=== PATIENT | male | born 1950 | race Caucasian/White ===

== ENCOUNTER 2020-07-27 14:28 | Inpatient (IN) | payer MEDICARE, OTHER ==
[~2020-07-27] VITALS: Ht 165.1 cm; Wt 110.5 kg
[~2020-07-27 14:28] MED LIST: ACETAMINOPHEN 325 MG TABLET PO PRN; ALPRAZolam 0.25 MG (XANAX) TAB PO PRN; AMLO-250 PO; ASPI-1238 PO; ATOR80TA76 PO; BISACODYL 10 MG SUPP (DULCOLAX) PR PRN; CALCIUM CARBONATE 500 MG (TUMS) TAB.CHEW PO PRN; CYCL5TAB PO; DOCU100C37 PO; DOCUSATE SODIUM 100 MG (COLACE) CAP PO PRN; DULA0.75 SQ; FLEET ENEMA ADULT 1 EA BTL PR PRN; GBPN600T PO; HYDR25TA4 PO; LACTULOSE SYRUP 10GM/15ML (ENULOSE) 30ML UDC PO PRN; LOPERAMIDE 2 MG (IMODIUM) TABLET PO PRN; LOSA100T57 PO; MELATONIN 3 MG TABLET PO PRN; METF-399 PO; ONDANSETRON 4 MG (ZOFRAN) ORAL DISSOLVE TAB PO PRN; OXYC1TAB11 PO; diphenhydrAMINE 25 MG TAB (BENADRYL) PO PRN; guaiFENesin/CODEINE (ROBITUSSIN AC) 10ML UDC PO PRN
[2020-07-27 14:30] VITALS: BP 154/73
--- NOTE | 2020-07-27 15:03 | Progress Note ---
BRAEDEN COSTA MED STUDENT 07/27/20 1503: Progress Note Pt is a 70y/o M PMH: Spinal stenosis with neurogenic claudication, T2DM, HTN, HLD, normocytic anemia who presents to [facility] in-pt rehab from [place] s/p decompressive lumbar laminectomy L2-L3 with pedicile screw, deloris fixation, and posterior lateral fusion, and TLIF w/ extension of previous L3-L5 hardware performed by Dr. Cavanaugh. Pts PCP is Dr. Ian Nava. Pts goal of rehab is to get back home with Home Health and get back to mowing, cooking and doing laundry. Apon visit this afternoon, pt fully alert and oriented. Pt states his progress at [place] after the surgery was uneventful. His main concern currently is his LLE weakness and loss of sensation. Pt states he required anesthesia for an MRI 2 weeks ago and the symptoms started after this - this is his main concern because it impeads his progress with phsical therapy. Pt states the sxs have gotten progressively better since two weeks ago. Apon examination today, pt had b/l symmetric L4-S1 dermatome sensation to light touch. Pt states back is sore, but that he tolerates it well with pain medication and it continues to improve. ROS: pt neg for Chest pain, SOB, cough, night sweats, dizziness, N/Ving, abd pain, calf pain. ALLERGIES: PCN SH: neg hx of ETOH, tobacco use, or rec drug use. FH: mother: passed from lung ca (heavy smoker), CVD. Father: CVD disease. PSH: prior cervical and lumbrical spinal surgeries. A&P s/p Lumbar laminectomy L2-L3 and TLIF w/ extension of previous L3-L5 hardware LLE weakness Spondylosis Performed due to Spinal stenosis with neurogenic claudication. Source of pts debidity. PT/OT IS Speech therapy Consult SS. GOAL: Return to baseline function before sx. Discharge home with Home Health. Normocytic anemia Hx of hypokalemia during [place] post-op stay. Per pt: known chronic hx of anemia. 07/26 labs from [place]: H&H is 8.7/.6 Likely multifactorial: to surgical blood loss and anemia of chronic disease. Iron studies ordered during pts post-op [place] stay (results?) CBC and CMP NIDDM HTN HLP Obesity Sleep apnea Neuropathy SSI Home Cpap. Home Meds s/p COVID-19 PNA Hospitalized . Received convalescent plasma and inpt stay for several days. Pt reports no residual sxs. Hx of lumbar radiculopathy Polyp on vocal cord Hx of cervical spine sx DVT prophylaxis SCD and ambulation. JENNIFER RAMOS DO 07/27/202007: Supervisory-Addendum Brief Verification & Attestation Participated in pt care: history, MDM, physical Personally performed: exam, history, MDM, supervision of care Care discussed with: Medical Student Procedures: n/a Results interpretation: Verified all documentation Verification and Attestation of Medical Student E/M Service A medical student performed and documented this service in my presence. I reviewed and verified all information documented by the medical student and made modifications to such information, when appropriate. I personally performed the physical exam and medical decision making. Jennifer Ramos, Jul 27, 2020,20:08 BRAEDEN COSTA MED STUDENT Jul 27, 2020 15:03 JENNIFER RAMOS DO Jul 27, 2020 20:08
--- NOTE | 2020-07-27 15:13 | PM&R Post Admission Assessment ---
PM&R HP Date of Visit: Jul 27, 2020 Time of Visit: 17:00 History of Present Illness CC: Lumbar radiculopathy with severe debility following surgery HPI: This is a 70yoWM clinic patient of Dr Nava who presents following a successful urgent surgery of the lumbar spine due to radiculopathy. Patient had no issues while at [place]. He does use biPAP with 2L/min O2 at night. BM + and urinating well. Patient reports left hip pain and K-pad will be ordered. Home meds were restarted along with pain meds. 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 BRAEDEN COSTA MED STUDENT 07/27/20 1503: H&P: Pt is a 70y/o M PMH: Spinal stenosis with neurogenic claudication, T2DM, HTN, HL D, normocytic anemia who presents to [facility] in-pt rehab from [place] s/p decompressive lumbar laminectomy L2-L3 with pedicile screw, deloris fixation, and posterior lateral fusion, and TLIF w/ extension of previous L3-L5 hardware performed by Dr. Cavanaugh. Pts PCP is Dr. Ian Nava. Pts goal of rehab is to get back home with Home Health and get back to mowing, cooking and doing laundry. Upon visit this afternoon, pt fully alert and oriented. Pt states his progress at [place] after the surgery was uneventful. His main concern currently is his LLE weakness and loss of sensation. Pt states he required anesthesia for an MRI 2 weeks ago and the symptoms started after this - this is his main concern because it impeads his progress with phsical therapy. Pt states the sxs have gotten progressively better since two weeks ago. Upon examination today, pt had b/l symmetric L4-S1 dermatome sensation to light touch. Pt states back is sore, but that he tolerates it well with pain medication and it continues to improve. ROS: pt neg for Chest pain, SOB, cough, night sweats, dizziness, N/Ving, abd pain, calf pain. ALLERGIES: PCN SH: neg hx of ETOH, tobacco use, or rec drug use. FH: mother: passed from lung ca (heavy smoker), CVD. Father: CVD disease. PSH: prior cervical and lumbrical spinal surgeries. A&P s/p Lumbar laminectomy L2-L3 and TLIF w/ extension of previous L3-L5 hardware LLE weakness Spondylosis Performed due to Spinal stenosis with neurogenic claudication. Source of pts debidity. PT/OT IS Speech therapy Consult SS. GOAL: Return to baseline function before sx. Discharge home with Home Health. Normocytic anemia Hx of hypokalemia during [place] post-op stay. Per pt: known chronic hx of anemia. 07/26 labs from [place]: H&H is 8.7/.6 Likely multifactorial: to surgical blood loss and anemia of chronic disease. Iron studies ordered during pts post-op [place] stay (results?) CBC and CMP NIDDM HTN HLP Obesity Sleep apnea Neuropathy SSI Home Cpap. Home Meds s/p COVID-19 PNA Hospitalized . Received convalescent plasma and inpt stay for several days. Pt reports no residual sxs. Hx of lumbar radiculopathy Polyp on vocal cord Hx of cervical spine sx DVT prophylaxis SCD and ambulation. Past Xcpriqe-Tywyte-Rydwiv Hx Past Med/Social Hx: Reviewed Nursing Past Med/Soc Hx, Reviewed and Corrections made Patient Social History Marrital Status: Employed/Student: retired Alcohol Use: Denies Use Smoking Status: Never a Smoker Recent Foreign Travel: No Contact w/other who traveled: No Past Medical History Surgeries: Orthopedic Respiratory: Sleep Apnea Currently Using CPAP: No Currently Using BIPAP: Yes Cardiac: High Cholesterol, Hypertension Neurological: Neuropathy Genitourinary: Benign Prostatic Hyperpl Musculoskeletal: Arthritis, Chronic Back Pain Endocrine: Diabetes, Non-Insulin dep PM&R Allergy/Meds/Data Review Allergies Coded Allergies: Penicillins (Verified Allergy, Unknown, Rash, 07/27/20) Home Medications Scheduled Amlodipine Besylate (Amlodipine Besylate), 5 MG PO DAILY, (Reported) Aspirin (Aspirin EC), 81 MG PO DAILY, (Reported) Atorvastatin Calcium (Atorvastatin Calcium), 80 MG PO HS, (Reported) Docusate Sodium (Docusate Sodium), 100 MG PO BID, (Reported) Dulaglutide (Trulicity), 0.75 MG SQ MON, (Reported) Gabapentin (Gabapentin), 600 MG PO TID, (Reported) Hydrochlorothiazide (Hydrochlorothiazide), 25 MG PO DAILY, (Reported) Losartan Potassium (Losartan Potassium), 100 MG PO DAILY, (Reported) Metformin HCl (Metformin HCl), 1,000 MG PO BID, (Reported) Scheduled PRN Cyclobenzaprine HCl (Cyclobenzaprine HCl), 5-10 MG PO TID PRN for MUSCLE SPASMS, (Reported) Oxycodone HCl/Acetaminophen (Oxycodone-Acetaminophen 5-325), 1-2 EACH PO Q6H PRN for PAIN-SEVERE, (Reported) Current Medications Current Medications Reviewed Review of Systems Constitutional: see HPI, malaise, weakness EENTM: no symptoms reported Respiratory: no symptoms reported Cardiovascular: no symptoms reported Gastrointestinal: no symptoms reported Genitourinary: no symptoms reported Musculoskeletal: back pain, joint pain Skin: no symptoms reported Psychiatric/Neurological: Weakness All Other Systems Reviewed Negative Unless Noted: Yes Physical Exam Physical Exam Vital Signs Capillary Refill : Height, Weight, BMI Height: '" Weight: lbs. oz. kg; 41.85 BMI Method: General Appearance: No Apparent Distress, WD/WN, Chronically ill, Obese Eyes: Bilateral Eye Normal Inspection, Bilateral Eye PERRL HEENT: PERRL/EOMI, Normal ENT Inspection, Pharynx Normal Neck: Full Range of Motion, Normal Inspection, Non Tender, Supple, Carotid Bruit Respiratory: Chest Non Tender, Lungs Clear, Normal Breath Sounds, No Accessory Muscle Use, No Respiratory Distress Cardiovascular: Regular Rate, Rhythm, No Edema, No Gallop, No JVD, No Murmur, Normal Peripheral Pulses Gastrointestinal: Normal Bowel Sounds, No Organomegaly, No Pulsatile Mass, Non Tender, Soft Back: Decreased Range of Motion, Muscle Spasm, Vertebral Tenderness Extremity: Normal Capillary Refill, Normal Inspection, Normal Range of Motion, Non Tender, No Calf Tenderness, No Pedal Edema Neurologic/Psychiatric: Alert, Oriented x3, No Motor/Sensory Deficits, 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 Norm as Tested, Abnormal Gait, Depressed Affect, Motor Weakness (lower extremities) Skin: Normal Color, Warm/Dry Lymphatic: No Adenopathy PM&R Medical Assessment & Plan REHAB/MEDICAL ASSESSMENT AND PLAN: REHAB IMPAIRMENT GROUP: Lumbar radiculopathy ETIOLOGIC DIAGNOSIS: Lumbar radiculopathy The comorbidities that impact the patients function and/or functional outcome by: severe disability from lumbar spine dysfunction, fall risk, increased BMI REHAB PLAN: The patient is being admitted to our comprehensive inpatient rehabilitation facility and can tolerate the intensity of service consisting of at least: 180 minutes of therapy a day, 5 out of 7 days a week Rehab treatment will consist of: PT OT will focus on regaining ambulation and increased independence in ADL's in order to return home The patient/family has a good understanding of our discharge process and will benefit from an interdisciplinary inpatient rehabilitation program. The patient has potential to make improvement and is in need of at least two of the following multidisciplinary therapies including but not limited to physical, occupational, speech, and prosthetics and orthotics. Additionally the patient will need services from respiratory, nutritional services, wound care, psychology, etc. (Customize this to each patient). Given the patients complex condition and risk of further medical complications, rehabilitation services cannot be safely or effectively provided at a lower level of care such as a senior care facility. BARRIERS TO DISCHARGE: Severe lumbar spine disability ESTIMATED LOS: 10 days DISPOSITION: Home RELEVANT CHANGES SINCE PREADMISSION SCREENING: I have compared the patients medical and functional status at the time of the preadmission screening and there are: no changes PROGNOSIS: Good REHABILITATION GOALS: 1. PT OT will focus on regaining ambulation and increased independence in ADL's in order to return home All the above goals were reviewed with the patient and he/she is in agreement. By signing this document, I acknowledge that I have personally performed a full physical examination on this patient within 24 hours of admission to this inpatient rehabilitation facility and have determined the patient to be able to tolerate the above course of treatment at an intensive level for a reasonable period of time. I will be completing a detailed individualized Plan of Care for this patient by day #4 of the patients stay based upon the Preadmission Screen, the Post-Admission Evaluation, and the therapy evaluations. Admission Dx/Comorbidities: (1) Lumbar radiculopathy ICD Codes: M54.16 - Radiculopathy, lumbar region (2) MICHAELA treated with BiPAP ICD Codes: G47.33 - Obstructive sleep apnea (adult) (pediatric) (3) Nocturnal hypoxemia ICD Codes: G47.34 - Idiopathic sleep related nonobstructive alveolar hypoventilation (4) Diabetes ICD Codes: E11.9 - Type 2 diabetes mellitus without complications (5) Hypertension ICD Codes: I10 - Essential (primary) hypertension (6) Hyperlipemia ICD Codes: E78.5 - Hyperlipidemia, unspecified (7) Obesity, morbid, BMI 40.0-49.9 ICD Codes: E66.01 - Morbid (severe) obesity due to excess calories Assessment/Plan Assessment and Plan Assess & Plan/Chief Complaint Assessment: s/p Lumbar laminectomy L2-L3 and TLIF w/ extension of previous L3-L5 hardware LLE weakness Spondylosis Performed due to Spinal stenosis with neurogenic claudication. Source of pts debidity. PT/OT IS Speech therapy Consult SS. GOAL: Return to baseline function before sx. Discharge home with Home Health. Normocytic anemia Hx of hypokalemia during [place] post-op stay. Per pt: known chronic hx of anemia. 07/26 labs from [place]: H&H is 8.7/.6 Likely multifactorial: to surgical blood loss and anemia of chronic disease. Iron studies ordered during pts post-op [place] stay (results?) CBC and CMP NIDDM HTN HLP Obesity Sleep apnea Neuropathy SSI Home Cpap. Home Meds s/p COVID-19 PNA Hospitalized . Received convalescent plasma and inpt stay for several days. Pt reports no residual sxs. Hx of lumbar radiculopathy Polyp on vocal cord Hx of cervical spine sx DVT prophylaxis SCD and ambulation. Plan: IRF protocol Pain control BM regimen PT OT KAMERON RAMOS DO Jul 27, 2020 15:13
[2020-07-27] MEDS ORDERED: NON-FORMULARY MEDICATION 1 EA EA (Dulaglutide (Trulicity) 0.75 MG) SQ SCH (15:15)
--- NOTE | 2020-07-27 15:35 | Occupational Therapy Eval ---
OT Evaluation-General/PLF Medical Diagnosis Admission Date Jul 27, 2020 at 14:28 Medical Diagnosis: Extensive back surgery, see below Onset Date: Jul 21, 2020 Therapy Diagnosis Therapy Diagnosis: Weakness, Decreased ADL skills Precautions Precautions/Isolations: Fall Prevention, Standard Precautions Weight Bear Status Weight Bearing Restriction: Weight Bearing/Tolerated TLSO when up Referral Physician: Dr. Pinedo Referral Reason: Activity Tolerance, Self Care, Evaluation/Treatment, Strengthening/ROM Medical History Pertinent Medical History: DM, HTN Additional Medical History HLD, Multiple back surgeries. Current History Pt. fell in April. Injured back. Pt. states that his surgery was held up because he was hospitalized for COVID after that. He went in for an MRI in May, and states that because of pain, he had to be sedated. When he woke up, he couldn't move his left LE. Pt. underwent surgery 2 days later, (07-21-20.) Reviewed History: Yes Social History Home: Single Level Current Living Status: Spouse ADL-Prior Level of Function SCALE: Activities may be completed with or without assistive devices. 1-Vikcysvzxe-mnmtrub completes the activity by him/herself with no assistance from a helper. 5-Set-up or Clean-up Assistance-helper sets up or cleans up; patient completes activity. [place] assists only prior to or following the activity. 4-Supervision or Touching Assistance-helper provides verbal cues and/or touching/steadying and/or contact guard assistance as patient completes activity. Assistance may be provided throughout the activity or intermittently. 3-Partial/Moderate Assistance-helper does LESS THAN HALF the effort. [place] lifts, holds or supports trunk or limbs, but provides less than half the effort. 2-Substantial/Maximal Assistance-helper does MORE THAN HALF the effort. [place] lifts or holds trunk or limbs and provides more than half the effort. 6-Dgtxszrno-ymeifa does ALL the effort. Patient does none of the effort to complete the activity. Or, the assistance of 2 or more helpers is required for the patient to complete the activity. If activity was not attempted, code reason: 7-Patient Refused. 9-Not Applicable-not attempted and the patient did not perform the activity before the current illness, exacerbation or injury. 10-Not Attempted due to Environmental Limitations-(lack of equipment, weather restraints, etc.). 88-Not Attempted due to Medical Conditions or Safety Concerns. ADL PLOF Comments Pt. was independent with daily tasks prior to falling in April. He used a walker after his back injury in April. Self Care: Independent Functional Cognition: Independent DME/Equipment Comments Pt. has walker and cane. 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 reports 5/10 pain in back. Pt. has had pain medication. Nursing checking for more. Mental Status/Objective Patient Orientation: Person, Place, Time, Situation Pt. very [place] Current Glasses/Contacts: Yes Hand Dominance: Right Upper Extremity ROM WFL ADL-Treatment Eating (QC): 6 (per pt) Oral Hygiene (QC): 5 (per pt) Shower/Bathe Self (QC): 88 Upper Body Dressing (QC): 3 (Per clinical judgement) Lower Body Dressing (QC): 2 (Per clinical judgement) On/Off Footwear (QC): 2 (Per clinical judgement) Toileting Hygiene (QC): 7 Other Treatments Pt. seen with PT for cotreat due to poor mobility, pain, and low endurance. Pt. requires max x 2 for squat pivot to bed. Pt. reports that he has diminished sensation in left LE, and no motor control. Max x 2 for sit-supine, and max as sist for supine-sit. Pt. up with PT at end of evaluation. Education OT Patient Education: Correct positioning, Modified ADL techniques, Progress toward Goal/Update tx plan, Purpose of tx/functional activities, Reviewed pr ecautions, Rehab process, Transfer techniques Teaching Recipient: Patient, Family Teaching Methods: Demonstration, Discussion Response to Teaching: Verbalize Understanding, Return Demonstration OT Short Term Goals Short Term Goals Time Frame: August 10, 2020 Eatin Oral hygiene: 6 Toileting hygiene: 3 Shower/bathe self: 3 Upper body dressin Lower body dressin Putting on/taking off footwear: 3 OT Prison Goals Prison Goals Time Frame: August 24, 2020 Eating (QC): 6 Oral Hygiene (QC): 6 Toileting Hygiene (QC): 6 Shower/Bathe Self (QC): 4 Upper Body Dressing (QC): 6 Lower Body Dressing (QC): 6 On/Off Footwear (QC): 6 Additional Goals: 1-Demonstrate ADL Tasks, 2-Verbalize Understanding, 3- ImproveStrength/Jai 1=Demonstrate adherence to instructed precautions during ADL tasks. 2=Patient will verbalize/demonstrate understanding of assistive devices/modifications for ADL. 3=Patient will improve strength/tolerance for activity to enable patient to perform ADL's. OT Education/Plan Problem List/Assessment Assessment: Decreased Activ Tolerance, Dependent Transfers, Impaired Bed Mobility, Impaired Funct Balance, Impaired I ADL's, Impaired Self-Care Skills Discharge Recommendations Plan/Recommendations: Continue POC Therapy Discharge Recommendati: Post Acute OT Comment To be determined Treatment Plan/Plan of Care Treatment,Training & Education: Yes Patient would benefit from OT for education, treatment and training to promote independence in ADL's, mobility, safety and/or upper extremity function for ADL's. Plan of Care: ADL Retraining, Functional Mobility, Group Exercise/Act as Ind, UE Funct Exercise/Act Treatment Duration: August 24, 2020 Frequency: At least 5 of 7 days/Wk (IRF) Estimated Hrs Per Day: 1.5 hours per day Agreement: Yes Rehab Potential: Good Time/GCodes Start Time: 14:30 Stop Time: 15:10 Total Time Billed (hr/min): 30 Billed Treatment Time 5029-2771 1, EVH x 10minutes [id number] PT eval, no charge [id number] FA x 20minutes- Co treat with PT QUEENIE SALAZAR OT Jul 27, 2020 15:35
--- NOTE | 2020-07-27 16:11 | Physical Therapy Evaluation ---
PT Evaluation-General Medical Diagnosis Admission Date Jul 27, 2020 at 14:28 Medical Diagnosis: Extensive back surgery, see below Onset Date: Jul 21, 2020 Therapy Diagnosis Therapy Diagnosis: debility/weakness Precautions Precautions/Isolations: Fall Prevention, Standard Precautions Referral Physician: Dr. 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 7-Kdvqhivigd-qqnaixr completes the activity by him/herself with no assistance fr om a helper. 5-Set-up or Clean-up Assistance-helper sets up or cleans up; patient completes activity. [place] assists only prior to or following the activity. 4-Supervision or Touching Assistance-helper provides verbal cues and/or touching/steadying and/or contact guard assistance as patient completes activity. Assistance may be provided throughout the activity or intermittently. 3-Partial/Moderate Assistance-helper does LESS THAN HALF the effort. [place] lifts, holds or supports trunk or limbs, but provides less than half the effort. 2-Substantial/Maximal Assistance-helper does MORE THAN HALF the effort. [place] lifts or holds trunk or limbs and provides more than half the effort. 8-Gybncoerp-iugfsj does ALL the effort. Patient does none of the effort to complete the activity. Or, the assistance of 2 or more helpers is required for the patient to complete the activity. If activity was not attempted, code reason: 7-Patient Refused. 9-Not Applicable-not attempted and the patient did not perform the activity before the current illness, exacerbation or injury. 10-Not Attempted due to Environmental Limitations-(lack of equipment, weather restraints, etc.). 88-Not Attempted due to Medical Conditions or Safety Concerns. Bed Mobility: 6 Transfers (B,C,W/C): 6 Gait: 6 Stairs: 6 Indoor Mobility (Ambulation): Independent Stairs: Independent Prior Devices Use: None Prior Device Use: occassionally used cane when outdoors PT Evaluation-Current Subjective Patient gave unrated pain report in back pre tx, consented to therapy. Pt/Family Goals Return home with PLOF Objective Patient Orientation: Person, Place, Time, Normal For Age ROM/Strength ROM Lower Extremities WNL Strength Lower Extremities R (hip fleion 4-/5, knee flexion 4+/5, knee extension 4/5, DF 4+/5) L (hip flexion 3+/5, knee flexion/extension 3+/5, DF 3+/5) Integumentary/Posture Integumentary see nursing report Bowel Incontinence: No Bladder Incontinence: No Posture mod kyphosis Sensory Vision: Wears Glasses Hearing: Hearing Aid/Aides Hand Dominance: Right Sensation Right Lower Extremit: Impaired Sensation Left Lower Extremity: Impaired Sensation Lower Extremities nerve impingement, neuropathy Transfers Roll Left & Right (QC): 6 Sit to Lying (QC): 3 (mod) Lying to Sitting/Side of Bed(Q: 3 (mod) Sit to Stand (QC): 2 (in parallel bars) Chair/Jri-uv-Lkkhs Xfer(QC): 1 Toilet Transfer (QC): 1 Car Transfer (QC): 88 Dependent chair to bed transfer from w/c to bed, with 2 person. Patient later utilized sliding board from bed to w/c and w/c to bed with min assist. Gait Does the Patient Walk?: No and Walking Goal IS indicated Walk 10 feet (QC): 88 Walk 50 ft with 2 Turns(QC): 88 Walk 150 ft (QC): 88 Walking 10ft/uneven surface-QC: 88 Wheelchair Training Wheel 50 ft with 2 turns (QC): 6 Wheel 150 ft (QC): 6 Type of Wheelchair: Manual Patient is slow with w/c navigation, has trouble staying in straight line. Stairs 1 Step (curb) (QC): 88 4 Steps (QC): 88 12 Steps (QC): 88 Balance Sitting Static: Good Sitting Dynamic: Good Standing Static: Fair Standing Dynamic: Fair Picking up an Object (QC): 88 Treatment Co-treated with OT secondary to patient level of assistance required, overall impairments, and decreased functional mobility. OT/PT focused on sit to stands in the parallel bars, to regain functional mobility and assist with weight- bearing through L LE secondary to weakness/decreased sensation from likely nerve impingement post op. Patient was able to complete 2 successful sit <-> stands and was able to stay standing for 2 minutes before needing a break. Patient primarily weight-beared through R LE, stating he "couldn't tell if he was putting weight through L LE or not." Assessment/Needs Patient will benefit from functional endurance, strengthening, and gait/transfer training to promote safe return home with . Rehab Potential: Fair PT Short Term Goals Short Term Goals Time Frame: August 03, 2020 Roll Left & Right: 6 Sit to lyin (CGA) Lying to sitting on side of be: 4 (CGA) Chair/qrx-ru-rlhwe transfer: 4 (CGA) Walk 10 feet: 3 (mod) PT Skilled Nursing Goals Emergency Management Specialist Goals PT Skilled Nursing Goals Time Frame: August 17, 2020 Roll Left & Right (QC): 6 Sit to Lying (QC): 4 (SBA) Lying-Sitting on Side/Bed(QC): 4 (SBA) Sit to Stand (QC): 3 (min) Chair/Lxx-eb-Qaycr Xfer(QC): 3 (min) Toilet Transfer (QC): 3 (min) Car Transfer (QC): 3 (min) Does the Patient Walk: No and Walking Goal IS indicated Walk 10 feet (QC): 3 (min) Walk 50ft with 2 Turns (QC): 3 (min) Walking 10ft on Uneven Surface: 3 (min) 1 Step (curb) (QC): 3 (min) 12 Steps (QC): 9 Picking up an Object (QC): 9 Does the Pt use WC or Scooter?: Yes Wheel 50 feet with 2 turns (QC: 6 Type: Manual Wheel 150 feet: 6 Type: Manual PT Plan Problem List Problem List: Activity Tolerance, Functional Strength, Safety, Balance, Gait, Transfer, Bed Mobility, ROM Treatment/Plan Treatment Plan: Continue Plan of Care Treatment Plan: Bed Mobility, Education, Functional Activity Jai, Functional Strength, Gait, Safety, Therapeutic Exercise, Transfers Treatment Duration: August 17, 2020 Frequency: At least 5 of 7 days/Wk (IRF) Estimated Hrs Per Day: 1.5 hours per day Patient and/or Family Agrees t: Yes Safety Risks/Education Patient Education: Transfer Techniques, Correct Positioning, W/C Management, Reviewed Don/Doff Brace, Safety Issues Teaching Recipient: Patient Teaching Methods: Demonstration, Discussion Response to Teaching: Verbalize Understanding, Return Demonstration Discharge Recommendations Plan Incorporate LE functional strengthening, transfer and gait training, education, and endurance training to ensure safe return home with spouse. Therapy Discharge Recommendati: Home & Family, Post Acute PT Time/GCodes Time In: 1440 Time Out: 1610 Total Billed Treatment Time: 90 Total Billed Treatment 1 visit EVM 10' FA 80' [id number] PT eval (10min), [id number] co-treat with OT (80min) FABIAN BOBBY PT Jul 27, 2020 16:11
--- NOTE | 2020-07-27 16:11 | Occupational Ther Daily Note ---
OT Current Status-Daily Note Subjective This OT took over OT Tx, pt agreeable to continued OT/PT cotreat. Mental Status/Objective Patient Orientation: Person, Place, Situation ADL-Treatment Therapy Code Descriptions/Definitions Functional Calvin Measure: 0=Not Assessed/NA 4=Minimal Assistance 1=Total Assistance 5=Supervision or Setup 2=Maximal Assistance 6=Modified Calvin 3=Moderate Assistance 7=Complete IndependenceSCALE: Activities may be completed with or without assistive devices. 5-Ajklnqysej-koerhuq completes the activity by him/herself with no assistance from a helper. 5-Set-up or Clean-up Assistance-helper sets up or cleans up; patient completes activity. [place] assists only prior to or following the activity. 4-Supervision or Touching Assistance-helper provides verbal cues and/or touching/steadying and/or contact guard assistance as patient completes activity. Assistance may be provided throughout the activity or intermittently. 3-Partial/Moderate Assistance-helper does LESS THAN HALF the effort. [place] lifts, holds or supports trunk or limbs, but provides less than half the effort. 2-Substantial/Maximal Assistance-helper does MORE THAN HALF the effort. [place] lifts or holds trunk or limbs and provides more than half the effort. 3-Dabydmzpl-mzsnln does ALL the effort. Patient does none of the effort to complete the activity. Or, the assistance of 2 or more helpers is required for the patient to complete the activity. If activity was not attempted, code reason: 7-Patient Refused. 9-Not Applicable-not attempted and the patient did not perform the activity before the current illness, exacerbation or injury. 10-Not Attempted due to Environmental Limitations-(lack of equipment, weather restraints, etc.). 88-Not Attempted due to Medical Conditions or Safety Concerns. On/Off Footwear: 2 (Max A doffing footwear) Other Treatment OT/PT cotreat due to skill of 2 clinicians required which a psychosocial rehabilitation counselor could not perform in order to coordinate UE/LEs with tasks, decrease fall risk, and due to pt's limitations in UE strength, endurance, mobility and transfers. OT focused on UE placement, cues for sequencing and safety and ADLs, PT focused on LE p lacement, gross overall movement, and transfers/mobility. Pt transferred EOB to w/c using SB transfer. Pt propelled w/c to therapy gym. Pt stood in parallel bars twice, attempted to stand a third time but pt unable to attain standing. Pt required rest break between each standing trial. Pt propelled w/c back to his room, SB transfer back to bed. Pt doffed footwear and back brace, then transferred supine. Cues given with each transfer for UE placement. Post tx, pt laying in bed, call light in reach and all needs met. Please refer to PT note for scores associated with transfers. Education OT Patient Education: Correct positioning, Modified ADL techniques, Progress toward Goal/Update tx plan, Purpose of tx/functional activities, Safety issues, Transfer techniques Teaching Recipient: Patient Teaching Methods: Discussion Response to Teaching: Verbalize Understanding OT Short Term Goals Short Term Goals Time Frame: August 10, 2020 Eatin Oral hygiene: 6 Toileting hygiene: 3 Shower/bathe self: 3 Upper body dressin Lower body dressin Putting on/taking off footwear: 3 OT Medical Insurance Coding Specialist Goals Medical Insurance Coding Specialist Goals Time Frame: August 24, 2020 Eating (QC): 6 Oral Hygiene (QC): 6 Toileting Hygiene (QC): 6 Shower/Bathe Self (QC): 4 Upper Body Dressing (QC): 6 Lower Body Dressing (QC): 6 On/Off Footwear (QC): 6 Additional Goals: 1-Demonstrate ADL Tasks, 2-Verbalize Understanding, 3-ImproveStrength/Jai 1=Demonstrate adherence to instructed precautions during ADL tasks. 2=Patient will verbalize/demonstrate understanding of assistive devices/modifications for ADL. 3=Patient will improve strength/tolerance for activity to enable patient to perform ADL's. OT Education/Plan Problem List/Assessment Assessment: Decreased Activ Tolerance, Decreased UE Strength, Impaired Funct Balance, Impaired I ADL's, Impaired Self-Care Skills Discharge Recommendations Plan/Recommendations: Continue POC Treatment Plan/Plan of Care Patient would benefit from OT for education, treatment and training to promote independence in ADL's, mobility, safety and/or upper extremity function for ADL's. Plan of Care: ADL Retraining, Functional Mobility, Group Exercise/Act as Ind, UE Funct Exercise/Act Treatment Duration: August 24, 2020 Frequency: At least 5 of 7 days/Wk (IRF) Estimated Hrs Per Day: 1.5 hours per day Agreement: Yes Rehab Potential: Good Time/GCodes Start Time: 15:10 Stop Time: 16:10 Total Time Billed (hr/min): 60 Billed Treatment Time cotreat x60' 1, FA 4 LATONYA MINOR OT Jul 27, 2020 16:11
[2020-07-27] MEDS: oxyCODONE/APAP 5/325MG (PERCOCET 5) TABLET PO PRN (16:33)
[2020-07-27] MEDS: DOCUSATE SODIUM 100 MG (COLACE) CAP PO SCH ×2 (16:39→21:38)
[2020-07-27] MEDS: SENNA W/DOCUSATE (SENOKOT S) TABLET PO SCH ×2 (16:39→21:46)
[2020-07-27] MEDS: polyethylene glycoL POWDER 17 GM (MIRALAX) PACK PO SCH ×2 (16:39→21:46)
[2020-07-27] MEDS ORDERED: PATIENT MAY USE OWN MED,SINGLE MED PO SCH (17:45)
[2020-07-27 20:02] VITALS: BP 143/66
[2020-07-27] MEDS ORDERED: DOCUSATE SODIUM 100 MG (COLACE) CAP PO SCH (21:00)
[2020-07-27] MEDS: VENELEX OINTMENT TOP SCH ×2 (21:38→21:43)
[2020-07-27] MEDS: metFORMIN 500 MG (GLUCOPHAGE) TAB PO SCH (21:44)
[2020-07-27] MEDS: GABAPENTIN 600 MG (NEURONTIN) TAB PO SCH (21:44)
[2020-07-27] MEDS: CYCLOBENZAPRINE 10 MG (FLEXERIL) TAB PO PRN (21:50)
[2020-07-28 05:52] LABS: BASOPHILS % (AUTO) 0 % (0-10); EOSINOPHILS # (AUTO) 0.2 10^3/uL (0.0-0.3); EOSINOPHILS % (AUTO) 3 % (0-10); HEMATOCRIT 30 % (40-54); HEMOGLOBIN 9.4 g/dL (13.3-17.7); LYMPHOCYTES # (AUTO) 1.4 10^3/uL (1.0-4.0); LYMPHOCYTES % (AUTO) 20 % (12-44); MEAN CORPUSCULAR HEMOGLOBIN 30 pg (25-34); MEAN CORPUSCULAR HGB CONC 32 g/dL (32-36); MEAN CORPUSCULAR VOLUME 93 fL (80-99); MEAN PLATELET VOLUME 10.4 fL (9.0-12.2); MONOCYTES # (AUTO) 0.6 10^3/uL (0.0-1.0); MONOCYTES % (AUTO) 9 % (0-12); NEUTROPHILS # (AUTO) 4.6 10^3/uL (1.8-7.8); NEUTROPHILS % (AUTO) 66 % (42-75); PLATELET COUNT 347 10^3/uL (130-400)
[2020-07-28 06:12] LABS: ALANINE AMINOTRANSFERASE 50 U/L (0-55); ALBUMIN 3.2 GM/DL (3.2-4.5); ALKALINE PHOSPHATASE 100 U/L (40-136); BILIRUBIN,TOTAL 0.4 MG/DL (0.1-1.0); BUN/CREATININE RATIO 15; CALCIUM 8.9 MG/DL (8.5-10.1); CARBON DIOXIDE 28 MMOL/L (21-32); CHLORIDE 104 MMOL/L (98-107); CREATININE SERUM 0.84 MG/DL (0.60-1.30); GFR ESTIMATED > 60; GLUCOSE 141 MG/DL (70-105); POTASSIUM 3.7 MMOL/L (3.6-5.0); SODIUM 141 MMOL/L (135-145); TOTAL PROTEIN 6.2 GM/DL (6.4-8.2)
[2020-07-28 08:00] VITALS: BP 147/63
--- NOTE | 2020-07-28 08:30 | ST Cognitive Linguistic Eval ---
Speech Evaluation-General Medical Diagnosis Extensive back surgery, see below Onset Date: Jul 21, 2020 Therapy Diagnosis Therapy Diagnosis: Cognitive communication Precautions Precautions: Fall Precautions/Isolations: Fall Prevention, Standard Precautions Referral Referring Physician: Dr. Pinedo Medical History Pertinent Medical History: DM, HTN, Neuropathy Current History DM, HTN, Neuropathy Reviewed History: Yes Social History Current Living Status: Spouse Speech PLF-Current Status Prior Level of Function Prior to back surgery, pt reports having been able to meet his ADLs independently. In April he fell on the ice and snow but could still walk well with a cane. Subjective Patient was alert and pleasant, though in some pain from PT services. Pt is hard of hearing but can follow directions when he has properly heard them. Patient was cooperative with the cognitive assessment. Language Eval: Auditory Comprehends Simple Yes/No Ques: Functional Indent/Objects Multiple [place]intero: Functional Ident/Pics in Multiple Quintero: Functional Follows 1-Step Commands: Functional Follows Complex Directions: Mild Follows General Conversations: Functional Language Eval: Verbal Language Completes Spontaneous Greeting: Functional Produces Auto, Serial Info: Functional Imitates Simple Words/Phrases: Functional Word Finding: Functional Requests Basic Needs: Functional States Basic Personal Info: Functional Expresses Complex Ideas: Functional Language Evaluation: Reading Comprehends Single Nouns: Functional Follows Simple Written Direct: Functional Comprehends Multiple Sentences: Functional Cognitive Patient Orientation Patient oriented x3 Objective Cognitive Domain Attention: WNL Memory: WNL Problem Solving: Functional Executive Functions: WNL Visuospatial Skills: WNL Composite Severity Rating: WNL Clock Drawing Severity Rating: WNL Objective Formal/Standardized Tests [facility] Mental Status Examination ([facility]) Results 27/30 Oral Motor/Speech Production Within normal limits. Impression Pt is a pleasant 70 y/o male admitted to the [facility] s/p back surgery. Pt reported being independent in his ADL's before his extensive back surgery. Pt agreed to ST evaluation. Pt was administered the SLUMS and scored a 27/30, indicating a cognitive status that is within normal limits. ST services are not needed at this time. Pt is hard of hearing but can follow complex directions when he can hear them. Speech Patient Assess Expression of Ideas/Wants: Expression (4) Understanding Verbal Content: Understands (4) Brief Interview-Mental Status: Yes Repetition of Three Words: Three (3) Temporal Orientation: Year: Correct (3) Temporal Orientation: Month: Accurate within 5 days(2) Temporal Orientation: Day: Correct (1) Recall : Wear to say "Sock": Yes, no cue required (2) Recall : Color: Yes, no cue required (2) Recall : Bed: Yes, no cue required (2) Memory/Recall Ability: Current season, That he or she is in a hsp/hsp unit Speech-Plan Patient/Family Goals Patient/Family Goals: Pt plans to return home upon D/C from ARU where he hopes to be fully independent. Treatment Plan Speech Therapy Treatment Plan: Discontinue ST Treatment Duration: Jul 28, 2020 Frequency: 1 time per week Estimated Hrs Per Day: .5 hour per day Rehab Potential: Fair Barriers to Learning: Medical status and age. Pt/Family Agrees to Plan: Yes Safety Risks/Education Teaching Recipient: Patient Teaching Methods: Discussion Response to Teaching: Verbalize Understanding Education Topics Provided: Cognitive communication and safety awareness Time Speech Therapy Time In: 09:00 Speech Therapy Time Out: 09:30 Total Billed Time: 30 Billed Treatment Time 1, MYLA Deamrco Jul 28, 2020 08:30
--- NOTE | 2020-07-28 09:00 | Physical Therapy Daily Note ---
PT Daily Note-Current Subjective Patient supine in bed pre tx, consents to therapy. Rates pain 6/10 in lumbar. Appearance Patient seated upright in chair post tx, with call button and tray table within reach. Mental Status Patient Orientation: Person, Place, Time, Normal For Age TLSO Transfers SCALE: Activities may be completed with or without assistive devices. 4-Feusjheeaf-nxwbwwy completes the activity by him/herself with no assistance from a helper. 5-Set-up or Clean-up Assistance-helper sets up or cleans up; patient completes activity. [place] assists only prior to or following the activity. 4-Supervision or Touching Assistance-helper provides verbal cues and/or touching/steadying and/or contact guard assistance as patient completes activity. Assistance may be provided throughout the activity or intermittently. 3-Partial/Moderate Assistance-helper does LESS THAN HALF the effort. [place] lifts, holds or supports trunk or limbs, but provides less than half the effort. 2-Substantial/Maximal Assistance-helper does MORE THAN HALF the effort. [place] lifts or holds trunk or limbs and provides more than half the effort. 9-Uegsyarwc-clypvm does ALL the effort. Patient does none of the effort to complete the activity. Or, the assistance of 2 or more helpers is required for the patient to complete the activity. If activity was not attempted, code reason: 7-Patient Refused. 9-Not Applicable-not attempted and the patient did not perform the activity before the current illness, exacerbation or injury. 10-Not Attempted due to Environmental Limitations-(lack of equipment, weather restraints, etc.). 88-Not Attempted due to Medical Conditions or Safety Concerns. Roll Left & Right (QC): 6 Sit to Lying (QC): 5 Sit to Stand (QC): 2 Chair/Owy-qq-Olqdb Xfer(QC): 3 (Mod assist with sliding board) Patient demonstrated forward sliding on sliding board during 3rd completion, is able to use UE's and PT to slide hips backward onto w/c. Gait Training Does the Patient Walk?: Yes Distance: 4', 6' Gait Persons Needed: 2 Gait Assistive Device: Parallel Bars During first ambulation, patient demonstrated difficutly with forward propulsion with L LE. During second ambulation with another PT guarding R LE, patient demonstrated better weight shifting and forward propulsion with both R and L LE's, and was able to re-establish balance with weight shift forward. Wheelchair Training Does the Pt Use a Wheelchair?: Yes Wheel 50 ft with 2 turns (QC): 6 80' x2 Exercises Seated Therapy Exercises: Ankle pumps, Sit to stand (5 reps from elevated therapy table), Long arc quads, Hip flexion, Hip abd/add (RTB, blue ball) Seated Reps: 20 With seated hip flexion on L LE, patient LE dangles with little control. L gastroc has considerable muscle atrophy. Treatments LE strengthening, transfer, gait, endurance Assessment Current Status: Good Progress Patient is motivated to participate, was agreeable to walking although stated hesitancy previous day. Patient was able to demonstrate good improvement with step length during ambulation. PT Short Term Goals Short Term Goals Time Frame: August 03, 2020 Roll Left & Right: 6 Sit to lyin (CGA) Lying to sitting on side of be: 4 (CGA) Chair/hso-gr-ykqjz transfer: 4 (CGA) Walk 10 feet: 3 (mod) PT Fdc Goals Water Resource Consultant Goals PT Fdc Goals Time Frame: August 17, 2020 Roll Left & Right (QC): 6 Sit to Lying (QC): 4 (SBA) Lying-Sitting on Side/Bed(QC): 4 (SBA) Sit to Stand (QC): 3 (min) Chair/Urn-kd-Knvyn Xfer(QC): 3 (min) Toilet Transfer (QC): 3 (min) Car Transfer (QC): 3 (min) Does the Patient Walk: No and Walking Goal IS indicated Walk 10 feet (QC): 3 (min) Walk 50ft with 2 Turns (QC): 3 (min) Walk 150 ft (QC): 88 Walking 10ft on Uneven Surface: 3 (min) 1 Step (curb) (QC): 3 (min) 4 Steps (QC): 88 12 Steps (QC): 9 Picking up an Object (QC): 9 Does the Pt use WC or Scooter?: Yes Wheel 50 feet with 2 turns (QC: 6 Type: Manual Wheel 150 feet: 6 Type: Manual PT Plan Problem List Problem List: Activity Tolerance, Functional Strength, Safety, Balance, Gait, Transfer, Bed Mobility, ROM Treatment/Plan Treatment Plan: Continue Plan of Care Treatment Plan: Bed Mobility, Education, Functional Activity Jai, Functional Strength, Gait, Safety, Therapeutic Exercise, Transfers Treatment Duration: August 17, 2020 Frequency: At least 5 of 7 days/Wk (IRF) Estimated Hrs Per Day: 1.5 hours per day Patient and/or Family Agrees t: Yes Safety Risks/Education Patient Education: Gait Training, Transfer Techniques, Correct Positioning, W/C Management, Safety Issues Teaching Recipient: Patient Teaching Methods: Demonstration, Discussion Response to Teaching: Verbalize Understanding, Return Demonstration Time/GCodes Time In: 0800 Time Out: 0900 Total Billed Treatment Time: 60 Total Billed Treatment 1 visit: FA x3: 40' EX: 20' FABIAN BOBBY PT Jul 28, 2020 09:00
[2020-07-28] MEDS: DOCUSATE SODIUM 100 MG (COLACE) CAP PO SCH ×2 (09:09→20:31)
[2020-07-28] MEDS: GABAPENTIN 600 MG (NEURONTIN) TAB PO SCH ×3 (09:09→20:31)
[2020-07-28] MEDS: amLODIPine 5 MG (NORVASC) TAB PO SCH (09:09)
[2020-07-28] MEDS: ASPIRIN E.C. 81 MG (ECOTRIN) TAB PO SCH (09:10)
[2020-07-28] MEDS: oxyCODONE/APAP 5/325MG (PERCOCET 5) TABLET PO PRN ×2 (09:10→15:21)
[2020-07-28] MEDS: LOSARTAN 100 MG (COZAAR) TABLET PO SCH (09:10)
[2020-07-28] MEDS: SENNA W/DOCUSATE (SENOKOT S) TABLET PO SCH ×2 (09:10→20:31)
[2020-07-28] MEDS: polyethylene glycoL POWDER 17 GM (MIRALAX) PACK PO SCH ×2 (09:11→19:40)
[2020-07-28] MEDS: metFORMIN 500 MG (GLUCOPHAGE) TAB PO SCH ×2 (09:11→20:31)
--- NOTE | 2020-07-28 10:28 | Individualized Plan of Care ---
Individualized Plan of Care Rehab Nursing IPOC Order Admission Date Jul 27, 2020 at 14:28 Current Orders Orders Admission Order(Inpt,Obs,Sdc) (07/27/20 05:30) Vital Signs: Per Unit Policy ( 08,16,00 (07/27/20 05:30) Thomas Aj (07/27/20 05:30) Sequential Compression Device .admit (07/27/20 05:30) Mixing Picker Tender-Inpt Rehab Con (07/27/20 05:30) Rehab Nursing Orders-Ipoc (07/27/20 05:30) Physical Therapy Rehab Orders (07/27/20 05:30) Occupational Therapy Rehab Ord (07/27/20 05:30) Speech Therapy Rehab Orders (07/27/20 05:30) Cbc With Automated Diff (07/28/20 06:00) Comprehensive Metabolic Panel (07/28/20 06:00) Precautions (Aru) (07/27/20 05:30) Weekly Weight WEEK (07/27/20 05:30) Rehab-Intensity Of Therapy (07/27/20 05:30) Acetaminophen Tablet/Caplet (Tylenol T (07/27/20 05:30) Alprazolam Tablet (Xanax Tablet) (07/27/20 05:30) Calcium Carbonate Chew Tablet (Antacid C (07/27/20 05:30) Diphenhydramine Tablet (Benadryl Tablet) (07/27/20 05:30) Docusate Sodium Capsule (Colace Capsule) (07/27/20 09:00) Docusate Sodium Capsule (Colace Capsule) (07/27/20 05:30) Bisacodyl Suppository (Dulcolax Supposit (07/27/20 05:30) Lactulose Oral Solution (Enulose Oral So (07/27/20 05:30) Na Phos/Na Biphos Enema (Fleet Enema Tony (07/27/20 05:30) Guaifenesin/Codeine Syrup (Robitussin Ac (07/27/20 05:30) Loperamide Tablet (Imodium Tablet) (07/27/20 05:30) Melatonin Tablet (Melatonin Tablet) (07/27/20 05:30) Polyethylene Glycol Powder Pkt (Miralax (07/27/20 09:00) Ondansetron Oral Dissolve Tab (Zofran (07/27/20 05:30) Senna S Tablet (Senokot S Tablet) (07/27/20 09:00) Initiate Admission Nursing Pro .admission (07/27/20 05:30) Amlodipine Tablet (Norvasc Tablet) (07/28/20 09:00) Aspirin Enteric Coated Tablet (Ecotrin T (07/28/20 09:00) Atorvastatin Tablet (Lipitor Tablet) (07/27/20 21:00) Docusate Sodium Capsule (Colace Capsule) (07/27/20 21:00) Gabapentin Capsule/Tablet (Neurontin Cap (07/27/20 21:00) Hydrochlorothiazide Cap/Tablet (Hctz Cap (07/28/20 09:00) Losartan Tablet (Cozaar Tablet) (07/28/20 09:00) Oxycodone/Apap 5/325mg Tablet (Percocet (07/27/20 15:15) Cyclobenzaprine Tablet (Flexeril Tablet) (07/27/20 15:30) (Nf) Dulaglutide (Trulicity) (07/27/20 15:15) Metformin Tablet (Glucophage Tablet) (07/27/20 21:00) Heating Pad (07/27/20 17:26) General/Regular (07/27/20 Dinner) (Nf) Balsam (07/27/20 21:00) Patient May Use Own Med,Single (Patient (07/27/20 17:45) Dressing Order (Intervention) Q48H (07/27/20 19:50) Follow-Up Appointment (07/27/20 19:55) Patient Visit (07/28/20 ) Speech Sound Lang Comp (07/28/20 ) Patient Visit (07/28/20 ) Functional Activities, Ea 15 (07/28/20 ) Exercise Therap, Ea 15 Min (07/28/20 ) Diazepam Tablet (Valium Tablet) (07/28/20 21:00) Rehab Nursing Orders: Ongoing Assess. of Cognitive Status, Ongoing Assess. of Function Status, Bladder Management, Bladder Scan, Bladder Training, Bowel Management, Bowel Training, Disease Management & Educaiton, DVT Prophylaxis, Fall Prevention, Fluid/Electrolyte/Nutrition Mgmt, Infection Prevention, Medication Management & Education, Management of Risks & Complications, Management of Skin Intergrity, Nutrition Management, Pain Management, Patient/Family Support, Safety Management, Swallow Precautions Intensity of Therapy to be met Patient to be seen: Min.3h per day/5 of 7d PT IPOC Problem List: Activity Tolerance, Functional Strength, Safety, Balance, Gait, Transfer, Bed Mobility, ROM Treatment Plan: Continue Plan of Care Bed Mobility, Education, Functional Activity Jai, Functional Strength, Gait, Safety, Therapeutic Exercise, Transfers Treatment Duration: August 17, 2020 Frequency: At least 5 of 7 days/Wk (IRF) Estimated Hrs Per Day: 1.5 hours per day OT IPOC Problems: Decreased Activ Tolerance, Decreased UE Strength, Impaired Funct Balance, Impaired I ADL's, Impaired Self-Care Skills OT Treatment, Training and Edu: Yes Plan of Care: ADL Retraining, Functional Mobility, Group Exercise/Act as Ind, UE Funct Exercise/Act Treatment Duration: August 24, 2020 Frequency: At least 5 of 7 days/Wk (IRF) Estimated Hrs Per Day: 1.[address] IPOC Speech Therapy Treatment Plan: Discontinue ST Treatment Duration: Jul 28, 2020 Frequency: 1 time per week Estimated Hrs Per Day: .5 hour per day Mixing Picker Tender/Case Mgmt Mixing Picker Tender/Case Managemen: Discharge Planning Dietitian/Salvage Machine Operator Dietitian/Salvage Machine Operator to monitor nutritional status and make changes and/or recommendations as needed and work with speech pathology on dietary upgrades as the occur. Physician IPOC Medical Issues being managed closely and that require the 24 hour availability of a physician: Recent complex spine surgery with lengthy stay and multiple medical issues including anemia and DM will require close monitoring to prevent decompensation Medical Issues: Bowel/Bladder Function, DVT Prophylaxis, Falls Precautions, Fluid/Electrolyte/Nutrition Balance, Infection Protection, Pain Management Brief Synthesis of Preadmission Screen, Post-Admission Evaluation, and Therapy Evaluations: PT OT will focus on regaining strength and ambulatory skills while increasing ADL independence in order to return to independent living at home Medical Prognosis: Good Anticipated Length of Stay: 10 days KAMERON RAMOS DO Jul 28, 2020 10:28
--- NOTE | 2020-07-28 10:28 | PM&R Progress Note ---
Subjective HPI/CC On Admission Date Seen by Provider: Jul 28, 2020 Time Seen by Provider: 10:30 Subjective/Events-last exam 07/28/20: Patient doing well Settling in well Incontinent last night but patient reports he spilled urinal Metformin noted and is maintained BM+ Sugar is ok Hgb 9.4 SLUMS Review of Systems General: Fatigue Musculoskeletal: back pain, leg pain Neurological: Weakness Objective Exam Vital Signs Vital Signs Date Time Temp Pulse Resp B/P (MAP) Pulse Ox O2 Delivery O2 Flow Rate FiO2 07/28/20 20:38 Room Air 07/28/20 20:00 37.1 71 16 145/72 (96) 93 Capillary Refill : General Appearance: No Apparent Distress, WD/WN, Chronically ill, Obese HEENT: PERRL/EOMI, Normal ENT Inspection, Pharynx Normal Neck: Full Range of Motion, Normal Inspection, Non Tender, Supple, Carotid Bruit Respiratory: Chest Non Tender, Lungs Clear, Normal Breath Sounds, No Accessory Muscle Use, No Respiratory Distress Cardiovascular: Regular Rate, Rhythm, No Edema, No Gallop, No JVD, No Murmur, Normal Peripheral Pulses Gastrointestinal: Normal Bowel Sounds, No Organomegaly, No Pulsatile Mass, Non Tender, Soft Back: Decreased Range of Motion, Muscle Spasm, Vertebral Tenderness Extremity: Normal Capillary Refill, Normal Inspection, Normal Range of Motion, Non Tender, No Calf Tenderness, No Pedal Edema Neurologic/Psychiatric: Alert, Oriented x3, No Motor/Sensory Deficits, corrosion control technician II- XII Norm as Tested, Abnormal Gait, Depressed Affect, Motor Weakness Skin: Normal Color, Warm/Dry Lymphatic: No Adenopathy Results/Procedures Lab Laboratory Tests 07/28/20 05:35 Patient resulted labs reviewed. FIM Transfers Therapy Code Descriptions/Definitions Functional [place] Measure: 0=Not Assessed/NA 4=Minimal Assistance 1=Total Assistance 5=Supervision or Setup 2=Maximal Assistance 6=Modified [place] 3=Moderate Assistance 7=Complete IndependenceSCALE: Activities may be completed with or without assistive devices. 6-Zqwsuyumji-oymozwy completes the activity by him/herself with no assistance from a helper. 5-Set-up or Clean-up Assistance-helper sets up or cleans up; patient completes activity. [place] assists only prior to or following the activity. 4-Supervision or Touching Assistance-helper provides verbal cues and/or touching/steadying and/or contact guard assistance as patient completes activity. Assistance may be provided throughout the activity or intermittently. 3-Partial/Moderate Assistance-helper does LESS THAN HALF the effort. [place] lifts, holds or supports trunk or limbs, but provides less than half the effort. 2-Substantial/Maximal Assistance-helper does MORE THAN HALF the effort. [place] lifts or holds trunk or limbs and provides more than half the effort. 5-Cxeogqfxj-edpcyv does ALL the effort. Patient does none of the effort to complete the activity. Or, the assistance of 2 or more helpers is required for t he patient to complete the activity. If activity was not attempted, code reason: 7-Patient Refused. 9-Not Applicable-not attempted and the patient did not perform the activity before the current illness, exacerbation or injury. 10-Not Attempted due to Environmental Limitations-(lack of equipment, weather restraints, etc.). 88-Not Attempted due to Medical Conditions or Safety Concerns. Roll Left to Right (QC): 6 Sit to Lying (QC): 5 Sit to Stand (QC): 2 Chair/Cgr-oa-Scwaw Xfer(QC): 3 (Mod assist with sliding board) Car Transfer (QC): 88 Gait Training Does the Patient Walk?: Yes Distance: 4', 6' Walk 10 feet (QC): 88 Walk 50 ft with 2 Turns(QC): 88 Walk 150 ft (QC): 88 Walking 10ft/uneven surface-QC: 88 Gait Persons Needed: 2 Gait Assistive Device: Parallel Bars Wheelchair Training Does the Pt Use a Wheelchair?: Yes Wheel 50 ft with 2 turns (QC): 6 Wheel 150 ft (QC): 6 Type of Wheelchair: Manual Stair Training 1 Step (curb) (QC): 88 4 Steps (QC): 88 12 Steps (QC): 88 Balance Picking up an Object (QC): 88 ADL-Treatment Eating (QC): 6 (per pt) Oral Hygiene (QC): 5 (per pt) Shower/Bathe Self (QC): 88 Upper Body Dressing (QC): 3 (Per clinical judgement) Lower Body Dressing (QC): 2 (Per clinical judgement) On/Off Footwear (QC): 2 (Max A doffing footwear) Toileting Hygiene (QC): 7 Assessment/Plan Assessment and Plan Assess & Plan/Chief Complaint Assessment: s/p Lumbar laminectomy L2-L3 and TLIF w/ extension of previous L3-L5 hardware LLE weakness Spondylosis Performed due to Spinal stenosis with neurogenic claudication. Source of pts debidity. PT/OT IS Speech therapy Consult SS. GOAL: Return to baseline function before sx. Discharge home with Home Health. Normocytic anemia Hx of hypokalemia during [facility] post-op stay. Per pt: known chronic hx of anemia. 07/26 labs from [place]: H&H is 8.7/.6 Likely multifactorial: to surgical blood loss and anemia of chronic disease. Iron studies ordered during pts post-op [facility] stay (results?) CBC and CMP NIDDM HTN HLP Obesity Sleep apnea Neuropathy SSI Home Cpap. Home Meds s/p COVID-19 PNA Hospitalized . Received convalescent plasma and inpt stay for several days. Pt reports no residual sxs. Hx of lumbar radiculopathy Polyp on vocal cord Hx of cervical spine sx DVT prophylaxis SCD and ambulation. Plan: IRF protocol Pain control BM regimen PT OT 07/28/20: Pain control Monitor hgb Monitor BP (1) Lumbar radiculopathy (2) MICHAELA treated with BiPAP (3) Nocturnal hypoxemia (4) Diabetes (5) Hypertension (6) Hyperlipemia (7) Obesity, morbid, BMI 40.0-49.9 KAMERON RAMOS DO Jul 28, 2020 10:28
--- NOTE | 2020-07-28 11:09 | Occupational Ther Daily Note ---
OT Current Status-Daily Note Subjective Pt alert, sitting in recliner. Pt agrees to therapy. No c/o pain, nrsg in room. Mental Status/Objective Patient Orientation: Person, Place, Time, Situation ADL-Treatment Pt agrees to sponge bath. Pt requested to use BSC. Using sliding board transfer with assist x2 to go from recliner <-->. Assist x2 to manipulate clothing for toileting. Pt leaned to L side and assist given to cleanse after BM. After set up, pt able to complete upper body dressing and bathing by self. Max A x2 for lower body dressing and max A for bathing. Pt able to use AE to don/doff socks. Max A for donning/doffing shoes. After supplies were gathered, pt able to complete oral care by self. Pt educated on using dressing stick and sock aide to don/doff socks and shoes. Pt demonstrated understanding though will need further skilled instruction. Elastic shoelaces placed in shoes. After session, pt sitting in recliner with call light/phone in reach. All needs met in room. Therapy Code Descriptions/Definitions Functional [place] Measure: 0=Not Assessed/NA 4=Minimal Assistance 1=Total Assistance 5=Supervision or Setup 2=Maximal Assistance 6=Modified [place] 3=Moderate Assistance 7=Complete IndependenceSCALE: Activities may be completed with or without assistive devices. 0-Doxzksbzca-xzrjzsd completes the activity by him/herself with no assistance from a helper. 5-Set-up or Clean-up Assistance-helper sets up or cleans up; patient completes activity. [place] assists only prior to or following the activity. 4-Supervision or Touching Assistance-helper provides verbal cues and/or touching/steadying and/or contact guard assistance as patient completes activity. Assistance may be provided throughout the activity or intermittently. 3-Partial/Moderate Assistance-helper does LESS THAN HALF the effort. [place] lifts, holds or supports trunk or limbs, but provides less than half the effort. 2-Substantial/Maximal Assistance-helper does MORE THAN HALF the effort. [place] lifts or holds trunk or limbs and provides more than half the effort. 1-Jxyzctdxl-nnyujr does ALL the effort. Patient does none of the effort to complete the activity. Or, the assistance of 2 or more helpers is required for the patient to complete the activity. If activity was not attempted, code reason: 7-Patient Refused. 9-Not Applicable-not attempted and the patient did not perform the activity before the current illness, exacerbation or injury. 10-Not Attempted due to Environmental Limitations-(lack of equipment, weather restraints, etc.). 88-Not Attempted due to Medical Conditions or Safety Concerns. Oral Hygiene (QC): 5 Shower/Bathe Self (QC): 2 Upper Body Dressing (QC): 5 Lower Body Dressing (QC): 1 On/Off Footwear: 2 Toileting Hygiene (QC): 2 Toilet Transfer (QC): 1 (Using sliding board) OT Short Term Goals Short Term Goals Time Frame: August 10, 2020 Eatin Oral hygiene: 6 Toileting hygiene: 3 Shower/bathe self: 3 Upper body dressin Lower body dressin Putting on/taking off footwear: 3 OT Mcc Goals Medical Front Desk Specialist Goals Time Frame: August 24, 2020 Eating (QC): 6 Oral Hygiene (QC): 6 Toileting Hygiene (QC): 6 Shower/Bathe Self (QC): 4 Upper Body Dressing (QC): 6 Lower Body Dressing (QC): 6 On/Off Footwear (QC): 6 Additional Goals: 1-Demonstrate ADL Tasks, 2-Verbalize Understanding, 3- ImproveStrength/Jai 1=Demonstrate adherence to instructed precautions during ADL tasks. 2=Patient will verbalize/demonstrate understanding of assistive devices/modifications for ADL. 3=Patient will improve strength/tolerance for activity to enable patient to perform ADL's. OT Education/Plan Problem List/Assessment Assessment: Decreased Activ Tolerance, Decreased UE Strength, Dependent Transfers, Impaired Bed Mobility, Impaired Funct Balance, Impaired Self-Care Skills Discharge Recommendations Plan/Recommendations: Continue POC Treatment Plan/Plan of Care Patient would benefit from OT for education, treatment and training to promote independence in ADL's, mobility, safety and/or upper extremity function for ADL's. Plan of Care: ADL Retraining, Functional Mobility, Group Exercise/Act as Ind, UE Funct Exercise/Act Treatment Duration: August 24, 2020 Frequency: At least 5 of 7 days/Wk (IRF) Estimated Hrs Per Day: 1.5 hours per day Agreement: Yes Rehab Potential: Fair Time/GCodes Start Time: 09:00 Stop Time: 10:15 Total Time Billed (hr/min): 75 Billed Treatment Time 1 visit-ADL 5 (75 min) RYAN FERRARA Jul 28, 2020 11:09
--- NOTE | 2020-07-28 11:22 | Physical Therapy Daily Note ---
PT Daily Note-Current Subjective Patient reclined in chair pre tx, consents to therapy, reports mild unrated pain in back. Appearance Patient seated upright in chair, with call button within reach and tray table nearby. All needs met. Mental Status Patient Orientation: Person, Place, Time, Normal For Age TLSO donned Transfers SCALE: Activities may be completed with or without assistive devices. 7-Lefpavybbe-jezejmp completes the activity by him/herself with no assistance from a helper. 5-Set-up or Clean-up Assistance-helper sets up or cleans up; patient completes activity. [place] assists only prior to or following the activity. 4-Supervision or Touching Assistance-helper provides verbal cues and/or touching/steadying and/or contact guard assistance as patient completes activity. Assistance may be provided throughout the activity or intermittently. 3-Partial/Moderate Assistance-helper does LESS THAN HALF the effort. [place] lifts, holds or supports trunk or limbs, but provides less than half the effort. 2-Substantial/Maximal Assistance-helper does MORE THAN HALF the effort. [place] lifts or holds trunk or limbs and provides more than half the effort. 2-Jehowaqro-nqrghe does ALL the effort. Patient does none of the effort to complete the activity. Or, the assistance of 2 or more helpers is required for the patient to complete the activity. If activity was not attempted, code reason: 7-Patient Refused. 9-Not Applicable-not attempted and the patient did not perform the activity before the current illness, exacerbation or injury. 10-Not Attempted due to Environmental Limitations-(lack of equipment, weather restraints, etc.). 88-Not Attempted due to Medical Conditions or Safety Concerns. Exercises Seated Therapy Exercises: Ankle pumps, Long arc quads, Hip flexion, Hip abd/add, Glut set Seated Reps: 20 Patient demonstrates visible exertion with exercise, specifically with hip flexion bilaterally. Able to complete all reps, but takes prolonged time with rest breaks in between exercise. Treatments LE strengthening, ROM Assessment Current Status: Fair Progress Patient has obvious deconditioning and weakness in bilateral hips affecting overall functional mobility, PT Short Term Goals Short Term Goals Time Frame: August 03, 2020 Roll Left & Right: 6 Sit to lyin (CGA) Lying to sitting on side of be: 4 (CGA) Chair/jxb-te-mvlsu transfer: 4 (CGA) Walk 10 feet: 3 (mod) PT Biofuels Technology Development Manager Goals Biofuels Technology Development Manager Goals PT Biofuels Technology Development Manager Goals Time Frame: August 17, 2020 Roll Left & Right (QC): 6 Sit to Lying (QC): 4 (SBA) Lying-Sitting on Side/Bed(QC): 4 (SBA) Sit to Stand (QC): 3 (min) Chair/Kcd-un-Wapst Xfer(QC): 3 (min) Toilet Transfer (QC): 3 (min) Car Transfer (QC): 3 (min) Does the Patient Walk: No and Walking Goal IS indicated Walk 10 feet (QC): 3 (min) Walk 50ft with 2 Turns (QC): 3 (min) Walk 150 ft (QC): 88 Walking 10ft on Uneven Surface: 3 (min) 1 Step (curb) (QC): 3 (min) 4 Steps (QC): 88 12 Steps (QC): 9 Picking up an Object (QC): 9 Does the Pt use WC or Scooter?: Yes Wheel 50 feet with 2 turns (QC: 6 Type: Manual Wheel 150 feet: 6 Type: Manual PT Plan Problem List Problem List: Activity Tolerance, Functional Strength, Safety, Balance, Gait, Transfer, Bed Mobility, ROM Treatment/Plan Treatment Plan: Continue Plan of Care Treatment Plan: Bed Mobility, Education, Functional Activity Jai, Functional Strength, Gait, Safety, Therapeutic Exercise, Transfers Treatment Duration: August 17, 2020 Frequency: At least 5 of 7 days/Wk (IRF) Estimated Hrs Per Day: 1.5 hours per day Patient and/or Family Agrees t: Yes Safety Risks/Education Patient Education: Correct Positioning, Safety Issues Teaching Recipient: Patient Teaching Methods: Demonstration, Discussion Response to Teaching: Verbalize Understanding, Return Demonstration Time/GCodes Time In: 1100 Time Out: 1115 Total Billed Treatment Time: 15 Total Billed Treatment 1 visit: EX: FABIAN LILLY PT Jul 28, 2020 11:22
[2020-07-28] MEDS: VENELEX OINTMENT TOP SCH ×2 (11:59→20:32)
[2020-07-28] MEDS: CYCLOBENZAPRINE 10 MG (FLEXERIL) TAB PO PRN ×2 (12:43→20:31)
[2020-07-28 20:00] VITALS: BP 145/72
[2020-07-28] MEDS: DIAZEPAM 5 MG (VALIUM) TABLET PO SCH (20:31)
[2020-07-29 08:00] VITALS: BP 147/67
--- NOTE | 2020-07-29 08:59 | Physical Therapy Daily Note ---
PT Daily Note-Current Subjective Patient in shower room, pre tx with OT. Patient reports mild, unrated low back pain. Patient consents to therapy. Appearance Patient upright in reclining chair post tx, with call button and tray table within reach. Mental Status Patient Orientation: Person, Place, Time, Normal For Age TLSO Transfers SCALE: Activities may be completed with or without assistive devices. 8-Rckjkdiiza-xlauatg completes the activity by him/herself with no assistance from a helper. 5-Set-up or Clean-up Assistance-helper sets up or cleans up; patient completes activity. [place] assists only prior to or following the activity. 4-Supervision or Touching Assistance-helper provides verbal cues and/or touching/steadying and/or contact guard assistance as patient completes activity. Assistance may be provided throughout the activity or intermittently. 3-Partial/Moderate Assistance-helper does LESS THAN HALF the effort. [place] lifts, holds or supports trunk or limbs, but provides less than half the effort. 2-Substantial/Maximal Assistance-helper does MORE THAN HALF the effort. [place] lifts or holds trunk or limbs and provides more than half the effort. 2-Bygwwcuzt-kieqvk does ALL the effort. Patient does none of the effort to complete the activity. Or, the assistance of 2 or more helpers is required for the patient to complete the activity. If activity was not attempted, code reason: 7-Patient Refused. 9-Not Applicable-not attempted and the patient did not perform the activity before the current illness, exacerbation or injury. 10-Not Attempted due to Environmental Limitations-(lack of equipment, weather restraints, etc.). 88-Not Attempted due to Medical Conditions or Safety Concerns. Sit to Stand (QC): 2 (Max to mod assist) Chair/Nto-ev-Ckjvc Xfer(QC): 3 (Mod to min assist with sliding board) Gait Training Does the Patient Walk?: Yes Distance: 6' x3 Gait Persons Needed: 2 Gait Assistive Device: FWW Patient was able to demonstrate better R knee control as walking progressed. First attempt he was shaky with bilateral steps, but by 3rd ambulation patient was steady with weight bearing through the R LE. Patient continues to have difficulty controlling L LE with steps. Needs assist with blocking knees on both sides and weight shifting to offload left leg. Wheelchair Training Does the Pt Use a Wheelchair?: Yes Wheel 50 ft with 2 turns (QC): 6 Wheel 150 ft (QC): 6 Type of Wheelchair: Manual 100' x2 Treatments Co-treated with OT secondary to patient overall functional impairments, level of assistance needed, and decreased balance with functional activity. PT assisted OT in transfers and balance with showering. PT/OT assisted each other with gait training, and patient performed standing balance activities that challenged weight shifting on to LE's while reaching with UE's. Patient performed 3x each side of manipulating cones, alternating taking each hand off parallel bars one at a time, and was able to complete 2 sets of transferring 2" weight into hands while standing without UE support of // bars. Assessment Current Status: Good Progress Better gait weight shifting, though still requires assistance with L step and weight shift to R. Good demonstration of supported balance during standing in // PT Short Term Goals Short Term Goals Time Frame: August 03, 2020 Roll Left & Right: 6 Sit to lyin (CGA) Lying to sitting on side of be: 4 (CGA) Chair/fuu-ma-sayvu transfer: 4 (CGA) Walk 10 feet: 3 (mod) PT Spin Table Operator Goals [facility] Goals PT [facility] Goals Time Frame: August 17, 2020 Roll Left & Right (QC): 6 Sit to Lying (QC): 4 (SBA) Lying-Sitting on Side/Bed(QC): 4 (SBA) Sit to Stand (QC): 3 (min) Chair/Yzv-id-Nnnxo Xfer(QC): 3 (min) Toilet Transfer (QC): 3 (min) Car Transfer (QC): 3 (min) Does the Patient Walk: No and Walking Goal IS indicated Walk 10 feet (QC): 3 (min) Walk 50ft with 2 Turns (QC): 3 (min) Walk 150 ft (QC): 88 Walking 10ft on Uneven Surface: 3 (min) 1 Step (curb) (QC): 3 (min) 4 Steps (QC): 88 12 Steps (QC): 9 Picking up an Object (QC): 9 Does the Pt use WC or Scooter?: Yes Wheel 50 feet with 2 turns (QC: 6 Type: Manual Wheel 150 feet: 6 Type: Manual PT Plan Problem List Problem List: Activity Tolerance, Functional Strength, Safety, Balance, Gait, Transfer, Bed Mobility, ROM Treatment/Plan Treatment Plan: Continue Plan of Care Treatment Plan: Bed Mobility, Education, Functional Activity Jai, Functional Strength, Gait, Safety, Therapeutic Exercise, Transfers Treatment Duration: August 17, 2020 Frequency: At least 5 of 7 days/Wk (IRF) Estimated Hrs Per Day: 1.5 hours per day Patient and/or Family Agrees t: Yes Safety Risks/Education Patient Education: Gait Training, Transfer Techniques, Correct Positioning, Safety Issues Teaching Recipient: Patient Teaching Methods: Demonstration, Discussion Response to Teaching: Verbalize Understanding, Return Demonstration Time/GCodes Time In: 08 Time Out: 899 Total Billed Treatment Time: 60 Total Billed Treatment 1 visit: FA x2: 30' EX x2: 30' co-treated with OT from [id number] FABIAN BOBBY PT Jul 29, 2020 08:59
--- NOTE | 2020-07-29 09:01 | Occupational Ther Daily Note ---
OT Current Status-Daily Note Subjective Pt alert, lying in bed. Pt agrees to therapy. No c/o pain at this time. Mental Status/Objective Patient Orientation: Person, Place, Time, Situation Attachments: Other-See Comments (back brace) ADL-Treatment Pt agrees to shower. Mod A for supine to EOB with education and verbal cues to log roll and push up with elbows to decrease strain on back. Assist to place sliding board and position w/c then min A x2 for safety to complete sliding board transfer from bed to rolling shower chair with cutout. Pt able to complete shower using rolling shower chair with cutout, LH sponge, grabbars and hand held shower in large therapy shower room. Pt bathed all areas except buttocks and assist to dry feet and buttocks. After set up, pt don/doffed shirt by self. Assist to don/doff socks and shoes. At this time ([id number]) co-treat with PT began for skilled care and instruction for mobility, standing, transfers and ambulation. PT focusing on transfers, standing and ambulation while OT focusing on ADLs, BUE placement during all functional mobility and assisting with w/c placement and body placement during ambulation in parallel bars. Assist x2 to complete lower body dressing. Nrsg aware of 2 skin issues on coccyx area and ointment applied. Therapy Code Descriptions/Definitions Functional [place] Measure: 0=Not Assessed/NA 4=Minimal Assistance 1=Total Assistance 5=Supervision or Setup 2=Maximal Assistance 6=Modified [place] 3=Moderate Assistance 7=Complete IndependenceSCALE: Activities may be completed with or without assistive devices. 3-Umjjpllkpi-jnpgpji completes the activity by him/herself with no assistance from a helper. 5-Set-up or Clean-up Assistance-helper sets up or cleans up; patient completes activity. [place] assists only prior to or following the activity. 4-Supervision or Touching Assistance-helper provides verbal cues and/or touching/steadying and/or contact guard assistance as patient completes activity. Assistance may be provided throughout the activity or intermittently. 3-Partial/Moderate Assistance-helper does LESS THAN HALF the effort. [place] lifts, holds or supports trunk or limbs, but provides less than half the effort. 2-Substantial/Maximal Assistance-helper does MORE THAN HALF the effort. [place] lifts or holds trunk or limbs and provides more than half the effort. 0-Aatoxwunw-pohdjh does ALL the effort. Patient does none of the effort to complete the activity. Or, the assistance of 2 or more helpers is required for the patient to complete the activity. If activity was not attempted, code reason: 7-Patient Refused. 9-Not Applicable-not attempted and the patient did not perform the activity before the current illness, exacerbation or injury. 10-Not Attempted due to Environmental Limitations-(lack of equipment, weather restraints, etc.). 88-Not Attempted due to Medical Conditions or Safety Concerns. Eating (QC): 6 Bathing Location: L Arm, R Arm, L Upper Leg, R Upper Leg, L Lower Leg (including foot), R Lower Leg (including foot), Chest, Abdomen, Perineal Area Shower/Bathe Self (QC): 3 Upper Body Dressing (QC): 5 Lower Body Dressing (QC): 1 On/Off Footwear: 2 Other Treatment See PT notes for transfers and ambulation. Pt stood at parallel bars and ambulated with assist x3. Pt then stood inside parallel bars and completed wt shifting/B UE strengthening tasks. Crossing midline by reaching cones and 2# wt to work on wt shift and strengthening. After session, pt sitting in recliner with call light/phone in reach. All needs met in room. OT Short Term Goals Short Term Goals Time Frame: August 10, 2020 Eatin Oral hygiene: 6 Toileting hygiene: 3 Shower/bathe self: 3 Upper body dressin Lower body dressin Putting on/taking off footwear: 3 OT Shelter Goals [employer] Goals Time Frame: August 24, 2020 Eating (QC): 6 Oral Hygiene (QC): 6 Toileting Hygiene (QC): 6 Shower/Bathe Self (QC): 4 Upper Body Dressing (QC): 6 Lower Body Dressing (QC): 6 On/Off Footwear (QC): 6 Additional Goals: 1-Demonstrate ADL Tasks, 2-Verbalize Understanding, 3- ImproveStrength/Jai 1=Demonstrate adherence to instructed precautions during ADL tasks. 2=Patient will verbalize/demonstrate understanding of assistive devices/modifications for ADL. 3=Patient will improve strength/tolerance for activity to enable patient to perform ADL's. OT Education/Plan Problem List/Assessment Assessment: Decreased Activ Tolerance, Decreased UE Strength, Dependent Transfers, Impaired Bed Mobility, Impaired Funct Balance, Impaired Self-Care Skills Discharge Recommendations Plan/Recommendations: Continue POC Treatment Plan/Plan of Care Patient would benefit from OT for education, treatment and training to promote independence in ADL's, mobility, safety and/or upper extremity function for ADL's. Plan of Care: ADL Retraining, Functional Mobility, Group Exercise/Act as Ind, UE Funct Exercise/Act Treatment Duration: August 24, 2020 Frequency: At least 5 of 7 days/Wk (IRF) Estimated Hrs Per Day: 1.5 hours per day Agreement: Yes Rehab Potential: Fair Time/GCodes Start Time: 07:30 Stop Time: 09:00 Total Time Billed (hr/min): 90 Billed Treatment Time 1 visit-ADL 4 (60 min) FA 2 (30 min) RYAN FERRARA Jul 29, 2020 09:01
[2020-07-29] MEDS: GABAPENTIN 600 MG (NEURONTIN) TAB PO SCH ×3 (09:29→20:38)
[2020-07-29] MEDS: amLODIPine 5 MG (NORVASC) TAB PO SCH (09:29)
[2020-07-29] MEDS: metFORMIN 500 MG (GLUCOPHAGE) TAB PO SCH ×2 (09:29→20:38)
[2020-07-29] MEDS: LOSARTAN 100 MG (COZAAR) TABLET PO SCH (09:30)
[2020-07-29] MEDS: ASPIRIN E.C. 81 MG (ECOTRIN) TAB PO SCH (09:30)
[2020-07-29] MEDS: oxyCODONE/APAP 5/325MG (PERCOCET 5) TABLET PO PRN ×2 (09:30→20:38)
[2020-07-29] MEDS: VENELEX OINTMENT TOP SCH ×2 (09:31→20:40)
[2020-07-29] MEDS: SENNA W/DOCUSATE (SENOKOT S) TABLET PO SCH ×2 (09:31→21:00)
[2020-07-29] MEDS: polyethylene glycoL POWDER 17 GM (MIRALAX) PACK PO SCH ×2 (09:31→21:00)
[2020-07-29] MEDS: DOCUSATE SODIUM 100 MG (COLACE) CAP PO SCH ×2 (09:31→20:38)
--- NOTE | 2020-07-29 10:06 | PM&R Progress Note ---
Subjective HPI/CC On Admission Date Seen by Provider: Jul 29, 2020 Time Seen by Provider: 10:15 Subjective/Events-last exam 07/29/20: Patient settling in well Loose BM yesterday Dressing changes on spine every other day No questions from patient Feels like he is using muscles in therapy 07/28/20: Patient doing well Settling in well Incontinent last night but patient reports he spilled urinal Metformin noted and is maintained BM+ Sugar is ok Hgb 9.4 SLUMS Review of Systems General: Fatigue, Malaise Musculoskeletal: back pain, leg pain Objective Exam Vital Signs Vital Signs Date Time Temp Pulse Resp B/P (MAP) Pulse Ox O2 Delivery O2 Flow Rate FiO2 07/29/20 09:00 Room Air 07/29/20 08:00 36.8 88 20 147/67 (93) 94 Capillary Refill : General Appearance: No Apparent Distress, WD/WN, Chronically ill, Obese HEENT: PERRL/EOMI, Normal ENT Inspection, Pharynx Normal Neck: Full Range of Motion, Normal Inspection, Non Tender, Supple, Carotid Bruit Respiratory: Chest Non Tender, Lungs Clear, Normal Breath Sounds, No Accessory Muscle Use, No Respiratory Distress Cardiovascular: Regular Rate, Rhythm, No Edema, No Gallop, No JVD, No Murmur, Normal Peripheral Pulses Gastrointestinal: Normal Bowel Sounds, No Organomegaly, No Pulsatile Mass, Non Tender, Soft Back: Decreased Range of Motion, Muscle Spasm, Vertebral Tenderness Extremity: Normal Capillary Refill, Normal Inspection, Normal Range of Motion, Non Tender, No Calf Tenderness, No Pedal Edema Neurologic/Psychiatric: Alert, Oriented x3, No Motor/Sensory Deficits, header dock II- XII Norm as Tested, Abnormal Gait, Depressed Affect, Motor Weakness Skin: Normal Color, Warm/Dry Lymphatic: No Adenopathy Results/Procedures Lab Patient resulted labs reviewed. FIM Transfers Therapy Code Descriptions/Definitions Functional [place] Measure: 0=Not Assessed/NA 4=Minimal Assistance 1=Total Assistance 5=Supervision or Setup 2=Maximal Assistance 6=Modified [place] 3=Moderate Assistance 7=Complete IndependenceSCALE: Activities may be completed with or without assistive devices. 1-Yguexggfbq-vcwekrq completes the activity by him/herself with no assistance from a helper. 5-Set-up or Clean-up Assistance-helper sets up or cleans up; patient completes activity. [place] assists only prior to or following the activity. 4-Supervision or Touching Assistance-helper provides verbal cues and/or touching/steadying and/or contact guard assistance as patient completes activity. Assistance may be provided throughout the activity or intermittently. 3-Partial/Moderate Assistance-helper does LESS THAN HALF the effort. [place] lifts, holds or supports trunk or limbs, but provides less than half the effort. 2-Substantial/Maximal Assistance-helper does MORE THAN HALF the effort. [place] lifts or holds trunk or limbs and provides more than half the effort. 5-Pgyjxjtwr-cvrgge does ALL the effort. Patient does none of the effort to complete the activity. Or, the assistance of 2 or more helpers is required for the patient to complete the activity. If activity was not attempted, code reason: 7-Patient Refused. 9-Not Applicable-not attempted and the patient did not perform the activity before the current illness, exacerbation or injury. 10-Not Attempted due to Environmental Limitations-(lack of equipment, weather restraints, etc.). 88-Not Attempted due to Medical Conditions or Safety Concerns. Roll Left to Right (QC): 6 Sit to Lying (QC): 5 Sit to Stand (QC): 2 (Max to mod assist) Chair/Lcp-sp-Zbzym Xfer(QC): 3 (Mod to min assist with sliding board) Car Transfer (QC): 88 Gait Training Does the Patient Walk?: Yes Distance: 6' x3 Walk 10 feet (QC): 88 Walk 50 ft with 2 Turns(QC): 88 Walk 150 ft (QC): 88 Walking 10ft/uneven surface-QC: 88 Gait Persons Needed: 2 Gait Assistive Device: FWW Wheelchair Training Does the Pt Use a Wheelchair?: Yes Wheel 50 ft with 2 turns (QC): 6 Wheel 150 ft (QC): 6 Type of Wheelchair: Manual Stair Training 1 Step (curb) (QC): 88 4 Steps (QC): 88 12 Steps (QC): 88 Balance Picking up an Object (QC): 88 ADL-Treatment Eating (QC): 6 Oral Hygiene (QC): 5 Bathing Location: L Arm, R Arm, L Upper Leg, R Upper Leg, L Lower Leg (including foot), R Lower Leg (including foot), Chest, Abdomen, Perineal Area Shower/Bathe Self (QC): 3 Upper Body Dressing (QC): 5 Lower Body Dressing (QC): 1 On/Off Footwear (QC): 2 Toileting Hygiene (QC): 2 Toilet Transfer (QC): 1 (Using sliding board) Assessment/Plan Assessment and Plan Assess & Plan/Chief Complaint Assessment: s/p Lumbar laminectomy L2-L3 and TLIF w/ extension of previous L3-L5 hardware LLE weakness Spondylosis Performed due to Spinal stenosis with neurogenic claudication. Source of pts debidity. PT/OT IS Speech therapy Consult SS. GOAL: Return to baseline function before sx. Discharge home with Home Health. Normocytic anemia Hx of hypokalemia during [place] post-op stay. Per pt: known chronic hx of anemia. 07/26 labs from [place]: H&H is 8.7.6 Likely multifactorial: to surgical blood loss and anemia of chronic disease. Iron studies ordered during pts post-op [place] stay (results?) CBC and CMP NIDDM HTN HLP Obesity Sleep apnea Neuropathy SSI Home Cpap. Home Meds s/p COVID-19 PNA Hospitalized . Received convalescent plasma and inpt stay for several days. Pt reports no residual sxs. Hx of lumbar radiculopathy Polyp on vocal cord Hx of cervical spine sx DVT prophylaxis SCD and ambulation. Plan: IRF protocol Pain control BM regimen PT OT 07/28/20: Pain control Monitor hgb Monitor BP 07/29/20: Monitor pain Monitor BM regimen (1) Lumbar radiculopathy (2) MICHAELA treated with BiPAP (3) Nocturnal hypoxemia (4) Diabetes (5) Hypertension (6) Hyperlipemia (7) Obesity, morbid, BMI 40.0-49.9 KAMERON RAMOS DO Jul 29, 2020 10:06
--- NOTE | 2020-07-29 14:21 | Physical Therapy Daily Note ---
PT Daily Note-Current Subjective Patient upright in recliner, consent to therapy. Patient reports 5-6/10 pain in back, which he states is pretty normal. Appearance Patient supine in bed post tx, with call button within reach and tray table nearby. All needs met. Mental Status Patient Orientation: Person, Place, Time, Normal For Age Transfers SCALE: Activities may be completed with or without assistive devices. 3-Iwiakrwqtf-tpwhjsj completes the activity by him/herself with no assistance from a helper. 5-Set-up or Clean-up Assistance-helper sets up or cleans up; patient completes activity. [place] assists only prior to or following the activity. 4-Supervision or Touching Assistance-helper provides verbal cues and/or touching/steadying and/or contact guard assistance as patient completes activity. Assistance may be provided throughout the activity or intermittently. 3-Partial/Moderate Assistance-helper does LESS THAN HALF the effort. [place] lifts, holds or supports trunk or limbs, but provides less than half the effort. 2-Substantial/Maximal Assistance-helper does MORE THAN HALF the effort. [place] lifts or holds trunk or limbs and provides more than half the effort. 7-Ijiniwghe-bhzfft does ALL the effort. Patient does none of the effort to complete the activity. Or, the assistance of 2 or more helpers is required for the patient to complete the activity. If activity was not attempted, code reason: 7-Patient Refused. 9-Not Applicable-not attempted and the patient did not perform the activity before the current illness, exacerbation or injury. 10-Not Attempted due to Environmental Limitations-(lack of equipment, weather restraints, etc.). 88-Not Attempted due to Medical Conditions or Safety Concerns. Chair/Vqc-tf-Bvphv Xfer(QC): 3 Min A with sliding board transfer Wheelchair Training Does the Pt Use a Wheelchair?: Yes Wheel 50 ft with 2 turns (QC): 6 Type of Wheelchair: Manual Exercises NuStep Minutes: 8 NuStep Workload: 4 Treatments LE strengthening, transfers, endurance Assessment Current Status: Fair Progress Patient was able to successfully complete 4 sliding board transfers. Patient demonstrates better control with sliding board transfer, and maintains weight posteriorly on board. PT Short Term Goals Short Term Goals Time Frame: August 03, 2020 Roll Left & Right: 6 Sit to lyin (CGA) Lying to sitting on side of be: 4 (CGA) Chair/vqh-bz-jkkyj transfer: 4 (CGA) Walk 10 feet: 3 (mod) PT [employer] Goals Group Home Goals PT [employer] Goals Time Frame: August 17, 2020 Roll Left & Right (QC): 6 Sit to Lying (QC): 4 (SBA) Lying-Sitting on Side/Bed(QC): 4 (SBA) Sit to Stand (QC): 3 (min) Chair/Ovr-kj-Ejwyz Xfer(QC): 3 (min) Toilet Transfer (QC): 3 (min) Car Transfer (QC): 3 (min) Does the Patient Walk: No and Walking Goal IS indicated Walk 10 feet (QC): 3 (min) Walk 50ft with 2 Turns (QC): 3 (min) Walk 150 ft (QC): 88 Walking 10ft on Uneven Surface: 3 (min) 1 Step (curb) (QC): 3 (min) 4 Steps (QC): 88 12 Steps (QC): 9 Picking up an Object (QC): 9 Does the Pt use WC or Scooter?: Yes Wheel 50 feet with 2 turns (QC: 6 Type: Manual Wheel 150 feet: 6 Type: Manual PT Plan Problem List Problem List: Activity Tolerance, Functional Strength, Safety, Balance, Gait, Transfer, Bed Mobility, ROM Treatment/Plan Treatment Plan: Continue Plan of Care Treatment Plan: Bed Mobility, Education, Functional Activity Jai, Functional Strength, Gait, Safety, Therapeutic Exercise, Transfers Treatment Duration: August 17, 2020 Frequency: At least 5 of 7 days/Wk (IRF) Estimated Hrs Per Day: 1.5 hours per day Patient and/or Family Agrees t: Yes Safety Risks/Education Patient Education: Transfer Techniques, Correct Positioning, W/C Management, Safety Issues Teaching Recipient: Patient Teaching Methods: Demonstration, Discussion Response to Teaching: Verbalize Understanding, Return Demonstration Time/GCodes Time In: 1330 Time Out: 1400 Total Billed Treatment Time: 30 Total Billed Treatment 1 visit: EX: 8' FA: 22' FABIAN BOBBY PT Jul 29, 2020 14:21
[2020-07-29 20:00] VITALS: BP 142/64
[2020-07-29] MEDS: DIAZEPAM 5 MG (VALIUM) TABLET PO SCH (20:38)
[2020-07-30] MEDS: LOSARTAN 100 MG (COZAAR) TABLET PO SCH (08:54)
[2020-07-30] MEDS: metFORMIN 500 MG (GLUCOPHAGE) TAB PO SCH ×2 (08:54→20:53)
[2020-07-30] MEDS: ASPIRIN E.C. 81 MG (ECOTRIN) TAB PO SCH (08:54)
[2020-07-30] MEDS: amLODIPine 5 MG (NORVASC) TAB PO SCH (08:54)
[2020-07-30] MEDS: GABAPENTIN 600 MG (NEURONTIN) TAB PO SCH ×3 (08:54→20:53)
[2020-07-30] MEDS: SENNA W/DOCUSATE (SENOKOT S) TABLET PO SCH ×2 (08:55→21:00)
[2020-07-30] MEDS: oxyCODONE/APAP 5/325MG (PERCOCET 5) TABLET PO PRN ×2 (08:55→20:53)
[2020-07-30] MEDS: DOCUSATE SODIUM 100 MG (COLACE) CAP PO SCH ×2 (08:55→20:53)
[2020-07-30 08:58] VITALS: BP 130/76
[2020-07-30] MEDS: polyethylene glycoL POWDER 17 GM (MIRALAX) PACK PO SCH ×2 (08:58→21:00)
--- NOTE | 2020-07-30 10:24 | Physical Therapy Daily Note ---
PT Daily Note-Current Subjective Patient in bed pre tx, has 5/10 pain in back, doesn't want to get out of bed but agrees to LE exercises in bed. Appearance Patient in bed post tx with nurse call, phone, tray, all needs met. Mental Status Patient Orientation: Person, Place, Situation, Normal For Age Transfers SCALE: Activities may be completed with or without assistive devices. 9-Ittlikthic-jbapclf completes the activity by him/herself with no assistance from a helper. 5-Set-up or Clean-up Assistance-helper sets up or cleans up; patient completes activity. [place] assists only prior to or following the activity. 4-Supervision or Touching Assistance-helper provides verbal cues and/or touching/steadying and/or contact guard assistance as patient completes activ ity. Assistance may be provided throughout the activity or intermittently. 3-Partial/Moderate Assistance-helper does LESS THAN HALF the effort. [place] lifts, holds or supports trunk or limbs, but provides less than half the effort. 2-Substantial/Maximal Assistance-helper does MORE THAN HALF the effort. [place] lifts or holds trunk or limbs and provides more than half the effort. 3-Ifqfebpzz-vnfuno does ALL the effort. Patient does none of the effort to complete the activity. Or, the assistance of 2 or more helpers is required for the patient to complete the activity. If activity was not attempted, code reason: 7-Patient Refused. 9-Not Applicable-not attempted and the patient did not perform the activity before the current illness, exacerbation or injury. 10-Not Attempted due to Environmental Limitations-(lack of equipment, weather restraints, etc.). 88-Not Attempted due to Medical Conditions or Safety Concerns. Exercises Supine Ex: Ankle pumps, Quad Set, Glut sets, Heel Slides, Short Arc Quads, Straight leg raise, Hip abd/add Supine Reps: 20 (AAROM with SLR and hip abd/add) Treatments LE exercise Assessment Current Status: Fair Progress poor coordination in LLE PT Short Term Goals Short Term Goals Time Frame: August 03, 2020 Roll Left & Right: 6 Sit to lyin (CGA) Lying to sitting on side of be: 4 (CGA) Chair/tcb-zd-nqwbe transfer: 4 (CGA) Walk 10 feet: 3 (mod) PT Pest Control Supervisor Goals Pest Control Supervisor Goals PT Pest Control Supervisor Goals Time Frame: August 17, 2020 Roll Left & Right (QC): 6 Sit to Lying (QC): 4 (SBA) Lying-Sitting on Side/Bed(QC): 4 (SBA) Sit to Stand (QC): 3 (min) Chair/Yha-lk-Tyhch Xfer(QC): 3 (min) Toilet Transfer (QC): 3 (min) Car Transfer (QC): 3 (min) Does the Patient Walk: No and Walking Goal IS indicated Walk 10 feet (QC): 3 (min) Walk 50ft with 2 Turns (QC): 3 (min) Walk 150 ft (QC): 88 Walking 10ft on Uneven Surface: 3 (min) 1 Step (curb) (QC): 3 (min) 4 Steps (QC): 88 12 Steps (QC): 9 Picking up an Object (QC): 9 Does the Pt use WC or Scooter?: Yes Wheel 50 feet with 2 turns (QC: 6 Type: Manual Wheel 150 feet: 6 Type: Manual PT Plan Problem List Problem List: Activity Tolerance, Functional Strength, Safety, Balance, Gait, Transfer, Bed Mobility, ROM Treatment/Plan Treatment Plan: Continue Plan of Care Treatment Plan: Bed Mobility, Education, Functional Activity Jai, Functional Strength, Gait, Safety, Therapeutic Exercise, Transfers Treatment Duration: August 17, 2020 Frequency: At least 5 of 7 days/Wk (IRF) Estimated Hrs Per Day: 1.5 hours per day Patient and/or Family Agrees t: Yes Safety Risks/Education Patient Education: Correct Positioning, Safety Issues Teaching Recipient: Patient Teaching Methods: Demonstration, Discussion Response to Teaching: Reinforcement Needed Time/GCodes Time In: 1002 Time Out: 1013 Total Billed Treatment Time: 11 Total Billed Treatment 1 visit EX FABIAN LAINEZ PT July 30, 2020 10:24
--- NOTE | 2020-07-30 10:39 | PM&R Progress Note ---
Subjective HPI/CC On Admission Date Seen by Provider: July 30, 2020 Time Seen by Provider: 10:45 Subjective/Events-last exam 07/30/20: Patient doing well Has no concerns Pain is controlled BiPAP last night with 3L/min O2 Dressing changes QOD Slight redness around sutures 07/29/20: Patient settling in well Loose BM yesterday Dressing changes on spine every other day No questions from patient Feels like he is using muscles in therapy 07/28/20: Patient doing well Settling in well Incontinent last night but patient reports he spilled urinal Metformin noted and is maintained BM+ Sugar is ok Hgb 9.4 SLUMS Review of Systems General: Fatigue Musculoskeletal: back pain Neurological: Weakness Objective Exam Vital Signs Vital Signs Date Time Temp Pulse Resp B/P (MAP) Pulse Ox O2 Delivery O2 Flow Rate FiO2 07/30/20 08:58 37.0 89 20 130/76 (94) 96 Room Air Capillary Refill : General Appearance: No Apparent Distress, WD/WN, Chronically ill, Obese HEENT: PERRL/EOMI, Normal ENT Inspection, Pharynx Normal Neck: Full Range of Motion, Normal Inspection, Non Tender, Supple, Carotid Bruit Respiratory: Chest Non Tender, Lungs Clear, Normal Breath Sounds, No Accessory Muscle Use, No Respiratory Distress Cardiovascular: Regular Rate, Rhythm, No Edema, No Gallop, No JVD, No Murmur, Normal Peripheral Pulses Gastrointestinal: Normal Bowel Sounds, No Organomegaly, No Pulsatile Mass, Non Tender, Soft Back: Decreased Range of Motion, Muscle Spasm, Vertebral Tenderness Extremity: Normal Capillary Refill, Normal Inspection, Normal Range of Motion, Non Tender, No Calf Tenderness, No Pedal Edema Neurologic/Psychiatric: Alert, Oriented x3, No Motor/Sensory Deficits, 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 FIM Transfers Therapy Code Descriptions/Definitions Functional [place] Measure: 0=Not Assessed/NA 4=Minimal Assistance 1=Total Assistance 5=Supervision or Setup 2=Maximal Assistance 6=Modified [place] 3=Moderate Assistance 7=Complete IndependenceSCALE: Activities may be completed with or without assistive devices. 7-Oifjmlupol-usujnsg completes the activity by him/herself with no assistance from a helper. 5-Set-up or Clean-up Assistance-helper sets up or cleans up; patient completes activity. [place] assists only prior to or following the activity. 4-Supervision or Touching Assistance-helper provides verbal cues and/or touching/steadying and/or contact guard assistance as patient completes activ ity. Assistance may be provided throughout the activity or intermittently. 3-Partial/Moderate Assistance-helper does LESS THAN HALF the effort. [place] lifts, holds or supports trunk or limbs, but provides less than half the effort. 2-Substantial/Maximal Assistance-helper does MORE THAN HALF the effort. [place] lifts or holds trunk or limbs and provides more than half the effort. 0-Ytbfdgxym-jxwfrs does ALL the effort. Patient does none of the effort to complete the activity. Or, the assistance of 2 or more helpers is required for the patient to complete the activity. If activity was not attempted, code reason: 7-Patient Refused. 9-Not Applicable-not attempted and the patient did not perform the activity before the current illness, exacerbation or injury. 10-Not Attempted due to Environmental Limitations-(lack of equipment, weather restraints, etc.). 88-Not Attempted due to Medical Conditions or Safety Concerns. Roll Left to Right (QC): 6 Sit to Lying (QC): 5 Sit to Stand (QC): 2 (Max to mod assist) Chair/Grz-br-Lxokb Xfer(QC): 3 Car Transfer (QC): 88 Gait Training Does the Patient Walk?: Yes Distance: 6' x3 Walk 10 feet (QC): 88 Walk 50 ft with 2 Turns(QC): 88 Walk 150 ft (QC): 88 Walking 10ft/uneven surface-QC: 88 Gait Persons Needed: 2 Gait Assistive Device: FWW Wheelchair Training Does the Pt Use a Wheelchair?: Yes Wheel 50 ft with 2 turns (QC): 6 Wheel 150 ft (QC): 6 Type of Wheelchair: Manual Stair Training 1 Step (curb) (QC): 88 4 Steps (QC): 88 12 Steps (QC): 88 Balance Picking up an Object (QC): 88 ADL-Treatment Eating (QC): 6 Oral Hygiene (QC): 5 Bathing Location: L Arm, R Arm, L Upper Leg, R Upper Leg, L Lower Leg (including foot), R Lower Leg (including foot), Chest, Abdomen, Perineal Area Shower/Bathe Self (QC): 3 Upper Body Dressing (QC): 5 Lower Body Dressing (QC): 1 On/Off Footwear (QC): 2 Toileting Hygiene (QC): 2 Toilet Transfer (QC): 1 (Using sliding board) Assessment/Plan Assessment and Plan Assess & Plan/Chief Complaint Assessment: s/p Lumbar laminectomy L2-L3 and TLIF w/ extension of previous L3-L5 hardware LLE weakness Spondylosis Performed due to Spinal stenosis with neurogenic claudication. Source of pts debidity. PT/OT IS Speech therapy Consult SS. GOAL: Return to baseline function before sx. Discharge home with Home Health. Normocytic anemia Hx of hypokalemia during [place] post-op stay. Per pt: known chronic hx of anemia. 07/26 labs from [facility]: H&H is 8.7.6 Likely multifactorial: to surgical blood loss and anemia of chronic disease. Iron studies ordered during pts post-op [place] stay (results?) CBC and CMP NIDDM HTN HLP Obesity Sleep apnea Neuropathy SSI Home Cpap. Home Meds s/p COVID-19 PNA Hospitalized . Received convalescent plasma and inpt stay for several days. Pt reports no residual sxs. Hx of lumbar radiculopathy Polyp on vocal cord Hx of cervical spine sx DVT prophylaxis SCD and ambulation. Plan: IRF protocol Pain control BM regimen PT OT 07/28/20: Pain control Monitor hgb Monitor BP 07/29/20: Monitor pain Monitor BM regimen 07/30/20: Monitor closely Pain management BM regimen (1) Lumbar radiculopathy (2) MICHAELA treated with BiPAP (3) Nocturnal hypoxemia (4) Diabetes (5) Hypertension (6) Hyperlipemia (7) Obesity, morbid, BMI 40.0-49.9 KAMERON RAMOS DO July 30, 2020 10:39
[2020-07-30] MEDS: VENELEX OINTMENT TOP SCH ×2 (12:05→20:55)
[2020-07-30 20:00] VITALS: BP 151/68
[2020-07-30] MEDS: DIAZEPAM 5 MG (VALIUM) TABLET PO SCH (20:53)
[2020-07-31 07:21] VITALS: BP 150/76
[2020-07-31] MEDS: SENNA W/DOCUSATE (SENOKOT S) TABLET PO SCH ×2 (08:40→21:12)
[2020-07-31] MEDS: amLODIPine 5 MG (NORVASC) TAB PO SCH (08:40)
[2020-07-31] MEDS: oxyCODONE/APAP 5/325MG (PERCOCET 5) TABLET PO PRN ×2 (08:41→17:01)
[2020-07-31] MEDS: ASPIRIN E.C. 81 MG (ECOTRIN) TAB PO SCH (08:41)
[2020-07-31] MEDS: LOSARTAN 100 MG (COZAAR) TABLET PO SCH (08:41)
[2020-07-31] MEDS: metFORMIN 500 MG (GLUCOPHAGE) TAB PO SCH ×2 (08:41→21:12)
[2020-07-31] MEDS: DOCUSATE SODIUM 100 MG (COLACE) CAP PO SCH ×2 (08:41→21:12)
[2020-07-31] MEDS: GABAPENTIN 600 MG (NEURONTIN) TAB PO SCH ×3 (08:41→21:12)
[2020-07-31] MEDS: VENELEX OINTMENT TOP SCH ×2 (08:42→21:13)
[2020-07-31] MEDS: polyethylene glycoL POWDER 17 GM (MIRALAX) PACK PO SCH ×2 (08:43→20:38)
--- NOTE | 2020-07-31 09:20 | PM&R Progress Note ---
Subjective HPI/CC On Admission Date Seen by Provider: July 31, 2020 Time Seen by Provider: 09:30 Subjective/Events-last exam 07/31/20: No major issues No pain reported at this current time No falls Seems to be in good spirits 07/30/20: Patient doing well Has no concerns Pain is controlled BiPAP last night with 3L/min O2 Dressing changes QOD Slight redness around sutures 07/29/20: Patient settling in well Loose BM yesterday Dressing changes on spine every other day No questions from patient Feels like he is using muscles in therapy 07/28/20: Patient doing well Settling in well Incontinent last night but patient reports he spilled urinal Metformin noted and is maintained BM+ Sugar is ok Hgb 9.4 SLUMS Review of Systems General: Fatigue, Malaise Objective Exam Vital Signs Vital Signs Date Time Temp Pulse Resp B/P (MAP) Pulse Ox O2 Delivery O2 Flow Rate FiO2 07/31/20 20:15 94 Room Air 07/31/20 19:56 36.7 98 18 102/56 (71) Capillary Refill : General Appearance: No Apparent Distress, WD/WN, Chronically ill, Obese HEENT: PERRL/EOMI, Normal ENT Inspection, Pharynx Normal Neck: Full Range of Motion, Normal Inspection, Non Tender, Supple, Carotid Bruit Respiratory: Chest Non Tender, Lungs Clear, Normal Breath Sounds, No Accessory Muscle Use, No Respiratory Distress Cardiovascular: Regular Rate, Rhythm, No Edema, No Gallop, No JVD, No Murmur, N ormal Peripheral Pulses Gastrointestinal: Normal Bowel Sounds, No Organomegaly, No Pulsatile Mass, Non Tender, Soft Back: Decreased Range of Motion, Muscle Spasm, Vertebral Tenderness Extremity: Normal Capillary Refill, Normal Inspection, Normal Range of Motion, Non Tender, No Calf Tenderness, No Pedal Edema Neurologic/Psychiatric: Alert, Oriented x3, No Motor/Sensory Deficits, 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 FIM Transfers Therapy Code Descriptions/Definitions Functional [place] Measure: 0=Not Assessed/NA 4=Minimal Assistance 1=Total Assistance 5=Supervision or Setup 2=Maximal Assistance 6=Modified [place] 3=Moderate Assistance 7=Complete IndependenceSCALE: Activities may be completed with or without assistive devices. 2-Qttqgaixik-cbwhwya completes the activity by him/herself with no assistance from a helper. 5-Set-up or Clean-up Assistance-helper sets up or cleans up; patient completes activity. [place] assists only prior to or following the activity. 4-Supervision or Touching Assistance-helper provides verbal cues and/or touching/steadying and/or contact guard assistance as patient completes activity. Assistance may be provided throughout the activity or intermittently. 3-Partial/Moderate Assistance-helper does LESS THAN HALF the effort. [place] lifts, holds or supports trunk or limbs, but provides less than half the effort. 2-Substantial/Maximal Assistance-helper does MORE THAN HALF the effort. [place] lifts or holds trunk or limbs and provides more than half the effort. 1-Guyxebzpd-deqxny does ALL the effort. Patient does none of the effort to complete the activity. Or, the assistance of 2 or more helpers is required for the patient to complete the activity. If activity was not attempted, code reason: 7-Patient Refused. 9-Not Applicable-not attempted and the patient did not perform the activity befo re the current illness, exacerbation or injury. 10-Not Attempted due to Environmental Limitations-(lack of equipment, weather re straints, etc.). 88-Not Attempted due to Medical Conditions or Safety Concerns. Roll Left to Right (QC): 6 Sit to Lying (QC): 5 Sit to Stand (QC): 2 (Max to mod assist) Chair/Olo-jo-Ysitx Xfer(QC): 3 Car Transfer (QC): 88 Gait Training Does the Patient Walk?: Yes Distance: 6' x3 Walk 10 feet (QC): 88 Walk 50 ft with 2 Turns(QC): 88 Walk 150 ft (QC): 88 Walking 10ft/uneven surface-QC: 88 Gait Persons Needed: 2 Gait Assistive Device: FWW Wheelchair Training Does the Pt Use a Wheelchair?: Yes Wheel 50 ft with 2 turns (QC): 6 Wheel 150 ft (QC): 6 Type of Wheelchair: Manual Stair Training 1 Step (curb) (QC): 88 4 Steps (QC): 88 12 Steps (QC): 88 Balance Picking up an Object (QC): 88 ADL-Treatment Eating (QC): 6 Oral Hygiene (QC): 5 Bathing Location: L Arm, R Arm, L Upper Leg, R Upper Leg, L Lower Leg (including foot), R Lower Leg (including foot), Chest, Abdomen, Perineal Area Shower/Bathe Self (QC): 3 Upper Body Dressing (QC): 5 Lower Body Dressing (QC): 1 On/Off Footwear (QC): 2 Toileting Hygiene (QC): 2 Toilet Transfer (QC): 1 (Using sliding board) Assessment/Plan Assessment and Plan Assess & Plan/Chief Complaint Assessment: s/p Lumbar laminectomy L2-L3 and TLIF w/ extension of previous L3-L5 hardware LLE weakness Spondylosis Performed due to Spinal stenosis with neurogenic claudication. Source of pts debidity. PT/OT IS Speech therapy Consult SS. GOAL: Return to baseline function before sx. Discharge home with Home Health. Normocytic anemia Hx of hypokalemia during [place] post-op stay. Per pt: known chronic hx of anemia. 07/26 labs from [facility]: H&H is 8.7/.6 Likely multifactorial: to surgical blood loss and anemia of chronic disease. Iron studies ordered during pts post-op [place] stay (results?) CBC and CMP NIDDM HTN HLP Obesity Sleep apnea Neuropathy SSI Home Cpap. Home Meds s/p COVID-19 PNA Hospitalized . Received convalescent plasma and inpt stay for several days. Pt reports no residual sxs. Hx of lumbar radiculopathy Polyp on vocal cord Hx of cervical spine sx DVT prophylaxis SCD and ambulation. Plan: IRF protocol Pain control BM regimen PT OT 07/28/20: Pain control Monitor hgb Monitor BP 07/29/20: Monitor pain Monitor BM regimen 07/30/20: Monitor closely Pain management BM regimen 07/31/20: Monitor pain Monitor BP (1) Lumbar radiculopathy (2) MICHAELA treated with BiPAP (3) Nocturnal hypoxemia (4) Diabetes (5) Hypertension (6) Hyperlipemia (7) Obesity, morbid, BMI 40.0-49.9 KAMERON RAMOS DO July 31, 2020 09:20
[2020-07-31] MEDS: CYCLOBENZAPRINE 10 MG (FLEXERIL) TAB PO PRN (13:51)
[2020-07-31 19:56] VITALS: BP 102/56
[2020-07-31] MEDS: DIAZEPAM 5 MG (VALIUM) TABLET PO SCH (21:12)
--- NOTE | 2020-08-01 05:22 | PM&R Progress Note ---
Subjective HPI/CC On Admission Date Seen by Provider: August 01, 2020 Time Seen by Provider: 08:30 Subjective/Events-last exam 08/01/20: Hgb is 9.6 Last BM was yesterday No major issues Feels like he is doing a lot better 07/31/20: No major issues No pain reported at this current time No falls Seems to be in good spirits 07/30/20: Patient doing well Has no concerns Pain is controlled BiPAP last night with 3L/min O2 Dressing changes QOD Slight redness around sutures 07/29/20: Patient settling in well Loose BM yesterday Dressing changes on spine every other day No questions from patient Feels like he is using muscles in therapy 07/28/20: Patient doing well Settling in well Incontinent last night but patient reports he spilled urinal Metformin noted and is maintained BM+ Sugar is ok Hgb 9.4 SLUMS Review of Systems General: Fatigue, Malaise Musculoskeletal: back pain, leg pain Neurological: Weakness Objective Exam Vital Signs Vital Signs Date Time Temp Pulse Resp B/P (MAP) Pulse Ox O2 Delivery O2 Flow Rate FiO2 08/01/20 20:04 Room Air 08/01/20 20:00 37.0 91 18 118/69 (85) 93 Capillary Refill : General Appearance: No Apparent Distress, WD/WN, Chronically ill, Obese HEENT: PERRL/EOMI, Normal ENT Inspection, Pharynx Normal Neck: Full Range of Motion, Normal Inspection, Non Tender, Supple, Carotid Bruit Respiratory: Chest Non Tender, Lungs Clear, Normal Breath Sounds, No Accessory Muscle Use, No Respiratory Distress Cardiovascular: Regular Rate, Rhythm, No Edema, No Gallop, No JVD, No Murmur, Normal Peripheral Pulses Gastrointestinal: Normal Bowel Sounds, No Organomegaly, No Pulsatile Mass, Non Tender, Soft Back: Decreased Range of Motion, Muscle Spasm, Vertebral Tenderness Extremity: Normal Capillary Refill, Normal Inspection, Normal Range of Motion, Non Tender, No Calf Tenderness, No Pedal Edema Neurologic/Psychiatric: Alert, Oriented x3, No Motor/Sensory Deficits, 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 FIM Transfers Therapy Code Descriptions/Definitions Functional [place] Measure: 0=Not Assessed/NA 4=Minimal Assistance 1=Total Assistance 5=Supervision or Setup 2=Maximal Assistance 6=Modified [place] 3=Moderate Assistance 7=Complete IndependenceSCALE: Activities may be completed with or without assistive devices. 4-Xldkqmxpyy-ocveswj completes the activity by him/herself with no assistance from a helper. 5-Set-up or Clean-up Assistance-helper sets up or cleans up; patient completes activity. [place] assists only prior to or following the activity. 4-Supervision or Touching Assistance-helper provides verbal cues and/or touchin g/steadying and/or contact guard assistance as patient completes activity. Assistance may be provided throughout the activity or intermittently. 3-Partial/Moderate Assistance-helper does LESS THAN HALF the effort. [place] lifts, holds or supports trunk or limbs, but provides less than half the effort. 2-Substantial/Maximal Assistance-helper does MORE THAN HALF the effort. [place] lifts or holds trunk or limbs and provides more than half the effort. 5-Umgnmjijo-nidqdj does ALL the effort. Patient does none of the effort to complete the activity. Or, the assistance of 2 or more helpers is required for the patient to complete the activity. If activity was not attempted, code reason: 7-Patient Refused. 9-Not Applicable-not attempted and the patient did not perform the activity before the current illness, exacerbation or injury. 10-Not Attempted due to Environmental Limitations-(lack of equipment, weather restraints, etc.). 88-Not Attempted due to Medical Conditions or Safety Concerns. Roll Left to Right (QC): 6 Sit to Lying (QC): 5 Sit to Stand (QC): 2 (Max to mod assist) Chair/Wip-it-Dmvcr Xfer(QC): 3 Car Transfer (QC): 88 Gait Training Does the Patient Walk?: Yes Distance: 6' x3 Walk 10 feet (QC): 88 Walk 50 ft with 2 Turns(QC): 88 Walk 150 ft (QC): 88 Walking 10ft/uneven surface-QC: 88 Gait Persons Needed: 2 Gait Assistive Device: FWW Wheelchair Training Does the Pt Use a Wheelchair?: Yes Wheel 50 ft with 2 turns (QC): 6 Wheel 150 ft (QC): 6 Type of Wheelchair: Manual Stair Training 1 Step (curb) (QC): 88 4 Steps (QC): 88 12 Steps (QC): 88 Balance Picking up an Object (QC): 88 ADL-Treatment Eating (QC): 6 Oral Hygiene (QC): 5 Bathing Location: L Arm, R Arm, L Upper Leg, R Upper Leg, L Lower Leg (including foot), R Lower Leg (including foot), Chest, Abdomen, Perineal Area Shower/Bathe Self (QC): 3 Upper Body Dressing (QC): 5 Lower Body Dressing (QC): 1 On/Off Footwear (QC): 2 Toileting Hygiene (QC): 2 Toilet Transfer (QC): 1 (Using sliding board) Assessment/Plan Assessment and Plan Assess & Plan/Chief Complaint Assessment: s/p Lumbar laminectomy L2-L3 and TLIF w/ extension of previous L3-L5 hardware LLE weakness Spondylosis Performed due to Spinal stenosis with neurogenic claudication. Source of pts debidity. PT/OT IS Speech therapy Consult SS. GOAL: Return to baseline function before sx. Discharge home with Home Health. Normocytic anemia Hx of hypokalemia during [place] post-op stay. Per pt: known chronic hx of anemia. 07/26 labs from [facility]: H&H is 8.7.6 Likely multifactorial: to surgical blood loss and anemia of chronic disease. Iron studies ordered during pts post-op [place] stay (results?) CBC and CMP NIDDM HTN HLP Obesity Sleep apnea Neuropathy SSI Home Cpap. Home Meds s/p COVID-19 PNA Hospitalized . Received convalescent plasma and inpt stay for several days. Pt reports no residual sxs. Hx of lumbar radiculopathy Polyp on vocal cord Hx of cervical spine sx DVT prophylaxis SCD and ambulation. Plan: IRF protocol Pain control BM regimen PT OT 07/28/20: Pain control Monitor hgb Monitor BP 07/29/20: Monitor pain Monitor BM regimen 07/30/20: Monitor closely Pain management BM regimen 07/31/20: Monitor pain Monitor BP 08/01/20: Monitor leg weakness Pain control Monitor BM regimen (1) Lumbar radiculopathy (2) MICHAELA treated with BiPAP (3) Nocturnal hypoxemia (4) Diabetes (5) Hypertension (6) Hyperlipemia (7) Obesity, morbid, BMI 40.0-49.9 KAMERON RAMOS 3, 2021 05:22
[2020-08-01 05:48] LABS: BASOPHILS % (AUTO) 1 % (0-10); EOSINOPHILS # (AUTO) 0.3 10^3/uL (0.0-0.3); EOSINOPHILS % (AUTO) 4 % (0-10); HEMATOCRIT 31 % (40-54); HEMOGLOBIN 9.6 g/dL (13.3-17.7); LYMPHOCYTES # (AUTO) 1.6 10^3/uL (1.0-4.0); LYMPHOCYTES % (AUTO) 21 % (12-44); MEAN CORPUSCULAR HEMOGLOBIN 29 pg (25-34); MEAN CORPUSCULAR HGB CONC 31 g/dL (32-36); MEAN CORPUSCULAR VOLUME 94 fL (80-99); MEAN PLATELET VOLUME 10.4 fL (9.0-12.2); MONOCYTES # (AUTO) 0.8 10^3/uL (0.0-1.0); MONOCYTES % (AUTO) 11 % (0-12); NEUTROPHILS # (AUTO) 4.9 10^3/uL (1.8-7.8); NEUTROPHILS % (AUTO) 62 % (42-75); PLATELET COUNT 352 10^3/uL (130-400); WHITE BLOOD COUNT 7.9 10^3/uL (4.3-11.0)
[2020-08-01 06:07] LABS: ALANINE AMINOTRANSFERASE 37 U/L (0-55); ALBUMIN 3.2 GM/DL (3.2-4.5); ALKALINE PHOSPHATASE 97 U/L (40-136); BILIRUBIN,TOTAL 0.5 MG/DL (0.1-1.0); BUN/CREATININE RATIO 19; CALCIUM 8.5 MG/DL (8.5-10.1); CARBON DIOXIDE 26 MMOL/L (21-32); CHLORIDE 99 MMOL/L (98-107); CREATININE SERUM 1.08 MG/DL (0.60-1.30); GFR ESTIMATED > 60; GLUCOSE 124 MG/DL (70-105); POTASSIUM 3.9 MMOL/L (3.6-5.0); SODIUM 137 MMOL/L (135-145); TOTAL PROTEIN 6.2 GM/DL (6.4-8.2)
[2020-08-01 08:08] VITALS: BP 131/65
--- NOTE | 2020-08-01 08:56 | Physical Therapy Daily Note ---
PT Daily Note-Current Subjective Patient upright toileting pre tx, with OT. Patient consents to therapy, does not c/o pain. Appearance Patient seated upright in chair with call button and tray table within reach. Mental Status Patient Orientation: Person, Place, Time, Normal For Age Transfers SCALE: Activities may be completed with or without assistive devices. 3-Gszemacqdm-cqqpdhd completes the activity by him/herself with no assistance from a helper. 5-Set-up or Clean-up Assistance-helper sets up or cleans up; patient completes activity. [place] assists only prior to or following the activity. 4-Supervision or Touching Assistance-helper provides verbal cues and/or touching/steadying and/or contact guard assistance as patient completes activity. Assistance may be provided throughout the activity or intermittently. 3-Partial/Moderate Assistance-helper does LESS THAN HALF the effort. [place] lifts, holds or supports trunk or limbs, but provides less than half the effort. 2-Substantial/Maximal Assistance-helper does MORE THAN HALF the effort. [place] lifts or holds trunk or limbs and provides more than half the effort. 9-Zehcdnaok-bhtyuz does ALL the effort. Patient does none of the effort to complete the activity. Or, the assistance of 2 or more helpers is required for the patient to complete the activity. If activity was not attempted, code reason: 7-Patient Refused. 9-Not Applicable-not attempted and the patient did not perform the activity before the current illness, exacerbation or injury. 10-Not Attempted due to Environmental Limitations-(lack of equipment, weather restraints, etc.). 88-Not Attempted due to Medical Conditions or Safety Concerns. Sit to Stand (QC): 3 Chair/Vti-yp-Bhnkk Xfer(QC): 3 (Min A with sliding board) Patient required Mod A with sit <-> stand from toilet initially. Performed 10 Sit <-> Stands, by last transfer was requiring CGA to block R knee in parallel bars. Gait Training Does the Patient Walk?: Yes Distance: 6' x3 in parallel bars Gait Assistive Device: Parallel Bars Patient demonstrated improvement with step lengths as gait cycles continued. Still has difficulty with weight shifting onto L LE. Exercises Standing: Heel/toe raises, Mini squats Standing Reps: 10 Patient was able to activate calf muscles on L LE with heel/toe raises. Treatments Co-treated with OT, secondary to patient level of assistance required and overall impairments resulting in decreases functional mobility. OT/PT worked on gait training and transfers. Patient performed 4 standing balance activities, with 2# weights twisting to each side for 10 reps, 2# cuff weights around wrists with patient clapping, 20x. And weight transferring that required standing with no UE support for a few seconds, 10x. Patient demonstrated marked LOB without UE support, but was able to recover well. Assessment Current Status: Fair Progress Patient demonstrated stronger muscle activation in R LE with sit <-> stand, is becoming more confident with positioning of body in w/c to assist with successful sit <-> stand without more assistance required. PT Short Term Goals Short Term Goals Time Frame: August 03, 2020 Roll Left & Right: 6 Sit to lyin (CGA) Lying to sitting on side of be: 4 (CGA) Chair/zmf-ot-ekync transfer: 4 (CGA) Walk 10 feet: 3 (mod) PT Rabbit Dresser Goals Jail Goals PT Jail Goals Time Frame: August 17, 2020 Roll Left & Right (QC): 6 Sit to Lying (QC): 4 (SBA) Lying-Sitting on Side/Bed(QC): 4 (SBA) Sit to Stand (QC): 3 (min) Chair/Mxd-xo-Qpduo Xfer(QC): 3 (min) Toilet Transfer (QC): 3 (min) Car Transfer (QC): 3 (min) Does the Patient Walk: No and Walking Goal IS indicated Walk 10 feet (QC): 3 (min) Walk 50ft with 2 Turns (QC): 3 (min) Walk 150 ft (QC): 88 Walking 10ft on Uneven Surface: 3 (min) 1 Step (curb) (QC): 3 (min) 4 Steps (QC): 88 12 Steps (QC): 9 Picking up an Object (QC): 9 Does the Pt use WC or Scooter?: Yes Wheel 50 feet with 2 turns (QC: 6 Type: Manual Wheel 150 feet: 6 Type: Manual PT Plan Problem List Problem List: Activity Tolerance, Functional Strength, Safety, Balance, Gait, Transfer, Bed Mobility, ROM Treatment/Plan Treatment Plan: Continue Plan of Care Treatment Plan: Bed Mobility, Education, Functional Activity Jai, Functional Strength, Gait, Safety, Therapeutic Exercise, Transfers Treatment Duration: August 17, 2020 Frequency: At least 5 of 7 days/Wk (IRF) Estimated Hrs Per Day: 1.5 hours per day Patient and/or Family Agrees t: Yes Safety Risks/Education Patient Education: Gait Training, Transfer Techniques, Correct Positioning, W/C Management, Safety Issues Teaching Recipient: Patient Teaching Methods: Demonstration, Discussion Response to Teaching: Verbalize Understanding, Return Demonstration Time/GCodes Time In: 0800 Time Out: 0900 Total Billed Treatment Time: 60 Total Billed Treatment 1 visit: FA: 15' EX x2: 30' GT: 15' co-treated from [id number] FABIAN BOBBY PT August 01, 2020 08:56
[2020-08-01] MEDS: ASPIRIN E.C. 81 MG (ECOTRIN) TAB PO SCH (09:58)
[2020-08-01] MEDS: GABAPENTIN 600 MG (NEURONTIN) TAB PO SCH ×3 (09:58→19:39)
[2020-08-01] MEDS: VENELEX OINTMENT TOP SCH ×2 (09:59→19:41)
[2020-08-01] MEDS: metFORMIN 500 MG (GLUCOPHAGE) TAB PO SCH ×2 (09:59→19:39)
[2020-08-01] MEDS: polyethylene glycoL POWDER 17 GM (MIRALAX) PACK PO SCH ×2 (09:59→19:43)
[2020-08-01] MEDS: SENNA W/DOCUSATE (SENOKOT S) TABLET PO SCH ×2 (09:59→19:38)
[2020-08-01] MEDS: amLODIPine 5 MG (NORVASC) TAB PO SCH (09:59)
[2020-08-01] MEDS: LOSARTAN 100 MG (COZAAR) TABLET PO SCH (09:59)
[2020-08-01] MEDS: DOCUSATE SODIUM 100 MG (COLACE) CAP PO SCH ×2 (09:59→19:39)
[2020-08-01] MEDS: oxyCODONE/APAP 5/325MG (PERCOCET 5) TABLET PO PRN ×2 (10:08→18:21)
--- NOTE | 2020-08-01 12:58 | Occupational Ther Daily Note ---
OT Current Status-Daily Note Subjective Pt alert, sitting in recliner. Pt agrees to therapy. No c/o pain at this time. Mental Status/Objective Patient Orientation: Person, Place, Time, Situation ADL-Treatment Pt declines shower, agrees to sponge bath. After sponge bath set up, pt completed srinath care sitting up in bed. With HOB raised, pt went from supine to sitting EOB to complete sponge bath by self. Pt then requested to use BSC. Mod A to complete sliding board transfer, verbal and physical cues for foot placement throughout transfer. Pt leaned side to side to manipulate clothing down to use BSC. Pt leaned to side for assist to cleanse after small BM. At this time co-treat with PT initiated ([id number]), skilled instruction and care required due to decreased mobility, strength and increased fall risk. PT focusing on transfers and ambulation while OT focusing on B UE strengthening and placement during mobility tasks. Pt stood with PT from BSC while DAVIS hiked pt's pants up over hips and replaced BSC for w/c. Therapy Code Descriptions/Definitions Functional [place] Measure: 0=Not Assessed/NA 4=Minimal Assistance 1=Total Assistance 5=Supervision or Setup 2=Maximal Assistance 6=Modified [place] 3=Moderate Assistance 7=Complete IndependenceSCALE: Activities may be completed with or without assistive devices. 7-Ovckfmiyyk-rxoldzb completes the activity by him/herself with no assistance from a helper. 5-Set-up or Clean-up Assistance-helper sets up or cleans up; patient completes activity. [place] assists only prior to or following the activity. 4-Supervision or Touching Assistance-helper provides verbal cues and/or touching/steadying and/or contact guard assistance as patient completes activity. Assistance may be provided throughout the activity or intermittently. 3-Partial/Moderate Assistance-helper does LESS THAN HALF the effort. [place] lifts, holds or supports trunk or limbs, but provides less than half the effort. 2-Substantial/Maximal Assistance-helper does MORE THAN HALF the effort. [place] lifts or holds trunk or limbs and provides more than half the effort. 3-Tjogmeqtb-ygbpdm does ALL the effort. Patient does none of the effort to complete the activity. Or, the assistance of 2 or more helpers is required for the patient to complete the activity. If activity was not attempted, code reason: 7-Patient Refused. 9-Not Applicable-not attempted and the patient did not perform the activity before the current illness, exacerbation or injury. 10-Not Attempted due to Environmental Limitations-(lack of equipment, weather restraints, etc.). 88-Not Attempted due to Medical Conditions or Safety Concerns. Eating (QC): 6 Shower/Bathe Self (QC): 3 Upper Body Dressing (QC): 5 Lower Body Dressing (QC): 2 On/Off Footwear: 3 (Using sock aide pt able to don socks then assist to don shoes.) Toileting Hygiene (QC): 2 Toilet Transfer (QC): 1 Other Treatment Pt propelled w/c to therapy gym to work on parallel bars for standing balance, ambulation and B UE strengthening. See PT notes for distance and assist needed for ambulation. Pt able to stand with assist x2 and complete balance activities with 2# wt with minimal LOB and assist to regain. After session, pt left in care of PT. All needs met. OT Short Term Goals Short Term Goals Time Frame: August 10, 2020 Eatin Oral hygiene: 6 Toileting hygiene: 3 Shower/bathe self: 3 Upper body dressin Lower body dressin Putting on/taking off footwear: 3 OT Acting Instructor Goals [facility] Goals Time Frame: August 24, 2020 Eating (QC): 6 Oral Hygiene (QC): 6 Toileting Hygiene (QC): 6 Shower/Bathe Self (QC): 4 Upper Body Dressing (QC): 6 Lower Body Dressing (QC): 6 On/Off Footwear (QC): 6 Additional Goals: 1-Demonstrate ADL Tasks, 2-Verbalize Understanding, 3- ImproveStrength/Jai 1=Demonstrate adherence to instructed precautions during ADL tasks. 2=Patient will verbalize/demonstrate understanding of assistive devices/modifications for ADL. 3=Patient will improve strength/tolerance for activity to enable patient to perform ADL's. OT Education/Plan Problem List/Assessment Assessment: Decreased Activ Tolerance, Decreased UE Strength, Impaired Coordination, Impaired Funct Balance, Impaired Self-Care Skills Discharge Recommendations Plan/Recommendations: Continue POC Treatment Plan/Plan of Care Patient would benefit from OT for education, treatment and training to promote independence in ADL's, mobility, safety and/or upper extremity function for ADL's. Plan of Care: ADL Retraining, Functional Mobility, Group Exercise/Act as Ind, UE Funct Exercise/Act Treatment Duration: August 24, 2020 Frequency: At least 5 of 7 days/Wk (IRF) Estimated Hrs Per Day: 1.5 hours per day Agreement: Yes Rehab Potential: Fair Time/GCodes Start Time: 07:15 Stop Time: 08:45 Total Time Billed (hr/min): 90 Billed Treatment Time 1 visit-ADL 3 (45 min) FA 3 (45 min) co-treat with PT [id number], individual [id number] RYAN FERRARA August 01, 2020 12:58
--- NOTE | 2020-08-01 13:50 | Physical Therapy Daily Note ---
PT Daily Note-Current Subjective Patient supine in bed pre tx, consents to therapy. Mental Status Patient Orientation: Person, Place, Time, Normal For Age Transfers SCALE: Activities may be completed with or without assistive devices. 0-Dqviczrbdq-vcfhbjv completes the activity by him/herself with no assistance from a helper. 5-Set-up or Clean-up Assistance-helper sets up or cleans up; patient completes activity. [place] assists only prior to or following the activity. 4-Supervision or Touching Assistance-helper provides verbal cues and/or touching/steadying and/or contact guard assistance as patient completes activity. Assistance may be provided throughout the activity or intermittently. 3-Partial/Moderate Assistance-helper does LESS THAN HALF the effort. [place] lifts, holds or supports trunk or limbs, but provides less than half the effort. 2-Substantial/Maximal Assistance-helper does MORE THAN HALF the effort. [place] lifts or holds trunk or limbs and provides more than half the effort. 0-Wbdhzmycr-kmuasb does ALL the effort. Patient does none of the effort to complete the activity. Or, the assistance of 2 or more helpers is required for the patient to complete the activity. If activity was not attempted, code reason: 7-Patient Refused. 9-Not Applicable-not attempted and the patient did not perform the activity before the current illness, exacerbation or injury. 10-Not Attempted due to Environmental Limitations-(lack of equipment, weather restraints, etc.). 88-Not Attempted due to Medical Conditions or Safety Concerns. Roll Left & Right (QC): 6 Lying to Sitting/Side of Bed(Q: 6 Chair/Bay-mn-Eoaro Xfer(QC): 3 Mod assist with stand pivot transfer from bed to chair. Min assist required with sliding board transfer from chair to chair, 3x. Wheelchair Training Does the Pt Use a Wheelchair?: Yes Wheel 50 ft with 2 turns (QC): 4 120' x2, patient has difficulty utilizing L LE with navigation, it has tendency to drag behind which makes it difficult for patient to propel. Exercises NuStep Minutes: 10 NuStep Workload: 4 Treatments LE strengthening, wheelchair navigation, transfers Assessment Current Status: Fair Progress Patient is demonstrating more improvement and stability with sliding board transfers. Plan to have patient independently apply sliding board at next session. PT Short Term Goals Short Term Goals Time Frame: August 03, 2020 Roll Left & Right: 6 Sit to lyin (CGA) Lying to sitting on side of be: 4 (CGA) Chair/nwd-jf-fspjy transfer: 4 (CGA) Walk 10 feet: 3 (mod) PT Alf Goals Housing Counselor Goals PT Alf Goals Time Frame: August 17, 2020 Roll Left & Right (QC): 6 Sit to Lying (QC): 4 (SBA) Lying-Sitting on Side/Bed(QC): 4 (SBA) Sit to Stand (QC): 3 (min) Chair/Hew-pq-Miusa Xfer(QC): 3 (min) Toilet Transfer (QC): 3 (min) Car Transfer (QC): 3 (min) Does the Patient Walk: No and Walking Goal IS indicated Walk 10 feet (QC): 3 (min) Walk 50ft with 2 Turns (QC): 3 (min) Walk 150 ft (QC): 88 Walking 10ft on Uneven Surface: 3 (min) 1 Step (curb) (QC): 3 (min) 4 Steps (QC): 88 12 Steps (QC): 9 Picking up an Object (QC): 9 Does the Pt use WC or Scooter?: Yes Wheel 50 feet with 2 turns (QC: 6 Type: Manual Wheel 150 feet: 6 Type: Manual PT Plan Problem List Problem List: Activity Tolerance, Functional Strength, Safety, Balance, Gait, T ransfer, Bed Mobility, ROM Treatment/Plan Treatment Plan: Continue Plan of Care Treatment Plan: Bed Mobility, Education, Functional Activity Jai, Functional Strength, Gait, Safety, Therapeutic Exercise, Transfers Treatment Duration: August 17, 2020 Frequency: At least 5 of 7 days/Wk (IRF) Estimated Hrs Per Day: 1.5 hours per day Patient and/or Family Agrees t: Yes Safety Risks/Education Patient Education: Transfer Techniques, Correct Positioning, Safety Issues Teaching Recipient: Patient Teaching Methods: Demonstration, Discussion Response to Teaching: Verbalize Understanding, Return Demonstration Time/GCodes Time In: 1330 Time Out: 1400 Total Billed Treatment Time: 30 Total Billed Treatment 1 visit: FA: 20' EX: 10' FABIAN BOBBY PT August 01, 2020 13:50
[2020-08-01] MEDS: DIAZEPAM 5 MG (VALIUM) TABLET PO SCH (19:39)
[2020-08-01 20:00] VITALS: BP 118/69
--- NOTE | 2020-08-02 07:30 | Occupational Ther Daily Note ---
OT Current Status-Daily Note Subjective Pt alert, lying in bed. Pt agrees to therapy. No c/o pain at this time. Mental Status/Objective Patient Orientation: Person, Place, Time, Situation ADL-Treatment Pt able to complete meal set up by self. Assist x2 to scoot up in bed. Supine <--> EOB with HOB raised, pt completed with SBA. Pt then transferred with sliding board from bed to shower chair with cutout, min A supporting knees and assisting with pushing through feet. Transferred to large shower room using rolling shower chair. At this time OT/PT cotreatment began ([id number]), skilled instruction and care required skills of 2 clinicians due to increased fall risk, decreased mobility and activity tolerance. PT focusing on standing, mobility and transfers while OT focused on ADLs, functional transfers and B UE placement throughout session. Pt completed shower using shower chair with cutout, hand held shower, LH sponge and grabbars with assist only to cleanse buttocks. Reported to nrsg buttocks red, at end of therapy applied ointment to area. Pt able to push self up with arms to doff pants with assist x1, assist x2 to complete donning lower body clothing while assist to stand with grabbars then assist to hike pants over hips. Pt was then transferred to w/c when standing by switching out chairs. Max A for footwear. Therapy Code Descriptions/Definitions Functional [place] Measure: 0=Not Assessed/NA 4=Minimal Assistance 1=Total Assistance 5=Supervision or Setup 2=Maximal Assistance 6=Modified [place] 3=Moderate Assistance 7=Complete IndependenceSCALE: Activities may be completed with or without assistive devices. 0-Nlxdtnyhsr-oiodjxy completes the activity by him/herself with no assistance from a helper. 5-Set-up or Clean-up Assistance-helper sets up or cleans up; patient completes activity. [place] assists only prior to or following the activity. 4-Supervision or Touching Assistance-helper provides verbal cues and/or touching/steadying and/or contact guard assistance as patient completes activity. Assistance may be provided throughout the activity or intermittently. 3-Partial/Moderate Assistance-helper does LESS THAN HALF the effort. [place] lifts, holds or supports trunk or limbs, but provides less than half the effort. 2-Substantial/Maximal Assistance-helper does MORE THAN HALF the effort. [place] lifts or holds trunk or limbs and provides more than half the effort. 7-Aksosaeej-fuapbv does ALL the effort. Patient does none of the effort to complete the activity. Or, the assistance of 2 or more helpers is required for the patient to complete the activity. If activity was not attempted, code reason: 7-Patient Refused. 9-Not Applicable-not attempted and the patient did not perform the activity before the current illness, exacerbation or injury. 10-Not Attempted due to Environmental Limitations-(lack of equipment, weather restraints, etc.). 88-Not Attempted due to Medical Conditions or Safety Concerns. Eating (QC): 6 Shower/Bathe Self (QC): 3 Upper Body Dressing (QC): 5 Lower Body Dressing (QC): 1 On/Off Footwear: 2 Other Treatment See PT notes for progress on ambulation in parallel bars. Min assist x3 for safety to SPT using FWW from w/c to bed. EOB to supine independent. Pt then rolled onto L side to apply ointment to buttocks. After therapy, pt lying in bed with call light/phone in reach. All needs met in room. OT Short Term Goals Short Term Goals Time Frame: August 10, 2020 Eatin Oral hygiene: 6 Toileting hygiene: 3 Shower/bathe self: 3 Upper body dressin Lower body dressin Putting on/taking off footwear: 3 OT Retort Feeder [place] Goals [facility] Goals Time Frame: August 24, 2020 Eating (QC): 6 Oral Hygiene (QC): 6 Toileting Hygiene (QC): 6 Shower/Bathe Self (QC): 4 Upper Body Dressing (QC): 6 Lower Body Dressing (QC): 6 On/Off Footwear (QC): 6 Additional Goals: 1-Demonstrate ADL Tasks, 2-Verbalize Understanding, 3- ImproveStrength/Jai 1=Demonstrate adherence to instructed precautions during ADL tasks. 2=Patient will verbalize/demonstrate understanding of assistive devices/modifications for ADL. 3=Patient will improve strength/tolerance for activity to enable patient to perform ADL's. OT Education/Plan Problem List/Assessment Assessment: Decreased Activ Tolerance, Decreased Safety Aware, Impaired Funct Balance, Impaired Self-Care Skills Discharge Recommendations Plan/Recommendations: Continue POC Treatment Plan/Plan of Care Patient would benefit from OT for education, treatment and training to promote independence in ADL's, mobility, safety and/or upper extremity function for ADL's. Plan of Care: ADL Retraining, Functional Mobility, Group Exercise/Act as Ind, UE Funct Exercise/Act Treatment Duration: August 24, 2020 Frequency: At least 5 of 7 days/Wk (IRF) Estimated Hrs Per Day: 1.5 hours per day Agreement: Yes Rehab Potential: Fair Time/GCodes Start Time: 07:30 Stop Time: 09:00 Total Time Billed (hr/min): 90 Billed Treatment Time 1 visit-ADL 4 (60 min) FA 2 (30 min) co-treat with PT [id number], individual [id number] RYAN FERRARA August 02, 2020 07:30
[2020-08-02 08:00] VITALS: BP 124/59
--- NOTE | 2020-08-02 08:07 | PM&R Progress Note ---
Subjective HPI/CC On Admission Date Seen by Provider: August 02, 2020 Time Seen by Provider: 08:20 Subjective/Events-last exam 08/02/20: Pt really not too motivated but hes doing well Spills his urinal quite a bit Incision looks a bit red but not infected Bowels moved yesterday 08/01/20: Hgb is 9.6 Last BM was yesterday No major issues Feels like he is doing a lot better 07/31/20: No major issues No pain reported at this current time No falls Seems to be in good spirits 07/30/20: Patient doing well Has no concerns Pain is controlled BiPAP last night with 3L/min O2 Dressing changes QOD Slight redness around sutures 07/29/20: Patient settling in well Loose BM yesterday Dressing changes on spine every other day No questions from patient Feels like he is using muscles in therapy 07/28/20: Patient doing well Settling in well Incontinent last night but patient reports he spilled urinal Metformin noted and is maintained BM+ Sugar is ok Hgb 9.4 SLUMS Review of Systems General: Fatigue, Malaise Musculoskeletal: back pain Neurological: Weakness Objective Exam Vital Signs Vital Signs Date Time Temp Pulse Resp B/P (MAP) Pulse Ox O2 Delivery O2 Flow Rate FiO2 08/02/20 20:45 Room Air 08/02/20 20:00 36.6 86 16 125/60 (81) 94 Capillary Refill : General Appearance: No Apparent Distress, WD/WN, Chronically ill, Obese HEENT: PERRL/EOMI, Normal ENT Inspection, Pharynx Normal Neck: Full Range of Motion, Normal Inspection, Non Tender, Supple, Carotid Bruit Respiratory: Chest Non Tender, Lungs Clear, Normal Breath Sounds, No Accessory Muscle Use, No Respiratory Distress Cardiovascular: Regular Rate, Rhythm, No Edema, No Gallop, No JVD, No Murmur, Normal Peripheral Pulses Gastrointestinal: Normal Bowel Sounds, No Organomegaly, No Pulsatile Mass, Non Tender, Soft Back: Decreased Range of Motion, Muscle Spasm, Vertebral Tenderness Extremity: Normal Capillary Refill, Normal Inspection, Normal Range of Motion, Non Tender, No Calf Tenderness, No Pedal Edema Neurologic/Psychiatric: Alert, Oriented x3, No Motor/Sensory Deficits, extension work instructor II- XII Norm as Tested, Abnormal Gait, Depressed Affect, Motor Weakness Skin: Normal Color, Warm/Dry Lymphatic: No Adenopathy Results/Procedures Lab Patient resulted labs reviewed. FIM Transfers Therapy Code Descriptions/Definitions Functional [place] Measure: 0=Not Assessed/NA 4=Minimal Assistance 1=Total Assistance 5=Supervision or Setup 2=Maximal Assistance 6=Modified [place] 3=Moderate Assistance 7=Complete IndependenceSCALE: Activities may be completed with or without assistive devices. 2-Qfgucokorv-jcquwmv completes the activity by him/herself with no assistance from a helper. 5-Set-up or Clean-up Assistance-helper sets up or cleans up; patient completes activity. [place] assists only prior to or following the activity. 4-Supervision or Touching Assistance-helper provides verbal cues and/or touching/steadying and/or contact guard assistance as patient completes activity . Assistance may be provided throughout the activity or intermittently. 3-Partial/Moderate Assistance-helper does LESS THAN HALF the effort. [place] lifts, holds or supports trunk or limbs, but provides less than half the effort. 2-Substantial/Maximal Assistance-helper does MORE THAN HALF the effort. [place] lifts or holds trunk or limbs and provides more than half the effort. 5-Svtzhmuhz-haxxds does ALL the effort. Patient does none of the effort to complete the activity. Or, the assistance of 2 or more helpers is required for the patient to complete the activity. If activity was not attempted, code reason: 7-Patient Refused. 9-Not Applicable-not attempted and the patient did not perform the activity before the current illness, exacerbation or injury. 10-Not Attempted due to Environmental Limitations-(lack of equipment, weather restraints, etc.). 88-Not Attempted due to Medical Conditions or Safety Concerns. Roll Left to Right (QC): 6 Sit to Lying (QC): 5 Sit to Stand (QC): 3 Chair/Lgt-gg-Supfi Xfer(QC): 3 Car Transfer (QC): 88 Gait Training Does the Patient Walk?: Yes Distance: 6' x3 in parallel bars Walk 10 feet (QC): 88 Walk 50 ft with 2 Turns(QC): 88 Walk 150 ft (QC): 88 Walking 10ft/uneven surface-QC: 88 Gait Persons Needed: 2 Gait Assistive Device: Parallel Bars Wheelchair Training Does the Pt Use a Wheelchair?: Yes Wheel 50 ft with 2 turns (QC): 4 Wheel 150 ft (QC): 6 Type of Wheelchair: Manual Stair Training 1 Step (curb) (QC): 88 4 Steps (QC): 88 12 Steps (QC): 88 Balance Picking up an Object (QC): 88 ADL-Treatment Eating (QC): 6 Oral Hygiene (QC): 5 Bathing Location: L Arm, R Arm, L Upper Leg, R Upper Leg, L Lower Leg (including foot), R Lower Leg (including foot), Chest, Abdomen, Perineal Area Shower/Bathe Self (QC): 3 Upper Body Dressing (QC): 5 Lower Body Dressing (QC): 2 On/Off Footwear (QC): 3 (Using sock aide pt able to don socks then assist to don shoes.) Toileting Hygiene (QC): 2 Toilet Transfer (QC): 1 Assessment/Plan Assessment and Plan Assess & Plan/Chief Complaint Assessment: s/p Lumbar laminectomy L2-L3 and TLIF w/ extension of previous L3-L5 hardware LLE weakness Spondylosis Performed due to Spinal stenosis with neurogenic claudication. Source of pts debidity. PT/OT IS Speech therapy Consult SS. GOAL: Return to baseline function before sx. Discharge home with Home Health. Normocytic anemia Hx of hypokalemia during [place] post-op stay. Per pt: known chronic hx of anemia. 07/26 labs from [facility]: H&H is 8.7.6 Likely multifactorial: to surgical blood loss and anemia of chronic disease. Iron studies ordered during pts post-op [place] stay (results?) CBC and CMP NIDDM HTN HLP Obesity Sleep apnea Neuropathy SSI Home Cpap. Home Meds s/p COVID-19 PNA Hospitalized . Received convalescent plasma and inpt stay for several days. Pt reports no residual sxs. Hx of lumbar radiculopathy Polyp on vocal cord Hx of cervical spine sx DVT prophylaxis SCD and ambulation. Plan: IRF protocol Pain control BM regimen PT OT 07/28/20: Pain control Monitor hgb Monitor BP 07/29/20: Monitor pain Monitor BM regimen 07/30/20: Monitor closely Pain management BM regimen 07/31/20: Monitor pain Monitor BP 08/01/20: Monitor leg weakness Pain control Monitor BM regimen 08/02/20: Monitor pain BM regimen to maintain (1) Lumbar radiculopathy (2) MICHAELA treated with BiPAP (3) Nocturnal hypoxemia (4) Diabetes (5) Hypertension (6) Hyperlipemia (7) Obesity, morbid, BMI 40.0-49.9 KAMERON RAMOS DO August 02, 2020 08:07
[2020-08-02] MEDS: LOSARTAN 100 MG (COZAAR) TABLET PO SCH (08:22)
[2020-08-02] MEDS: CYCLOBENZAPRINE 10 MG (FLEXERIL) TAB PO PRN ×2 (08:22→13:13)
[2020-08-02] MEDS: amLODIPine 5 MG (NORVASC) TAB PO SCH (08:22)
[2020-08-02] MEDS: ASPIRIN E.C. 81 MG (ECOTRIN) TAB PO SCH (08:23)
[2020-08-02] MEDS: SENNA W/DOCUSATE (SENOKOT S) TABLET PO SCH ×2 (08:23→20:44)
[2020-08-02] MEDS: metFORMIN 500 MG (GLUCOPHAGE) TAB PO SCH ×2 (08:23→20:44)
[2020-08-02] MEDS: GABAPENTIN 600 MG (NEURONTIN) TAB PO SCH ×3 (08:23→20:44)
[2020-08-02] MEDS: DOCUSATE SODIUM 100 MG (COLACE) CAP PO SCH ×2 (08:23→20:45)
--- NOTE | 2020-08-02 08:56 | Physical Therapy Daily Note ---
PT Daily Note-Current Subjective Patient upright in shower chair pre tx. Patient consented to therapy. Did not c/o pain. Appearance Patient supine in bed post tx, with call button within reach, and tray table nearby. All needs met. Mental Status Patient Orientation: Person, Place, Time, Normal For Age TLSO Transfers SCALE: Activities may be completed with or without assistive devices. 0-Iesopfpxwq-pabavcg completes the activity by him/herself with no assistance from a helper. 5-Set-up or Clean-up Assistance-helper sets up or cleans up; patient completes activity. [place] assists only prior to or following the activity. 4-Supervision or Touching Assistance-helper provides verbal cues and/or touching/steadying and/or contact guard assistance as patient completes activity. Assistance may be provided throughout the activity or intermittently. 3-Partial/Moderate Assistance-helper does LESS THAN HALF the effort. [place] lifts, holds or supports trunk or limbs, but provides less than half the effort. 2-Substantial/Maximal Assistance-helper does MORE THAN HALF the effort. [place] lifts or holds trunk or limbs and provides more than half the effort. 2-Wtlljriqj-nkskhh does ALL the effort. Patient does none of the effort to complete the activity. Or, the assistance of 2 or more helpers is required for the patient to complete the activity. If activity was not attempted, code reason: 7-Patient Refused. 9-Not Applicable-not attempted and the patient did not perform the activity before the current illness, exacerbation or injury. 10-Not Attempted due to Environmental Limitations-(lack of equipment, weather restraints, etc.). 88-Not Attempted due to Medical Conditions or Safety Concerns. Roll Left & Right (QC): 6 Sit to Lying (QC): 6 Sit to Stand (QC): 3 Chair/Cno-zu-Frrvl Xfer(QC): 3 (mod) Patient demonstrated improvement in sit <-> stand transfer in parallel bars with less need for assistance. When sit <-> stand using walker in the room, patient required more assistance, but was able to complete chair <-> bed transfer with a few steps for the first time. Gait Training Does the Patient Walk?: Yes Distance: 6' x3 Gait Assistive Device: FWW Patient did not require R LE knee blocking with gait training, and PT was able to only block L LE during ascent and descent of sit <-> stand pre gait. Patient is propeling L LE forward with better accuracy, and R LE has shown marked improvement in strength. Treatments Co-treated with OT secondary to patient impairments, level of assistance required for functional mobility, and fall risk. PT/OT assisted with functional mobility and transfers during bathing, and PT/OT assisted with gait training in parallel bars, and bed mobility with rolling and using UE's to pull self up in b ed. Assessment Current Status: Good Progress Patient is demonstrating more control and stability with gait training in parallel bars. Plan to incorporate gait with walker at next session. PT Short Term Goals Short Term Goals Time Frame: August 03, 2020 Roll Left & Right: 6 Sit to lyin (CGA) Lying to sitting on side of be: 4 (CGA) Chair/ecx-vh-vsfak transfer: 4 (CGA) Walk 10 feet: 3 (mod) PT Mcc Goals Accounting Recruiter Goals PT Mcc Goals Time Frame: August 17, 2020 Roll Left & Right (QC): 6 Sit to Lying (QC): 4 (SBA) Lying-Sitting on Side/Bed(QC): 4 (SBA) Sit to Stand (QC): 3 (min) Chair/Tbq-lb-Sifvf Xfer(QC): 3 (min) Toilet Transfer (QC): 3 (min) Car Transfer (QC): 3 (min) Does the Patient Walk: No and Walking Goal IS indicated Walk 10 feet (QC): 3 (min) Walk 50ft with 2 Turns (QC): 3 (min) Walk 150 ft (QC): 88 Walking 10ft on Uneven Surface: 3 (min) 1 Step (curb) (QC): 3 (min) 4 Steps (QC): 88 12 Steps (QC): 9 Picking up an Object (QC): 9 Does the Pt use WC or Scooter?: Yes Wheel 50 feet with 2 turns (QC: 6 Type: Manual Wheel 150 feet: 6 Type: Manual PT Plan Problem List Problem List: Activity Tolerance, Functional Strength, Safety, Balance, Gait, Transfer, Bed Mobility, ROM Treatment/Plan Treatment Plan: Continue Plan of Care Treatment Plan: Bed Mobility, Education, Functional Activity Jai, Functional Strength, Gait, Safety, Therapeutic Exercise, Transfers Treatment Duration: August 17, 2020 Frequency: At least 5 of 7 days/Wk (IRF) Estimated Hrs Per Day: 1.5 hours per day Patient and/or Family Agrees t: Yes Safety Risks/Education Patient Education: Gait Training, Transfer Techniques, Correct Positioning, W/C Management, Safety Issues Teaching Recipient: Patient Teaching Methods: Demonstration, Discussion Response to Teaching: Reinforcement Needed Time/GCodes Time In: 0800 Time Out: 0900 Total Billed Treatment Time: 60 Total Billed Treatment 1 visit: FA x3: 40' GT: 20' FABIAN BOBBY PT August 02, 2020 08:55
[2020-08-02] MEDS: oxyCODONE/APAP 5/325MG (PERCOCET 5) TABLET PO PRN ×2 (09:04→18:49)
[2020-08-02] MEDS: polyethylene glycoL POWDER 17 GM (MIRALAX) PACK PO SCH ×2 (09:06→19:43)
[2020-08-02] MEDS: VENELEX OINTMENT TOP SCH ×2 (09:07→20:45)
--- NOTE | 2020-08-02 14:00 | Physical Therapy Daily Note ---
PT Daily Note-Current Subjective Patient supine in bed pre tx. Patient consented to tx, but had accident in bed and needed cleaned up and a clothing change. Appearance Patient upright in recliner, with tray table and call button within reach, and all needs met. Mental Status Patient Orientation: Person, Place, Time, Normal For Age Transfers SCALE: Activities may be completed with or without assistive devices. 9-Sqpruapcsa-rvacrpp completes the activity by him/herself with no assistance from a helper. 5-Set-up or Clean-up Assistance-helper sets up or cleans up; patient completes activity. [place] assists only prior to or following the activity. 4-Supervision or Touching Assistance-helper provides verbal cues and/or touching/steadying and/or contact guard assistance as patient completes activity. Assistance may be provided throughout the activity or intermittently. 3-Partial/Moderate Assistance-helper does LESS THAN HALF the effort. [place] lifts, holds or supports trunk or limbs, but provides less than half the effort. 2-Substantial/Maximal Assistance-helper does MORE THAN HALF the effort. [place] lifts or holds trunk or limbs and provides more than half the effort. 2-Utuepnhzf-knkyap does ALL the effort. Patient does none of the effort to complete the activity. Or, the assistance of 2 or more helpers is required for the patient to complete the activity. If activity was not attempted, code reason: 7-Patient Refused. 9-Not Applicable-not attempted and the patient did not perform the activity before the current illness, exacerbation or injury. 10-Not Attempted due to Environmental Limitations-(lack of equipment, weather restraints, etc.). 88-Not Attempted due to Medical Conditions or Safety Concerns. Sit to Stand (QC): 3 Chair/Dod-tm-Eblfp Xfer(QC): 3 Mod to Min A with bed to chair transfer. Patient was able to take a few steps to turn around before sitting in chair. Patient was stable with transfer, but requires cues to refrain from "plopping" into chair. Exercises Seated Therapy Exercises: Ankle pumps, Long arc quads, Hip flexion, Hip abd/add (RTB, mini ball), Glut set Seated Reps: 20 Worked on eccentric control of quads with L LE LAQ's Treatments transfers, LE strengthening, endurance Assessment Current Status: Fair Progress Patient demonstrated improved control of steps with turning using walker. Plan to incorporate more walking utilizing walker at next session. Patient was able to pull down his pants with no assist to his knees, sit on the side of the bed, and then max assist to remove his pants and put shorts back on. Pants were pulled up after he stood, and cleaned backside. PT Short Term Goals Short Term Goals Time Frame: August 03, 2020 Roll Left & Right: 6 Sit to lyin (CGA) Lying to sitting on side of be: 4 (CGA) Chair/jcj-ge-gnxdl transfer: 4 (CGA) Walk 10 feet: 3 (mod) PT Mcc Goals Beef Trimmer Goals PT Beef Trimmer Goals Time Frame: August 17, 2020 Roll Left & Right (QC): 6 Sit to Lying (QC): 4 (SBA) Lying-Sitting on Side/Bed(QC): 4 (SBA) Sit to Stand (QC): 3 (min) Chair/Kbu-yx-Guzml Xfer(QC): 3 (min) Toilet Transfer (QC): 3 (min) Car Transfer (QC): 3 (min) Does the Patient Walk: No and Walking Goal IS indicated Walk 10 feet (QC): 3 (min) Walk 50ft with 2 Turns (QC): 3 (min) Walk 150 ft (QC): 88 Walking 10ft on Uneven Surface: 3 (min) 1 Step (curb) (QC): 3 (min) 4 Steps (QC): 88 12 Steps (QC): 9 Picking up an Object (QC): 9 Does the Pt use WC or Scooter?: Yes Wheel 50 feet with 2 turns (QC: 6 Type: Manual Wheel 150 feet: 6 Type: Manual PT Plan Problem List Problem List: Activity Tolerance, Functional Strength, Safety, Balance, Gait, Transfer, Bed Mobility, ROM Treatment/Plan Treatment Plan: Continue Plan of Care Treatment Plan: Bed Mobility, Education, Functional Activity Jai, Functional Strength, Gait, Safety, Therapeutic Exercise, Transfers Treatment Duration: August 17, 2020 Frequency: At least 5 of 7 days/Wk (IRF) Estimated Hrs Per Day: 1.5 hours per day Patient and/or Family Agrees t: Yes Safety Risks/Education Patient Education: Gait Training, Transfer Techniques, Correct Positioning, Safety Issues Teaching Recipient: Patient Teaching Methods: Demonstration, Discussion Response to Teaching: Verbalize Understanding, Return Demonstration Time/GCodes Time In: 1330 Time Out: 1400 Total Billed Treatment Time: 30 Total Billed Treatment 1 visit: FA: 20 EX: FABIAN BOBBY PT August 02, 2020 14:00
[2020-08-02 20:00] VITALS: BP 125/60
[2020-08-02] MEDS: DIAZEPAM 5 MG (VALIUM) TABLET PO SCH (20:44)
[2020-08-02] MEDS: MICONAZOLE 2% POWDER (DESENEX AF) 90 GM TOP SCH (20:45)
--- NOTE | 2020-08-03 06:09 | PM&R Progress Note ---
Subjective HPI/CC On Admission Date Seen by Provider: August 03, 2020 Time Seen by Provider: 09:00 Subjective/Events-last exam 08/03/20: Pt doing pretty well Bowels moved 08/01 No major issues Not really motivated too much so will try to give him more activity as he requested from 3-5 PM 08/02/20: Pt really not too motivated but hes doing well Spills his urinal quite a bit Incision looks a bit red but not infected Bowels moved yesterday 08/01/20: Hgb is 9.6 Last BM was yesterday No major issues Feels like he is doing a lot better 07/31/20: No major issues No pain reported at this current time No falls Seems to be in good spirits 07/30/20: Patient doing well Has no concerns Pain is controlled BiPAP last night with 3L/min O2 Dressing changes QOD Slight redness around sutures 07/29/20: Patient settling in well Loose BM yesterday Dressing changes on spine every other day No questions from patient Feels like he is using muscles in therapy 07/28/20: Patient doing well Settling in well Incontinent last night but patient reports he spilled urinal Metformin noted and is maintained BM+ Sugar is ok Hgb 9.4 SLUMS Review of Systems General: Fatigue, Malaise Musculoskeletal: back pain, leg pain Neurological: Weakness Objective Exam Vital Signs Vital Signs Date Time Temp Pulse Resp B/P (MAP) Pulse Ox O2 Delivery O2 Flow Rate FiO2 08/03/20 09:00 Room Air 08/03/20 08:00 36.8 111 18 130/60 (83) 96 Capillary Refill : General Appearance: No Apparent Distress, WD/WN, Chronically ill, Obese HEENT: PERRL/EOMI, Normal ENT Inspection, Pharynx Normal Neck: Full Range of Motion, Normal Inspection, Non Tender, Supple, Carotid Bruit Respiratory: Chest Non Tender, Lungs Clear, Normal Breath Sounds, No Accessory Muscle Use, No Respiratory Distress Cardiovascular: Regular Rate, Rhythm, No Edema, No Gallop, No JVD, No Murmur, Normal Peripheral Pulses Gastrointestinal: Normal Bowel Sounds, No Organomegaly, No Pulsatile Mass, Non Tender, Soft Back: Decreased Range of Motion, Muscle Spasm, Vertebral Tenderness Extremity: Normal Capillary Refill, Normal Inspection, Normal Range of Motion, Non Tender, No Calf Tenderness, No Pedal Edema Neurologic/Psychiatric: Alert, Oriented x3, No Motor/Sensory Deficits, 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 FIM Transfers Therapy Code Descriptions/Definitions Functional [place] Measure: 0=Not Assessed/NA 4=Minimal Assistance 1=Total Assistance 5=Supervision or Setup 2=Maximal Assistance 6=Modified [place] 3=Moderate Assistance 7=Complete IndependenceSCALE: Activities may be completed with or without assistive devices. 5-Vvlrkfvkho-shcidss completes the activity by him/herself with no assistance from a helper. 5-Set-up or Clean-up Assistance-helper sets up or cleans up; patient completes activity. [place] assists only prior to or following the activity. 4-Supervision or Touching Assistance-helper provides verbal cues and/or touching/steadying and/or contact guard assistance as patient completes activity. Assistance may be provided throughout the activity or intermittently. 3-Partial/Moderate Assistance-helper does LESS THAN HALF the effort. [place] lifts, holds or supports trunk or limbs, but provides less than half the effort. 2-Substantial/Maximal Assistance-helper does MORE THAN HALF the effort. [place] lifts or holds trunk or limbs and provides more than half the effort. 4-Nqwvrlqxe-sgynyz does ALL the effort. Patient does none of the effort to complete the activity. Or, the assistance of 2 or more helpers is required for the patient to complete the activity. If activity was not attempted, code reason: 7-Patient Refused. 9-Not Applicable-not attempted and the patient did not perform the activity bef ore the current illness, exacerbation or injury. 10-Not Attempted due to Environmental Limitations-(lack of equipment, weather r estraints, etc.). 88-Not Attempted due to Medical Conditions or Safety Concerns. Roll Left to Right (QC): 6 Sit to Lying (QC): 6 Sit to Stand (QC): 3 Chair/Ltf-ws-Ixvgn Xfer(QC): 3 Car Transfer (QC): 88 Gait Training Does the Patient Walk?: Yes Distance: 6' x3 Walk 10 feet (QC): 88 Walk 50 ft with 2 Turns(QC): 88 Walk 150 ft (QC): 88 Walking 10ft/uneven surface-QC: 88 Gait Persons Needed: 2 Gait Assistive Device: FWW Wheelchair Training Does the Pt Use a Wheelchair?: Yes Wheel 50 ft with 2 turns (QC): 4 Wheel 150 ft (QC): 6 Type of Wheelchair: Manual Stair Training 1 Step (curb) (QC): 88 4 Steps (QC): 88 12 Steps (QC): 88 Balance Picking up an Object (QC): 88 ADL-Treatment Eating (QC): 6 Oral Hygiene (QC): 5 Bathing Location: L Arm, R Arm, L Upper Leg, R Upper Leg, L Lower Leg (including foot), R Lower Leg (including foot), Chest, Abdomen, Perineal Area Shower/Bathe Self (QC): 3 Upper Body Dressing (QC): 5 Lower Body Dressing (QC): 1 On/Off Footwear (QC): 2 Toileting Hygiene (QC): 2 Toilet Transfer (QC): 1 Assessment/Plan Assessment and Plan Assess & Plan/Chief Complaint Assessment: s/p Lumbar laminectomy L2-L3 and TLIF w/ extension of previous L3-L5 hardware LLE weakness Spondylosis Performed due to Spinal stenosis with neurogenic claudication. Source of pts debidity. PT/OT IS Speech therapy Consult SS. GOAL: Return to baseline function before sx. Discharge home with Home Health. Normocytic anemia Hx of hypokalemia during [place] post-op stay. Per pt: known chronic hx of anemia. 07/26 labs from [facility]: H&H is 8.7/.6 Likely multifactorial: to surgical blood loss and anemia of chronic disease. Iron studies ordered during pts post-op [place] stay (results?) CBC and CMP NIDDM HTN HLP Obesity Sleep apnea Neuropathy SSI Home Cpap. Home Meds s/p COVID-19 PNA Hospitalized . Received convalescent plasma and inpt stay for several days. Pt reports no residual sxs. Hx of lumbar radiculopathy Polyp on vocal cord Hx of cervical spine sx DVT prophylaxis SCD and ambulation. Plan: IRF protocol Pain control BM regimen PT OT 07/28/20: Pain control Monitor hgb Monitor BP 07/29/20: Monitor pain Monitor BM regimen 07/30/20: Monitor closely Pain management BM regimen 07/31/20: Monitor pain Monitor BP 08/01/20: Monitor leg weakness Pain control Monitor BM regimen 08/02/20: Monitor pain BM regimen to maintain 08/03/20: Monitor pain Increase activity (1) Lumbar radiculopathy (2) MICHAELA treated with BiPAP (3) Nocturnal hypoxemia (4) Diabetes (5) Hypertension (6) Hyperlipemia (7) Obesity, morbid, BMI 40.0-49.9 KAMERON RAMOS DO August 03, 2020 06:09
[2020-08-03 08:00] VITALS: BP 130/60
--- NOTE | 2020-08-03 08:01 | Occupational Ther Daily Note ---
OT Current Status-Daily Note Subjective Pt alert, lying in bed. Pt agrees to therapy. No c/o pain at this time. Mental Status/Objective Patient Orientation: Person, Place, Time, Situation ADL-Treatment Pt declines shower at this time. Pt used bath pack to wash up before changing clothing. With HOB raised, pt log rolled and pushed up to sitting EOB. Sitting EOB pt washed and changed clothing sitting EOB. Pt leaned side to side while assist to cleanse and apply medicated powder to buttocks. After set up, pt donned/doffed shirt by self. Using AE to thread pants and socks over feet sitting EOB then leaning side to side pt attempted to hike pants over hips, L side completed by pt and R side completed by DAVIS. Pt assisted donning shoes with LH shoehorn while OT manipulated shoes. Min A for sliding board transfer to w/c, assist to position w/c, sliding board and L LE. Pt sitting in w/c to complete oral care and shaving independently. Co-treat with PT initiated at this time([id number]) for skilled instruction and care that requires skills of 2 clinicians due to increased fall risk, decreased mobility and transfers. PT focusing transfers and mobility while OT focusing on functional transfers and toileting. Assist x2 for toilet transfer then pt was able to lean towards side and cleansed though not thoroughly, assist to thoroughly cleanse in standing and to manipulate clothing. Therapy Code Descriptions/Definitions Functional [place] Measure: 0=Not Assessed/NA 4=Minimal Assistance 1=Total Assistance 5=Supervision or Setup 2=Maximal Assistance 6=Modified [place] 3=Moderate Assistance 7=Complete IndependenceSCALE: Activities may be completed with or without assistive devices. 2-Udhnajiofd-qttaegq completes the activity by him/herself with no assistance from a helper. 5-Set-up or Clean-up Assistance-helper sets up or cleans up; patient completes activity. [place] assists only prior to or following the activity. 4-Supervision or Touching Assistance-helper provides verbal cues and/or touching/steadying and/or contact guard assistance as patient completes activity. Assistance may be provided throughout the activity or intermittently. 3-Partial/Moderate Assistance-helper does LESS THAN HALF the effort. [place] lifts, holds or supports trunk or limbs, but provides less than half the effort. 2-Substantial/Maximal Assistance-helper does MORE THAN HALF the effort. [place] lifts or holds trunk or limbs and provides more than half the effort. 2-Cervkkmbl-ekptty does ALL the effort. Patient does none of the effort to complete the activity. Or, the assistance of 2 or more helpers is required for the patient to complete the activity. If activity was not attempted, code reason: 7-Patient Refused. 9-Not Applicable-not attempted and the patient did not perform the activity before the current illness, exacerbation or injury. 10-Not Attempted due to Environmental Limitations-(lack of equipment, weather restraints, etc.). 88-Not Attempted due to Medical Conditions or Safety Concerns. Eating (QC): 6 (Pt able to set own meal up and use regular utensils to eat.) Oral Hygiene (QC): 6 Shower/Bathe Self (QC): 3 Upper Body Dressing (QC): 5 Lower Body Dressing (QC): 3 On/Off Footwear: 3 Toileting Hygiene (QC): 1 Toilet Transfer (QC): 1 Other Treatment See PT notes for pt ambulating using parallel bars 3x's. Pt left in care of PT after OT session ended. All needs met. OT Short Term Goals Short Term Goals Time Frame: August 10, 2020 Eatin Oral hygiene: 6 Toileting hygiene: 3 Shower/bathe self: 3 Upper body dressin Lower body dressin Putting on/taking off footwear: 3 OT Nursing Home Goals Odd Piece Checker Goals Time Frame: August 24, 2020 Eating (QC): 6 Oral Hygiene (QC): 6 Toileting Hygiene (QC): 6 Shower/Bathe Self (QC): 4 Upper Body Dressing (QC): 6 Lower Body Dressing (QC): 6 On/Off Footwear (QC): 6 Additional Goals: 1-Demonstrate ADL Tasks, 2-Verbalize Understanding, 3- ImproveStrength/Jai 1=Demonstrate adherence to instructed precautions during ADL tasks. 2=Patient will verbalize/demonstrate understanding of assistive devices/modifications for ADL. 3=Patient will improve strength/tolerance for activity to enable patient to perform ADL's. OT Education/Plan Problem List/Assessment Assessment: Decreased Activ Tolerance, Dependent Transfers, Impaired Bed Mobility, Impaired Funct Balance, Impaired Self-Care Skills Discharge Recommendations Plan/Recommendations: Continue POC Treatment Plan/Plan of Care Patient would benefit from OT for education, treatment and training to promote independence in ADL's, mobility, safety and/or upper extremity function for ADL's. Plan of Care: ADL Retraining, Functional Mobility, Group Exercise/Act as Ind, UE Funct Exercise/Act Treatment Duration: August 24, 2020 Frequency: At least 5 of 7 days/Wk (IRF) Estimated Hrs Per Day: 1.5 hours per day Agreement: Yes Rehab Potential: Fair Time/GCodes Start Time: 07:15 Stop Time: 08:45 Total Time Billed (hr/min): 90 Billed Treatment Time 1 visit-ADL 4 (60 min) FA 2 (30 min) co-treat with PT [id number], individual [id number] RYAN FERRARA August 03, 2020 08:01
[2020-08-03] MEDS: polyethylene glycoL POWDER 17 GM (MIRALAX) PACK PO SCH ×2 (08:22→20:35)
[2020-08-03] MEDS: DOCUSATE SODIUM 100 MG (COLACE) CAP PO SCH ×2 (08:22→20:36)
[2020-08-03] MEDS: LOSARTAN 100 MG (COZAAR) TABLET PO SCH (08:23)
[2020-08-03] MEDS: metFORMIN 500 MG (GLUCOPHAGE) TAB PO SCH ×2 (08:23→20:36)
[2020-08-03] MEDS: SENNA W/DOCUSATE (SENOKOT S) TABLET PO SCH ×2 (08:23→20:35)
[2020-08-03] MEDS: GABAPENTIN 600 MG (NEURONTIN) TAB PO SCH ×3 (08:23→20:36)
[2020-08-03] MEDS: amLODIPine 5 MG (NORVASC) TAB PO SCH (08:23)
[2020-08-03] MEDS: ASPIRIN E.C. 81 MG (ECOTRIN) TAB PO SCH (08:23)
[2020-08-03] MEDS: VENELEX OINTMENT TOP SCH ×2 (08:24→20:36)
[2020-08-03] MEDS: MICONAZOLE 2% POWDER (DESENEX AF) 90 GM TOP SCH ×2 (08:24→20:36)
[2020-08-03] MEDS: oxyCODONE/APAP 5/325MG (PERCOCET 5) TABLET PO PRN ×2 (08:25→21:03)
--- NOTE | 2020-08-03 09:04 | Physical Therapy Daily Note ---
PT Daily Note-Current Subjective Pt working with OT upon arrival. Pt agrees to PT/OT co-treat. Mental Status Patient Orientation: Person, Place, Time, Situation Attachments: Other-See Comments (Lumbar back brace) Transfers SCALE: Activities may be completed with or without assistive devices. 4-Twuezlelkg-ijcmnid completes the activity by him/herself with no assistance from a helper. 5-Set-up or Clean-up Assistance-helper sets up or cleans up; patient completes activity. [place] assists only prior to or following the activity. 4-Supervision or Touching Assistance-helper provides verbal cues and/or touching/steadying and/or contact guard assistance as patient completes activity. Assistance may be provided throughout the activity or intermittently. 3-Partial/Moderate Assistance-helper does LESS THAN HALF the effort. [place] lifts, holds or supports trunk or limbs, but provides less than half the effort. 2-Substantial/Maximal Assistance-helper does MORE THAN HALF the effort. [place] lifts or holds trunk or limbs and provides more than half the effort. 7-Giyifdkvb-rcycji does ALL the effort. Patient does none of the effort to complete the activity. Or, the assistance of 2 or more helpers is required for the patient to complete the activity. If activity was not attempted, code reason: 7-Patient Refused. 9-Not Applicable-not attempted and the patient did not perform the activity b efore the current illness, exacerbation or injury. 10-Not Attempted due to Environmental Limitations-(lack of equipment, weather restraints, etc.). 88-Not Attempted due to Medical Conditions or Safety Concerns. Sit to Stand (QC): 3 Toilet Transfer (QC): 2 Weight Bearing Weight Bearing/Tolerated Full Weight Bearing Gait Training Does the Patient Walk?: Yes Distance: 6'x3 Walk 10 feet (QC): 3 Gait Persons Needed: 2 Gait Assistive Device: Parallel Bars Wheelchair Training Does the Pt Use a Wheelchair?: Yes Wheel 50 ft with 2 turns (QC): 5 Wheel 150 ft (QC): 5 Type of Wheelchair: Manual Exercises Seated Therapy Exercises: Sit to stand Treatments Co-treat with OT initiated at this time([id number]) for skilled instruction and care that requires skills of 2 clinicians due to increased fall risk, decreased mobility and transfers. PT focusing on transfers and mobility while OT focusing on functional transfers and toileting. Assist x2 for toilet transfer then pt was able to lean towards side and cleansed though not thoroughly, assist to thoroughly cleanse in standing and to manipulate clothing. Assessment Current Status: Good Progress Pt's L knee lidia during transfers and need blocked for proper support. PT Short Term Goals Short Term Goals Time Frame: August 03, 2020 Roll Left & Right: 6 Sit to lyin (CGA) Lying to sitting on side of be: 4 (CGA) Chair/sdp-hs-ewjud transfer: 4 (CGA) Walk 10 feet: 3 (mod) PT Half-Way Goals Half-Way Goals PT Half-Way Goals Time Frame: August 17, 2020 Roll Left & Right (QC): 6 Sit to Lying (QC): 4 (SBA) Lying-Sitting on Side/Bed(QC): 4 (SBA) Sit to Stand (QC): 3 (min) Chair/Jpz-vs-Swnvs Xfer(QC): 3 (min) Toilet Transfer (QC): 3 (min) Car Transfer (QC): 3 (min) Does the Patient Walk: No and Walking Goal IS indicated Walk 10 feet (QC): 3 (min) Walk 50ft with 2 Turns (QC): 3 (min) Walk 150 ft (QC): 88 Walking 10ft on Uneven Surface: 3 (min) 1 Step (curb) (QC): 3 (min) 4 Steps (QC): 88 12 Steps (QC): 9 Picking up an Object (QC): 9 Does the Pt use WC or Scooter?: Yes Wheel 50 feet with 2 turns (QC: 6 Type: Manual Wheel 150 feet: 6 Type: Manual PT Plan Problem List Problem List: Activity Tolerance, Functional Strength, Balance, Gait, Transfer Treatment/Plan Treatment Plan: Continue Plan of Care Treatment Plan: Bed Mobility, Education, Functional Activity Jai, Functional Strength, Gait, Safety, Therapeutic Exercise, Transfers Treatment Duration: August 17, 2020 Frequency: At least 5 of 7 days/Wk (IRF) Estimated Hrs Per Day: 1.5 hours per day Patient and/or Family Agrees t: Yes Safety Risks/Education Patient Education: Gait Training, Transfer Techniques, Correct Positioning Teaching Recipient: Patient Teaching Methods: Discussion Response to Teaching: Verbalize Understanding Time/GCodes Time In: 800 Time Out: 900 Total Billed Treatment Time: 60 Total Billed Treatment 1, FA x2 (30m), GT (15m) & WCH (15m) Co-treat w/OT for 45m ([id number]) MATHEW VALDOVINOS CLINICAL TECH August 03, 2020 09:04
--- NOTE | 2020-08-03 15:33 | Physical Therapy Daily Note ---
PT Daily Note-Current Subjective Pt sitting in recliner upon arrival. Pt agrees to PT. Pain Location: No Pain Reported Mental Status Patient Orientation: Person, Place, Time, Situation Transfers SCALE: Activities may be completed with or without assistive devices. 6-Jcgnlnljev-ldobnnp completes the activity by him/herself with no assistance from a helper. 5-Set-up or Clean-up Assistance-helper sets up or cleans up; patient completes activity. [place] assists only prior to or following the activity. 4-Supervision or Touching Assistance-helper provides verbal cues and/or touching/steadying and/or contact guard assistance as patient completes activity. Assistance may be provided throughout the activity or intermittently. 3-Partial/Moderate Assistance-helper does LESS THAN HALF the effort. [place] lifts, holds or supports trunk or limbs, but provides less than half the effort. 2-Substantial/Maximal Assistance-helper does MORE THAN HALF the effort. [place] lifts or holds trunk or limbs and provides more than half the effort. 4-Wnxzehhde-jufvpj does ALL the effort. Patient does none of the effort to complete the activity. Or, the assistance of 2 or more helpers is required for the patient to complete the activity. If activity was not attempted, code reason: 7-Patient Refused. 9-Not Applicable-not attempted and the patient did not perform the activity bef ore the current illness, exacerbation or injury. 10-Not Attempted due to Environmental Limitations-(lack of equipment, weather r estraints, etc.). 88-Not Attempted due to Medical Conditions or Safety Concerns. Weight Bearing Weight Bearing/Tolerated Full Weight Bearing Exercises Supine Ex: Ankle pumps, Quad Set, Glut sets, Heel Slides, Straight leg raise, Hip abd/add Supine Reps: 15 Seated Therapy Exercises: Ankle pumps, Long arc quads, Hip flexion, Hip abd/add Seated Reps: 15 Treatments HANDHOLE MACHINE OPERATOR issued and reviewed written HEP for Supine & Seated EX. HANDHOLE MACHINE OPERATOR also instructed ways to use Theraband to increase resistance for strength building for improved transfers and standing. Pt resting at end of tx with all needs met,call light in hand. Assessment Current Status: Good Progress Pt asks for EX and tasks to work on when PT is not present in evenings. PT Short Term Goals Short Term Goals Time Frame: August 03, 2020 Roll Left & Right: 6 Sit to lyin (CGA) Lying to sitting on side of be: 4 (CGA) Chair/vas-kw-qdkie transfer: 4 (CGA) Walk 10 feet: 3 (mod) PT Letter Of Credit Clerk Goals Longterm Goals PT Longterm Goals Time Frame: August 17, 2020 Roll Left & Right (QC): 6 Sit to Lying (QC): 4 (SBA) Lying-Sitting on Side/Bed(QC): 4 (SBA) Sit to Stand (QC): 3 (min) Chair/Wlc-na-Qbscy Xfer(QC): 3 (min) Toilet Transfer (QC): 3 (min) Car Transfer (QC): 3 (min) Does the Patient Walk: No and Walking Goal IS indicated Walk 10 feet (QC): 3 (min) Walk 50ft with 2 Turns (QC): 3 (min) Walk 150 ft (QC): 88 Walking 10ft on Uneven Surface: 3 (min) 1 Step (curb) (QC): 3 (min) 4 Steps (QC): 88 12 Steps (QC): 9 Picking up an Object (QC): 9 Does the Pt use WC or Scooter?: Yes Wheel 50 feet with 2 turns (QC: 6 Type: Manual Wheel 150 feet: 6 Type: Manual PT Plan Problem List Problem List: Activity Tolerance, Functional Strength Treatment/Plan Treatment Plan: Continue Plan of Care Treatment Plan: Bed Mobility, Education, Functional Activity Jai, Functional Strength, Gait, Safety, Therapeutic Exercise, Transfers Treatment Duration: August 17, 2020 Frequency: At least 5 of 7 days/Wk (IRF) Estimated Hrs Per Day: 1.5 hours per day Patient and/or Family Agrees t: Yes Safety Risks/Education Patient Education: Issued Written HEP Teaching Recipient: Patient Teaching Methods: Demonstration, Discussion Response to Teaching: Verbalize Understanding, Return Demonstration Time/GCodes Time In: 1340 Time Out: 1410 Total Billed Treatment Time: 30 Total Billed Treatment 1, EX x2 (30m) MATHEW VALDOVINOS PTA August 03, 2020 15:33
[2020-08-03] MEDS ORDERED: TIZA4TAB4 PO (15:48)
[2020-08-03] MEDS ORDERED: HYDR-3820 PO (15:48)
[2020-08-03 20:30] VITALS: BP 133/61
[2020-08-03] MEDS: DIAZEPAM 5 MG (VALIUM) TABLET PO SCH (20:35)
--- NOTE | 2020-08-04 08:57 | Physical Therapy Daily Note ---
PT Daily Note-Current Subjective Patient upright in bathroom pre tx with OT, consents to co-treat with PT. Patient does not c/o pain. At end of session patient reported "good workout." Appearance Patient supine in bed post tx, with call button within reach and tray table nearby, all needs met. Mental Status Patient Orientation: Person, Place, Time, Normal For Age Transfers SCALE: Activities may be completed with or without assistive devices. 6-Rlzrnyvfag-hawfacp completes the activity by him/herself with no assistance from a helper. 5-Set-up or Clean-up Assistance-helper sets up or cleans up; patient completes activity. [place] assists only prior to or following the activity. 4-Supervision or Touching Assistance-helper provides verbal cues and/or touching/steadying and/or contact guard assistance as patient completes activity. Assistance may be provided throughout the activity or intermittently. 3-Partial/Moderate Assistance-helper does LESS THAN HALF the effort. [place] lifts, holds or supports trunk or limbs, but provides less than half the effort. 2-Substantial/Maximal Assistance-helper does MORE THAN HALF the effort. [place] lifts or holds trunk or limbs and provides more than half the effort. 0-Esjfmklyj-xcxzem does ALL the effort. Patient does none of the effort to complete the activity. Or, the assistance of 2 or more helpers is required for the patient to complete the activity. If activity was not attempted, code reason: 7-Patient Refused. 9-Not Applicable-not attempted and the patient did not perform the activity before the current illness, exacerbation or injury. 10-Not Attempted due to Environmental Limitations-(lack of equipment, weather restraints, etc.). 88-Not Attempted due to Medical Conditions or Safety Concerns. Roll Left & Right (QC): 6 Sit to Lying (QC): 6 (Utilized leg plant facilities technician that patient was able to easily maneu jaziel L LE) Sit to Stand (QC): 3 (Mod A, patient occassionally needs extra push to facilitate full hip extension) Chair/Vey-go-Fxkto Xfer(QC): 3 (Mod A, stad pivot transfer from w/c to bed) patient needs one knee blocked when going from sit <-> stand Weight Bearing Weight Bearing/Tolerated Full Weight Bearing Gait Training Does the Patient Walk?: Yes Distance: 6' x2, 20' x3 Walk 10 feet (QC): 3 Gait Assistive Device: FWW Mod A, 6' cycles in parallel bars, 20' cycles with FWW. Patient demonstrated good endurance with walker, but still does not have confidence in L LE to fully support weight. Occassionally requires knee blocking on ascent/descent sit <-> stand Wheelchair Training Does the Pt Use a Wheelchair?: Yes Wheel 50 ft with 2 turns (QC): 5 Type of Wheelchair: Manual 60' x2 Treatments Co-treated with OT secondary to patient impairments, fall risk, and required assistance with functional mobility. OT/PT focused on sit to stand transfers, and gait mobility. Patient was able to successfully attempt several ambulations and transfer training. Assessment Current Status: Fair Progress Patient demonstrated better endurance with gait, has flexed posture with gait, difficulty recruiting full hip extension with sit <-> stand PT Short Term Goals Short Term Goals Time Frame: August 03, 2020 Roll Left & Right: 6 Sit to lyin (CGA) Lying to sitting on side of be: 4 (CGA) Chair/gvg-bb-kgrcf transfer: 4 (CGA) Walk 10 feet: 3 (mod) PT Occupational Therapist Aide Goals Intermediate Goals PT Intermediate Goals Time Frame: August 17, 2020 Roll Left & Right (QC): 6 Sit to Lying (QC): 4 (SBA) Lying-Sitting on Side/Bed(QC): 4 (SBA) Sit to Stand (QC): 3 (min) Chair/Pbk-as-Fmbay Xfer(QC): 3 (min) Toilet Transfer (QC): 3 (min) Car Transfer (QC): 3 (min) Does the Patient Walk: No and Walking Goal IS indicated Walk 10 feet (QC): 3 (min) Walk 50ft with 2 Turns (QC): 3 (min) Walk 150 ft (QC): 88 Walking 10ft on Uneven Surface: 3 (min) 1 Step (curb) (QC): 3 (min) 4 Steps (QC): 88 12 Steps (QC): 9 Picking up an Object (QC): 9 Does the Pt use WC or Scooter?: Yes Wheel 50 feet with 2 turns (QC: 6 Type: Manual Wheel 150 feet: 6 Type: Manual PT Plan Problem List Problem List: Activity Tolerance, Functional Strength, Safety, Balance, Gait, Transfer, Bed Mobility, ROM Treatment/Plan Treatment Plan: Continue Plan of Care Treatment Plan: Bed Mobility, Education, Functional Activity Jai, Functional Strength, Gait, Safety, Therapeutic Exercise, Transfers Treatment Duration: August 17, 2020 Frequency: At least 5 of 7 days/Wk (IRF) Estimated Hrs Per Day: 1.5 hours per day Patient and/or Family Agrees t: Yes Safety Risks/Education Patient Education: Gait Training, Transfer Techniques, Correct Positioning, W/C Management, Reviewed Don/Doff Brace, Safety Issues Teaching Recipient: Patient Teaching Methods: Demonstration, Discussion Response to Teaching: Verbalize Understanding, Return Demonstration Time/GCodes Time In: 0800 Time Out: 0900 Total Billed Treatment Time: 60 Total Billed Treatment 1 visit: FA x2: 30' GT x2: 30' FABIAN BOBBY PT August 04, 2020 08:57
--- NOTE | 2020-08-04 08:57 | Occupational Ther Daily Note ---
OT Current Status-Daily Note Subjective Pt alert, lying in bed. Pt agrees to therapy. No c/o pain at this time. Mental Status/Objective Patient Orientation: Person, Place, Time, Situation ADL-Treatment Co-treat with PT ([phone]), skilled instruction and care required by 2 skilled clinicians due to decreased mobility and increased fall risk. PT focusing on ambulation, transfers and sit to stand while OT focusing on ADLs, functional transfers and placement of UE and equipment during ambulation/transfers. Pt agrees to sponge bath. Pt requests to use toilet. Independent with supine <--> EOB using HOB raised and leg garment manufacturing supervisor. CGA at knees, placement of w/c and sliding board to complete slide board transfer. Assist x2 to transfer on/off toilet, assist x1 to stand with FWW while cleansing and hiking pants over hips. Pt sat at sink to complete rest of sponge bath, oral care and change shirt. Max assist x2 for sit to stand and min A x2 for standing while Nrsg applied dressing and ointment. Therapy Code Descriptions/Definitions Functional [place] Measure: 0=Not Assessed/NA 4=Minimal Assistance 1=Total Assistance 5=Supervision or Setup 2=Maximal Assistance 6=Modified [place] 3=Moderate Assistance 7=Complete IndependenceSCALE: Activities may be completed with or without assistive devices. 9-Xkpiukmrhj-wbfwsfi completes the activity by him/herself with no assistance from a helper. 5-Set-up or Clean-up Assistance-helper sets up or cleans up; patient completes activity. [place] assists only prior to or following the activity. 4-Supervision or Touching Assistance-helper provides verbal cues and/or touching/steadying and/or contact guard assistance as patient completes activity. Assistance may be provided throughout the activity or intermittently. 3-Partial/Moderate Assistance-helper does LESS THAN HALF the effort. [place] lifts, holds or supports trunk or limbs, but provides less than half the effort. 2-Substantial/Maximal Assistance-helper does MORE THAN HALF the effort. [place] lifts or holds trunk or limbs and provides more than half the effort. 5-Cqsizrpqq-roezae does ALL the effort. Patient does none of the effort to complete the activity. Or, the assistance of 2 or more helpers is required for the patient to complete the activity. If activity was not attempted, code reason: 7-Patient Refused. 9-Not Applicable-not attempted and the patient did not perform the activity before the current illness, exacerbation or injury. 10-Not Attempted due to Environmental Limitations-(lack of equipment, weather restraints, etc.). 88-Not Attempted due to Medical Conditions or Safety Concerns. Oral Hygiene (QC): 6 Upper Body Dressing (QC): 5 Lower Body Dressing (QC): 1 Toileting Hygiene (QC): 1 Toilet Transfer (QC): 1 Other Treatment See PT notes for ambulation in parallel bars and using FWW. Pt given leg garment manufacturing supervisor for use while in hospital. Pt able to go from EOB to supine independently. After session, pt lying in bed with call light/phone in reach. All needs met in room. OT Short Term Goals Short Term Goals Time Frame: August 10, 2020 Eatin Oral hygiene: 6 Toileting hygiene: 3 Shower/bathe self: 3 Upper body dressin Lower body dressin Putting on/taking off footwear: 3 OT Acid Remover Goals Halfway Goals Time Frame: August 24, 2020 Eating (QC): 6 Oral Hygiene (QC): 6 Toileting Hygiene (QC): 6 Shower/Bathe Self (QC): 4 Upper Body Dressing (QC): 6 Lower Body Dressing (QC): 6 On/Off Footwear (QC): 6 Additional Goals: 1-Demonstrate ADL Tasks, 2-Verbalize Understanding, 3- ImproveStrength/Jai 1=Demonstrate adherence to instructed precautions during ADL tasks. 2=Patient will verbalize/demonstrate understanding of assistive devices/modifications for ADL. 3=Patient will improve strength/tolerance for activity to enable patient to perform ADL's. OT Education/Plan Problem List/Assessment Assessment: Decreased Activ Tolerance, Dependent Transfers, Impaired Self-Care Skills Discharge Recommendations Plan/Recommendations: Continue POC Treatment Plan/Plan of Care Patient would benefit from OT for education, treatment and training to promote independence in ADL's, mobility, safety and/or upper extremity function for ADL's. Plan of Care: ADL Retraining, Functional Mobility, Group Exercise/Act as Ind, UE Funct Exercise/Act Treatment Duration: August 24, 2020 Frequency: At least 5 of 7 days/Wk (IRF) Estimated Hrs Per Day: 1.5 hours per day Agreement: Yes Rehab Potential: Fair Time/GCodes Start Time: 07:30 Stop Time: 09:00 Total Time Billed (hr/min): 90 Billed Treatment Time 1 visit-ADL 4 (60 min) FA 2 (30 min) co-treat with PT [id number], individual [id number] RYAN FERRARA August 04, 2020 08:57
[2020-08-04 09:00] VITALS: BP 118/58
--- NOTE | 2020-08-04 09:41 | PM&R Progress Note ---
Subjective HPI/CC On Admission Date Seen by Provider: August 04, 2020 Time Seen by Provider: 09:50 Subjective/Events-last exam 08/04/20: Pt doing much better Had a BM yesterday Televisit with neurosurgeon and likely ziggy will be removed at some point after that televisit Doing much better overall 08/03/20: Pt doing pretty well Bowels moved 08/01 No major issues Not really motivated too much so will try to give him more activity as he requested from 3-5 PM 08/02/20: Pt really not too motivated but hes doing well Spills his urinal quite a bit Incision looks a bit red but not infected Bowels moved yesterday 08/01/20: Hgb is 9.6 Last BM was yesterday No major issues Feels like he is doing a lot better 07/31/20: No major issues No pain reported at this current time No falls Seems to be in good spirits 07/30/20: Patient doing well Has no concerns Pain is controlled BiPAP last night with 3L/min O2 Dressing changes QOD Slight redness around sutures 07/29/20: Patient settling in well Loose BM yesterday Dressing changes on spine every other day No questions from patient Feels like he is using muscles in therapy 07/28/20: Patient doing well Settling in well Incontinent last night but patient reports he spilled urinal Metformin noted and is maintained BM+ Sugar is ok Hgb 9.4 SLUMS Review of Systems General: Fatigue, Malaise Neurological: Weakness Objective Exam Vital Signs Vital Signs Date Time Temp Pulse Resp B/P (MAP) Pulse Ox O2 Delivery O2 Flow Rate FiO2 08/04/20 20:15 Room Air 08/04/20 19:27 36.8 87 20 134/62 (86) 91 Capillary Refill : General Appearance: No Apparent Distress, WD/WN, Chronically ill, Obese HEENT: PERRL/EOMI, Normal ENT Inspection, Pharynx Normal Neck: Full Range of Motion, Normal Inspection, Non Tender, Supple, Carotid Bruit Respiratory: Chest Non Tender, Lungs Clear, Normal Breath Sounds, No Accessory Muscle Use, No Respiratory Distress Cardiovascular: Regular Rate, Rhythm, No Edema, No Gallop, No JVD, No Murmur, Normal Peripheral Pulses Gastrointestinal: Normal Bowel Sounds, No Organomegaly, No Pulsatile Mass, Non Tender, Soft Back: Decreased Range of Motion, Muscle Spasm, Vertebral Tenderness Extremity: Normal Capillary Refill, Normal Inspection, Normal Range of Motion, Non Tender, No Calf Tenderness, No Pedal Edema Neurologic/Psychiatric: Alert, Oriented x3, No Motor/Sensory Deficits, video game engineer II- XII Norm as Tested, Abnormal Gait, Depressed Affect, Motor Weakness Skin: Normal Color, Warm/Dry Lymphatic: No Adenopathy Results/Procedures Lab Patient resulted labs reviewed. FIM Transfers Therapy Code Descriptions/Definitions Functional [place] Measure: 0=Not Assessed/NA 4=Minimal Assistance 1=Total Assistance 5=Supervision or Setup 2=Maximal Assistance 6=Modified [place] 3=Moderate Assistance 7=Complete IndependenceSCALE: Activities may be completed with or without assistive devices. 8-Kprqwcxjau-suwuvia completes the activity by him/herself with no assistance from a helper. 5-Set-up or Clean-up Assistance-helper sets up or cleans up; patient completes activity. [place] assists only prior to or following the activity. 4-Supervision or Touching Assistance-helper provides verbal cues and/or touching/steadying and/or contact guard assistance as patient completes activity. Assistance may be provided throughout the activity or intermittently. 3-Partial/Moderate Assistance-helper does LESS THAN HALF the effort. [place] lifts, holds or supports trunk or limbs, but provides less than half the effort. 2-Substantial/Maximal Assistance-helper does MORE THAN HALF the effort. [place] lifts or holds trunk or limbs and provides more than half the effort. 5-Jpbvsptoc-evhvvp does ALL the effort. Patient does none of the effort to complete the activity. Or, the assistance of 2 or more helpers is required for the patient to complete the activity. If activity was not attempted, code reason: 7-Patient Refused. 9-Not Applicable-not attempted and the patient did not perform the activity before the current illness, exacerbation or injury. 10-Not Attempted due to Environmental Limitations-(lack of equipment, weather restraints, etc.). 88-Not Attempted due to Medical Conditions or Safety Concerns. Roll Left to Right (QC): 6 Sit to Lying (QC): 6 (Utilized leg stull installer that patient was able to easily maneuver L LE) Sit to Stand (QC): 3 (Mod A, patient occassionally needs extra push to facilitate full hip extension) Chair/Xsq-sj-Lenvn Xfer(QC): 3 (Mod A, stad pivot transfer from w/c to bed) Car Transfer (QC): 88 Gait Training Does the Patient Walk?: Yes Distance: 6' x2, 20' x3 Walk 10 feet (QC): 3 Walk 50 ft with 2 Turns(QC): 88 Walk 150 ft (QC): 88 Walking 10ft/uneven surface-QC: 88 Gait Persons Needed: 2 Gait Assistive Device: FWW Wheelchair Training Does the Pt Use a Wheelchair?: Yes Wheel 50 ft with 2 turns (QC): 5 Wheel 150 ft (QC): 5 Type of Wheelchair: Manual Stair Training 1 Step (curb) (QC): 88 4 Steps (QC): 88 12 Steps (QC): 88 Balance Picking up an Object (QC): 88 ADL-Treatment Eating (QC): 6 (Pt able to set own meal up and use regular utensils to eat.) Oral Hygiene (QC): 6 Bathing Location: L Arm, R Arm, L Upper Leg, R Upper Leg, L Lower Leg (including foot), R Lower Leg (including foot), Chest, Abdomen, Perineal Area Shower/Bathe Self (QC): 3 Upper Body Dressing (QC): 5 Lower Body Dressing (QC): 3 On/Off Footwear (QC): 3 Toileting Hygiene (QC): 1 Toilet Transfer (QC): 1 Assessment/Plan Assessment and Plan Assess & Plan/Chief Complaint Assessment: s/p Lumbar laminectomy L2-L3 and TLIF w/ extension of previous L3-L5 hardware LLE weakness Spondylosis Performed due to Spinal stenosis with neurogenic claudication. Source of pts debidity. PT/OT IS Speech therapy Consult SS. GOAL: Return to baseline function before sx. Discharge home with Home Health. Normocytic anemia Hx of hypokalemia during [place] post-op stay. Per pt: known chronic hx of anemia. 07/26 labs from [place]: H&H is 8.7.6 Likely multifactorial: to surgical blood loss and anemia of chronic disease. Iron studies ordered during pts post-op [place] stay (results?) CBC and CMP NIDDM HTN HLP Obesity Sleep apnea Neuropathy SSI Home Cpap. Home Meds s/p COVID-19 PNA Hospitalized . Received convalescent plasma and inpt stay for several days. Pt reports no residual sxs. Hx of lumbar radiculopathy Polyp on vocal cord Hx of cervical spine sx DVT prophylaxis SCD and ambulation. Plan: IRF protocol Pain control BM regimen PT OT 07/28/20: Pain control Monitor hgb Monitor BP 07/29/20: Monitor pain Monitor BM regimen 07/30/20: Monitor closely Pain management BM regimen 07/31/20: Monitor pain Monitor BP 08/01/20: Monitor leg weakness Pain control Monitor BM regimen 08/02/20: Monitor pain BM regimen to maintain 08/03/20: Monitor pain Increase activity 08/04/20: Monitor pain Increase activity (1) Lumbar radiculopathy (2) MICHAELA treated with BiPAP (3) Nocturnal hypoxemia (4) Diabetes (5) Hypertension (6) Hyperlipemia (7) Obesity, morbid, BMI 40.0-49.9 KAMERON RAMOS DO August 04, 2020 09:41
[2020-08-04] MEDS: GABAPENTIN 600 MG (NEURONTIN) TAB PO SCH ×3 (09:55→19:46)
[2020-08-04] MEDS: amLODIPine 5 MG (NORVASC) TAB PO SCH (09:55)
[2020-08-04] MEDS: LOSARTAN 100 MG (COZAAR) TABLET PO SCH (09:55)
[2020-08-04] MEDS: metFORMIN 500 MG (GLUCOPHAGE) TAB PO SCH ×2 (09:55→19:47)
[2020-08-04] MEDS: MICONAZOLE 2% POWDER (DESENEX AF) 90 GM TOP SCH ×2 (09:56→19:47)
[2020-08-04] MEDS: VENELEX OINTMENT TOP SCH ×2 (09:56→19:48)
[2020-08-04] MEDS: oxyCODONE/APAP 5/325MG (PERCOCET 5) TABLET PO PRN ×2 (09:56→19:46)
[2020-08-04] MEDS: SENNA W/DOCUSATE (SENOKOT S) TABLET PO SCH ×2 (09:57→19:46)
[2020-08-04] MEDS: DOCUSATE SODIUM 100 MG (COLACE) CAP PO SCH ×2 (09:57→19:47)
[2020-08-04] MEDS: polyethylene glycoL POWDER 17 GM (MIRALAX) PACK PO SCH ×2 (09:57→19:30)
[2020-08-04] MEDS: ASPIRIN E.C. 81 MG (ECOTRIN) TAB PO SCH (09:59)
--- NOTE | 2020-08-04 14:00 | Physical Therapy Daily Note ---
PT Daily Note-Current Subjective Patient supine in bed pre tx, consents to therapy in gym. Does not report pain complaints. Appearance Patient upright in chair post tx, with call button within reach and tray table nearby. Mental Status Patient Orientation: Person, Place, Time, Normal For Age TLSO Transfers SCALE: Activities may be completed with or without assistive devices. 4-Zapcejnzef-cvcizjh completes the activity by him/herself with no assistance from a helper. 5-Set-up or Clean-up Assistance-helper sets up or cleans up; patient completes activity. [place] assists only prior to or following the activity. 4-Supervision or Touching Assistance-helper provides verbal cues and/or touching/steadying and/or contact guard assistance as patient completes activit y. Assistance may be provided throughout the activity or intermittently. 3-Partial/Moderate Assistance-helper does LESS THAN HALF the effort. [place] lifts, holds or supports trunk or limbs, but provides less than half the effort. 2-Substantial/Maximal Assistance-helper does MORE THAN HALF the effort. [place] lifts or holds trunk or limbs and provides more than half the effort. 0-Bamcjiloa-axutzp does ALL the effort. Patient does none of the effort to complete the activity. Or, the assistance of 2 or more helpers is required for the patient to complete the activity. If activity was not attempted, code reason: 7-Patient Refused. 9-Not Applicable-not attempted and the patient did not perform the activity before the current illness, exacerbation or injury. 10-Not Attempted due to Environmental Limitations-(lack of equipment, weather restraints, etc.). 88-Not Attempted due to Medical Conditions or Safety Concerns. Roll Left & Right (QC): 6 Lying to Sitting/Side of Bed(Q: 6 (Movement completed independently, but not smooth. Relies on grab bars in bed to help pull self up.) Sit to Stand (QC): 2 (Max x1 with transfer from w/c. Mod A from sit <-> stand from elevated bed) Chair/Qaz-hk-Bblgr Xfer(QC): 3 (Mod A with stand pivot transfer from elevated mat) Weight Bearing Weight Bearing/Tolerated Full Weight Bearing Gait Training Does the Patient Walk?: Yes Distance: 20' x3 Walk 10 feet (QC): 3 Gait Assistive Device: FWW Mod A with gait. Patient does not demonstrate LOB but is inconsistent with stability in L LE. Step length improved overall. Assessment Current Status: Fair Progress Patient requires increased assistance with sit <-> stand from w/c. Lacks hip extension strength, has increased flexed posture with movement and cannot extended back until UE's are supported on walker and he can fully extend with arm strength. Patient demonstrated more "plopping" with descent from sit <-> stand during this afternoon session. Plan to continue to work on strengthening LE's for smooth, controlled descent and supported movement with functional mobility. PT Short Term Goals Short Term Goals Time Frame: August 03, 2020 Roll Left & Right: 6 Sit to lyin (CGA) Lying to sitting on side of be: 4 (CGA) Chair/pga-pq-ziflk transfer: 4 (CGA) Walk 10 feet: 3 (mod) PT Thread Drawer Goals Shelter Goals PT Thread Drawer Goals Time Frame: August 17, 2020 Roll Left & Right (QC): 6 Sit to Lying (QC): 4 (SBA) Lying-Sitting on Side/Bed(QC): 4 (SBA) Sit to Stand (QC): 3 (min) Chair/Hpq-wf-Fknge Xfer(QC): 3 (min) Toilet Transfer (QC): 3 (min) Car Transfer (QC): 3 (min) Does the Patient Walk: No and Walking Goal IS indicated Walk 10 feet (QC): 3 (min) Walk 50ft with 2 Turns (QC): 3 (min) Walk 150 ft (QC): 88 Walking 10ft on Uneven Surface: 3 (min) 1 Step (curb) (QC): 3 (min) 4 Steps (QC): 88 12 Steps (QC): 9 Picking up an Object (QC): 9 Does the Pt use WC or Scooter?: Yes Wheel 50 feet with 2 turns (QC: 6 Type: Manual Wheel 150 feet: 6 Type: Manual PT Plan Problem List Problem List: Activity Tolerance, Functional Strength, Safety, Balance, Gait, Transfer, Bed Mobility, ROM Treatment/Plan Treatment Plan: Continue Plan of Care Treatment Plan: Bed Mobility, Education, Functional Activity Jai, Functional Strength, Gait, Safety, Therapeutic Exercise, Transfers Treatment Duration: August 17, 2020 Frequency: At least 5 of 7 days/Wk (IRF) Estimated Hrs Per Day: 1.5 hours per day Patient and/or Family Agrees t: Yes Safety Risks/Education Patient Education: Gait Training, Transfer Techniques, Correct Positioning, W/C Management, Reviewed Don/Doff Brace, Safety Issues Teaching Recipient: Patient Teaching Methods: Demonstration, Discussion Response to Teaching: Verbalize Understanding, Return Demonstration Time/GCodes Time In: 1330 Time Out: 1400 Total Billed Treatment Time: 30 Total Billed Treatment 1 visit: FA: 15' GT: 15' FABIAN BOBBY PT August 04, 2020 14:00
[2020-08-04 19:27] VITALS: BP 134/62
[2020-08-04] MEDS: DIAZEPAM 5 MG (VALIUM) TABLET PO SCH (19:46)
--- NOTE | 2020-08-05 06:17 | PM&R Progress Note ---
Subjective HPI/CC On Admission Date Seen by Provider: August 05, 2020 Time Seen by Provider: 12:30 Subjective/Events-last exam 08/05/2020: Patient doing pretty well No bowel movement for 2 days we will give laxatives Televisit with neurosurgery service recommended to remove the ziggy and have a 4-week follow-up for x-rays and follow-up visit Denies any new issues 08/04/20: Pt doing much better Had a BM yesterday Televisit with neurosurgeon and likely ziggy will be removed at some point after that televisit Doing much better overall 08/03/20: Pt doing pretty well Bowels moved 08/01 No major issues Not really motivated too much so will try to give him more activity as he reque sted from 3-5 PM 08/02/20: Pt really not too motivated but hes doing well Spills his urinal quite a bit Incision looks a bit red but not infected Bowels moved yesterday 08/01/20: Hgb is 9.6 Last BM was yesterday No major issues Feels like he is doing a lot better 07/31/20: No major issues No pain reported at this current time No falls Seems to be in good spirits 07/30/20: Patient doing well Has no concerns Pain is controlled BiPAP last night with 3L/min O2 Dressing changes QOD Slight redness around sutures 07/29/20: Patient settling in well Loose BM yesterday Dressing changes on spine every other day No questions from patient Feels like he is using muscles in therapy 07/28/20: Patient doing well Settling in well Incontinent last night but patient reports he spilled urinal Metformin noted and is maintained BM+ Sugar is ok Hgb 9.4 SLUMS Review of Systems General: Fatigue Musculoskeletal: back pain Objective Exam Vital Signs Vital Signs Date Time Temp Pulse Resp B/P (MAP) Pulse Ox O2 Delivery O2 Flow Rate FiO2 08/05/20 09:00 Room Air 08/05/20 08:00 36.5 87 20 143/67 (92) 97 Capillary Refill : General Appearance: No Apparent Distress, WD/WN, Chronically ill, Obese HEENT: PERRL/EOMI, Normal ENT Inspection, Pharynx Normal Neck: Full Range of Motion, Normal Inspection, Non Tender, Supple, Carotid Bruit Respiratory: Chest Non Tender, Lungs Clear, Normal Breath Sounds, No Accessory Muscle Use, No Respiratory Distress Cardiovascular: Regular Rate, Rhythm, No Edema, No Gallop, No JVD, No Murmur, Normal Peripheral Pulses Gastrointestinal: Normal Bowel Sounds, No Organomegaly, No Pulsatile Mass, Non Tender, Soft Back: Decreased Range of Motion, Muscle Spasm, Vertebral Tenderness Extremity: Normal Capillary Refill, Normal Inspection, Normal Range of Motion, Non Tender, No Calf Tenderness, No Pedal Edema Neurologic/Psychiatric: Alert, Oriented x3, No Motor/Sensory Deficits, immersion metalcleaner II- XII Norm as Tested, Abnormal Gait, Depressed Affect, Motor Weakness Skin: Normal Color, Warm/Dry Lymphatic: No Adenopathy Results/Procedures Lab Patient resulted labs reviewed. FIM Transfers Therapy Code Descriptions/Definitions Functional [place] Measure: 0=Not Assessed/NA 4=Minimal Assistance 1=Total Assistance 5=Supervision or Setup 2=Maximal Assistance 6=Modified [place] 3=Moderate Assistance 7=Complete IndependenceSCALE: Activities may be completed with or without assistive devices. 5-Zalruzumnt-mfxqvxj completes the activity by him/herself with no assistance from a helper. 5-Set-up or Clean-up Assistance-helper sets up or cleans up; patient completes activity. [place] assists only prior to or following the activity. 4-Supervision or Touching Assistance-helper provides verbal cues and/or touching/steadying and/or contact guard assistance as patient completes activity. Assistance may be provided throughout the activity or intermittently. 3-Partial/Moderate Assistance-helper does LESS THAN HALF the effort. [place] lifts, holds or supports trunk or limbs, but provides less than half the effort. 2-Substantial/Maximal Assistance-helper does MORE THAN HALF the effort. [place] lifts or holds trunk or limbs and provides more than half the effort. 9-Htkqmtsdw-thviob does ALL the effort. Patient does none of the effort to complete the activity. Or, the assistance of 2 or more helpers is required for the patient to complete the activity. If activity was not attempted, code reason: 7-Patient Refused. 9-Not Applicable-not attempted and the patient did not perform the activity before the current illness, exacerbation or injury. 10-Not Attempted due to Environmental Limitations-(lack of equipment, weather restraints, etc.). 88-Not Attempted due to Medical Conditions or Safety Concerns. Roll Left to Right (QC): 6 Sit to Lying (QC): 6 (Utilized leg salesforce specialist that patient was able to easily maneuver L LE) Sit to Stand (QC): 2 (Max x1 with transfer from w/c. Mod A from sit <-> stand from elevated bed) Chair/Frd-zf-Wzrdd Xfer(QC): 3 (Mod A with stand pivot transfer from elevated mat) Car Transfer (QC): 88 Gait Training Does the Patient Walk?: Yes Distance: 20' x3 Walk 10 feet (QC): 3 Walk 50 ft with 2 Turns(QC): 88 Walk 150 ft (QC): 88 Walking 10ft/uneven surface-QC: 88 Gait Persons Needed: 2 Gait Assistive Device: FWW Wheelchair Training Does the Pt Use a Wheelchair?: Yes Wheel 50 ft with 2 turns (QC): 5 Wheel 150 ft (QC): 5 Type of Wheelchair: Manual Stair Training 1 Step (curb) (QC): 88 4 Steps (QC): 88 12 Steps (QC): 88 Balance Picking up an Object (QC): 88 ADL-Treatment Eating (QC): 6 (Pt able to set own meal up and use regular utensils to eat.) Oral Hygiene (QC): 6 Bathing Location: L Arm, R Arm, L Upper Leg, R Upper Leg, L Lower Leg (including foot), R Lower Leg (including foot), Chest, Abdomen, Perineal Area Shower/Bathe Self (QC): 3 Upper Body Dressing (QC): 5 Lower Body Dressing (QC): 1 On/Off Footwear (QC): 3 Toileting Hygiene (QC): 1 Toilet Transfer (QC): 1 Assessment/Plan Assessment and Plan Assess & Plan/Chief Complaint Assessment: s/p Lumbar laminectomy L2-L3 and TLIF w/ extension of previous L3-L5 hardware LLE weakness Spondylosis Performed due to Spinal stenosis with neurogenic claudication. Source of pts debidity. PT/OT IS Speech therapy Consult SS. GOAL: Return to baseline function before sx. Discharge home with Home Health. Normocytic anemia Hx of hypokalemia during [place] post-op stay. Per pt: known chronic hx of anemia. 07/26 labs from [place]: H&H is 8.7/27.6 Likely multifactorial: to surgical blood loss and anemia of chronic disease. Iron studies ordered during pts post-op [place] stay (results?) CBC and CMP NIDDM HTN HLP Obesity Sleep apnea Neuropathy SSI Home Cpap. Home Meds s/p COVID-19 PNA Hospitalized . Received convalescent plasma and inpt stay for several days. Pt reports no residual sxs. Hx of lumbar radiculopathy Polyp on vocal cord Hx of cervical spine sx DVT prophylaxis SCD and ambulation. Plan: IRF protocol Pain control BM regimen PT OT 07/28/20: Pain control Monitor hgb Monitor BP 07/29/20: Monitor pain Monitor BM regimen 07/30/20: Monitor closely Pain management BM regimen 07/31/20: Monitor pain Monitor BP 08/01/20: Monitor leg weakness Pain control Monitor BM regimen 08/02/20: Monitor pain BM regimen to maintain 08/03/20: Monitor pain Increase activity 08/04/20: Monitor pain Increase activity 08/05/2020: Monitor closely Fall risk (1) Lumbar radiculopathy (2) MICHAELA treated with BiPAP (3) Nocturnal hypoxemia (4) Diabetes (5) Hypertension (6) Hyperlipemia (7) Obesity, morbid, BMI 40.0-49.9 KAMERON RAMOS DO August 05, 2020 06:17
[2020-08-05] MEDS: ASPIRIN E.C. 81 MG (ECOTRIN) TAB PO SCH (07:33)
[2020-08-05] MEDS: amLODIPine 5 MG (NORVASC) TAB PO SCH (07:34)
[2020-08-05] MEDS: DOCUSATE SODIUM 100 MG (COLACE) CAP PO SCH ×2 (07:34→21:24)
[2020-08-05] MEDS: GABAPENTIN 600 MG (NEURONTIN) TAB PO SCH ×3 (07:34→21:19)
[2020-08-05] MEDS: LOSARTAN 100 MG (COZAAR) TABLET PO SCH (07:34)
[2020-08-05] MEDS: metFORMIN 500 MG (GLUCOPHAGE) TAB PO SCH ×2 (07:34→21:19)
[2020-08-05] MEDS: SENNA W/DOCUSATE (SENOKOT S) TABLET PO SCH ×2 (07:35→21:24)
[2020-08-05] MEDS: oxyCODONE/APAP 5/325MG (PERCOCET 5) TABLET PO PRN (07:35)
[2020-08-05] MEDS: polyethylene glycoL POWDER 17 GM (MIRALAX) PACK PO SCH ×2 (07:35→21:24)
[2020-08-05] MEDS: MICONAZOLE 2% POWDER (DESENEX AF) 90 GM TOP SCH ×2 (07:37→21:19)
[2020-08-05] MEDS: VENELEX OINTMENT TOP SCH ×2 (07:38→21:19)
[2020-08-05 08:00] VITALS: BP 143/67
[2020-08-05] MEDS ORDERED: TRAM50TA3 PO (08:26)
--- NOTE | 2020-08-05 08:44 | Occupational Ther Daily Note ---
OT Current Status-Daily Note Subjective Pt alert, sitting in recliner. Pt agrees to therapy. Pt reported 5/10 pain, nrsg brought pain meds. Mental Status/Objective Patient Orientation: Person, Place, Time, Situation ADL-Treatment Pt agrees to shower. Pt requests to use toilet. Pt independent using HOB raised to go from supine to EOB. After assist placing sliding board and w/c, pt able to complete slide board transfer with CGA. Assist x2 using w/c and grabbars to stand, transfer to/from toilet and complete toileting. Pt transferred x2 to shower chair to complete shower. Cleansing buttocks was completed while standing from toilet. Pt completed shower sitting on shower chair with cutout, hand held shower and LH sponge. Assist to dry feet and buttocks. After set up, pt completed upper body dressing by self. Pt sat at sink to complete oral care. Due to time constraints assist given to thread feet into pants and footwear. Assist x2 to stand and manipulate pants. Co-treat with PT([id number]), requires skills of 2 clinicians due to increase fall risk, decreased mobility and dependent ambulation\transfers. OT focusing on B UE strength, ADLs, positioning devices and B UE during functional transfers/mobility. Therapy Code Descriptions/Definitions Functional [place] Measure: 0=Not Assessed/NA 4=Minimal Assistance 1=Total Assistance 5=Supervision or Setup 2=Maximal Assistance 6=Modified [place] 3=Moderate Assistance 7=Complete IndependenceSCALE: Activities may be completed with or without assistive devices. 5-Xggrusuwsw-buciubb completes the activity by him/herself with no assistance from a helper. 5-Set-up or Clean-up Assistance-helper sets up or cleans up; patient completes activity. [place] assists only prior to or following the activity. 4-Supervision or Touching Assistance-helper provides verbal cues and/or touching/steadying and/or contact guard assistance as patient completes activity. Assistance may be provided throughout the activity or intermittently. 3-Partial/Moderate Assistance-helper does LESS THAN HALF the effort. [place] lifts, holds or supports trunk or limbs, but provides less than half the effort. 2-Substantial/Maximal Assistance-helper does MORE THAN HALF the effort. [place] lifts or holds trunk or limbs and provides more than half the effort. 6-Jbxtnrkfz-yzgujy does ALL the effort. Patient does none of the effort to complete the activity. Or, the assistance of 2 or more helpers is required for the patient to complete the activity. If activity was not attempted, code reason: 7-Patient Refused. 9-Not Applicable-not attempted and the patient did not perform the activity before the current illness, exacerbation or injury. 10-Not Attempted due to Environmental Limitations-(lack of equipment, weather restraints, etc.). 88-Not Attempted due to Medical Conditions or Safety Concerns. Oral Hygiene (QC): 6 Shower/Bathe Self (QC): 3 Upper Body Dressing (QC): 5 Toileting Hygiene (QC): 1 Toilet Transfer (QC): 1 Other Treatment See PT notes for ambulation with FWW and transfers. After session, pt left in care of PT. All needs met. OT Short Term Goals Short Term Goals Time Frame: August 10, 2020 Eatin Oral hygiene: 6 Toileting hygiene: 3 Shower/bathe self: 3 Upper body dressin Lower body dressin Putting on/taking off footwear: 3 OT [facility] Goals Machine Quilt Stuffer Goals Time Frame: August 24, 2020 Eating (QC): 6 Oral Hygiene (QC): 6 Toileting Hygiene (QC): 6 Shower/Bathe Self (QC): 4 Upper Body Dressing (QC): 6 Lower Body Dressing (QC): 6 On/Off Footwear (QC): 6 Additional Goals: 1-Demonstrate ADL Tasks, 2-Verbalize Understanding, 3- ImproveStrength/Jai 1=Demonstrate adherence to instructed precautions during ADL tasks. 2=Patient will verbalize/demonstrate understanding of assistive devices/modifications for ADL. 3=Patient will improve strength/tolerance for activity to enable patient to perform ADL's. OT Education/Plan Problem List/Assessment Assessment: Decreased Activ Tolerance, Dependent Transfers, Impaired Self-Care Skills Discharge Recommendations Plan/Recommendations: Continue POC Treatment Plan/Plan of Care Patient would benefit from OT for education, treatment and training to promote independence in ADL's, mobility, safety and/or upper extremity function for ADL's. Plan of Care: ADL Retraining, Functional Mobility, Group Exercise/Act as Ind, UE Funct Exercise/Act Treatment Duration: August 24, 2020 Frequency: At least 5 of 7 days/Wk (IRF) Estimated Hrs Per Day: 1.5 hours per day Agreement: Yes Rehab Potential: Fair Time/GCodes Start Time: 07:15 Stop Time: 08:45 Total Time Billed (hr/min): 90 Billed Treatment Time 1 visit-ADL 4 (60 min) FA 2 (30 min) RYAN FERRARA August 05, 2020 08:44
--- NOTE | 2020-08-05 08:57 | Physical Therapy Daily Note ---
PT Daily Note-Current Subjective Patient upright in bathroom pre tx, with OT. Consented to PT co-treat. Patient did not c/o pain during session. Noted his L LE still felt a little "shaky". Appearance Patient supine in bed post tx, with call button within reach and tray table nearby. All needs met. Mental Status Patient Orientation: Person, Place, Time, Normal For Age TLSO Transfers SCALE: Activities may be completed with or without assistive devices. 9-Cplftonvhr-cbyrcmy completes the activity by him/herself with no assistance from a helper. 5-Set-up or Clean-up Assistance-helper sets up or cleans up; patient completes activity. [place] assists only prior to or following the activity. 4-Supervision or Touching Assistance-helper provides verbal cues and/or to uching/steadying and/or contact guard assistance as patient completes activity. Assistance may be provided throughout the activity or intermittently. 3-Partial/Moderate Assistance-helper does LESS THAN HALF the effort. [place] lifts, holds or supports trunk or limbs, but provides less than half the effort. 2-Substantial/Maximal Assistance-helper does MORE THAN HALF the effort. [place] lifts or holds trunk or limbs and provides more than half the effort. 0-Ecrtxultu-sfwuyc does ALL the effort. Patient does none of the effort to complete the activity. Or, the assistance of 2 or more helpers is required for the patient to complete the activity. If activity was not attempted, code reason: 7-Patient Refused. 9-Not Applicable-not attempted and the patient did not perform the activity before the current illness, exacerbation or injury. 10-Not Attempted due to Environmental Limitations-(lack of equipment, weather restraints, etc.). 88-Not Attempted due to Medical Conditions or Safety Concerns. Sit to Lying (QC): 6 (Utilized leg joss house keeper for L LE) Sit to Stand (QC): 2 Chair/Ife-et-Ljqga Xfer(QC): 3 (Min A using sliding board) Patient consistently requires Max A when completing sit to stand, comes forward into a bent over posture before fully extending back to stand straight up Weight Bearing Weight Bearing/Tolerated Full Weight Bearing Gait Training Does the Patient Walk?: Yes Distance: 24' x3 Walk 10 feet (QC): 3 (Mod A) Gait Assistive Device: FWW Patient does not demonstrate LOB, but gait is choppy with L step Wheelchair Training Does the Pt Use a Wheelchair?: Yes Wheel 50 ft with 2 turns (QC): 6 Type of Wheelchair: Manual Patient is slow with w/c ambulation, goes 60' x2, uses L LE foot rest Exercises Seated Therapy Exercises: Ankle pumps, Long arc quads, Hip flexion Seated Reps: 20 Utilized 2# cuff ankle weights with seated exercise Treatments Co-treated with OT secondary to patient fall risk, assistance required, and decreased mobility. PT focused on balance and positioning after bathing and transfers and ambulation, OT worked on dressing, UE positioning and safety during activity. Assessment Current Status: Fair Progress Patient consistently able to complete 3x 20' of ambulation, fatigues by last ambulation cycle. Left LE continues to be weak and patient seems to be incontinent. PT Short Term Goals Short Term Goals Time Frame: August 03, 2020 Roll Left & Right: 6 Sit to lyin (CGA) Lying to sitting on side of be: 4 (CGA) Chair/fgw-ed-gwvve transfer: 4 (CGA) Walk 10 feet: 3 (mod) PT Longterm Goals Manager Stone Goals PT Longterm Goals Time Frame: August 17, 2020 Roll Left & Right (QC): 6 Sit to Lying (QC): 4 (SBA) Lying-Sitting on Side/Bed(QC): 4 (SBA) Sit to Stand (QC): 3 (min) Chair/Gsi-kn-Seprw Xfer(QC): 3 (min) Toilet Transfer (QC): 3 (min) Car Transfer (QC): 3 (min) Does the Patient Walk: No and Walking Goal IS indicated Walk 10 feet (QC): 3 (min) Walk 50ft with 2 Turns (QC): 3 (min) Walk 150 ft (QC): 88 Walking 10ft on Uneven Surface: 3 (min) 1 Step (curb) (QC): 3 (min) 4 Steps (QC): 88 12 Steps (QC): 9 Picking up an Object (QC): 9 Does the Pt use WC or Scooter?: Yes Wheel 50 feet with 2 turns (QC: 6 Type: Manual Wheel 150 feet: 6 Type: Manual PT Plan Problem List Problem List: Activity Tolerance, Functional Strength, Safety, Balance, Gait, Transfer, Bed Mobility, ROM Treatment/Plan Treatment Plan: Continue Plan of Care Treatment Plan: Bed Mobility, Education, Functional Activity Jai, Functional Strength, Gait, Safety, Therapeutic Exercise, Transfers Treatment Duration: August 17, 2020 Frequency: At least 5 of 7 days/Wk (IRF) Estimated Hrs Per Day: 1.5 hours per day Patient and/or Family Agrees t: Yes Safety Risks/Education Patient Education: Gait Training, Transfer Techniques, Correct Positioning, W/C Management, Safety Issues Teaching Recipient: Patient Teaching Methods: Demonstration, Discussion Response to Teaching: Verbalize Understanding, Return Demonstration Time/GCodes Time In: 799 Time Out: 899 Total Billed Treatment Time: 60 Total Billed Treatment 1 visit: FA x2: 30' EX: 15' GT: 15' PT/OT Co-treat: 799 - 844, PT Treat: 844 - 899 FABIAN BOBBY PT August 05, 2020 08:57
[2020-08-05] MEDS: CYCLOBENZAPRINE 10 MG (FLEXERIL) TAB PO PRN ×2 (10:48→19:18)
--- NOTE | 2020-08-05 11:57 | Physical Therapy Daily Note ---
PT Daily Note-Current Subjective Patient supine in bed pre tx, consents to therapy in room secondary to lunch coming soon. Does not c/o pain. Appearance Patient upright in recliner, with call button and tray table nearby, all needs met. Mental Status Patient Orientation: Person, Place, Time, Normal For Age TLSO Transfers SCALE: Activities may be completed with or without assistive devices. 4-Jotjopbvpe-kxtslcc completes the activity by him/herself with no assistance from a helper. 5-Set-up or Clean-up Assistance-helper sets up or cleans up; patient completes activity. [place] assists only prior to or following the activity. 4-Supervision or Touching Assistance-helper provides verbal cues and/or touching/steadying and/or contact guard assistance as patient completes activity. Assistance may be provided throughout the activity or intermittently. 3-Partial/Moderate Assistance-helper does LESS THAN HALF the effort. [place] lifts, holds or supports trunk or limbs, but provides less than half the effort. 2-Substantial/Maximal Assistance-helper does MORE THAN HALF the effort. [place] lifts or holds trunk or limbs and provides more than half the effort. 3-Yjfhwwffg-nkwhyh does ALL the effort. Patient does none of the effort to complete the activity. Or, the assistance of 2 or more helpers is required for the patient to complete the activity. If activity was not attempted, code reason: 7-Patient Refused. 9-Not Applicable-not attempted and the patient did not perform the activity before the current illness, exacerbation or injury. 10-Not Attempted due to Environmental Limitations-(lack of equipment, weather restraints, etc.). 88-Not Attempted due to Medical Conditions or Safety Concerns. Roll Left & Right (QC): 6 Lying to Sitting/Side of Bed(Q: 6 Sit to Stand (QC): 3 (Mod A, elevated bed) Weight Bearing Weight Bearing/Tolerated Full Weight Bearing Gait Training Does the Patient Walk?: Yes Distance: 6' Gait Assistive Device: FWW Ambulated from bed to reclining chair, able to turn FWW around before sitting in chair. Exercises Seated Therapy Exercises: Ankle pumps, Long arc quads, Hip flexion, Hip abd/add (RTB/ mini ball), Glut set Seated Reps: 20 completed 2 sets of ankle pumps, hip raises, and LAQ's Treatments LE strengthening, functional mobility, transfers Assessment Current Status: Fair Progress Patient continues to lack descending control with sit to stand, demonstrates plopping while attempting to sit PT Short Term Goals Short Term Goals Time Frame: August 03, 2020 Roll Left & Right: 6 Sit to lyin (CGA) Lying to sitting on side of be: 4 (CGA) Chair/aky-xw-qnclh transfer: 4 (CGA) Walk 10 feet: 3 (mod) PT Long-Term Goals Composition Instructor Goals PT Long-Term Goals Time Frame: August 17, 2020 Roll Left & Right (QC): 6 Sit to Lying (QC): 4 (SBA) Lying-Sitting on Side/Bed(QC): 4 (SBA) Sit to Stand (QC): 3 (min) Chair/Vgd-xa-Peygy Xfer(QC): 3 (min) Toilet Transfer (QC): 3 (min) Car Transfer (QC): 3 (min) Does the Patient Walk: No and Walking Goal IS indicated Walk 10 feet (QC): 3 (min) Walk 50ft with 2 Turns (QC): 3 (min) Walk 150 ft (QC): 88 Walking 10ft on Uneven Surface: 3 (min) 1 Step (curb) (QC): 3 (min) 4 Steps (QC): 88 12 Steps (QC): 9 Picking up an Object (QC): 9 Does the Pt use WC or Scooter?: Yes Wheel 50 feet with 2 turns (QC: 6 Type: Manual Wheel 150 feet: 6 Type: Manual PT Plan Problem List Problem List: Activity Tolerance, Functional Strength, Safety, Balance, Gait, Transfer, Bed Mobility, ROM Treatment/Plan Treatment Plan: Continue Plan of Care Treatment Plan: Bed Mobility, Education, Functional Activity Jai, Functional Strength, Gait, Safety, Therapeutic Exercise, Transfers Treatment Duration: August 17, 2020 Frequency: At least 5 of 7 days/Wk (IRF) Estimated Hrs Per Day: 1.5 hours per day Patient and/or Family Agrees t: Yes Safety Risks/Education Patient Education: Gait Training, Transfer Techniques, Correct Positioning, Safety Issues Teaching Recipient: Patient Teaching Methods: Demonstration, Discussion Response to Teaching: Verbalize Understanding, Return Demonstration Time/GCodes Time In: 1130 Time Out: 1200 Total Billed Treatment Time: 30 Total Billed Treatment 1 visit: EX: 20' FA: 10' FABIAN BOBBY PT August 05, 2020 11:57
[2020-08-05 19:40] VITALS: BP 128/62
[2020-08-05] MEDS: DIAZEPAM 5 MG (VALIUM) TABLET PO SCH (21:19)
--- NOTE | 2020-08-06 07:44 | PM&R Progress Note ---
Subjective HPI/CC On Admission Date Seen by Provider: August 06, 2020 Time Seen by Provider: 11:45 Subjective/Events-last exam 08/06/20: Patient doing well Incision is open to air now No increased pain Slow moving at baseline 08/05/2020: Patient doing pretty well No bowel movement for 2 days we will give laxatives Televisit with neurosurgery service recommended to remove the ziggy and have a 4-week follow-up for x-rays and follow-up visit Denies any new issues 08/04/20: Pt doing much better Had a BM yesterday Televisit with neurosurgeon and likely ziggy will be removed at some point after that televisit Doing much better overall 08/03/20: Pt doing pretty well Bowels moved 08/01 No major issues Not really motivated too much so will try to give him more activity as he requested from 3-5 PM 08/02/20: Pt really not too motivated but hes doing well Spills his urinal quite a bit Incision looks a bit red but not infected Bowels moved yesterday 08/01/20: Hgb is 9.6 Last BM was yesterday No major issues Feels like he is doing a lot better 07/31/20: No major issues No pain reported at this current time No falls Seems to be in good spirits 07/30/20: Patient doing well Has no concerns Pain is controlled BiPAP last night with 3L/min O2 Dressing changes QOD Slight redness around sutures 07/29/20: Patient settling in well Loose BM yesterday Dressing changes on spine every other day No questions from patient Feels like he is using muscles in therapy 07/28/20: Patient doing well Settling in well Incontinent last night but patient reports he spilled urinal Metformin noted and is maintained BM+ Sugar is ok Hgb 9.4 SLUMS Review of Systems Musculoskeletal: back pain Objective Exam Vital Signs Vital Signs Date Time Temp Pulse Resp B/P (MAP) Pulse Ox O2 Delivery O2 Flow Rate FiO2 08/06/20 09:49 Room Air 08/06/20 08:41 37.0 83 16 156/70 (98) 94 Capillary Refill : General Appearance: No Apparent Distress, WD/WN, Chronically ill, Obese HEENT: PERRL/EOMI, Normal ENT Inspection, Pharynx Normal Neck: Full Range of Motion, Normal Inspection, Non Tender, Supple, Carotid Bruit Respiratory: Chest Non Tender, Lungs Clear, Normal Breath Sounds, No Accessory Muscle Use, No Respiratory Distress Cardiovascular: Regular Rate, Rhythm, No Edema, No Gallop, No JVD, No Murmur, Normal Peripheral Pulses Gastrointestinal: Normal Bowel Sounds, No Organomegaly, No Pulsatile Mass, Non Tender, Soft Back: Decreased Range of Motion, Muscle Spasm, Vertebral Tenderness Extremity: Normal Capillary Refill, Normal Inspection, Normal Range of Motion, Non Tender, No Calf Tenderness, No Pedal Edema Neurologic/Psychiatric: Alert, Oriented x3, No Motor/Sensory Deficits, lawn and garden technician II- XII Norm as Tested, Abnormal Gait, Depressed Affect, Motor Weakness Skin: Normal Color, Warm/Dry Lymphatic: No Adenopathy Results/Procedures Lab Patient resulted labs reviewed. FIM Transfers Therapy Code Descriptions/Definitions Functional [place] Measure: 0=Not Assessed/NA 4=Minimal Assistance 1=Total Assistance 5=Supervision or Setup 2=Maximal Assistance 6=Modified [place] 3=Moderate Assistance 7=Complete IndependenceSCALE: Activities may be completed with or without assistive devices. 6-Cmbdzgyyic-lbjvaxn completes the activity by him/herself with no assistance from a helper. 5-Set-up or Clean-up Assistance-helper sets up or cleans up; patient completes activity. [place] assists only prior to or following the activity. 4-Supervision or Touching Assistance-helper provides verbal cues and/or touching/steadying and/or contact guard assistance as patient completes activity. Assistance may be provided throughout the activity or intermittently. 3-Partial/Moderate Assistance-helper does LESS THAN HALF the effort. [place] lifts, holds or supports trunk or limbs, but provides less than half the effort. 2-Substantial/Maximal Assistance-helper does MORE THAN HALF the effort. [place] lifts or holds trunk or limbs and provides more than half the effort. 2-Lrplcwkgq-zqixfe does ALL the effort. Patient does none of the effort to complete the activity. Or, the assistance of 2 or more helpers is required for the patient to complete the activity. If activity was not attempted, code reason: 7-Patient Refused. 9-Not Applicable-not attempted and the patient did not perform the activity before the current illness, exacerbation or injury. 10-Not Attempted due to Environmental Limitations-(lack of equipment, weather restraints, etc.). 88-Not Attempted due to Medical Conditions or Safety Concerns. Roll Left to Right (QC): 6 Sit to Lying (QC): 6 (Utilized leg drum puller for L LE) Sit to Stand (QC): 3 (Mod A, elevated bed) Chair/Ico-vn-Ylfmy Xfer(QC): 3 (Min A using sliding board) Car Transfer (QC): 88 Gait Training Does the Patient Walk?: Yes Distance: 6' Walk 10 feet (QC): 3 (Mod A) Walk 50 ft with 2 Turns(QC): 88 Walk 150 ft (QC): 88 Walking 10ft/uneven surface-QC: 88 Gait Persons Needed: 2 Gait Assistive Device: FWW Wheelchair Training Does the Pt Use a Wheelchair?: Yes Wheel 50 ft with 2 turns (QC): 6 Wheel 150 ft (QC): 5 Type of Wheelchair: Manual Stair Training 1 Step (curb) (QC): 88 4 Steps (QC): 88 12 Steps (QC): 88 Balance Picking up an Object (QC): 88 ADL-Treatment Eating (QC): 6 (Pt able to set own meal up and use regular utensils to eat.) Oral Hygiene (QC): 6 Bathing Location: L Arm, R Arm, L Upper Leg, R Upper Leg, L Lower Leg (including foot), R Lower Leg (including foot), Chest, Abdomen, Perineal Area Shower/Bathe Self (QC): 3 Upper Body Dressing (QC): 5 Lower Body Dressing (QC): 1 On/Off Footwear (QC): 3 Toileting Hygiene (QC): 1 Toilet Transfer (QC): 1 Assessment/Plan Assessment and Plan Assess & Plan/Chief Complaint Assessment: s/p Lumbar laminectomy L2-L3 and TLIF w/ extension of previous L3-L5 hardware LLE weakness Spondylosis Performed due to Spinal stenosis with neurogenic claudication. Source of pts debidity. PT/OT IS Speech therapy Consult . GOAL: Return to baseline function before sx. Discharge home with Home Health. Normocytic anemia Hx of hypokalemia during [place] post-op stay. Per pt: known chronic hx of anemia. 07/26 labs from [place]: H&H is 8.7/27.6 Likely multifactorial: to surgical blood loss and anemia of chronic disease. Iron studies ordered during pts post-op [facility] stay (results?) CBC and CMP NIDDM HTN HLP Obesity Sleep apnea Neuropathy SSI Home Cpap. Home Meds s/p COVID-19 PNA Hospitalized . Received convalescent plasma and inpt stay for several days. Pt reports no residual sxs. Hx of lumbar radiculopathy Polyp on vocal cord Hx of cervical spine sx DVT prophylaxis SCD and ambulation. Plan: IRF protocol Pain control BM regimen PT OT 07/28/20: Pain control Monitor hgb Monitor BP 07/29/20: Monitor pain Monitor BM regimen 07/30/20: Monitor closely Pain management BM regimen 07/31/20: Monitor pain Monitor BP 08/01/20: Monitor leg weakness Pain control Monitor BM regimen 08/02/20: Monitor pain BM regimen to maintain 08/03/20: Monitor pain Increase activity 08/04/20: Monitor pain Increase activity 08/05/2020: Monitor closely Fall risk 08/06/20: Pain control Aggressive PT OT to prevent falls (1) Lumbar radiculopathy (2) MICHAELA treated with BiPAP (3) Nocturnal hypoxemia (4) Diabetes (5) Hypertension (6) Hyperlipemia (7) Obesity, morbid, BMI 40.0-49.9 KAMERON RAMOS DO August 06, 2020 07:44
[2020-08-06 08:41] VITALS: BP 156/70
[2020-08-06] MEDS: LOSARTAN 100 MG (COZAAR) TABLET PO SCH (09:38)
[2020-08-06] MEDS: DOCUSATE SODIUM 100 MG (COLACE) CAP PO SCH ×2 (09:39→20:45)
[2020-08-06] MEDS: MICONAZOLE 2% POWDER (DESENEX AF) 90 GM TOP SCH ×2 (09:39→20:45)
[2020-08-06] MEDS: GABAPENTIN 600 MG (NEURONTIN) TAB PO SCH ×3 (09:39→20:46)
[2020-08-06] MEDS: VENELEX OINTMENT TOP SCH ×2 (09:39→20:45)
[2020-08-06] MEDS: metFORMIN 500 MG (GLUCOPHAGE) TAB PO SCH ×2 (09:39→20:46)
[2020-08-06] MEDS: SENNA W/DOCUSATE (SENOKOT S) TABLET PO SCH ×2 (09:39→20:45)
[2020-08-06] MEDS: amLODIPine 5 MG (NORVASC) TAB PO SCH (09:39)
[2020-08-06] MEDS: ASPIRIN E.C. 81 MG (ECOTRIN) TAB PO SCH (09:39)
[2020-08-06] MEDS: polyethylene glycoL POWDER 17 GM (MIRALAX) PACK PO SCH ×2 (09:43→20:08)
--- NOTE | 2020-08-06 11:47 | Physical Therapy Daily Note ---
PT Daily Note-Current Subjective Pt laying Supine in bed after just finishing up breakfast. Pt agrees to PT. Mental Status Patient Orientation: Person, Place, Time, Situation Transfers SCALE: Activities may be completed with or without assistive devices. 7-Ttkmzpvwgq-zwmgovi completes the activity by him/herself with no assistance from a helper. 5-Set-up or Clean-up Assistance-helper sets up or cleans up; patient completes activity. [place] assists only prior to or following the activity. 4-Supervision or Touching Assistance-helper provides verbal cues and/or touching/steadying and/or contact guard assistance as patient completes activity. Assistance may be provided throughout the activity or intermittently. 3-Partial/Moderate Assistance-helper does LESS THAN HALF the effort. [place] lifts, holds or supports trunk or limbs, but provides less than half the effort. 2-Substantial/Maximal Assistance-helper does MORE THAN HALF the effort. [place] lifts or holds trunk or limbs and provides more than half the effort. 6-Aohdsrbfe-oyboez does ALL the effort. Patient does none of the effort to complete the activity. Or, the assistance of 2 or more helpers is required for the patient to complete the activity. If activity was not attempted, code reason: 7-Patient Refused. 9-Not Applicable-not attempted and the patient did not perform the activity before the current illness, exacerbation or injury. 10-Not Attempted due to Environmental Limitations-(lack of equipment, weather restraints, etc.). 88-Not Attempted due to Medical Conditions or Safety Concerns. Weight Bearing Weight Bearing/Tolerated Full Weight Bearing Exercises Supine Ex: Ankle pumps, Quad Set, Glut sets, Heel Slides, Straight leg raise, Hip abd/add Supine Reps: 15 Treatments Pt completes EX with RB as needed. Pt resting at end of tx. All needs met, call light in hand. Assessment Current Status: Good Progress Pt rosalba. EX well. Pt wants to stand and be able to walk longer distance over the next week. PT Short Term Goals Short Term Goals Time Frame: August 03, 2020 Roll Left & Right: 6 Sit to lyin (CGA) Lying to sitting on side of be: 4 (CGA) Chair/obu-mz-ytvzy transfer: 4 (CGA) Walk 10 feet: 3 (mod) PT Fdc Goals Fdc Goals PT Plaster Patternmaker Goals Time Frame: August 17, 2020 Roll Left & Right (QC): 6 Sit to Lying (QC): 4 (SBA) Lying-Sitting on Side/Bed(QC): 4 (SBA) Sit to Stand (QC): 3 (min) Chair/Dcg-zc-Mkrdj Xfer(QC): 3 (min) Toilet Transfer (QC): 3 (min) Car Transfer (QC): 3 (min) Does the Patient Walk: No and Walking Goal IS indicated Walk 10 feet (QC): 3 (min) Walk 50ft with 2 Turns (QC): 3 (min) Walk 150 ft (QC): 88 Walking 10ft on Uneven Surface: 3 (min) 1 Step (curb) (QC): 3 (min) 4 Steps (QC): 88 12 Steps (QC): 9 Picking up an Object (QC): 9 Does the Pt use WC or Scooter?: Yes Wheel 50 feet with 2 turns (QC: 6 Type: Manual Wheel 150 feet: 6 Type: Manual PT Plan Problem List Problem List: Activity Tolerance, Functional Strength Treatment/Plan Treatment Plan: Continue Plan of Care Treatment Plan: Bed Mobility, Education, Functional Activity Jai, Functional Strength, Gait, Safety, Therapeutic Exercise, Transfers Treatment Duration: August 17, 2020 Frequency: At least 5 of 7 days/Wk (IRF) Estimated Hrs Per Day: 1.5 hours per day Patient and/or Family Agrees t: Yes Safety Risks/Education Patient Education: Correct Positioning, Safety Issues Teaching Recipient: Patient Teaching Methods: Demonstration, Discussion Response to Teaching: Verbalize Understanding, Return Demonstration Time/GCodes Time In: 1125 Time Out: 1145 Total Billed Treatment Time: 20 Total Billed Treatment 1, EX (20m) MATHEW VALDOVINOS PTA August 06, 2020 11:47
[2020-08-06 20:00] VITALS: BP 132/60
[2020-08-06] MEDS: DIAZEPAM 5 MG (VALIUM) TABLET PO SCH (20:45)
--- NOTE | 2020-08-07 07:09 | PM&R Progress Note ---
Subjective HPI/CC On Admission Date Seen by Provider: August 07, 2020 Time Seen by Provider: 12:00 Subjective/Events-last exam 08/07/20: Patient doing well No issues BM 08/04 and laxatives given Refused suppository 08/06/20: Patient doing well Incision is open to air now No increased pain Slow moving at baseline 08/05/2020: Patient doing pretty well No bowel movement for 2 days we will give laxatives Televisit with neurosurgery service recommended to remove the ziggy and have a 4-week follow-up for x-rays and follow-up visit Denies any new issues 08/04/20: Pt doing much better Had a BM yesterday Televisit with neurosurgeon and likely ziggy will be removed at some point after that televisit Doing much better overall 08/03/20: Pt doing pretty well Bowels moved 08/01 No major issues Not really motivated too much so will try to give him more activity as he requested from 3-5 PM 08/02/20: Pt really not too motivated but hes doing well Spills his urinal quite a bit Incision looks a bit red but not infected Bowels moved yesterday 08/01/20: Hgb is 9.6 Last BM was yesterday No major issues Feels like he is doing a lot better 07/31/20: No major issues No pain reported at this current time No falls Seems to be in good spirits 07/30/20: Patient doing well Has no concerns Pain is controlled BiPAP last night with 3L/min O2 Dressing changes QOD Slight redness around sutures 07/29/20: Patient settling in well Loose BM yesterday Dressing changes on spine every other day No questions from patient Feels like he is using muscles in therapy 07/28/20: Patient doing well Settling in well Incontinent last night but patient reports he spilled urinal Metformin noted and is maintained BM+ Sugar is ok Hgb 9.4 SLUMS Review of Systems General: Fatigue, Malaise Musculoskeletal: back pain Objective Exam Vital Signs Vital Signs Date Time Temp Pulse Resp B/P (MAP) Pulse Ox O2 Delivery O2 Flow Rate FiO2 08/07/20 08:50 Room Air 08/07/20 07:30 36.7 80 18 129/60 (83) 93 Capillary Refill : General Appearance: No Apparent Distress, WD/WN, Chronically ill, Obese HEENT: PERRL/EOMI, Normal ENT Inspection, Pharynx Normal Neck: Full Range of Motion, Normal Inspection, Non Tender, Supple, Carotid Bruit Respiratory: Chest Non Tender, Lungs Clear, Normal Breath Sounds, No Accessory Muscle Use, No Respiratory Distress Cardiovascular: Regular Rate, Rhythm, No Edema, No Gallop, No JVD, No Murmur, Normal Peripheral Pulses Gastrointestinal: Normal Bowel Sounds, No Organomegaly, No Pulsatile Mass, Non Tender, Soft Back: Decreased Range of Motion, Muscle Spasm, Vertebral Tenderness Extremity: Normal Capillary Refill, Normal Inspection, Normal Range of Motion, Non Tender, No Calf Tenderness, No Pedal Edema Neurologic/Psychiatric: Alert, Oriented x3, No Motor/Sensory Deficits, core drill operator helper II-XII Norm as Tested, Abnormal Gait, Depressed Affect, Motor Weakness Skin: Normal Color, Warm/Dry Lymphatic: No Adenopathy Results/Procedures Lab Patient resulted labs reviewed. FIM Transfers Therapy Code Descriptions/Definitions Functional [place] Measure: 0=Not Assessed/NA 4=Minimal Assistance 1=Total Assistance 5=Supervision or Setup 2=Maximal Assistance 6=Modified [place] 3=Moderate Assistance 7=Complete IndependenceSCALE: Activities may be completed with or without assistive devices. 7-Bqgepwbait-rvmkxzh completes the activity by him/herself with no assistance from a helper. 5-Set-up or Clean-up Assistance-helper sets up or cleans up; patient completes activity. [place] assists only prior to or following the activity. 4-Supervision or Touching Assistance-helper provides verbal cues and/or touc nitin/steadying and/or contact guard assistance as patient completes activity. Assistance may be provided throughout the activity or intermittently. 3-Partial/Moderate Assistance-helper does LESS THAN HALF the effort. [place] lifts, holds or supports trunk or limbs, but provides less than half the effort. 2-Substantial/Maximal Assistance-helper does MORE THAN HALF the effort. [place] lifts or holds trunk or limbs and provides more than half the effort. 5-Zuruyzfnd-yonevr does ALL the effort. Patient does none of the effort to complete the activity. Or, the assistance of 2 or more helpers is required for the patient to complete the activity. If activity was not attempted, code reason: 7-Patient Refused. 9-Not Applicable-not attempted and the patient did not perform the activity before the current illness, exacerbation or injury. 10-Not Attempted due to Environmental Limitations-(lack of equipment, weather restraints, etc.). 88-Not Attempted due to Medical Conditions or Safety Concerns. Roll Left to Right (QC): 6 Sit to Lying (QC): 6 (Utilized leg gearman for L LE) Sit to Stand (QC): 3 (Mod A, elevated bed) Chair/Eay-xt-Diqhz Xfer(QC): 3 (Min A using sliding board) Car Transfer (QC): 88 Gait Training Does the Patient Walk?: Yes Distance: 6' Walk 10 feet (QC): 3 (Mod A) Walk 50 ft with 2 Turns(QC): 88 Walk 150 ft (QC): 88 Walking 10ft/uneven surface-QC: 88 Gait Persons Needed: 2 Gait Assistive Device: FWW Wheelchair Training Does the Pt Use a Wheelchair?: Yes Wheel 50 ft with 2 turns (QC): 6 Wheel 150 ft (QC): 5 Type of Wheelchair: Manual Stair Training 1 Step (curb) (QC): 88 4 Steps (QC): 88 12 Steps (QC): 88 Balance Picking up an Object (QC): 88 ADL-Treatment Eating (QC): 6 (Pt able to set own meal up and use regular utensils to eat.) Oral Hygiene (QC): 6 Bathing Location: L Arm, R Arm, L Upper Leg, R Upper Leg, L Lower Leg (including foot), R Lower Leg (including foot), Chest, Abdomen, Perineal Area Shower/Bathe Self (QC): 3 Upper Body Dressing (QC): 5 Lower Body Dressing (QC): 1 On/Off Footwear (QC): 3 Toileting Hygiene (QC): 1 Toilet Transfer (QC): 1 Assessment/Plan Assessment and Plan Assess & Plan/Chief Complaint Assessment: s/p Lumbar laminectomy L2-L3 and TLIF w/ extension of previous L3-L5 hardware LLE weakness Spondylosis Performed due to Spinal stenosis with neurogenic claudication. Source of pts debidity. PT/OT IS Speech therapy Consult SS. GOAL: Return to baseline function before sx. Discharge home with Home Health. Normocytic anemia Hx of hypokalemia during [place] post-op stay. Per pt: known chronic hx of anemia. 07/26 labs from [facility]: H&H is 8.7/27.6 Likely multifactorial: to surgical blood loss and anemia of chronic disease. Iron studies ordered during pts post-op Lane stay (results?) CBC and CMP NIDDM HTN HLP Obesity Sleep apnea Neuropathy SSI Home Cpap. Home Meds s/p COVID-19 PNA Hospitalized . Received convalescent plasma and inpt stay for several days. Pt reports no residual sxs. Hx of lumbar radiculopathy Polyp on vocal cord Hx of cervical spine sx DVT prophylaxis SCD and ambulation. Plan: IRF protocol Pain control BM regimen PT OT 07/28/20: Pain control Monitor hgb Monitor BP 07/29/20: Monitor pain Monitor BM regimen 07/30/20: Monitor closely Pain management BM regimen 07/31/20: Monitor pain Monitor BP 08/01/20: Monitor leg weakness Pain control Monitor BM regimen 08/02/20: Monitor pain BM regimen to maintain 08/03/20: Monitor pain Increase activity 08/04/20: Monitor pain Increase activity 08/05/2020: Monitor closely Fall risk 08/06/20: Pain control Aggressive PT OT to prevent falls 08/07/20: Improved status Laxatives Labs due tomorrow (1) Lumbar radiculopathy (2) MICHAELA treated with BiPAP (3) Nocturnal hypoxemia (4) Diabetes (5) Hypertension (6) Hyperlipemia (7) Obesity, morbid, BMI 40.0-49.9 KAMERON RAMOS DO August 07, 2020 07:09
[2020-08-07 07:30] VITALS: BP 129/60
[2020-08-07] MEDS: amLODIPine 5 MG (NORVASC) TAB PO SCH (08:34)
[2020-08-07] MEDS: SENNA W/DOCUSATE (SENOKOT S) TABLET PO SCH ×2 (08:34→20:28)
[2020-08-07] MEDS: metFORMIN 500 MG (GLUCOPHAGE) TAB PO SCH ×2 (08:34→20:28)
[2020-08-07] MEDS: DOCUSATE SODIUM 100 MG (COLACE) CAP PO SCH ×2 (08:34→20:27)
[2020-08-07] MEDS: GABAPENTIN 600 MG (NEURONTIN) TAB PO SCH ×3 (08:34→20:27)
[2020-08-07] MEDS: LOSARTAN 100 MG (COZAAR) TABLET PO SCH (08:34)
[2020-08-07] MEDS: ASPIRIN E.C. 81 MG (ECOTRIN) TAB PO SCH (08:34)
[2020-08-07] MEDS: MICONAZOLE 2% POWDER (DESENEX AF) 90 GM TOP SCH ×2 (08:35→20:27)
[2020-08-07] MEDS: polyethylene glycoL POWDER 17 GM (MIRALAX) PACK PO SCH ×2 (08:35→20:27)
[2020-08-07] MEDS: VENELEX OINTMENT TOP SCH ×2 (08:37→20:31)
[2020-08-07 19:53] VITALS: BP 126/59
[2020-08-07] MEDS: DIAZEPAM 5 MG (VALIUM) TABLET PO SCH (20:28)
[2020-08-07] MEDS: CYCLOBENZAPRINE 10 MG (FLEXERIL) TAB PO PRN (23:41)
[2020-08-08 05:42] LABS: BASOPHILS # (AUTO) 0.1 10^3/uL (0.0-0.1); BASOPHILS % (AUTO) 1 % (0-10); EOSINOPHILS # (AUTO) 0.3 10^3/uL (0.0-0.3); EOSINOPHILS % (AUTO) 5 % (0-10); HEMATOCRIT 31 % (40-54); LYMPHOCYTES # (AUTO) 1.8 10^3/uL (1.0-4.0); LYMPHOCYTES % (AUTO) 30 % (12-44); MEAN CORPUSCULAR HEMOGLOBIN 29 pg (25-34); MEAN CORPUSCULAR HGB CONC 32 g/dL (32-36); MEAN CORPUSCULAR VOLUME 91 fL (80-99); MEAN PLATELET VOLUME 10.5 fL (9.0-12.2); MONOCYTES # (AUTO) 0.6 10^3/uL (0.0-1.0); MONOCYTES % (AUTO) 10 % (0-12); NEUTROPHILS # (AUTO) 3.2 10^3/uL (1.8-7.8); NEUTROPHILS % (AUTO) 54 % (42-75); PLATELET COUNT 331 10^3/uL (130-400); WHITE BLOOD COUNT 5.9 10^3/uL (4.3-11.0)
[2020-08-08 05:51] LABS: ALBUMIN 3.4 GM/DL (3.2-4.5)
[2020-08-08 05:52] LABS: CHLORIDE 103 MMOL/L (98-107); SODIUM 141 MMOL/L (135-145)
[2020-08-08 05:53] LABS: CALCIUM 8.9 MG/DL (8.5-10.1)
[2020-08-08 05:54] LABS: GLUCOSE 119 MG/DL (70-105); TOTAL PROTEIN 6.5 GM/DL (6.4-8.2)
[2020-08-08 05:55] LABS: CARBON DIOXIDE 25 MMOL/L (21-32)
[2020-08-08 05:56] LABS: BILIRUBIN,TOTAL 0.4 MG/DL (0.1-1.0)
[2020-08-08 05:57] LABS: ALKALINE PHOSPHATASE 97 U/L (40-136)
[2020-08-08 05:58] LABS: CREATININE SERUM 1.03 MG/DL (0.60-1.30); GFR ESTIMATED > 60
[2020-08-08 05:59] LABS: BUN/CREATININE RATIO 18
[2020-08-08 06:01] LABS: ALANINE AMINOTRANSFERASE 22 U/L (0-55)
[2020-08-08 08:00] VITALS: BP 139/89
[2020-08-08] MEDS: MICONAZOLE 2% POWDER (DESENEX AF) 90 GM TOP SCH ×2 (08:15→21:29)
[2020-08-08] MEDS: SENNA W/DOCUSATE (SENOKOT S) TABLET PO SCH ×2 (08:15→21:30)
[2020-08-08] MEDS: metFORMIN 500 MG (GLUCOPHAGE) TAB PO SCH ×2 (08:15→21:30)
[2020-08-08] MEDS: GABAPENTIN 600 MG (NEURONTIN) TAB PO SCH ×3 (08:15→21:29)
[2020-08-08] MEDS: amLODIPine 5 MG (NORVASC) TAB PO SCH (08:15)
[2020-08-08] MEDS: LOSARTAN 100 MG (COZAAR) TABLET PO SCH (08:15)
[2020-08-08] MEDS: DOCUSATE SODIUM 100 MG (COLACE) CAP PO SCH ×2 (08:15→21:30)
[2020-08-08] MEDS: ASPIRIN E.C. 81 MG (ECOTRIN) TAB PO SCH (08:15)
[2020-08-08] MEDS: VENELEX OINTMENT TOP SCH ×2 (08:16→21:30)
[2020-08-08] MEDS: polyethylene glycoL POWDER 17 GM (MIRALAX) PACK PO SCH ×2 (08:18→20:05)
--- NOTE | 2020-08-08 08:58 | Physical Therapy Daily Note ---
PT Daily Note-Current Subjective Patient upright in bathroom with OT pre tx. Patient consents to therapy, does not c/o pain. Appearance Patient upright in recliner post tx, with call button and tray table within reach. All needs met. Mental Status Patient Orientation: Person, Place, Time, Normal For Age TLSO Transfers SCALE: Activities may be completed with or without assistive devices. 9-Alfeezykuh-bwjdvpe completes the activity by him/herself with no assistance from a helper. 5-Set-up or Clean-up Assistance-helper sets up or cleans up; patient completes activity. [place] assists only prior to or following the activity. 4-Supervision or Touching Assistance-helper provides verbal cues and/or touching/steadying and/or contact guard assistance as patient completes activity. Assistance may be provided throughout the activity or intermittently. 3-Partial/Moderate Assistance-helper does LESS THAN HALF the effort. [place] lifts, holds or supports trunk or limbs, but provides less than half the effort. 2-Substantial/Maximal Assistance-helper does MORE THAN HALF the effort. [place] lifts or holds trunk or limbs and provides more than half the effort. 6-Nyzbpfogs-wpirhr does ALL the effort. Patient does none of the effort to complete the activity. Or, the assistance of 2 or more helpers is required for the patient to complete the activity. If activity was not attempted, code reason: 7-Patient Refused. 9-Not Applicable-not attempted and the patient did not perform the activity before the current illness, exacerbation or injury. 10-Not Attempted due to Environmental Limitations-(lack of equipment, weather restraints, etc.). 88-Not Attempted due to Medical Conditions or Safety Concerns. Sit to Stand (QC): 2 (From w/c) Chair/Eoq-mr-Greqz Xfer(QC): 2 (Able to complete standing pivot turn to chair but requires assistance with cueing and knee blocking, not stable with movement) Patient continues to rely on increased cueing for hand positioning with both ascent/descent with sit to stand. Patient "plops" during descent, and continues to require L LE knee blocking with downward movement. Weight Bearing Weight Bearing/Tolerated Full Weight Bearing Gait Training Does the Patient Walk?: Yes Distance: 60', 100', 120' Walk 10 feet (QC): 2 Walk 50 ft with 2 Turns(QC): 2 Gait Assistive Device: FWW Patient ambulates with forward posture, does not lose balance with gait but demonstrates a narrow base and decreased step length as he begins to fatigue. Wheelchair Training Does the Pt Use a Wheelchair?: Yes Type of Wheelchair: Manual 60', can manage independently but is slow Treatments Co-treated with OT secondary to patient impairments, fall risk, and decreased functional mobility. PT assisted with transfers and balance during self-care ADLs, and OT/PT intervened in gait training due to patient goal of being able to walk to have functional independence with safe return home. Both OT and PT assisted with positioning, cueing, and physical assistance with gait training. Assessment Current Status: Fair Progress Patient demonstrated improved gait endurance by walking longer distance, still demonstrates flexed posture with ambulation, and L LE becomes unstable intermittently, specifically with sit <-> stand transfers PT Short Term Goals Short Term Goals Time Frame: August 03, 2020 Roll Left & Right: 6 Sit to lyin (CGA) Lying to sitting on side of be: 4 (CGA) Chair/zfv-qm-rtnkf transfer: 4 (CGA) Walk 10 feet: 3 (mod) PT Electron Beam Photo Mask Maker Goals Electron Beam Photo Mask Maker Goals PT Retirement Goals Time Frame: August 17, 2020 Roll Left & Right (QC): 6 Sit to Lying (QC): 4 (SBA) Lying-Sitting on Side/Bed(QC): 4 (SBA) Sit to Stand (QC): 3 (min) Chair/Sxx-ut-Lnybe Xfer(QC): 3 (min) Toilet Transfer (QC): 3 (min) Car Transfer (QC): 3 (min) Does the Patient Walk: No and Walking Goal IS indicated Walk 10 feet (QC): 3 (min) Walk 50ft with 2 Turns (QC): 3 (min) Walk 150 ft (QC): 88 Walking 10ft on Uneven Surface: 3 (min) 1 Step (curb) (QC): 3 (min) 4 Steps (QC): 88 12 Steps (QC): 9 Picking up an Object (QC): 9 Does the Pt use WC or Scooter?: Yes Wheel 50 feet with 2 turns (QC: 6 Type: Manual Wheel 150 feet: 6 Type: Manual PT Plan Problem List Problem List: Activity Tolerance, Functional Strength, Safety, Balance, Gait, Transfer, Bed Mobility, ROM Treatment/Plan Treatment Plan: Continue Plan of Care Treatment Plan: Bed Mobility, Education, Functional Activity Jai, Functional Strength, Gait, Safety, Therapeutic Exercise, Transfers Treatment Duration: August 17, 2020 Frequency: At least 5 of 7 days/Wk (IRF) Estimated Hrs Per Day: 1.5 hours per day Patient and/or Family Agrees t: Yes Safety Risks/Education Patient Education: Gait Training, Transfer Techniques, Correct Positioning, W/C Management, Safety Issues Teaching Recipient: Patient Teaching Methods: Demonstration, Discussion Response to Teaching: Verbalize Understanding, Return Demonstration Time/GCodes Time In: 0800 Time Out: 09 Total Billed Treatment Time: 60 Total Billed Treatment 1 visit: FA x2: 30' GT x2: 30' FABIAN BOBBY PT August 08, 2020 08:58
--- NOTE | 2020-08-08 09:01 | Occupational Ther Daily Note ---
OT Current Status-Daily Note ADL-Treatment Pt agrees to shower. Pt requests to use toilet. Pt independent using HOB raised to go from supine to EOB. After assist placing sliding board and w/c, pt able to complete slide board transfer with CGA. Assist x2 using w/c and grabbars to stand, transfer to/from toilet and complete toileting. Pt transfe rred x2 to shower chair to complete shower, pull to stand with grabbar. Cleansing buttocks was completed while standing from toilet. Pt completed shower sitting on shower chair with cutout, hand held shower and LH sponge. Assist to dry feet and buttocks. After set up, pt completed upper body dressing by self. Pt sat at sink to complete oral care. Due to time constraints assist given to thread feet into pants and footwear. Assist x2 to stand and manipulate pants. Co-treat with PT([id number]), requires skills of 2 clinicians due to increase fall risk, decreased mobility and dependent ambulation\transfers. OT focusing on B UE strength, ADLs, positioning devices and B UE during functional transfers/mobility. Therapy Code Descriptions/Definitions Functional [place] Measure: 0=Not Assessed/NA 4=Minimal Assistance 1=Total Assistance 5=Supervision or Setup 2=Maximal Assistance 6=Modified [place] 3=Moderate Assistance 7=Complete IndependenceSCALE: Activities may be completed with or without assistive devices. 0-Nygikgpoaa-ettbesk completes the activity by him/herself with no assistance from a helper. 5-Set-up or Clean-up Assistance-helper sets up or cleans up; patient completes activity. [place] assists only prior to or following the activity. 4-Supervision or Touching Assistance-helper provides verbal cues and/or touching/steadying and/or contact guard assistance as patient completes activity. Assistance may be provided throughout the activity or intermittently. 3-Partial/Moderate Assistance-helper does LESS THAN HALF the effort. [place] lifts, holds or supports trunk or limbs, but provides less than half the effort. 2-Substantial/Maximal Assistance-helper does MORE THAN HALF the effort. [place] lifts or holds trunk or limbs and provides more than half the effort. 6-Vjmqjfzlr-ciipkj does ALL the effort. Patient does none of the effort to complete the activity. Or, the assistance of 2 or more helpers is required for the patient to complete the activity. If activity was not attempted, code reason: 7-Patient Refused. 9-Not Applicable-not attempted and the patient did not perform the activity before the current illness, exacerbation or injury. 10-Not Attempted due to Environmental Limitations-(lack of equipment, weather restraints, etc.). 88-Not Attempted due to Medical Conditions or Safety Concerns. Oral Hygiene (QC): 6 Shower/Bathe Self (QC): 3 Upper Body Dressing (QC): 5 Lower Body Dressing (QC): 1 Toileting Hygiene (QC): 1 Toilet Transfer (QC): 1 Other Treatment See PT notes for ambulation with FWW. Pt is progressing with ambulation distance though continues to need cues for B hand placement with sit <--> stand. After session, pt sitting in recliner with call light/phone in reach. All needs met in room. OT Short Term Goals Short Term Goals Time Frame: August 10, 2020 Eatin Oral hygiene: 6 Toileting hygiene: 3 Shower/bathe self: 3 Upper body dressin Lower body dressin Putting on/taking off footwear: 3 OT Fuels Engineer Goals Senior Living Goals Time Frame: August 24, 2020 Eating (QC): 6 Oral Hygiene (QC): 6 Toileting Hygiene (QC): 6 Shower/Bathe Self (QC): 4 Upper Body Dressing (QC): 6 Lower Body Dressing (QC): 6 On/Off Footwear (QC): 6 Additional Goals: 1-Demonstrate ADL Tasks, 2-Verbalize Understanding, 3- ImproveStrength/Jai 1=Demonstrate adherence to instructed precautions during ADL tasks. 2=Patient will verbalize/demonstrate understanding of assistive devices/modifications for ADL. 3=Patient will improve strength/tolerance for activity to enable patient to perform ADL's. OT Education/Plan Problem List/Assessment Assessment: Decreased Activ Tolerance, Decreased UE Strength, Impaired Self- Care Skills Discharge Recommendations Plan/Recommendations: Continue POC Treatment Plan/Plan of Care Patient would benefit from OT for education, treatment and training to promote independence in ADL's, mobility, safety and/or upper extremity function for ADL's. Plan of Care: ADL Retraining, Functional Mobility, Group Exercise/Act as Ind, UE Funct Exercise/Act Treatment Duration: August 24, 2020 Frequency: At least 5 of 7 days/Wk (IRF) Estimated Hrs Per Day: 1.5 hours per day Agreement: Yes Rehab Potential: Fair Time/GCodes Start Time: 07:30 Stop Time: 09:00 Total Time Billed (hr/min): 90 Billed Treatment Time 1 visit-ADL 4 (60 min) FA 2 (30 min) co-treat with PT [id number], individual [id number] RYAN FERRARA August 08, 2020 09:01
--- NOTE | 2020-08-08 09:42 | PM&R Progress Note ---
Subjective HPI/CC On Admission Date Seen by Provider: August 08, 2020 Time Seen by Provider: 09:15 Subjective/Events-last exam 08/08/20: Patient having a good day Hemoglobin is 10 Bowels moved with laxatives Took a shower this morning Incision looks good No major issues 08/07/20: Patient doing well No issues BM 08/04 and laxatives given Refused suppository 08/06/20: Patient doing well Incision is open to air now No increased pain Slow moving at baseline 08/05/2020: Patient doing pretty well No bowel movement for 2 days we will give laxatives Televisit with neurosurgery service recommended to remove the ziggy and have a 4-week follow-up for x-rays and follow-up visit Denies any new issues 08/04/20: Pt doing much better Had a BM yesterday Televisit with neurosurgeon and likely ziggy will be removed at some point after that televisit Doing much better overall 08/03/20: Pt doing pretty well Bowels moved 08/01 No major issues Not really motivated too much so will try to give him more activity as he reques giuseppe from 3-5 PM 08/02/20: Pt really not too motivated but hes doing well Spills his urinal quite a bit Incision looks a bit red but not infected Bowels moved yesterday 08/01/20: Hgb is 9.6 Last BM was yesterday No major issues Feels like he is doing a lot better 07/31/20: No major issues No pain reported at this current time No falls Seems to be in good spirits 07/30/20: Patient doing well Has no concerns Pain is controlled BiPAP last night with 3L/min O2 Dressing changes QOD Slight redness around sutures 07/29/20: Patient settling in well Loose BM yesterday Dressing changes on spine every other day No questions from patient Feels like he is using muscles in therapy 07/28/20: Patient doing well Settling in well Incontinent last night but patient reports he spilled urinal Metformin noted and is maintained BM+ Sugar is ok Hgb 9.4 SLUMS Review of Systems General: Fatigue Musculoskeletal: back pain, leg pain Objective Exam Vital Signs Vital Signs Date Time Temp Pulse Resp B/P (MAP) Pulse Ox O2 Delivery O2 Flow Rate FiO2 08/08/20 08:00 36.2 114 20 139/89 (106) 93 Room Air Capillary Refill : General Appearance: No Apparent Distress, WD/WN, Chronically ill, Obese HEENT: PERRL/EOMI, Normal ENT Inspection, Pharynx Normal Neck: Full Range of Motion, Normal Inspection, Non Tender, Supple, Carotid Bruit Respiratory: Chest Non Tender, Lungs Clear, Normal Breath Sounds, No Accessory Muscle Use, No Respiratory Distress Cardiovascular: Regular Rate, Rhythm, No Edema, No Gallop, No JVD, No Murmur, Normal Peripheral Pulses Gastrointestinal: Normal Bowel Sounds, No Organomegaly, No Pulsatile Mass, Non Tender, Soft Back: Decreased Range of Motion, Muscle Spasm, Vertebral Tenderness Extremity: Normal Capillary Refill, Normal Inspection, Normal Range of Motion, Non Tender, No Calf Tenderness, No Pedal Edema Neurologic/Psychiatric: Alert, Oriented x3, No Motor/Sensory Deficits, umbrella tipper machine II- XII Norm as Tested, Abnormal Gait, Depressed Affect, Motor Weakness Skin: Normal Color, Warm/Dry Lymphatic: No Adenopathy Results/Procedures Lab Laboratory Tests 08/08/20 05:32 Patient resulted labs reviewed. FIM Transfers Therapy Code Descriptions/Definitions Functional [place] Measure: 0=Not Assessed/NA 4=Minimal Assistance 1=Total Assistance 5=Supervision or Setup 2=Maximal Assistance 6=Modified [place] 3=Moderate Assistance 7=Complete IndependenceSCALE: Activities may be completed with or without assistive devices. 7-Ucchysbmkt-veewsck completes the activity by him/herself with no assistance from a helper. 5-Set-up or Clean-up Assistance-helper sets up or cleans up; patient completes activity. [place] assists only prior to or following the activity. 4-Supervision or Touching Assistance-helper provides verbal cues and/or touching/steadying and/or contact guard assistance as patient completes activity. Assistance may be provided throughout the activity or intermittently. 3-Partial/Moderate Assistance-helper does LESS THAN HALF the effort. [place] lifts, holds or supports trunk or limbs, but provides less than half the effort. 2-Substantial/Maximal Assistance-helper does MORE THAN HALF the effort. [place] lifts or holds trunk or limbs and provides more than half the effort. 5-Iulnolvhh-kjjpwh does ALL the effort. Patient does none of the effort to complete the activity. Or, the assistance of 2 or more helpers is required for t he patient to complete the activity. If activity was not attempted, code reason: 7-Patient Refused. 9-Not Applicable-not attempted and the patient did not perform the activity before the current illness, exacerbation or injury. 10-Not Attempted due to Environmental Limitations-(lack of equipment, weather restraints, etc.). 88-Not Attempted due to Medical Conditions or Safety Concerns. Roll Left to Right (QC): 6 Sit to Lying (QC): 6 (Utilized leg decal applier for L LE) Sit to Stand (QC): 2 (From w/c) Chair/Ypl-dr-Xxsky Xfer(QC): 2 (Able to complete standing pivot turn to chair but requires assistance with cueing and knee blocking, not stable with movement) Car Transfer (QC): 88 Gait Training Does the Patient Walk?: Yes Distance: 60', 100', 120' Walk 10 feet (QC): 2 Walk 50 ft with 2 Turns(QC): 2 Walk 150 ft (QC): 88 Walking 10ft/uneven surface-QC: 88 Gait Persons Needed: 2 Gait Assistive Device: FWW Wheelchair Training Does the Pt Use a Wheelchair?: Yes Wheel 50 ft with 2 turns (QC): 6 Wheel 150 ft (QC): 5 Type of Wheelchair: Manual Stair Training 1 Step (curb) (QC): 88 4 Steps (QC): 88 12 Steps (QC): 88 Balance Picking up an Object (QC): 88 ADL-Treatment Eating (QC): 6 (Pt able to set own meal up and use regular utensils to eat.) Oral Hygiene (QC): 6 Bathing Location: L Arm, R Arm, L Upper Leg, R Upper Leg, L Lower Leg (including foot), R Lower Leg (including foot), Chest, Abdomen, Perineal Area Shower/Bathe Self (QC): 3 Upper Body Dressing (QC): 5 Lower Body Dressing (QC): 1 On/Off Footwear (QC): 3 Toileting Hygiene (QC): 1 Toilet Transfer (QC): 1 Assessment/Plan Assessment and Plan Assess & Plan/Chief Complaint Assessment: s/p Lumbar laminectomy L2-L3 and TLIF w/ extension of previous L3-L5 hardware LLE weakness Spondylosis Performed due to Spinal stenosis with neurogenic claudication. Source of pts debidity. PT/OT IS Speech therapy Consult SS. GOAL: Return to baseline function before sx. Discharge home with Home Health. Normocytic anemia Hx of hypokalemia during [facility] post-op stay. Per pt: known chronic hx of anemia. 07/[address]: H&H is 8.7.6 Likely multifactorial: to surgical blood loss and anemia of chronic disease. Iron studies ordered during pts post-op [facility] stay (results?) CBC and CMP NIDDM HTN HLP Obesity Sleep apnea Neuropathy SSI Home Cpap. Home Meds s/p COVID-19 PNA Hospitalized . Received convalescent plasma and inpt stay for several days. Pt reports no residual sxs. Hx of lumbar radiculopathy Polyp on vocal cord Hx of cervical spine sx DVT prophylaxis SCD and ambulation. Plan: IRF protocol Pain control BM regimen PT OT 07/28/20: Pain control Monitor hgb Monitor BP 07/29/20: Monitor pain Monitor BM regimen 07/30/20: Monitor closely Pain management BM regimen 07/31/20: Monitor pain Monitor BP 08/01/20: Monitor leg weakness Pain control Monitor BM regimen 08/02/20: Monitor pain BM regimen to maintain 08/03/20: Monitor pain Increase activity 08/04/20: Monitor pain Increase activity 08/05/2020: Monitor closely Fall risk 08/06/20: Pain control Aggressive PT OT to prevent falls 08/07/20: Improved status Laxatives Labs due tomorrow 08/08/20: Pain is controlled Labs are stable (1) Lumbar radiculopathy (2) MICHAELA treated with BiPAP (3) Nocturnal hypoxemia (4) Diabetes (5) Hypertension (6) Hyperlipemia (7) Obesity, morbid, BMI 40.0-49.9 KAMERON RAMOS DO August 08, 2020 09:42
[2020-08-08] MEDS: oxyCODONE/APAP 5/325MG (PERCOCET 5) TABLET PO PRN (13:17)
--- NOTE | 2020-08-08 13:51 | Physical Therapy Daily Note ---
PT Daily Note-Current Subjective Patient upright in recliner pre tx, consents to therapy, does not c/o pain. Appearance Patient supine in bed post tx, with call button within reach and table nearby. All needs met. Mental Status Patient Orientation: Person, Place, Time, Normal For Age TLSO Transfers SCALE: Activities may be completed with or without assistive devices. 2-Mbtxhdyddx-eogghxb completes the activity by him/herself with no assistance from a helper. 5-Set-up or Clean-up Assistance-helper sets up or cleans up; patient completes activity. [place] assists only prior to or following the activity. 4-Supervision or Touching Assistance-helper provides verbal cues and/or touching/steadying and/or contact guard assistance as patient completes activity. Assistance may be provided throughout the activity or intermittently. 3-Partial/Moderate Assistance-helper does LESS THAN HALF the effort. [place] lifts, holds or supports trunk or limbs, but provides less than half the effort. 2-Substantial/Maximal Assistance-helper does MORE THAN HALF the effort. [place] lifts or holds trunk or limbs and provides more than half the effort. 8-Njtcvfpiy-htohyr does ALL the effort. Patient does none of the effort to complete the activity. Or, the assistance of 2 or more helpers is required for the patient to complete the activity. If activity was not attempted, code reason: 7-Patient Refused. 9-Not Applicable-not attempted and the patient did not perform the activity before the current illness, exacerbation or injury. 10-Not Attempted due to Environmental Limitations-(lack of equipment, weather restraints, etc.). 88-Not Attempted due to Medical Conditions or Safety Concerns. Sit to Stand (QC): 2 Chair/Tkt-dx-Bkfoa Xfer(QC): 3 (Mod A with turning while standing to descend to chair) Patient demonstrates increased forward lean with sit to stand ascent, relies on hyperextension of LE's and UE on FWW to stand straight up. Plops with descent to chair despite cues for controlled descend. After unlocking knees to sit, his knees buckle and needs blocking of at least one knee to push patient back into the chair or else he will collapse down straight to the floor. Weight Bearing Weight Bearing/Tolerated Full Weight Bearing Gait Training Does the Patient Walk?: Yes Distance: 80' Walk 10 feet (QC): 3 Walk 50 ft with 2 Turns(QC): 3 Gait Assistive Device: FWW Mod A to prevent knee buckling, assist with pivot turn before sit <-> stand Exercises NuStep Minutes: 10 NuStep Workload: 5 Treatments LE strengthening, gait training, transfers Assessment Patient demonstrates increased hyperextension of L knee during gait, continues to have episodes of knee buckling during sit to stand. Requires assistance with positioning LE's in nustep pedals PT Short Term Goals Short Term Goals Time Frame: August 03, 2020 Roll Left & Right: 6 Sit to lyin (CGA) Lying to sitting on side of be: 4 (CGA) Chair/wfy-ln-jgqof transfer: 4 (CGA) Walk 10 feet: 3 (mod) PT Community Development Specialist Goals Care Home Goals PT Community Development Specialist Goals Time Frame: August 17, 2020 Roll Left & Right (QC): 6 Sit to Lying (QC): 4 (SBA) Lying-Sitting on Side/Bed(QC): 4 (SBA) Sit to Stand (QC): 3 (min) Chair/Eqi-et-Vgvab Xfer(QC): 3 (min) Toilet Transfer (QC): 3 (min) Car Transfer (QC): 3 (min) Does the Patient Walk: No and Walking Goal IS indicated Walk 10 feet (QC): 3 (min) Walk 50ft with 2 Turns (QC): 3 (min) Walk 150 ft (QC): 88 Walking 10ft on Uneven Surface: 3 (min) 1 Step (curb) (QC): 3 (min) 4 Steps (QC): 88 12 Steps (QC): 9 Picking up an Object (QC): 9 Does the Pt use WC or Scooter?: Yes Wheel 50 feet with 2 turns (QC: 6 Type: Manual Wheel 150 feet: 6 Type: Manual PT Plan Problem List Problem List: Activity Tolerance, Functional Strength, Safety, Balance, Gait, Transfer, Bed Mobility, ROM Treatment/Plan Treatment Plan: Continue Plan of Care Treatment Plan: Bed Mobility, Education, Functional Activity Jai, Functional Strength, Gait, Safety, Therapeutic Exercise, Transfers Treatment Duration: August 17, 2020 Frequency: At least 5 of 7 days/Wk (IRF) Estimated Hrs Per Day: 1.5 hours per day Patient and/or Family Agrees t: Yes Safety Risks/Education Patient Education: Gait Training, Transfer Techniques, Correct Positioning, W/C Management, Reviewed Don/Doff Brace, Safety Issues Teaching Recipient: Patient Teaching Methods: Demonstration, Discussion Response to Teaching: Verbalize Understanding, Return Demonstration Time/GCodes Time In: 1330 Time Out: 1400 Total Billed Treatment Time: 30 Total Billed Treatment 1 visit: FA: 20' EX: 10' FABIAN BOBBY PT August 08, 2020 13:51
[2020-08-08 19:51] VITALS: BP 127/69
[2020-08-08] MEDS: DIAZEPAM 5 MG (VALIUM) TABLET PO SCH (21:30)
--- NOTE | 2020-08-09 05:01 | PM&R Progress Note ---
Subjective HPI/CC On Admission Date Seen by Provider: August 09, 2020 Time Seen by Provider: 09:00 Subjective/Events-last exam 08/09/20: Pt doing a lot better Has no concerns right now Incision looks good Pain is well controlled Eating and drinking well Had a fall this afternoon when his left knee "gave out" and took 4 people to help him up Disposition to home could be at risk now with that fall 08/08/20: Patient having a good day Hemoglobin is 10 Bowels moved with laxatives Took a shower this morning Incision looks good No major issues 08/07/20: Patient doing well No issues BM 08/04 and laxatives given Refused suppository 08/06/20: Patient doing well Incision is open to air now No increased pain Slow moving at baseline 08/05/2020: Patient doing pretty well No bowel movement for 2 days we will give laxatives Televisit with neurosurgery service recommended to remove the ziggy and have a 4-week follow-up for x-rays and follow-up visit Denies any new issues 08/04/20: Pt doing much better Had a BM yesterday Televisit with neurosurgeon and likely ziggy will be removed at some point after that televisit Doing much better overall 08/03/20: Pt doing pretty well Bowels moved 08/01 No major issues Not really motivated too much so will try to give him more activity as he requested from 3-5 PM 08/02/20: Pt really not too motivated but hes doing well Spills his urinal quite a bit Incision looks a bit red but not infected Bowels moved yesterday 08/01/20: Hgb is 9.6 Last BM was yesterday No major issues Feels like he is doing a lot better 07/31/20: No major issues No pain reported at this current time No falls Seems to be in good spirits 07/30/20: Patient doing well Has no concerns Pain is controlled BiPAP last night with 3L/min O2 Dressing changes QOD Slight redness around sutures 07/29/20: Patient settling in well Loose BM yesterday Dressing changes on spine every other day No questions from patient Feels like he is using muscles in therapy 07/28/20: Patient doing well Settling in well Incontinent last night but patient reports he spilled urinal Metformin noted and is maintained BM+ Sugar is ok Hgb 9.4 SLUMS Review of Systems Musculoskeletal: back pain, leg pain Objective Exam Vital Signs Vital Signs Date Time Temp Pulse Resp B/P (MAP) Pulse Ox O2 Delivery O2 Flow Rate FiO2 08/09/20 20:30 Room Air 08/09/20 19:27 36.4 79 16 134/61 (85) 94 Capillary Refill : General Appearance: No Apparent Distress, WD/WN, Chronically ill, Obese HEENT: PERRL/EOMI, Normal ENT Inspection, Pharynx Normal Neck: Full Range of Motion, Normal Inspection, Non Tender, Supple, Carotid Bruit Respiratory: Chest Non Tender, Lungs Clear, Normal Breath Sounds, No Accessory Muscle Use, No Respiratory Distress Cardiovascular: Regular Rate, Rhythm, No Edema, No Gallop, No JVD, No Murmur, Normal Peripheral Pulses Gastrointestinal: Normal Bowel Sounds, No Organomegaly, No Pulsatile Mass, Non Tender, Soft Back: Decreased Range of Motion, Muscle Spasm, Vertebral Tenderness Extremity: Normal Capillary Refill, Normal Inspection, Normal Range of Motion, Non Tender, No Calf Tenderness, No Pedal Edema Neurologic/Psychiatric: Alert, Oriented x3, No Motor/Sensory Deficits, store clerk II- XII Norm as Tested, Abnormal Gait, Depressed Affect, Motor Weakness Skin: Normal Color, Warm/Dry Lymphatic: No Adenopathy Results/Procedures Lab Patient resulted labs reviewed. FIM Transfers Therapy Code Descriptions/Definitions Functional [place] Measure: 0=Not Assessed/NA 4=Minimal Assistance 1=Total Assistance 5=Supervision or Setup 2=Maximal Assistance 6=Modified [place] 3=Moderate Assistance 7=Complete IndependenceSCALE: Activities may be completed with or without assistive devices. 3-Vltalbkydj-vkwmmit completes the activity by him/herself with no assistance from a helper. 5-Set-up or Clean-up Assistance-helper sets up or cleans up; patient completes activity. [place] assists only prior to or following the activity. 4-Supervision or Touching Assistance-helper provides verbal cues and/or to uching/steadying and/or contact guard assistance as patient completes activity. Assistance may be provided throughout the activity or intermittently. 3-Partial/Moderate Assistance-helper does LESS THAN HALF the effort. [place] lifts, holds or supports trunk or limbs, but provides less than half the effort. 2-Substantial/Maximal Assistance-helper does MORE THAN HALF the effort. [place] lifts or holds trunk or limbs and provides more than half the effort. 5-Qrwbvwrvw-yffghu does ALL the effort. Patient does none of the effort to complete the activity. Or, the assistance of 2 or more helpers is required for the patient to complete the activity. If activity was not attempted, code reason: 7-Patient Refused. 9-Not Applicable-not attempted and the patient did not perform the activity before the current illness, exacerbation or injury. 10-Not Attempted due to Environmental Limitations-(lack of equipment, weather restraints, etc.). 88-Not Attempted due to Medical Conditions or Safety Concerns. Roll Left to Right (QC): 6 Sit to Lying (QC): 6 (Utilized leg machine oiler for L LE) Sit to Stand (QC): 2 Chair/Lsh-zf-Twujf Xfer(QC): 3 (Mod A with turning while standing to descend to chair) Car Transfer (QC): 88 Gait Training Does the Patient Walk?: Yes Distance: 80' Walk 10 feet (QC): 3 Walk 50 ft with 2 Turns(QC): 3 Walk 150 ft (QC): 88 Walking 10ft/uneven surface-QC: 88 Gait Persons Needed: 2 Gait Assistive Device: FWW Wheelchair Training Does the Pt Use a Wheelchair?: Yes Wheel 50 ft with 2 turns (QC): 6 Wheel 150 ft (QC): 5 Type of Wheelchair: Manual Stair Training 1 Step (curb) (QC): 88 4 Steps (QC): 88 12 Steps (QC): 88 Balance Picking up an Object (QC): 88 ADL-Treatment Eating (QC): 6 (Pt able to set own meal up and use regular utensils to eat.) Oral Hygiene (QC): 6 Bathing Location: L Arm, R Arm, L Upper Leg, R Upper Leg, L Lower Leg (including foot), R Lower Leg (including foot), Chest, Abdomen, Perineal Area Shower/Bathe Self (QC): 3 Upper Body Dressing (QC): 5 Lower Body Dressing (QC): 1 On/Off Footwear (QC): 3 Toileting Hygiene (QC): 1 Toilet Transfer (QC): 1 Assessment/Plan Assessment and Plan Assess & Plan/Chief Complaint Assessment: s/p Lumbar laminectomy L2-L3 and TLIF w/ extension of previous L3-L5 hardware LLE weakness Spondylosis Performed due to Spinal stenosis with neurogenic claudication. Source of pts debidity. PT/OT IS Speech therapy Consult SS. GOAL: Return to baseline function before sx. Discharge home with Home Health. Normocytic anemia Hx of hypokalemia during [place] post-op stay. Per pt: known chronic hx of anemia. 07/26 labs from [place]: H&H is 8.7/.6 Likely multifactorial: to surgical blood loss and anemia of chronic disease. Iron studies ordered during pts post-op [place] stay (results?) CBC and CMP NIDDM HTN HLP Obesity Sleep apnea Neuropathy SSI Home Cpap. Home Meds s/p COVID-19 PNA Hospitalized . Received convalescent plasma and inpt stay for several days. Pt reports no residual sxs. Hx of lumbar radiculopathy Polyp on vocal cord Hx of cervical spine sx DVT prophylaxis SCD and ambulation. Plan: IRF protocol Pain control BM regimen PT OT 07/28/20: Pain control Monitor hgb Monitor BP 07/29/20: Monitor pain Monitor BM regimen 07/30/20: Monitor closely Pain management BM regimen 07/31/20: Monitor pain Monitor BP 08/01/20: Monitor leg weakness Pain control Monitor BM regimen 08/02/20: Monitor pain BM regimen to maintain 08/03/20: Monitor pain Increase activity 08/04/20: Monitor pain Increase activity 08/05/2020: Monitor closely Fall risk 08/06/20: Pain control Aggressive PT OT to prevent falls 08/07/20: Improved status Laxatives Labs due tomorrow 08/08/20: Pain is controlled Labs are stable 08/09/20: Fall risk Monitor closely (1) Lumbar radiculopathy (2) MICHAELA treated with BiPAP (3) Nocturnal hypoxemia (4) Diabetes (5) Hypertension (6) Hyperlipemia (7) Obesity, morbid, BMI 40.0-49.9 KAMERON RAMOS DO August 09, 2020 05:00
--- NOTE | 2020-08-09 07:57 | Occupational Ther Daily Note ---
OT Current Status-Daily Note Subjective Pt alert, lying in bed. Pt agrees to therapy. Pt c/o back pain, 08/08. Mental Status/Objective Patient Orientation: Person, Place, Time, Situation Attachments: Other-See Comments (back brace) ADL-Treatment Pt declines shower, agrees to wash up with bath pack. With HOB elevated, pt able to go from supine to sitting EOB independently. After w/c and sliding b oard placed, pt able to complete slide board transfer with SBA (guarding knees). Pt pulls to stand with grabbars while assist to stabilize L knee with sit to stand and 2nd assist from behind to stand then able to SPT with guarding L knee and assist from behind for safety finally with blocking L knee and support from behind pt completes controlled stand to sit (pt's knees will buckle with stand to sit and sit straight down instead of back). Sitting at sink, pt completes oral care and shaving independently. Therapy Code Descriptions/Definitions Functional Nelson Measure: 0=Not Assessed/NA 4=Minimal Assistance 1=Total Assistance 5=Supervision or Setup 2=Maximal Assistance 6=Modified Nelson 3=Moderate Assistance 7=Complete IndependenceSCALE: Activities may be completed with or without assistive devices. 2-Fhwtfofkkr-oijnmve completes the activity by him/herself with no assistance from a helper. 5-Set-up or Clean-up Assistance-helper sets up or cleans up; patient completes activity. [place] assists only prior to or following the activity. 4-Supervision or Touching Assistance-helper provides verbal cues and/or touching/steadying and/or contact guard assistance as patient completes activity. Assistance may be provided throughout the activity or intermittently. 3-Partial/Moderate Assistance-helper does LESS THAN HALF the effort. [place] lifts, holds or supports trunk or limbs, but provides less than half the effort. 2-Substantial/Maximal Assistance-helper does MORE THAN HALF the effort. [place] lifts or holds trunk or limbs and provides more than half the effort. 4-Jlfwglbuf-cqmxfd does ALL the effort. Patient does none of the effort to complete the activity. Or, the assistance of 2 or more helpers is required for the patient to complete the activity. If activity was not attempted, code reason: 7-Patient Refused. 9-Not Applicable-not attempted and the patient did not perform the activity befo re the current illness, exacerbation or injury. 10-Not Attempted due to Environmental Limitations-(lack of equipment, weather re straints, etc.). 88-Not Attempted due to Medical Conditions or Safety Concerns. Eating (QC): 6 (Pt able to open containers and packages then use regular utensils to eat.) Oral Hygiene (QC): 6 Toileting Hygiene (QC): 1 (Pt completed hygiene sitting on sink. Assist x2 to manipulate clothing.) Toilet Transfer (QC): 1 Other Treatment Co-treat with PT([id number]), requires skills of 2 clinicians due to increase fall risk, decreased mobility and dependent ambulation\transfers. OT focusing on B UE strength, ADLs, positioning devices and B UE during functional transfers/mobility. See PT notes for ambulation with FWW. Pt is progressing with ambulation distance though continues to need cues for B hand placement with sit <--> stand. Pt then working on sit <--> stand from varying surface heights. Assist x2 person, min to mod A, required on for balance and stabilization another for stabilization of L knee due to buckling and hyperextension in standing. After session, pt left in care of PT. All needs met. OT Short Term Goals Short Term Goals Time Frame: August 10, 2020 Eatin Oral hygiene: 6 Toileting hygiene: 3 Shower/bathe self: 3 Upper body dressin Lower body dressin Putting on/taking off footwear: 3 OT [facility] Goals [facility] Goals Time Frame: August 24, 2020 Eating (QC): 6 Oral Hygiene (QC): 6 Toileting Hygiene (QC): 6 Shower/Bathe Self (QC): 4 Upper Body Dressing (QC): 6 Lower Body Dressing (QC): 6 On/Off Footwear (QC): 6 Additional Goals: 1-Demonstrate ADL Tasks, 2-Verbalize Understanding, 3- ImproveStrength/Jai 1=Demonstrate adherence to instructed precautions during ADL tasks. 2=Patient will verbalize/demonstrate understanding of assistive devices/modifications for ADL. 3=Patient will improve strength/tolerance for activity to enable patient to perform ADL's. OT Education/Plan Problem List/Assessment Assessment: Dependent Transfers, Impaired Funct Balance, Impaired Self-Care Skills Discharge Recommendations Plan/Recommendations: Continue POC Treatment Plan/Plan of Care Patient would benefit from OT for education, treatment and training to promote independence in ADL's, mobility, safety and/or upper extremity function for ADL's. Plan of Care: ADL Retraining, Functional Mobility, Group Exercise/Act as Ind, UE Funct Exercise/Act Treatment Duration: August 24, 2020 Frequency: At least 5 of 7 days/Wk (IRF) Estimated Hrs Per Day: 1.5 hours per day Agreement: Yes Rehab Potential: Fair Time/GCodes Start Time: 07:15 Stop Time: 08:45 Total Time Billed (hr/min): 90 Billed Treatment Time 1 visit-ADL 3 (45 min) FA 3 (45 min) Co-treat with PT [id number], individual [id number] RYAN FERRARA August 09, 2020 07:57
[2020-08-09 08:00] VITALS: BP 135/60
--- NOTE | 2020-08-09 08:59 | Physical Therapy Daily Note ---
PT Daily Note-Current Subjective Patient upright in chair pre tx, with OT. Patient reported 5-6/10 pain, and consented to therapy. Appearance Patient supine in bed post tx, with call button within reach and tray table nearby, all needs met. Mental Status Patient Orientation: Person, Place, Time, Normal For Age TLSO Transfers SCALE: Activities may be completed with or without assistive devices. 9-Wumulcfjth-neyhrdn completes the activity by him/herself with no assistance from a helper. 5-Set-up or Clean-up Assistance-helper sets up or cleans up; patient completes activity. [place] assists only prior to or following the activity. 4-Supervision or Touching Assistance-helper provides verbal cues and/or touching/steadying and/or contact guard assistance as patient completes activity. Assistance may be provided throughout the activity or intermittently. 3-Partial/Moderate Assistance-helper does LESS THAN HALF the effort. [place] lifts, holds or supports trunk or limbs, but provides less than half the effort. 2-Substantial/Maximal Assistance-helper does MORE THAN HALF the effort. [place] lifts or holds trunk or limbs and provides more than half the effort. 3-Oyjajlccs-gvelmq does ALL the effort. Patient does none of the effort to complete the activity. Or, the assistance of 2 or more helpers is required for the patient to complete the activity. If activity was not attempted, code reason: 7-Patient Refused. 9-Not Applicable-not attempted and the patient did not perform the activity before the current illness, exacerbation or injury. 10-Not Attempted due to Environmental Limitations-(lack of equipment, weather restraints, etc.). 88-Not Attempted due to Medical Conditions or Safety Concerns. Roll Left & Right (QC): 6 Sit to Lying (QC): 6 (Uses UE's to lift L LE) Sit to Stand (QC): 3 (Mod) Chair/Jzf-qc-Cxqyi Xfer(QC): 4 (with sliding board transfer) Weight Bearing Weight Bearing/Tolerated Full Weight Bearing Gait Training Does the Patient Walk?: Yes Distance: 120' x2 Walk 10 feet (QC): 3 Walk 50 ft with 2 Turns(QC): 3 Gait Assistive Device: FWW Mod A with gait to prevent knee buckling. Patient demonstrated L LE shaking towards end of gait cycle, so PT had patient sit to take a break to prevent buckling Exercises Standing: Sit to Stand (3 sets, each at different elevations, last set was completed at lowest height of therapy table) Patient was able to complete 3x 5 sit to stands at different elevations. Patient continues to rely on knee locking for stability, and has forward posture when standing. Treatments Co-treated with OT secondary to patient impairments, decreased functional mobility, and fall risk. PT/OT worked together to implement transfer and gait training, with focus on positioning, weight shifting, and supportive leg and adler d placements with sit to stands. Assessment Current Status: Fair Progress Patient ambulated further distance, but still requires increased and repetitive cues for hand placement with sit to stands. PT Short Term Goals Short Term Goals Time Frame: August 03, 2020 Roll Left & Right: 6 Sit to lyin (CGA) Lying to sitting on side of be: 4 (CGA) Chair/gek-sl-jhsds transfer: 4 (CGA) Walk 10 feet: 3 (mod) PT Nail Expert Goals Half-Way Goals PT Nail Expert Goals Time Frame: August 17, 2020 Roll Left & Right (QC): 6 Sit to Lying (QC): 4 (SBA) Lying-Sitting on Side/Bed(QC): 4 (SBA) Sit to Stand (QC): 3 (min) Chair/Jak-qo-Sgyqy Xfer(QC): 3 (min) Toilet Transfer (QC): 3 (min) Car Transfer (QC): 3 (min) Does the Patient Walk: No and Walking Goal IS indicated Walk 10 feet (QC): 3 (min) Walk 50ft with 2 Turns (QC): 3 (min) Walk 150 ft (QC): 88 Walking 10ft on Uneven Surface: 3 (min) 1 Step (curb) (QC): 3 (min) 4 Steps (QC): 88 12 Steps (QC): 9 Picking up an Object (QC): 9 Does the Pt use WC or Scooter?: Yes Wheel 50 feet with 2 turns (QC: 6 Type: Manual Wheel 150 feet: 6 Type: Manual PT Plan Problem List Problem List: Activity Tolerance, Functional Strength, Safety, Balance, Gait, Transfer, Bed Mobility, ROM Treatment/Plan Treatment Plan: Continue Plan of Care Treatment Plan: Bed Mobility, Education, Functional Activity Jai, Functional Strength, Gait, Safety, Therapeutic Exercise, Transfers Treatment Duration: August 17, 2020 Frequency: At least 5 of 7 days/Wk (IRF) Estimated Hrs Per Day: 1.5 hours per day Patient and/or Family Agrees t: Yes Safety Risks/Education Patient Education: Gait Training, Transfer Techniques, Correct Positioning, W/C Management, Reviewed Don/Doff Brace, Safety Issues Teaching Recipient: Patient Teaching Methods: Demonstration, Discussion Response to Teaching: Reinforcement Needed Time/GCodes Time In: 0800 Time Out: 0900 Total Billed Treatment Time: 60 Total Billed Treatment 1 visit FA 60' co-treated with OT for 60' FABIAN BOBBY PT August 09, 2020 08:59
[2020-08-09] MEDS: amLODIPine 5 MG (NORVASC) TAB PO SCH (09:24)
[2020-08-09] MEDS: ASPIRIN E.C. 81 MG (ECOTRIN) TAB PO SCH (09:24)
[2020-08-09] MEDS: DOCUSATE SODIUM 100 MG (COLACE) CAP PO SCH ×2 (09:25→20:14)
[2020-08-09] MEDS: GABAPENTIN 600 MG (NEURONTIN) TAB PO SCH ×3 (09:25→20:14)
[2020-08-09] MEDS: LOSARTAN 100 MG (COZAAR) TABLET PO SCH (09:25)
[2020-08-09] MEDS: SENNA W/DOCUSATE (SENOKOT S) TABLET PO SCH ×2 (09:25→20:42)
[2020-08-09] MEDS: metFORMIN 500 MG (GLUCOPHAGE) TAB PO SCH ×2 (09:25→20:14)
[2020-08-09] MEDS: MICONAZOLE 2% POWDER (DESENEX AF) 90 GM TOP SCH ×2 (09:28→20:14)
[2020-08-09] MEDS: polyethylene glycoL POWDER 17 GM (MIRALAX) PACK PO SCH ×2 (09:29→20:42)
[2020-08-09] MEDS: VENELEX OINTMENT TOP SCH ×2 (09:30→20:43)
[2020-08-09] MEDS: oxyCODONE/APAP 5/325MG (PERCOCET 5) TABLET PO PRN ×3 (09:36→23:46)
--- NOTE | 2020-08-09 13:48 | Physical Therapy Daily Note ---
PT Daily Note-Current Subjective Patient upright in bed pre tx, consents to therapy, does not c/o pain. Appearance Patient upright in chair post tx, with call button and tray table nearby, all needs met. Mental Status Patient Orientation: Person, Place, Time, Normal For Age TLSO Transfers SCALE: Activities may be completed with or without assistive devices. 7-Pbetfyrgpq-iragcse completes the activity by him/herself with no assistance from a helper. 5-Set-up or Clean-up Assistance-helper sets up or cleans up; patient completes activity. [place] assists only prior to or following the activity. 4-Supervision or Touching Assistance-helper provides verbal cues and/or touching/steadying and/or contact guard assistance as patient completes activity. Assistance may be provided throughout the activity or intermittently. 3-Partial/Moderate Assistance-helper does LESS THAN HALF the effort. [place] lifts, holds or supports trunk or limbs, but provides less than half the effort. 2-Substantial/Maximal Assistance-helper does MORE THAN HALF the effort. [place] lifts or holds trunk or limbs and provides more than half the effort. 5-Uimrfmdfz-blottc does ALL the effort. Patient does none of the effort to complete the activity. Or, the assistance of 2 or more helpers is required for the patient to complete the activity. If activity was not attempted, code reason: 7-Patient Refused. 9-Not Applicable-not attempted and the patient did not perform the activity before the current illness, exacerbation or injury. 10-Not Attempted due to Environmental Limitations-(lack of equipment, weather restraints, etc.). 88-Not Attempted due to Medical Conditions or Safety Concerns. Roll Left & Right (QC): 6 Lying to Sitting/Side of Bed(Q: 6 Sit to Stand (QC): 3 (Mod A) Chair/Fdf-ma-Yjold Xfer(QC): 3 (Mod A with pivot to chair) Patient continues to "plop" with sit to stand descent if he does not use UE's to reach back for supported sitting Weight Bearing Weight Bearing/Tolerated Full Weight Bearing Gait Training Does the Patient Walk?: Yes Distance: 100' x2 Walk 10 feet (QC): 3 Walk 50 ft with 2 Turns(QC): 3 Gait Assistive Device: FWW Mod A. Patient becoming more confident with increased stride length, intermittently uses reciprocal pattern with gait but relies on step to gait pattern Exercises Seated Therapy Exercises: Ankle pumps, Long arc quads, Hip flexion Seated Reps: 20 Patient completed 2 sets of 2' with 2# weights of LAQ and hip flexion raises Treatments LE strengthening, ROM, endurance, gait, transfers Assessment Current Status: Fair Progress Patient required decreased cueing for hand positioning with sit to stand ascent, but continues to require cueing for descending movement. Patient needs two people for safety during his ambulation because he seems always on the verge of knee buckling and when this happens he would collapse straight down (WC follows too). Even though patient is ambulating quite a bit more, he is not anywhere close to being safe with ambulation and would not be safe to ambulate at home at this time probably even with trained family. PT Short Term Goals Short Term Goals Time Frame: August 03, 2020 Roll Left & Right: 6 Sit to lyin (CGA) Lying to sitting on side of be: 4 (CGA) Chair/ujc-ns-nznng transfer: 4 (CGA) Walk 10 feet: 3 (mod) PT Correction Goals Correction Goals PT Correction Goals Time Frame: August 17, 2020 Roll Left & Right (QC): 6 Sit to Lying (QC): 4 (SBA) Lying-Sitting on Side/Bed(QC): 4 (SBA) Sit to Stand (QC): 3 (min) Chair/Cct-wh-Xwqkj Xfer(QC): 3 (min) Toilet Transfer (QC): 3 (min) Car Transfer (QC): 3 (min) Does the Patient Walk: No and Walking Goal IS indicated Walk 10 feet (QC): 3 (min) Walk 50ft with 2 Turns (QC): 3 (min) Walk 150 ft (QC): 88 Walking 10ft on Uneven Surface: 3 (min) 1 Step (curb) (QC): 3 (min) 4 Steps (QC): 88 12 Steps (QC): 9 Picking up an Object (QC): 9 Does the Pt use WC or Scooter?: Yes Wheel 50 feet with 2 turns (QC: 6 Type: Manual Wheel 150 feet: 6 Type: Manual PT Plan Problem List Problem List: Activity Tolerance, Functional Strength, Safety, Balance, Gait, Transfer, Bed Mobility, ROM Treatment/Plan Treatment Plan: Continue Plan of Care Treatment Plan: Bed Mobility, Education, Functional Activity Jai, Functional Strength, Gait, Safety, Therapeutic Exercise, Transfers Treatment Duration: August 17, 2020 Frequency: At least 5 of 7 days/Wk (IRF) Estimated Hrs Per Day: 1.5 hours per day Patient and/or Family Agrees t: Yes Safety Risks/Education Patient Education: Gait Training, Transfer Techniques, Correct Positioning, W/C Management, Safety Issues Teaching Recipient: Patient Teaching Methods: Demonstration, Discussion Response to Teaching: Verbalize Understanding, Return Demonstration, Reinforce ment Needed Time/GCodes Time In: 1130 Time Out: 1200 Total Billed Treatment Time: 30 Total Billed Treatment 1 visit: EX: 10' FA: 20' FABIAN BOBBY PT August 09, 2020 13:47
[2020-08-09] MEDS: CYCLOBENZAPRINE 10 MG (FLEXERIL) TAB PO PRN (13:55)
[2020-08-09 14:29] VITALS: BP 123/58
[2020-08-09 14:52] VITALS: BP 119/54
[2020-08-09 14:58] VITALS: BP 115/57
[2020-08-09 19:27] VITALS: BP 134/61
[2020-08-09] MEDS: DIAZEPAM 5 MG (VALIUM) TABLET PO SCH (20:14)
--- NOTE | 2020-08-10 06:00 | PM&R Progress Note ---
Subjective HPI/CC On Admission Date Seen by Provider: August 10, 2020 Time Seen by Provider: 08:30 Subjective/Events-last exam 08/10/20: Had the fall yesterday 4 people were required to get him off the floor Spills urinal when he fills it up completely Pain meds working well May need wheelchair use at DC until evaluated by NSG regarding suspicion of spinal cord dysfunction suspected by therapy Needs NSG appt sooner than scheduled to discuss this 08/09/20: Pt doing a lot better Has no concerns right now Incision looks good Pain is well controlled Eating and drinking well Had a fall this afternoon when his left knee "gave out" and took 4 people to help him up Disposition to home could be at risk now with that fall 08/08/20: Patient having a good day Hemoglobin is 10 Bowels moved with laxatives Took a shower this morning Incision looks good No major issues 08/07/20: Patient doing well No issues BM 08/04 and laxatives given Refused suppository 08/06/20: Patient doing well Incision is open to air now No increased pain Slow moving at baseline 08/05/2020: Patient doing pretty well No bowel movement for 2 days we will give laxatives Televisit with neurosurgery service recommended to remove the ziggy and have a 4-week follow-up for x-rays and follow-up visit Denies any new issues 08/04/20: Pt doing much better Had a BM yesterday Televisit with neurosurgeon and likely ziggy will be removed at some point after that televisit Doing much better overall 08/03/20: Pt doing pretty well Bowels moved 08/01 No major issues Not really motivated too much so will try to give him more activity as he requested from 3-5 PM 08/02/20: Pt really not too motivated but hes doing well Spills his urinal quite a bit Incision looks a bit red but not infected Bowels moved yesterday 08/01/20: Hgb is 9.6 Last BM was yesterday No major issues Feels like he is doing a lot better 07/31/20: No major issues No pain reported at this current time No falls Seems to be in good spirits 07/30/20: Patient doing well Has no concerns Pain is controlled BiPAP last night with 3L/min O2 Dressing changes QOD Slight redness around sutures 07/29/20: Patient settling in well Loose BM yesterday Dressing changes on spine every other day No questions from patient Feels like he is using muscles in therapy 07/28/20: Patient doing well Settling in well Incontinent last night but patient reports he spilled urinal Metformin noted and is maintained BM+ Sugar is ok Hgb 9.4 SLUMS Review of Systems Musculoskeletal: back pain, leg pain Objective Exam Vital Signs Vital Signs Date Time Temp Pulse Resp B/P (MAP) Pulse Ox O2 Delivery O2 Flow Rate FiO2 08/10/20 20:15 95 Room Air 08/10/20 20:05 36.6 86 20 117/69 (85) Capillary Refill : General Appearance: No Apparent Distress, WD/WN, Chronically ill, Obese HEENT: PERRL/EOMI, Normal ENT Inspection, Pharynx Normal Neck: Full Range of Motion, Normal Inspection, Non Tender, Supple, Carotid Bruit Respiratory: Chest Non Tender, Lungs Clear, Normal Breath Sounds, No Accessory Muscle Use, No Respiratory Distress Cardiovascular: Regular Rate, Rhythm, No Edema, No Gallop, No JVD, No Murmur, Normal Peripheral Pulses Gastrointestinal: Normal Bowel Sounds, No Organomegaly, No Pulsatile Mass, Non Tender, Soft Back: Decreased Range of Motion, Muscle Spasm, Vertebral Tenderness Extremity: Normal Capillary Refill, Normal Inspection, Normal Range of Motion, Non Tender, No Calf Tenderness, No Pedal Edema Neurologic/Psychiatric: Alert, Oriented x3, No Motor/Sensory Deficits, steamer blocker II- XII Norm as Tested, Abnormal Gait, Depressed Affect, Motor Weakness Skin: Normal Color, Warm/Dry Lymphatic: No Adenopathy Results/Procedures Lab Patient resulted labs reviewed. FIM Transfers Therapy Code Descriptions/Definitions Functional [place] Measure: 0=Not Assessed/NA 4=Minimal Assistance 1=Total Assistance 5=Supervision or Setup 2=Maximal Assistance 6=Modified [place] 3=Moderate Assistance 7=Complete IndependenceSCALE: Activities may be completed with or without assistive devices. 8-Yazdzjpmeo-pdswmmb completes the activity by him/herself with no assistance from a helper. 5-Set-up or Clean-up Assistance-helper sets up or cleans up; patient completes activity. [place] assists only prior to or following the activity. 4-Supervision or Touching Assistance-helper provides verbal cues and/or touching/steadying and/or contact guard assistance as patient completes activity. Assistance may be provided throughout the activity or intermittently. 3-Partial/Moderate Assistance-helper does LESS THAN HALF the effort. [place] lifts, holds or supports trunk or limbs, but provides less than half the effort. 2-Substantial/Maximal Assistance-helper does MORE THAN HALF the effort. [place] lifts or holds trunk or limbs and provides more than half the effort. 2-Xfuusywot-yninrz does ALL the effort. Patient does none of the effort to complete the activity. Or, the assistance of 2 or more helpers is required for the patient to complete the activity. If activity was not attempted, code reason: 7-Patient Refused. 9-Not Applicable-not attempted and the patient did not perform the activity before the current illness, exacerbation or injury. 10-Not Attempted due to Environmental Limitations-(lack of equipment, weather restraints, etc.). 88-Not Attempted due to Medical Conditions or Safety Concerns. Roll Left to Right (QC): 6 Sit to Lying (QC): 6 (Uses UE's to lift L LE) Sit to Stand (QC): 3 (Mod A) Chair/Bvk-zy-Czaqv Xfer(QC): 3 (Mod A with pivot to chair) Car Transfer (QC): 88 Gait Training Does the Patient Walk?: Yes Distance: 100' x2 Walk 10 feet (QC): 3 Walk 50 ft with 2 Turns(QC): 3 Walk 150 ft (QC): 88 Walking 10ft/uneven surface-QC: 88 Gait Persons Needed: 2 Gait Assistive Device: FWW Wheelchair Training Does the Pt Use a Wheelchair?: Yes Wheel 50 ft with 2 turns (QC): 6 Wheel 150 ft (QC): 5 Type of Wheelchair: Manual Stair Training 1 Step (curb) (QC): 88 4 Steps (QC): 88 12 Steps (QC): 88 Balance Picking up an Object (QC): 88 ADL-Treatment Eating (QC): 6 (Pt able to open containers and packages then use regular utensils to eat.) Oral Hygiene (QC): 6 Bathing Location: L Arm, R Arm, L Upper Leg, R Upper Leg, L Lower Leg (including foot), R Lower Leg (including foot), Chest, Abdomen, Perineal Area Shower/Bathe Self (QC): 3 Upper Body Dressing (QC): 5 Lower Body Dressing (QC): 1 On/Off Footwear (QC): 3 Toileting Hygiene (QC): 1 (Pt completed hygiene sitting on sink. Assist x2 to manipulate clothing.) Toilet Transfer (QC): 1 Assessment/Plan Assessment and Plan Assess & Plan/Chief Complaint Assessment: s/p Lumbar laminectomy L2-L3 and TLIF w/ extension of previous L3-L5 hardware LLE weakness Spondylosis Performed due to Spinal stenosis with neurogenic claudication. Source of pts debidity. PT/OT IS Speech therapy Consult SS. GOAL: Return to baseline function before sx. Discharge home with Home Health. Normocytic anemia Hx of hypokalemia during [place] post-op stay. Per pt: known chronic hx of anemia. 07/26 labs from [facility]: H&H is 8.10/25.6 Likely multifactorial: to surgical blood loss and anemia of chronic disease. Iron studies ordered during pts post-op [place] stay (results?) CBC and CMP NIDDM HTN HLP Obesity Sleep apnea Neuropathy SSI Home Cpap. Home Meds s/p COVID-19 PNA Hospitalized . Received convalescent plasma and inpt stay for several days. Pt reports no residual sxs. Hx of lumbar radiculopathy Polyp on vocal cord Hx of cervical spine sx DVT prophylaxis SCD and ambulation. Plan: IRF protocol Pain control BM regimen PT OT 07/28/20: Pain control Monitor hgb Monitor BP 07/29/20: Monitor pain Monitor BM regimen 07/30/20: Monitor closely Pain management BM regimen 07/31/20: Monitor pain Monitor BP 08/01/20: Monitor leg weakness Pain control Monitor BM regimen 08/02/20: Monitor pain BM regimen to maintain 08/03/20: Monitor pain Increase activity 08/04/20: Monitor pain Increase activity 08/05/2020: Monitor closely Fall risk 08/06/20: Pain control Aggressive PT OT to prevent falls 08/07/20: Improved status Laxatives Labs due tomorrow 08/08/20: Pain is controlled Labs are stable 08/09/20: Fall risk Monitor closely 08/10/20: Monitor closely for falls Wheelchair mobility may be required (1) Lumbar radiculopathy (2) MICHAELA treated with BiPAP (3) Nocturnal hypoxemia (4) Diabetes (5) Hypertension (6) Hyperlipemia (7) Obesity, morbid, BMI 40.0-49.9 KAMERON RAMOS DO August 10, 2020 06:00
[2020-08-10] MEDS: MICONAZOLE 2% POWDER (DESENEX AF) 90 GM TOP SCH ×2 (08:35→20:57)
[2020-08-10] MEDS: GABAPENTIN 600 MG (NEURONTIN) TAB PO SCH ×3 (08:36→20:50)
[2020-08-10] MEDS: metFORMIN 500 MG (GLUCOPHAGE) TAB PO SCH ×2 (08:36→20:50)
[2020-08-10] MEDS: DOCUSATE SODIUM 100 MG (COLACE) CAP PO SCH ×2 (08:36→20:51)
[2020-08-10] MEDS: SENNA W/DOCUSATE (SENOKOT S) TABLET PO SCH ×2 (08:36→20:51)
[2020-08-10] MEDS: polyethylene glycoL POWDER 17 GM (MIRALAX) PACK PO SCH ×2 (08:36→21:00)
[2020-08-10] MEDS: amLODIPine 5 MG (NORVASC) TAB PO SCH (08:36)
[2020-08-10] MEDS: LOSARTAN 100 MG (COZAAR) TABLET PO SCH (08:36)
[2020-08-10] MEDS: ASPIRIN E.C. 81 MG (ECOTRIN) TAB PO SCH (08:36)
[2020-08-10] MEDS: VENELEX OINTMENT TOP SCH ×2 (08:37→21:00)
[2020-08-10] MEDS: oxyCODONE/APAP 5/325MG (PERCOCET 5) TABLET PO PRN (08:39)
[2020-08-10 09:01] VITALS: BP 112/72
--- NOTE | 2020-08-10 09:02 | Occupational Ther Daily Note ---
OT Current Status-Daily Note Subjective Pt alert, laying in bed. Pt agrees to therapy. No c/o pain at this time. Mental Status/Objective Patient Orientation: Person, Place, Time, Situation ADL-Treatment Declined shower today. After placement of sliding board and w/c, SBA for slide board transfer. Set up for upper body dressing, assist to don back brace. Pt is utilizing lower body dressing equipment to thread clothing over feet set up sitting EOB then leaning side to side to hike over hips. Min A to don shoes with AE. Assist x2 for toilet transfer, cleanses on toilet then assist x2 for clothing manipulation. Independent for oral care and eating. Therapy Code Descriptions/Definitions Functional [place] Measure: 0=Not Assessed/NA 4=Minimal Assistance 1=Total Assistance 5=Supervision or Setup 2=Maximal Assistance 6=Modified [place] 3=Moderate Assistance 7=Complete IndependenceSCALE: Activities may be completed with or without assistive devices. 3-Ajfzofhjxw-lmhwggx completes the activity by him/herself with no assistance from a helper. 5-Set-up or Clean-up Assistance-helper sets up or cleans up; patient completes activity. [place] assists only prior to or following the activity. 4-Supervision or Touching Assistance-helper provides verbal cues and/or touching/steadying and/or contact guard assistance as patient completes activity. Assistance may be provided throughout the activity or intermittently. 3-Partial/Moderate Assistance-helper does LESS THAN HALF the effort. [place] lifts, holds or supports trunk or limbs, but provides less than half the effort. 2-Substantial/Maximal Assistance-helper does MORE THAN HALF the effort. [place] lifts or holds trunk or limbs and provides more than half the effort. 3-Meetwahuw-ofzfqg does ALL the effort. Patient does none of the effort to complete the activity. Or, the assistance of 2 or more helpers is required for the patient to complete the activity. If activity was not attempted, code reason: 7-Patient Refused. 9-Not Applicable-not attempted and the patient did not perform the activity before the current illness, exacerbation or injury. 10-Not Attempted due to Environmental Limitations-(lack of equipment, weather restraints, etc.). 88-Not Attempted due to Medical Conditions or Safety Concerns. Eating (QC): 6 Oral Hygiene (QC): 6 Upper Body Dressing (QC): 5 Lower Body Dressing (QC): 5 On/Off Footwear: 3 Other Treatment Completed arm bike for 8 min at 25 [place] resistance to increase strength for daily functional tasks. Co-treat with PT([id number]), requires skills of 2 clinicians due to increase fall risk, decreased mobility and dependent ambulation\transfers. OT focusing on B UE strength, ADLs, positioning devices and B UE during functional transfers/mobility. See PT notes for ambulation with FWW. Pt is progressing with ambulation distance though continues to need cues for B hand placement with sit <--> stand. Pt then working on sit <--> stand from varying surface heights. Assist x2 person, min to mod A, required on for balance and stabilization another for stabilization of L knee due to buckling and hyperextension in standing. After session, pt left in care of PT. All needs met. OT Short Term Goals Short Term Goals Time Frame: August 10, 2020 Eatin Oral hygiene: 6 Toileting hygiene: 3 Shower/bathe self: 3 Upper body dressin Lower body dressin Putting on/taking off footwear: 3 OT Half-Way Goals Half-Way Goals Time Frame: August 24, 2020 Eating (QC): 6 Oral Hygiene (QC): 6 Toileting Hygiene (QC): 6 Shower/Bathe Self (QC): 4 Upper Body Dressing (QC): 6 Lower Body Dressing (QC): 6 On/Off Footwear (QC): 6 Additional Goals: 1-Demonstrate ADL Tasks, 2-Verbalize Understanding, 3-ImproveStrength/Jai 1=Demonstrate adherence to instructed precautions during ADL tasks. 2=Patient will verbalize/demonstrate understanding of assistive devices/modifications for ADL. 3=Patient will improve strength/tolerance for activity to enable patient to perform ADL's. OT Education/Plan Problem List/Assessment Assessment: Decreased Activ Tolerance, Decreased UE Strength, Impaired Self- Care Skills Discharge Recommendations Plan/Recommendations: Continue POC Treatment Plan/Plan of Care Patient would benefit from OT for education, treatment and training to promote independence in ADL's, mobility, safety and/or upper extremity function for ADL's. Plan of Care: ADL Retraining, Functional Mobility, Group Exercise/Act as Ind, UE Funct Exercise/Act Treatment Duration: August 24, 2020 Frequency: At least 5 of 7 days/Wk (IRF) Estimated Hrs Per Day: 1.5 hours per day Agreement: Yes Rehab Potential: Fair Time/GCodes Start Time: 07:15 Stop Time: 08:45 Total Time Billed (hr/min): 90 Billed Treatment Time 1 visit-ADL 3 (45 min) FA 3 (45 min) Co-treat with PT [id number], individual 15-08 RYAN FERRARA August 10, 2020 09:02
--- NOTE | 2020-08-10 09:04 | Physical Therapy Daily Note ---
PT Daily Note-Current Subjective Pt. agrees to Rx. Shares much of his back medical history etc. Pt. states he is really not willing to accept that he may have to use a w/c and FWW at home for a while and walk intermittently with a walker when safe with assistance . States he plans to leave here using a FWW only. 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 Pain Location: No Pain Reported Mental Status Patient Orientation: Normal For Age Attachments: Other-See Comments (back brace, mask) Transfers SCALE: Activities may be completed with or without assistive devices. 6-Iqepkzjpgs-hbobajf completes the activity by him/herself with no assistance from a helper. 5-Set-up or Clean-up Assistance-helper sets up or cleans up; patient completes activity. [place] assists only prior to or following the activity. 4-Supervision or Touching Assistance-helper provides verbal cues and/or touching/steadying and/or contact guard assistance as patient completes activity. Assistance may be provided throughout the activity or intermittently. 3-Partial/Moderate Assistance-helper does LESS THAN HALF the effort. [place] lifts, holds or supports trunk or limbs, but provides less than half the effort. 2-Substantial/Maximal Assistance-helper does MORE THAN HALF the effort. [place] lifts or holds trunk or limbs and provides more than half the effort. 6-Byekavcqd-viliky does ALL the effort. Patient does none of the effort to complete the activity. Or, the assistance of 2 or more helpers is required for the patient to complete the activity. If activity was not attempted, code reason: 7-Patient Refused. 9-Not Applicable-not attempted and the patient did not perform the activity before the current illness, exacerbation or injury. 10-Not Attempted due to Environmental Limitations-(lack of equipment, weather restraints, etc.). 88-Not Attempted due to Medical Conditions or Safety Concerns. Roll Left & Right (QC): 5 Sit to Lying (QC): 6 Lying to Sitting/Side of Bed(Q: 6 Sit to Stand (QC): 3 Chair/Oof-zz-Kmchm Xfer(QC): 3 pt. is seemingly unaware that therapists are guarding his LEs/ knees for stability and partially lifting him as he stands from varying heights and tells this therapist he stands multiple times indep in therapies. Pt. needs applied stability to L>R during stance and gait to prevent sudden drop. Weight Bearing Weight Bearing/Tolerated Full Weight Bearing Gait Training Does the Patient Walk?: Yes Walk 10 feet (QC): 3 Gait Persons Needed: 2 (plus one at w/c to follow close behind) Gait Assistive Device: FWW pt. with significant flexion at hips and trunk with heavy wt bearing on FWW to compensate for weak quads and hips etc. special guarding by therapists for stability at LEs as pt. apparently drops suddenly . w/c kept just behind pt. as therapists having previously treating pt. state he has required quick assist into it when unstable Wheelchair Training Does the Pt Use a Wheelchair?: Yes Wheel 50 ft with 2 turns (QC): 5 Type of Wheelchair: Manual pt. brakes indep Exercises Supine Ex: Bridging, Ankle pumps, Quad Set, Rolling, Glut sets, Heel Slides (assisted), Short Arc Quads (assisted left), Straight leg raise (assisted bilat), Hip abd/add (asssited bilat) Supine Reps: 10 (x2) Seated Therapy Exercises: Ankle pumps, Sit to stand (assisted), Long arc quads (assisted), Hip flexion Seated Reps: 12 Treatments TRFs , short gait dist, LE ex, w/c training Assessment Current Status: Good Progress (slow) pt. gives full effort, pt states he will walk when he DCs , will not use w/c , pt. may not be realistic about the amount of time he may need to fully recover safe gait as only mode of mobility PT Short Term Goals Short Term Goals Time Frame: August 03, 2020 Roll Left & Right: 6 Sit to lyin (CGA) Lying to sitting on side of be: 4 (CGA) Chair/hog-re-fcooy transfer: 4 (CGA) Walk 10 feet: 3 (mod) PT Shelter Goals Shelter Goals PT Shelter Goals Time Frame: August 17, 2020 Roll Left & Right (QC): 6 Sit to Lying (QC): 4 (SBA) Lying-Sitting on Side/Bed(QC): 4 (SBA) Sit to Stand (QC): 3 (min) Chair/Dle-kq-Kvuvg Xfer(QC): 3 (min) Toilet Transfer (QC): 3 (min) Car Transfer (QC): 3 (min) Does the Patient Walk: No and Walking Goal IS indicated Walk 10 feet (QC): 3 (min) Walk 50ft with 2 Turns (QC): 3 (min) Walk 150 ft (QC): 88 Walking 10ft on Uneven Surface: 3 (min) 1 Step (curb) (QC): 3 (min) 4 Steps (QC): 88 12 Steps (QC): 9 Picking up an Object (QC): 9 Does the Pt use WC or Scooter?: Yes Wheel 50 feet with 2 turns (QC: 6 Type: Manual Wheel 150 feet: 6 Type: Manual PT Plan Treatment/Plan Treatment Plan: Continue Plan of Care Treatment Plan: Bed Mobility, Education, Functional Activity Jai, Functional Strength, Gait, Safety, Therapeutic Exercise, Transfers Treatment Duration: August 17, 2020 Frequency: At least 5 of 7 days/Wk (IRF) Estimated Hrs Per Day: 1.5 hours per day Patient and/or Family Agrees t: Yes Safety Risks/Education Patient Education: Gait Training, Transfer Techniques, Correct Positioning, W/C Management, Safety Issues Teaching Recipient: Patient Teaching Methods: Demonstration, Discussion Response to Teaching: Verbalize Understanding, Return Demonstration, Reinforcement Needed Time/GCodes Time In: 900 Time Out: 1000 Total Billed Treatment Time: 60 Total Billed Treatment 1,FA45m,EX15m (PT OT co Rx 45m due to pts low level of stability for TRFs and gait) DEWAYNE STILES SUPPLY CHAIN CONSULTANT August 10, 2020 09:04
--- NOTE | 2020-08-10 14:09 | Physical Therapy Daily Note ---
PT Daily Note-Current Subjective Pt. in recliner, agrees to Rx. Pain Location: No Pain Reported Mental Status Patient Orientation: Person, Place Attachments: Other-See Comments (back brace, mask) Transfers SCALE: Activities may be completed with or without assistive devices. 4-Wwskrnnrnh-rhtunuq completes the activity by him/herself with no assistance from a helper. 5-Set-up or Clean-up Assistance-helper sets up or cleans up; patient completes activity. [place] assists only prior to or following the activity. 4-Supervision or Touching Assistance-helper provides verbal cues and/or touch ing/steadying and/or contact guard assistance as patient completes activity. Assistance may be provided throughout the activity or intermittently. 3-Partial/Moderate Assistance-helper does LESS THAN HALF the effort. [place] lifts, holds or supports trunk or limbs, but provides less than half the effort. 2-Substantial/Maximal Assistance-helper does MORE THAN HALF the effort. [place] lifts or holds trunk or limbs and provides more than half the effort. 4-Swmlzrbrg-ytklur does ALL the effort. Patient does none of the effort to complete the activity. Or, the assistance of 2 or more helpers is required for the patient to complete the activity. If activity was not attempted, code reason: 7-Patient Refused. 9-Not Applicable-not attempted and the patient did not perform the activity before the current illness, exacerbation or injury. 10-Not Attempted due to Environmental Limitations-(lack of equipment, weather restraints, etc.). 88-Not Attempted due to Medical Conditions or Safety Concerns. Sit to Stand (QC): 4 Chair/Aum-gm-Oewco Xfer(QC): 4 sit to stands form recliner and w/c x 10 trials all CGA to min assist, SPTs w/c to recliner and back min assist and cues for stand to sit Weight Bearing Weight Bearing/Tolerated Full Weight Bearing Gait Training Does the Patient Walk?: Yes Walk 10 feet (QC): 3 Gait Persons Needed: 2 Gait Assistive Device: FWW gait 40ftx3 FWW, w/c close behind, instructed to takes smaller steps to assure greater stability in left knee as pt. has some question in stability as he attempts to take greater length of step. Pt. agrees. stand to sits are a definite plummet with no strength to break the momentum Wheelchair Training Does the Pt Use a Wheelchair?: Yes Wheel 50 ft with 2 turns (QC): 4 Wheel 150 ft (QC): 4 Type of Wheelchair: Manual pt. resists training in w/c approaches etc and braking and backing as he says he will not use one outside of here "ever" Exercises Seated Therapy Exercises: Ankle pumps, Long arc quads Seated Reps: 10 Treatments Rx focused on safe sit to stand and SPTs to from w/c as well as gait Assessment Current Status: Good Progress PT Short Term Goals Short Term Goals Time Frame: August 03, 2020 Roll Left & Right: 6 Sit to lyin (CGA) Lying to sitting on side of be: 4 (CGA) Chair/rcf-na-kyphh transfer: 4 (CGA) Walk 10 feet: 3 (mod) PT Electric [employer]inder Goals Senior Care Goals PT Senior Care Goals Time Frame: August 17, 2020 Roll Left & Right (QC): 6 Sit to Lying (QC): 4 (SBA) Lying-Sitting on Side/Bed(QC): 4 (SBA) Sit to Stand (QC): 3 (min) Chair/Lty-qz-Kptvx Xfer(QC): 3 (min) Toilet Transfer (QC): 3 (min) Car Transfer (QC): 3 (min) Does the Patient Walk: No and Walking Goal IS indicated Walk 10 feet (QC): 3 (min) Walk 50ft with 2 Turns (QC): 3 (min) Walk 150 ft (QC): 88 Walking 10ft on Uneven Surface: 3 (min) 1 Step (curb) (QC): 3 (min) 4 Steps (QC): 88 12 Steps (QC): 9 Picking up an Object (QC): 9 Does the Pt use WC or Scooter?: Yes Wheel 50 feet with 2 turns (QC: 6 Type: Manual Wheel 150 feet: 6 Type: Manual PT Plan Treatment/Plan Treatment Plan: Continue Plan of Care Treatment Plan: Bed Mobility, Education, Functional Activity Jai, Functional Strength, Gait, Safety, Therapeutic Exercise, Transfers Treatment Duration: August 17, 2020 Frequency: At least 5 of 7 days/Wk (IRF) Estimated Hrs Per Day: 1.5 hours per day Patient and/or Family Agrees t: Yes Safety Risks/Education Patient Education: Gait Training, Transfer Techniques, Correct Positioning, Disease Process, Safety Issues Teaching Recipient: Patient Teaching Methods: Demonstration, Discussion Response to Teaching: Verbalize Understanding, Return Demonstration, Reinforcement Needed Time/GCodes Time In: 1330 Time Out: 1400 Total Billed Treatment Time: 30 Total Billed Treatment 1,GT15m,FA15m DEWAYNE STILES PRODUCTION SERVICE MANAGER August 10, 2020 14:09
[2020-08-10] MEDS: CYCLOBENZAPRINE 10 MG (FLEXERIL) TAB PO PRN (14:15)
[2020-08-10 20:05] VITALS: BP 117/69
[2020-08-10] MEDS: DIAZEPAM 5 MG (VALIUM) TABLET PO SCH (20:51)
[2020-08-11] MEDS: SENNA W/DOCUSATE (SENOKOT S) TABLET PO SCH ×2 (07:24→20:01)
[2020-08-11] MEDS: DOCUSATE SODIUM 100 MG (COLACE) CAP PO SCH ×2 (07:24→20:01)
[2020-08-11] MEDS: GABAPENTIN 600 MG (NEURONTIN) TAB PO SCH ×3 (07:24→20:01)
[2020-08-11] MEDS: metFORMIN 500 MG (GLUCOPHAGE) TAB PO SCH ×2 (07:24→20:01)
[2020-08-11] MEDS: amLODIPine 5 MG (NORVASC) TAB PO SCH (07:24)
[2020-08-11] MEDS: ASPIRIN E.C. 81 MG (ECOTRIN) TAB PO SCH (07:24)
[2020-08-11] MEDS: LOSARTAN 100 MG (COZAAR) TABLET PO SCH (07:24)
[2020-08-11] MEDS: MICONAZOLE 2% POWDER (DESENEX AF) 90 GM TOP SCH ×2 (07:25→20:01)
[2020-08-11 07:28] VITALS: BP 140/70
[2020-08-11] MEDS: oxyCODONE/APAP 5/325MG (PERCOCET 5) TABLET PO PRN ×2 (07:37→12:59)
[2020-08-11 08:19] VITALS: BP 119/58
--- NOTE | 2020-08-11 08:43 | Occupational Ther Daily Note ---
OT Current Status-Daily Note Subjective Pt alert, lying in bed. Pt agrees to therapy. Nrsg brought pain meds. Mental Status/Objective Patient Orientation: Person, Place, Time, Situation ADL-Treatment Pt declined shower until tomorrow. Supine <--> sit, independent. Sitting EOB, pt able to complete sponge bath after set up. Pt requested to use urinal, laid back down and assist given to place, hold and empty urinal. Sitting EOB, pt able to doff/don lower body clothing by leaning side to side to hike over hips, threaded over feet by self. Donned/doffed upper body clothing by self after set up. Donned shoes with only one cue to turn LH shoe horn the correct direction. Pt placed sliding board and completed transfer to / with SBA. Independent with oral care. Therapy Code Descriptions/Definitions Functional [place] Measure: 0=Not Assessed/NA 4=Minimal Assistance 1=Total Assistance 5=Supervision or Setup 2=Maximal Assistance 6=Modified [place] 3=Moderate Assistance 7=Complete IndependenceSCALE: Activities may be completed with or without assistive devices. 7-Ttporcibys-pruznbx completes the activity by him/herself with no assistance from a helper. 5-Set-up or Clean-up Assistance-helper sets up or cleans up; patient completes activity. [place] assists only prior to or following the activity. 4-Supervision or Touching Assistance-helper provides verbal cues and/or touching/steadying and/or contact guard assistance as patient completes a ctivity. Assistance may be provided throughout the activity or intermittently. 3-Partial/Moderate Assistance-helper does LESS THAN HALF the effort. [place] lifts, holds or supports trunk or limbs, but provides less than half the effort. 2-Substantial/Maximal Assistance-helper does MORE THAN HALF the effort. [place] lifts or holds trunk or limbs and provides more than half the effort. 2-Hidemhpwy-vvlfkc does ALL the effort. Patient does none of the effort to complete the activity. Or, the assistance of 2 or more helpers is required for the patient to complete the activity. If activity was not attempted, code reason: 7-Patient Refused. 9-Not Applicable-not attempted and the patient did not perform the activity before the current illness, exacerbation or injury. 10-Not Attempted due to Environmental Limitations-(lack of equipment, weather restraints, etc.). 88-Not Attempted due to Medical Conditions or Safety Concerns. Eating (QC): 6 Oral Hygiene (QC): 6 Upper Body Dressing (QC): 5 (Donned/doffed back brace by self after set up.) Lower Body Dressing (QC): 5 On/Off Footwear: 4 Other Treatment Co-treat with PT([id number]), requires skills of 2 clinicians due to increase fall risk, decreased mobility and dependent ambulation\transfers. OT focusing on B UE strength, ADLs, positioning devices and B UE during functional transfers/mobility. See PT notes for ambulation with FWW. Pt is progressing with ambulation distance though continues to need cues for B hand placement with sit <--> stand. Pt then working on sit <--> stand from varying surface heights. Assist x2 person, min to mod A, required on for balance and stabilization a nother for stabilization of L knee due to buckling and hyperextension in standing. After session, pt left in care of PT. All needs met. OT Short Term Goals Short Term Goals Time Frame: August 10, 2020 Eatin Oral hygiene: 6 Toileting hygiene: 3 Shower/bathe self: 3 Upper body dressin Lower body dressin Putting on/taking off footwear: 3 OT Industrial Spray Painter Goals Senior Care Goals Time Frame: August 24, 2020 Eating (QC): 6 Oral Hygiene (QC): 6 Toileting Hygiene (QC): 6 Shower/Bathe Self (QC): 4 Upper Body Dressing (QC): 6 Lower Body Dressing (QC): 6 On/Off Footwear (QC): 6 Additional Goals: 1-Demonstrate ADL Tasks, 2-Verbalize Understanding, 3- ImproveStrength/Jai 1=Demonstrate adherence to instructed precautions during ADL tasks. 2=Patient will verbalize/demonstrate understanding of assistive devices/modifications for ADL. 3=Patient will improve strength/tolerance for activity to enable patient to perform ADL's. OT Education/Plan Problem List/Assessment Assessment: Decreased Activ Tolerance, Decreased UE Strength, Dependent Transfers, Impaired Self-Care Skills Discharge Recommendations Plan/Recommendations: Continue POC Treatment Plan/Plan of Care Patient would benefit from OT for education, treatment and training to promote independence in ADL's, mobility, safety and/or upper extremity function for ADL's. Plan of Care: ADL Retraining, Functional Mobility, Group Exercise/Act as Ind, UE Funct Exercise/Act Treatment Duration: August 24, 2020 Frequency: At least 5 of 7 days/Wk (IRF) Estimated Hrs Per Day: 1.5 hours per day Agreement: Yes Rehab Potential: Fair Time/GCodes Start Time: 07:15 Stop Time: 08:45 Total Time Billed (hr/min): 90 Billed Treatment Time 1 visit-ADL 3 (45 min), FA 3 (45 min) co-treat with PT [id number], individual [id number] RYAN FERRARA August 11, 2020 08:43
--- NOTE | 2020-08-11 09:00 | Physical Therapy Daily Note ---
PT Daily Note-Current Subjective Patient upright in w/c with OT pre tx, consents to therapy treatment, does not c/o pain, reports "good workout" at conclusion of session. Appearance Patient upright in chair, with call button within reach and tray table nearby. All needs met. Mental Status Patient Orientation: Person, Place, Time, Normal For Age TLSO Transfers SCALE: Activities may be completed with or without assistive devices. 8-Bmuaueeszh-hpmlgre completes the activity by him/herself with no assistance from a helper. 5-Set-up or Clean-up Assistance-helper sets up or cleans up; patient completes activity. [place] assists only prior to or following the activity. 4-Supervision or Touching Assistance-helper provides verbal cues and/or touching/steadying and/or contact guard assistance as patient completes activity. Assistance may be provided throughout the activity or intermittently. 3-Partial/Moderate Assistance-helper does LESS THAN HALF the effort. [place] lifts, holds or supports trunk or limbs, but provides less than half the effort. 2-Substantial/Maximal Assistance-helper does MORE THAN HALF the effort. [place] lifts or holds trunk or limbs and provides more than half the effort. 6-Prpmjqsvm-sytixc does ALL the effort. Patient does none of the effort to complete the activity. Or, the assistance of 2 or more helpers is required for the patient to complete the activity. If activity was not attempted, code reason: 7-Patient Refused. 9-Not Applicable-not attempted and the patient did not perform the activity before the current illness, exacerbation or injury. 10-Not Attempted due to Environmental Limitations-(lack of equipment, weather restraints, etc.). 88-Not Attempted due to Medical Conditions or Safety Concerns. Sit to Stand (QC): 3 Chair/Wzk-dp-Mrgaa Xfer(QC): 4 (Sliding board transfer) Patient needed moderate to min assistance intermittently with sit to stand, patient needs hand placement from PT on L knee to prevent knee buckling Weight Bearing Weight Bearing/Tolerated Full Weight Bearing Gait Training Does the Patient Walk?: Yes Distance: 150' x2 Walk 10 feet (QC): 2 Walk 50 ft with 2 Turns(QC): 2 Walk 150 ft (QC): 2 Gait Assistive Device: FWW Mod to Min A with gait to prevent L knee buckling, patient requires 2 persons on either side and one person following with w/c to maintain patient safety. Exercises Seated Therapy Exercises: Long arc quads (2# weights 2' each side) Added makeshift leg press, performed 2 x10 reps with resistance from PT. Patient had good quad contraction with leg extension Treatments Co-treated with OT secondary to patient impairments, fall risk, and level of assistance required with functional mobility. PT/OT focused on sit to stand transfers, with cues for hand and body positioning, and assisted with gait training with body positioning, energy conservation. Assessment Current Status: Fair Progress Patient relies on less verbal cueing for hand positioning with sit to stands, but continues to struggle with LE eccentric control when sitting, with L knee intermittently buckling PT Short Term Goals Short Term Goals Time Frame: August 03, 2020 Roll Left & Right: 6 Sit to lyin (CGA) Lying to sitting on side of be: 4 (CGA) Chair/ahy-ps-fvrjz transfer: 4 (CGA) Walk 10 feet: 3 (mod) PT Intermediate Goals Manager [employer] Goals PT Intermediate Goals Time Frame: August 17, 2020 Roll Left & Right (QC): 6 Sit to Lying (QC): 4 (SBA) Lying-Sitting on Side/Bed(QC): 4 (SBA) Sit to Stand (QC): 3 (min) Chair/Qcd-cq-Sxfga Xfer(QC): 3 (min) Toilet Transfer (QC): 3 (min) Car Transfer (QC): 3 (min) Does the Patient Walk: No and Walking Goal IS indicated Walk 10 feet (QC): 3 (min) Walk 50ft with 2 Turns (QC): 3 (min) Walk 150 ft (QC): 88 Walking 10ft on Uneven Surface: 3 (min) 1 Step (curb) (QC): 3 (min) 4 Steps (QC): 88 12 Steps (QC): 9 Picking up an Object (QC): 9 Does the Pt use WC or Scooter?: Yes Wheel 50 feet with 2 turns (QC: 6 Type: Manual Wheel 150 feet: 6 Type: Manual PT Plan Problem List Problem List: Activity Tolerance, Functional Strength, Safety, Balance, Gait, Transfer, Bed Mobility, ROM Treatment/Plan Treatment Plan: Continue Plan of Care Treatment Plan: Bed Mobility, Education, Functional Activity Jai, Functional Strength, Gait, Safety, Therapeutic Exercise, Transfers Treatment Duration: August 17, 2020 Frequency: At least 5 of 7 days/Wk (IRF) Estimated Hrs Per Day: 1.5 hours per day Patient and/or Family Agrees t: Yes Safety Risks/Education Patient Education: Gait Training, Transfer Techniques, Correct Positioning, W/C Management, Safety Issues Teaching Recipient: Patient Teaching Methods: Demonstration, Discussion Response to Teaching: Verbalize Understanding, Return Demonstration Time/GCodes Time In: 0800 Time Out: 0900 Total Billed Treatment Time: 60 Total Billed Treatment 1 visit: FA x2: 35' EX: 10' GT: 15' co-treated for 60 min FABIAN BOBBY PT August 11, 2020 09:00
[2020-08-11] MEDS: polyethylene glycoL POWDER 17 GM (MIRALAX) PACK PO SCH ×2 (09:46→19:15)
[2020-08-11] MEDS: VENELEX OINTMENT TOP SCH ×2 (09:46→19:26)
--- NOTE | 2020-08-11 11:06 | PM&R Progress Note ---
Subjective HPI/CC On Admission Date Seen by Provider: August 11, 2020 Time Seen by Provider: 11:15 Subjective/Events-last exam 08/11/20: Patient doing well Incision good Chose not to use wheelchair at home Son works nights and will be sleeping during the day in case he needs something Sooner NSG appt BM 08/1008/10/20: Had the fall yesterday 4 people were required to get him off the floor Spills urinal when he fills it up completely Pain meds working well May need wheelchair use at DC until evaluated by NSG regarding suspicion of spinal cord dysfunction suspected by therapy Needs NSG appt sooner than scheduled to discuss this 08/09/20: Pt doing a lot better Has no concerns right now Incision looks good Pain is well controlled Eating and drinking well Had a fall this afternoon when his left knee "gave out" and took 4 people to help him up Disposition to home could be at risk now with that fall 08/08/20: Patient having a good day Hemoglobin is 10 Bowels moved with laxatives Took a shower this morning Incision looks good No major issues 08/07/20: Patient doing well No issues BM 08/04 and laxatives given Refused suppository 08/06/20: Patient doing well Incision is open to air now No increased pain Slow moving at baseline 08/05/2020: Patient doing pretty well No bowel movement for 2 days we will give laxatives Televisit with neurosurgery service recommended to remove the ziggy and have a 4-week follow-up for x-rays and follow-up visit Denies any new issues 08/04/20: Pt doing much better Had a BM yesterday Televisit with neurosurgeon and likely ziggy will be removed at some point after that televisit Doing much better overall 08/03/20: Pt doing pretty well Bowels moved 08/01 No major issues Not really motivated too much so will try to give him more activity as he requested from 3-5 PM 08/02/20: Pt really not too motivated but hes doing well Spills his urinal quite a bit Incision looks a bit red but not infected Bowels moved yesterday 08/01/20: Hgb is 9.6 Last BM was yesterday No major issues Feels like he is doing a lot better 07/31/20: No major issues No pain reported at this current time No falls Seems to be in good spirits 07/30/20: Patient doing well Has no concerns Pain is controlled BiPAP last night with 3L/min O2 Dressing changes QOD Slight redness around sutures 07/29/20: Patient settling in well Loose BM yesterday Dressing changes on spine every other day No questions from patient Feels like he is using muscles in therapy 07/28/20: Patient doing well Settling in well Incontinent last night but patient reports he spilled urinal Metformin noted and is maintained BM+ Sugar is ok Hgb 9.4 SLUMS Review of Systems General: Fatigue, Malaise Musculoskeletal: back pain, leg pain Neurological: Weakness Objective Exam Vital Signs Vital Signs Date Time Temp Pulse Resp B/P (MAP) Pulse Ox O2 Delivery O2 Flow Rate FiO2 08/11/20 20:25 36.6 79 16 136/65 (88) 94 Room Air Capillary Refill : General Appearance: No Apparent Distress, WD/WN, Chronically ill, Obese HEENT: PERRL/EOMI, Normal ENT Inspection, Pharynx Normal Neck: Full Range of Motion, Normal Inspection, Non Tender, Supple, Carotid Bruit Respiratory: Chest Non Tender, Lungs Clear, Normal Breath Sounds, No Accessory Muscle Use, No Respiratory Distress Cardiovascular: Regular Rate, Rhythm, No Edema, No Gallop, No JVD, No Murmur, Normal Peripheral Pulses Gastrointestinal: Normal Bowel Sounds, No Organomegaly, No Pulsatile Mass, Non Tender, Soft Back: Decreased Range of Motion, Muscle Spasm, Vertebral Tenderness Extremity: Normal Capillary Refill, Normal Inspection, Normal Range of Motion, Non Tender, No Calf Tenderness, No Pedal Edema Neurologic/Psychiatric: Alert, Oriented x3, No Motor/Sensory Deficits, steel placer II- XII Norm as Tested, Abnormal Gait, Depressed Affect, Motor Weakness Skin: Normal Color, Warm/Dry Lymphatic: No Adenopathy Results/Procedures Lab Patient resulted labs reviewed. FIM Transfers Therapy Code Descriptions/Definitions Functional [place] Measure: 0=Not Assessed/NA 4=Minimal Assistance 1=Total Assistance 5=Supervision or Setup 2=Maximal Assistance 6=Modified [place] 3=Moderate Assistance 7=Complete IndependenceSCALE: Activities may be completed with or without assistive devices. 3-Wmxgpxuzat-tzkteni completes the activity by him/herself with no assistance from a helper. 5-Set-up or Clean-up Assistance-helper sets up or cleans up; patient completes activity. [place] assists only prior to or following the activity. 4-Supervision or Touching Assistance-helper provides verbal cues and/or touching/steadying and/or contact guard assistance as patient completes activity. Assistance may be provided throughout the activity or intermittently. 3-Partial/Moderate Assistance-helper does LESS THAN HALF the effort. [place] lifts, holds or supports trunk or limbs, but provides less than half the effort. 2-Substantial/Maximal Assistance-helper does MORE THAN HALF the effort. [place] lifts or holds trunk or limbs and provides more than half the effort. 0-Hhfnzjcnt-ixnkqc does ALL the effort. Patient does none of the effort to complete the activity. Or, the assistance of 2 or more helpers is required for the patient to complete the activity. If activity was not attempted, code reason: 7-Patient Refused. 9-Not Applicable-not attempted and the patient did not perform the activity before the current illness, exacerbation or injury. 10-Not Attempted due to Environmental Limitations-(lack of equipment, weather restraints, etc.). 88-Not Attempted due to Medical Conditions or Safety Concerns. Roll Left to Right (QC): 5 Sit to Lying (QC): 6 Sit to Stand (QC): 3 Chair/Vve-yb-Enndp Xfer(QC): 4 (Sliding board transfer) Car Transfer (QC): 88 Gait Training Does the Patient Walk?: Yes Distance: 150' x2 Walk 10 feet (QC): 2 Walk 50 ft with 2 Turns(QC): 2 Walk 150 ft (QC): 2 Walking 10ft/uneven surface-QC: 88 Gait Persons Needed: 2 Gait Assistive Device: FWW Wheelchair Training Does the Pt Use a Wheelchair?: Yes Wheel 50 ft with 2 turns (QC): 4 Wheel 150 ft (QC): 4 Type of Wheelchair: Manual Stair Training 1 Step (curb) (QC): 88 4 Steps (QC): 88 12 Steps (QC): 88 Balance Picking up an Object (QC): 88 ADL-Treatment Eating (QC): 6 Oral Hygiene (QC): 6 Bathing Location: L Arm, R Arm, L Upper Leg, R Upper Leg, L Lower Leg (including foot), R Lower Leg (including foot), Chest, Abdomen, Perineal Area Shower/Bathe Self (QC): 3 Upper Body Dressing (QC): 5 Lower Body Dressing (QC): 5 On/Off Footwear (QC): 3 Toileting Hygiene (QC): 1 (Pt completed hygiene sitting on sink. Assist x2 to manipulate clothing.) Toilet Transfer (QC): 1 Assessment/Plan Assessment and Plan Assess & Plan/Chief Complaint Assessment: s/p Lumbar laminectomy L2-L3 and TLIF w/ extension of previous L3-L5 hardware LLE weakness Spondylosis Performed due to Spinal stenosis with neurogenic claudication. Source of pts debidity. PT/OT IS Speech therapy Consult SS. GOAL: Return to baseline function before sx. Discharge home with Home Health. Normocytic anemia Hx of hypokalemia during [place] post-op stay. Per pt: known chronic hx of anemia. 07/26 labs from [place]: H&H is 8.7.6 Likely multifactorial: to surgical blood loss and anemia of chronic disease. Iron studies ordered during pts post-op [place] stay (results?) CBC and CMP NIDDM HTN HLP Obesity Sleep apnea Neuropathy SSI Home Cpap. Home Meds s/p COVID-19 PNA Hospitalized . Received convalescent plasma and inpt stay for several days. Pt reports no residual sxs. Hx of lumbar radiculopathy Polyp on vocal cord Hx of cervical spine sx DVT prophylaxis SCD and ambulation. Plan: IRF protocol Pain control BM regimen PT OT 07/28/20: Pain control Monitor hgb Monitor BP 07/29/20: Monitor pain Monitor BM regimen 07/30/20: Monitor closely Pain management BM regimen 07/31/20: Monitor pain Monitor BP 08/01/20: Monitor leg weakness Pain control Monitor BM regimen 08/02/20: Monitor pain BM regimen to maintain 08/03/20: Monitor pain Increase activity 08/04/20: Monitor pain Increase activity 08/05/2020: Monitor closely Fall risk 08/06/20: Pain control Aggressive PT OT to prevent falls 08/07/20: Improved status Laxatives Labs due tomorrow 08/08/20: Pain is controlled Labs are stable 08/09/20: Fall risk Monitor closely 08/10/20: Monitor closely for falls Wheelchair mobility may be required 08/11/20: Monitor closely NSG appt Declines wheelchair mobility skills (1) Lumbar radiculopathy (2) MICHAELA treated with BiPAP (3) Nocturnal hypoxemia (4) Diabetes (5) Hypertension (6) Hyperlipemia (7) Obesity, morbid, BMI 40.0-49.9 KAMERON RAMOS DO August 11, 2020 11:06
--- NOTE | 2020-08-11 13:57 | Physical Therapy Daily Note ---
PT Daily Note-Current Subjective Patient seated pre tx, consents to therapy, does not c/o pain. Appearance Patient upright in chair post tx, with call button and tray table nearby, all needs met. Mental Status Patient Orientation: Person, Place, Time, Normal For Age TLSO Transfers SCALE: Activities may be completed with or without assistive devices. 4-Jdcvdspeaj-mnubepl completes the activity by him/herself with no assistance from a helper. 5-Set-up or Clean-up Assistance-helper sets up or cleans up; patient completes activity. [place] assists only prior to or following the activity. 4-Supervision or Touching Assistance-helper provides verbal cues and/or touching/steadying and/or contact guard assistance as patient completes activity. Assistance may be provided throughout the activity or intermittently. 3-Partial/Moderate Assistance-helper does LESS THAN HALF the effort. [place] lifts, holds or supports trunk or limbs, but provides less than half the effort. 2-Substantial/Maximal Assistance-helper does MORE THAN HALF the effort. [place] lifts or holds trunk or limbs and provides more than half the effort. 8-Kolbkiozi-kwawpo does ALL the effort. Patient does none of the effort to complete the activity. Or, the assistance of 2 or more helpers is required for the patient to complete the activity. If activity was not attempted, code reason: 7-Patient Refused. 9-Not Applicable-not attempted and the patient did not perform the activity before the current illness, exacerbation or injury. 10-Not Attempted due to Environmental Limitations-(lack of equipment, weather restraints, etc.). 88-Not Attempted due to Medical Conditions or Safety Concerns. Sit to Stand (QC): 3 Chair/Nob-hu-Cptxi Xfer(QC): 3 Patient requires Mod to Min A with sit to stands, easier for patient from elevated surface but continues to demonstrate flexed posture during first half of movement. PT still has to block knee to prevent L knee buckling. Weight Bearing Weight Bearing/Tolerated Full Weight Bearing Gait Training Does the Patient Walk?: Yes Distance: 80' x2 Walk 10 feet (QC): 2 Walk 50 ft with 2 Turns(QC): 2 Gait Assistive Device: FWW Patient did not require w/c follow with gait today, continued to require to PT's to assist with gait secondary to fall risk. Exercises Seated Therapy Exercises: Long arc quads, Hip flexion, Glut set Seated Reps: 20 Seated exercise: LAQ 2' each with 2# ankle weight, Hip flexion 2' each with 2# ankle weight Treatments LE strengthening, ROM, gait, transfers Assessment Current Status: Fair Progress Patient continues to lack L quad eccentric control with LAQ PT Short Term Goals Short Term Goals Time Frame: August 03, 2020 Roll Left & Right: 6 Sit to lyin (CGA) Lying to sitting on side of be: 4 (CGA) Chair/jvc-aj-qtaoz transfer: 4 (CGA) Walk 10 feet: 3 (mod) PT Template Inspector Goals Template Inspector Goals PT [facility] Goals Time Frame: August 17, 2020 Roll Left & Right (QC): 6 Sit to Lying (QC): 4 (SBA) Lying-Sitting on Side/Bed(QC): 4 (SBA) Sit to Stand (QC): 3 (min) Chair/Idj-rp-Kkski Xfer(QC): 3 (min) Toilet Transfer (QC): 3 (min) Car Transfer (QC): 3 (min) Does the Patient Walk: No and Walking Goal IS indicated Walk 10 feet (QC): 3 (min) Walk 50ft with 2 Turns (QC): 3 (min) Walk 150 ft (QC): 88 Walking 10ft on Uneven Surface: 3 (min) 1 Step (curb) (QC): 3 (min) 4 Steps (QC): 88 12 Steps (QC): 9 Picking up an Object (QC): 9 Does the Pt use WC or Scooter?: Yes Wheel 50 feet with 2 turns (QC: 6 Type: Manual Wheel 150 feet: 6 Type: Manual PT Plan Problem List Problem List: Activity Tolerance, Functional Strength, Safety, Balance, Gait, Transfer, Bed Mobility, ROM Treatment/Plan Treatment Plan: Continue Plan of Care Treatment Plan: Bed Mobility, Education, Functional Activity Jai, Functional Strength, Gait, Safety, Therapeutic Exercise, Transfers Treatment Duration: August 17, 2020 Frequency: At least 5 of 7 days/Wk (IRF) Estimated Hrs Per Day: 1.5 hours per day Patient and/or Family Agrees t: Yes Safety Risks/Education Patient Education: Gait Training, Transfer Techniques, Correct Positioning, Safety Issues Teaching Recipient: Patient Teaching Methods: Demonstration, Discussion Response to Teaching: Verbalize Understanding, Return Demonstration Time/GCodes Time In: 1330 Time Out: 1400 Total Billed Treatment Time: 30 Total Billed Treatment 1 visit: FA: 15' EX: 15' FABIAN BOBBY PT August 11, 2020 13:57
[2020-08-11] MEDS: DIAZEPAM 5 MG (VALIUM) TABLET PO SCH (20:01)
[2020-08-11 20:25] VITALS: BP 136/65
[2020-08-12] MEDS: metFORMIN 500 MG (GLUCOPHAGE) TAB PO SCH ×2 (07:13→19:41)
[2020-08-12] MEDS: amLODIPine 5 MG (NORVASC) TAB PO SCH (07:13)
[2020-08-12] MEDS: ASPIRIN E.C. 81 MG (ECOTRIN) TAB PO SCH (07:13)
[2020-08-12] MEDS: DOCUSATE SODIUM 100 MG (COLACE) CAP PO SCH ×2 (07:13→19:41)
[2020-08-12] MEDS: SENNA W/DOCUSATE (SENOKOT S) TABLET PO SCH ×2 (07:14→19:41)
[2020-08-12] MEDS: MICONAZOLE 2% POWDER (DESENEX AF) 90 GM TOP SCH ×2 (07:14→19:42)
[2020-08-12] MEDS: LOSARTAN 100 MG (COZAAR) TABLET PO SCH (07:14)
[2020-08-12] MEDS: GABAPENTIN 600 MG (NEURONTIN) TAB PO SCH ×3 (07:14→19:41)
[2020-08-12] MEDS: oxyCODONE/APAP 5/325MG (PERCOCET 5) TABLET PO PRN (07:14)
[2020-08-12] MEDS: VENELEX OINTMENT TOP SCH ×2 (07:14→18:53)
[2020-08-12] MEDS: polyethylene glycoL POWDER 17 GM (MIRALAX) PACK PO SCH ×2 (07:15→18:53)
[2020-08-12 08:00] VITALS: BP 136/63
--- NOTE | 2020-08-12 09:56 | Physical Therapy Daily Note ---
PT Daily Note-Current Subjective Patient in bed pre tx, agrees to PT, has no complaints of pain. Patient's is here for family training, will be co-treating with OT for family training, and due to poor patient mobility and strength, safety and reduce risk of falls, coordinate UE and LE during activity. Appearance Patient on shower bench in shower room and will continue with OT Mental Status Patient Orientation: Person, Place, Situation, Normal For Age TLSO Transfers SCALE: Activities may be completed with or without assistive devices. 5-Clbluwaxek-duszede completes the activity by him/herself with no assistance from a helper. 5-Set-up or Clean-up Assistance-helper sets up or cleans up; patient completes activity. [place] assists only prior to or following the activity. 4-Supervision or Touching Assistance-helper provides verbal cues and/or touching/steadying and/or contact guard assistance as patient completes activity. Assistance may be provided throughout the activity or intermittently. 3-Partial/Moderate Assistance-helper does LESS THAN HALF the effort. [place] lifts, holds or supports trunk or limbs, but provides less than half the effort. 2-Substantial/Maximal Assistance-helper does MORE THAN HALF the effort. [place] lifts or holds trunk or limbs and provides more than half the effort. 8-Kpnlsdujd-txmhzh does ALL the effort. Patient does none of the effort to complete the activity. Or, the assistance of 2 or more helpers is required for the patient to complete the activity. If activity was not attempted, code reason: 7-Patient Refused. 9-Not Applicable-not attempted and the patient did not perform the activity before the current illness, exacerbation or injury. 10-Not Attempted due to Environmental Limitations-(lack of equipment, weather restraints, etc.). 88-Not Attempted due to Medical Conditions or Safety Concerns. Roll Left & Right (QC): 6 Sit to Lying (QC): 6 Lying to Sitting/Side of Bed(Q: 6 Sit to Stand (QC): 3 Chair/Zzm-cu-Vtxds Xfer(QC): 3 Toilet Transfer (QC): 3 Min assist for sit to stand and transfers, performed training with , verbal and visual instructions, and performed a sit to stand and transfer and she performed it with only cues for positioning. Also performed a transfer to shower bench and slide board back to WC. Weight Bearing Weight Bearing/Tolerated Full Weight Bearing Gait Training Distance: 120', 150' Walk 10 feet (QC): 3 Walk 50 ft with 2 Turns(QC): 3 Walk 150 ft (QC): 3 Gait Persons Needed: 1 Gait Assistive Device: FWW Patient ambulated with min assist, close guarding due to possibility of left knee buckling but it didn't happen. Uncoordinated steps with left leg. Wheelchair Training Does the Pt Use a Wheelchair?: Yes Wheel 50 ft with 2 turns (QC): 6 Stair Training Stair Training: Handrails/: uses walker #of Steps: 1 1 Step (curb) (QC): 3 Stairs: Pattern: Step to Practiced going up and down 1 step using a rolling walker, cues for foot placement, mod assist. Treatments PT performed bed mobility and transfers, ambulation, WC mobility, family training with , OT performed additional safety instruction, UE positioning and safety during activity. Assessment Current Status: Fair Progress improving general mobility but still knee buckling in left knee mostly when sitting PT Short Term Goals Short Term Goals Time Frame: August 03, 2020 Roll Left & Right: 6 Sit to lyin (CGA) Lying to sitting on side of be: 4 (CGA) Chair/oyo-mn-smeal transfer: 4 (CGA) Walk 10 feet: 3 (mod) PT Unix Consultant Goals [facility]sp Goals PT [facility]sp Goals Time Frame: August 17, 2020 Roll Left & Right (QC): 6 Sit to Lying (QC): 4 (SBA) Lying-Sitting on Side/Bed(QC): 4 (SBA) Sit to Stand (QC): 3 (min) Chair/Wmi-wl-Yxrbj Xfer(QC): 3 (min) Toilet Transfer (QC): 3 (min) Car Transfer (QC): 3 (min) Does the Patient Walk: No and Walking Goal IS indicated Walk 10 feet (QC): 3 (min) Walk 50ft with 2 Turns (QC): 3 (min) Walk 150 ft (QC): 88 Walking 10ft on Uneven Surface: 3 (min) 1 Step (curb) (QC): 3 (min) 4 Steps (QC): 88 12 Steps (QC): 9 Picking up an Object (QC): 9 Does the Pt use WC or Scooter?: Yes Wheel 50 feet with 2 turns (QC: 6 Type: Manual Wheel 150 feet: 6 Type: Manual PT Plan Problem List Problem List: Activity Tolerance, Functional Strength, Safety, Balance, Gait, Transfer, Bed Mobility, ROM Treatment/Plan Treatment Plan: Continue Plan of Care Treatment Plan: Bed Mobility, Education, Functional Activity Jai, Functional Strength, Gait, Safety, Therapeutic Exercise, Transfers Treatment Duration: August 17, 2020 Frequency: At least 5 of 7 days/Wk (IRF) Estimated Hrs Per Day: 1.5 hours per day Patient and/or Family Agrees t: Yes Safety Risks/Education Patient Education: Gait Training, Transfer Techniques, Correct Positioning, W/C Management, Reviewed Don/Doff Brace, Safety Issues Teaching Recipient: Patient Teaching Methods: Demonstration, Discussion Response to Teaching: Reinforcement Needed took instruction well, demonstrated proficient skill with sit to stand and transfers. Time/GCodes Time In: 0900 Time Out: 1000 Total Billed Treatment Time: 60 Total Billed Treatment 1 visit FA 60' co-treated with OT for 60' FABIAN BOBBY PT August 12, 2020 09:56
--- NOTE | 2020-08-12 10:38 | PM&R Progress Note ---
Subjective HPI/CC On Admission Date Seen by Provider: August 12, 2020 Time Seen by Provider: 11:00 Subjective/Events-last exam 08/12/20: No major issues Pain controlled Moving around well Meds reviewed 08/11/20: Patient doing well Incision good Chose not to use wheelchair at home Son works nights and will be sleeping during the day in case he needs something Sooner NSG appt BM 08/1008/10/20: Had the fall yesterday 4 people were required to get him off the floor Spills urinal when he fills it up completely Pain meds working well May need wheelchair use at DC until evaluated by NSG regarding suspicion of spinal cord dysfunction suspected by therapy Needs NSG appt sooner than scheduled to discuss this 08/09/20: Pt doing a lot better Has no concerns right now Incision looks good Pain is well controlled Eating and drinking well Had a fall this afternoon when his left knee "gave out" and took 4 people to help him up Disposition to home could be at risk now with that fall 08/08/20: Patient having a good day Hemoglobin is 10 Bowels moved with laxatives Took a shower this morning Incision looks good No major issues 08/07/20: Patient doing well No issues BM 08/04 and laxatives given Refused suppository 08/06/20: Patient doing well Incision is open to air now No increased pain Slow moving at baseline 08/05/2020: Patient doing pretty well No bowel movement for 2 days we will give laxatives Televisit with neurosurgery service recommended to remove the ziggy and have a 4-week follow-up for x-rays and follow-up visit Denies any new issues 08/04/20: Pt doing much better Had a BM yesterday Televisit with neurosurgeon and likely ziggy will be removed at some point after that televisit Doing much better overall 08/03/20: Pt doing pretty well Bowels moved 08/01 No major issues Not really motivated too much so will try to give him more activity as he requested from 3-5 PM 08/02/20: Pt really not too motivated but hes doing well Spills his urinal quite a bit Incision looks a bit red but not infected Bowels moved yesterday 08/01/20: Hgb is 9.6 Last BM was yesterday No major issues Feels like he is doing a lot better 07/31/20: No major issues No pain reported at this current time No falls Seems to be in good spirits 07/30/20: Patient doing well Has no concerns Pain is controlled BiPAP last night with 3L/min O2 Dressing changes QOD Slight redness around sutures 07/29/20: Patient settling in well Loose BM yesterday Dressing changes on spine every other day No questions from patient Feels like he is using muscles in therapy 07/28/20: Patient doing well Settling in well Incontinent last night but patient reports he spilled urinal Metformin noted and is maintained BM+ Sugar is ok Hgb 9.4 SLUMS Review of Systems General: Fatigue, Malaise Musculoskeletal: back pain Objective Exam Vital Signs Vital Signs Date Time Temp Pulse Resp B/P (MAP) Pulse Ox O2 Delivery O2 Flow Rate FiO2 08/12/20 20:07 36.9 86 16 129/59 (82) 93 Room Air Capillary Refill : General Appearance: No Apparent Distress, WD/WN, Chronically ill, Obese HEENT: PERRL/EOMI, Normal ENT Inspection, Pharynx Normal Neck: Full Range of Motion, Normal Inspection, Non Tender, Supple, Carotid Bruit Respiratory: Chest Non Tender, Lungs Clear, Normal Breath Sounds, No Accessory Muscle Use, No Respiratory Distress Cardiovascular: Regular Rate, Rhythm, No Edema, No Gallop, No JVD, No Murmur, Normal Peripheral Pulses Gastrointestinal: Normal Bowel Sounds, No Organomegaly, No Pulsatile Mass, Non Tender, Soft Back: Decreased Range of Motion, Muscle Spasm, Vertebral Tenderness Extremity: Normal Capillary Refill, Normal Inspection, Normal Range of Motion, Non Tender, No Calf Tenderness, No Pedal Edema Neurologic/Psychiatric: Alert, Oriented x3, No Motor/Sensory Deficits, proposal analyst II- XII Norm as Tested, Abnormal Gait, Depressed Affect, Motor Weakness Skin: Normal Color, Warm/Dry Lymphatic: No Adenopathy Results/Procedures Lab Patient resulted labs reviewed. FIM Transfers Therapy Code Descriptions/Definitions Functional [place] Measure: 0=Not Assessed/NA 4=Minimal Assistance 1=Total Assistance 5=Supervision or Setup 2=Maximal Assistance 6=Modified [place] 3=Moderate Assistance 7=Complete IndependenceSCALE: Activities may be completed with or without assistive devices. 0-Zbeqbwjdup-chcazia completes the activity by him/herself with no assistance from a helper. 5-Set-up or Clean-up Assistance-helper sets up or cleans up; patient completes activity. [place] assists only prior to or following the activity. 4-Supervision or Touching Assistance-helper provides verbal cues and/or touching/steadying and/or contact guard assistance as patient completes activity. Assistance may be provided throughout the activity or intermittently. 3-Partial/Moderate Assistance-helper does LESS THAN HALF the effort. [place] lifts, holds or supports trunk or limbs, but provides less than half the effort. 2-Substantial/Maximal Assistance-helper does MORE THAN HALF the effort. [place] lifts or holds trunk or limbs and provides more than half the effort. 5-Hynifgwgw-azswtk does ALL the effort. Patient does none of the effort to complete the activity. Or, the assistance of 2 or more helpers is required for the patient to complete the activity. If activity was not attempted, code reason: 7-Patient Refused. 9-Not Applicable-not attempted and the patient did not perform the activity before the current illness, exacerbation or injury. 10-Not Attempted due to Environmental Limitations-(lack of equipment, weather restraints, etc.). 88-Not Attempted due to Medical Conditions or Safety Concerns. Roll Left to Right (QC): 6 Sit to Lying (QC): 6 Sit to Stand (QC): 3 Chair/Gvs-nk-Uqjmi Xfer(QC): 3 Car Transfer (QC): 88 Gait Training Does the Patient Walk?: Yes Distance: 120', 150' Walk 10 feet (QC): 3 Walk 50 ft with 2 Turns(QC): 3 Walk 150 ft (QC): 3 Walking 10ft/uneven surface-QC: 88 Gait Persons Needed: 1 Gait Assistive Device: FWW Wheelchair Training Does the Pt Use a Wheelchair?: Yes Wheel 50 ft with 2 turns (QC): 6 Wheel 150 ft (QC): 4 Type of Wheelchair: Manual Stair Training Stair Training: Handrails/: uses walker #of Steps: 1 1 Step (curb) (QC): 3 4 Steps (QC): 88 12 Steps (QC): 88 Stairs: Pattern: Step to Balance Picking up an Object (QC): 88 ADL-Treatment Eating (QC): 6 Oral Hygiene (QC): 6 Bathing Location: L Arm, R Arm, L Upper Leg, R Upper Leg, L Lower Leg (including foot), R Lower Leg (including foot), Chest, Abdomen, Perineal Area Shower/Bathe Self (QC): 3 Upper Body Dressing (QC): 5 (Donned/doffed back brace by self after set up.) Lower Body Dressing (QC): 5 On/Off Footwear (QC): 4 Toileting Hygiene (QC): 1 (Pt completed hygiene sitting on sink. Assist x2 to manipulate clothing.) Toilet Transfer (QC): 1 Assessment/Plan Assessment and Plan Assess & Plan/Chief Complaint Assessment: s/p Lumbar laminectomy L2-L3 and TLIF w/ extension of previous L3-L5 hardware LLE weakness Spondylosis Performed due to Spinal stenosis with neurogenic claudication. Source of pts debidity. PT/OT IS Speech therapy Consult SS. GOAL: Return to baseline function before sx. Discharge home with Home Health. Normocytic anemia Hx of hypokalemia during [facility] post-op stay. Per pt: known chronic hx of anemia. 07/26 labs from [facility]: H&H is 8.7.6 Likely multifactorial: to surgical blood loss and anemia of chronic disease. Iron studies ordered during pts post-op [facility] stay (results?) CBC and CMP NIDDM HTN HLP Obesity Sleep apnea Neuropathy SSI Home Cpap. Home Meds s/p COVID-19 PNA Hospitalized . Received convalescent plasma and inpt stay for several days. Pt reports no residual sxs. Hx of lumbar radiculopathy Polyp on vocal cord Hx of cervical spine sx DVT prophylaxis SCD and ambulation. Plan: IRF protocol Pain control BM regimen PT OT 07/28/20: Pain control Monitor hgb Monitor BP 07/29/20: Monitor pain Monitor BM regimen 07/30/20: Monitor closely Pain management BM regimen 07/31/20: Monitor pain Monitor BP 08/01/20: Monitor leg weakness Pain control Monitor BM regimen 08/02/20: Monitor pain BM regimen to maintain 08/03/20: Monitor pain Increase activity 08/04/20: Monitor pain Increase activity 08/05/2020: Monitor closely Fall risk 08/06/20: Pain control Aggressive PT OT to prevent falls 08/07/20: Improved status Laxatives Labs due tomorrow 08/08/20: Pain is controlled Labs are stable 08/09/20: Fall risk Monitor closely 08/10/20: Monitor closely for falls Wheelchair mobility may be required 08/11/20: Monitor closely NSG appt Declines wheelchair mobility skills 08/12/20: Monitor closely Fall risk (1) Lumbar radiculopathy (2) MICHAELA treated with BiPAP (3) Nocturnal hypoxemia (4) Diabetes (5) Hypertension (6) Hyperlipemia (7) Obesity, morbid, BMI 40.0-49.9 KAMERON RAMOS DO August 12, 2020 10:38
--- NOTE | 2020-08-12 12:26 | Occupational Ther Daily Note ---
OT Current Status-Daily Note Subjective Pt alert, lying in bed. Pt agrees to therapy. is here for family training, co-treat with PT ([id number]) for family training, and due to poor patient mobility and strength, safety and reduce risk of falls, coordinate UE and LE during activity. Mental Status/Objective Patient Orientation: Person, Place, Time, Situation ADL-Treatment Educated on safety with dressing, bathing and toileting. Discussed using tub transfer bench to transfer in/out of tub. Pt completed with FWW and also with sliding board. SPT with min to mod A to stabilize L knee. SBA for slide board transfer. Pt did complete shower in tub sitting on tub transfer bench independently. Pt dons/doffs shirt and back brace by self after set up. Pt able to lean side to side on tub bench to doff pants. If manipulating clothing in standing, assist x2 for safety. Pt requested to use bathroom. SPT with mod A using grabbars and w/c, stabilizing L knee with all sit <--> stand. Pt then requested to shave and brush teeth sitting at sink. Nrsg was made aware of pt's position and need for assistance after completing task. Call light placed within reach. All needs met in room. Therapy Code Descriptions/Definitions Functional [place] Measure: 0=Not Assessed/NA 4=Minimal Assistance 1=Total Assistance 5=Supervision or Setup 2=Maximal Assistance 6=Modified [place] 3=Moderate Assistance 7=Complete IndependenceSCALE: Activities may be completed with or without assistive devices. 4-Pazacwaalr-gfwxvni completes the activity by him/herself with no assistance from a helper. 5-Set-up or Clean-up Assistance-helper sets up or cleans up; patient completes activity. [place] assists only prior to or following the activity. 4-Supervision or Touching Assistance-helper provides verbal cues and/or touching/steadying and/or contact guard assistance as patient completes activity. Assistance may be provided throughout the activity or intermittently. 3-Partial/Moderate Assistance-helper does LESS THAN HALF the effort. [place] lifts, holds or supports trunk or limbs, but provides less than half the effort. 2-Substantial/Maximal Assistance-helper does MORE THAN HALF the effort. [place] lifts or holds trunk or limbs and provides more than half the effort. 8-Ulxcimram-njgjll does ALL the effort. Patient does none of the effort to complete the activity. Or, the assistance of 2 or more helpers is required for the patient to complete the activity. If activity was not attempted, code reason: 7-Patient Refused. 9-Not Applicable-not attempted and the patient did not perform the activity before the current illness, exacerbation or injury. 10-Not Attempted due to Environmental Limitations-(lack of equipment, weather restraints, etc.). 88-Not Attempted due to Medical Conditions or Safety Concerns. Oral Hygiene (QC): 6 Shower/Bathe Self (QC): 6 Upper Body Dressing (QC): 5 Toileting Hygiene (QC): 3 Toilet Transfer (QC): 2 Other Treatment Pt's completed some sit to stand with pt under direct supervision of OT/PT for safety. Pt's verbalized understanding of pt's needs and stated she felt comfortable with technique. OT Short Term Goals Short Term Goals Time Frame: August 10, 2020 Eatin Oral hygiene: 6 Toileting hygiene: 3 Shower/bathe self: 3 Upper body dressin Lower body dressin Putting on/taking off footwear: 3 OT Radiagraph Operator Goals Detention Goals Time Frame: August 24, 2020 Eating (QC): 6 Oral Hygiene (QC): 6 Toileting Hygiene (QC): 6 Shower/Bathe Self (QC): 4 Upper Body Dressing (QC): 6 Lower Body Dressing (QC): 6 On/Off Footwear (QC): 6 Additional Goals: 1-Demonstrate ADL Tasks, 2-Verbalize Understanding, 3- ImproveStrength/Jai 1=Demonstrate adherence to instructed precautions during ADL tasks. 2=Patient will verbalize/demonstrate understanding of assistive devices/modifications for ADL. 3=Patient will improve strength/tolerance for activity to enable patient to perform ADL's. OT Education/Plan Problem List/Assessment Assessment: Dependent Transfers, Impaired Self-Care Skills Discharge Recommendations Plan/Recommendations: Continue POC Treatment Plan/Plan of Care Patient would benefit from OT for education, treatment and training to promote independence in ADL's, mobility, safety and/or upper extremity function for ADL's. Plan of Care: ADL Retraining, Functional Mobility, Group Exercise/Act as Ind, UE Funct Exercise/Act Treatment Duration: August 24, 2020 Frequency: At least 5 of 7 days/Wk (IRF) Estimated Hrs Per Day: 1.5 hours per day Agreement: Yes Rehab Potential: Fair Time/GCodes Start Time: 09:00 Stop Time: 10:30 Total Time Billed (hr/min): 90 Billed Treatment Time 1 visit-ADL 3 (45 min) FA 3 (45 min) co-treat with PT [id number], individual [id number] RYAN FERRARA August 12, 2020 12:26
--- NOTE | 2020-08-12 14:20 | Physical Therapy Daily Note ---
PT Daily Note-Current Subjective Patient supine pre tx, consents to therapy, does not c/o pain. Appearance Patient supine in bed post tx, with call button and tray table nearby, all needs met. Mental Status Patient Orientation: Person, Place, Time, Normal For Age TLSO Transfers SCALE: Activities may be completed with or without assistive devices. 8-Ubhedwycvw-mrafteu completes the activity by him/herself with no assistance from a helper. 5-Set-up or Clean-up Assistance-helper sets up or cleans up; patient completes activity. [place] assists only prior to or following the activity. 4-Supervision or Touching Assistance-helper provides verbal cues and/or touching/steadying and/or contact guard assistance as patient completes activity. Assistance may be provided throughout the activity or intermittently. 3-Partial/Moderate Assistance-helper does LESS THAN HALF the effort. [place] l ifts, holds or supports trunk or limbs, but provides less than half the effort. 2-Substantial/Maximal Assistance-helper does MORE THAN HALF the effort. [place] lifts or holds trunk or limbs and provides more than half the effort. 5-Sdzyqjrss-ogrthl does ALL the effort. Patient does none of the effort to complete the activity. Or, the assistance of 2 or more helpers is required for t he patient to complete the activity. If activity was not attempted, code reason: 7-Patient Refused. 9-Not Applicable-not attempted and the patient did not perform the activity before the current illness, exacerbation or injury. 10-Not Attempted due to Environmental Limitations-(lack of equipment, weather restraints, etc.). 88-Not Attempted due to Medical Conditions or Safety Concerns. Sit to Stand (QC): 3 Chair/Lau-bz-Tbyrg Xfer(QC): 3 Patient uses Min A with sit <-> stand, with less cues required for hand positioning and required less knee blocking on L LE with sitting and standing Weight Bearing Weight Bearing/Tolerated Full Weight Bearing Gait Training Does the Patient Walk?: Yes Distance: 80' x2 Walk 10 feet (QC): 3 Walk 50 ft with 2 Turns(QC): 3 Gait Assistive Device: FWW Min to CGA required with gait, patient is more confident with movement Exercises NuStep Minutes: 15 NuStep Workload: 4 Treatments LE strengthening, gait, endurance Assessment Current Status: Fair Progress Patient showed improvement in sit to stand transfer, with less L knee buckling observed PT Short Term Goals Short Term Goals Time Frame: August 03, 2020 Roll Left & Right: 6 Sit to lyin (CGA) Lying to sitting on side of be: 4 (CGA) Chair/wry-vz-qmhrb transfer: 4 (CGA) Walk 10 feet: 3 (mod) PT Jail Goals Jail Goals PT Jail Goals Time Frame: August 17, 2020 Roll Left & Right (QC): 6 Sit to Lying (QC): 4 (SBA) Lying-Sitting on Side/Bed(QC): 4 (SBA) Sit to Stand (QC): 3 (min) Chair/Jix-zy-Fkxyr Xfer(QC): 3 (min) Toilet Transfer (QC): 3 (min) Car Transfer (QC): 3 (min) Does the Patient Walk: No and Walking Goal IS indicated Walk 10 feet (QC): 3 (min) Walk 50ft with 2 Turns (QC): 3 (min) Walk 150 ft (QC): 88 Walking 10ft on Uneven Surface: 3 (min) 1 Step (curb) (QC): 3 (min) 4 Steps (QC): 88 12 Steps (QC): 9 Picking up an Object (QC): 9 Does the Pt use WC or Scooter?: Yes Wheel 50 feet with 2 turns (QC: 6 Type: Manual Wheel 150 feet: 6 Type: Manual PT Plan Problem List Problem List: Activity Tolerance, Functional Strength, Safety, Balance, Gait, Transfer, Bed Mobility, ROM Treatment/Plan Treatment Plan: Continue Plan of Care Treatment Plan: Bed Mobility, Education, Functional Activity Jai, Functional Strength, Gait, Safety, Therapeutic Exercise, Transfers Treatment Duration: August 17, 2020 Frequency: At least 5 of 7 days/Wk (IRF) Estimated Hrs Per Day: 1.5 hours per day Patient and/or Family Agrees t: Yes Safety Risks/Education Patient Education: Gait Training, Transfer Techniques, Correct Positioning, Safety Issues Teaching Recipient: Patient Teaching Methods: Demonstration, Discussion Response to Teaching: Verbalize Understanding, Return Demonstration Time/GCodes Time In: 1345 Time Out: 1415 Total Billed Treatment Time: 30 Total Billed Treatment 1 visit: EX: 15' FA: 15' FABIAN BOBBY PT August 12, 2020 14:20
[2020-08-12] MEDS: DIAZEPAM 5 MG (VALIUM) TABLET PO SCH (19:41)
[2020-08-12 20:07] VITALS: BP 129/59
[2020-08-13 07:09] VITALS: BP 136/77
[2020-08-13] MEDS: ASPIRIN E.C. 81 MG (ECOTRIN) TAB PO SCH (08:16)
[2020-08-13] MEDS: metFORMIN 500 MG (GLUCOPHAGE) TAB PO SCH ×2 (08:16→20:07)
[2020-08-13] MEDS: amLODIPine 5 MG (NORVASC) TAB PO SCH (08:16)
[2020-08-13] MEDS: LOSARTAN 100 MG (COZAAR) TABLET PO SCH (08:16)
[2020-08-13] MEDS: GABAPENTIN 600 MG (NEURONTIN) TAB PO SCH ×3 (08:16→20:07)
[2020-08-13] MEDS: VENELEX OINTMENT TOP SCH ×2 (08:18→20:09)
[2020-08-13] MEDS: polyethylene glycoL POWDER 17 GM (MIRALAX) PACK PO SCH ×2 (08:18→20:09)
[2020-08-13] MEDS: DOCUSATE SODIUM 100 MG (COLACE) CAP PO SCH ×2 (08:22→20:07)
[2020-08-13] MEDS: SENNA W/DOCUSATE (SENOKOT S) TABLET PO SCH ×2 (08:22→20:08)
[2020-08-13] MEDS: oxyCODONE/APAP 5/325MG (PERCOCET 5) TABLET PO PRN ×2 (08:23→20:08)
[2020-08-13] MEDS: MICONAZOLE 2% POWDER (DESENEX AF) 90 GM TOP SCH ×2 (08:24→20:09)
--- NOTE | 2020-08-13 11:49 | Physical Therapy Daily Note ---
PT Daily Note-Current Subjective Pt says "I am having some pain in this L hip which is new. I have not had any feeling in this leg for some time." Pt rates (L) hip pain 5-09/08. Pt ready for PT. Mental Status Patient Orientation: Person, Place, Situation Transfers SCALE: Activities may be completed with or without assistive devices. 4-Nrjuquurrn-mmucqei completes the activity by him/herself with no assistance from a helper. 5-Set-up or Clean-up Assistance-helper sets up or cleans up; patient completes activity. [place] assists only prior to or following the activity. 4-Supervision or Touching Assistance-helper provides verbal cues and/or touching/steadying and/or contact guard assistance as patient completes activity. Assistance may be provided throughout the activity or intermittently. 3-Partial/Moderate Assistance-helper does LESS THAN HALF the effort. [place] lifts, holds or supports trunk or limbs, but provides less than half the effort. 2-Substantial/Maximal Assistance-helper does MORE THAN HALF the effort. [place] lifts or holds trunk or limbs and provides more than half the effort. 2-Pbvmmmwly-mmkrdi does ALL the effort. Patient does none of the effort to complete the activity. Or, the assistance of 2 or more helpers is required for the patient to complete the activity. If activity was not attempted, code reason: 7-Patient Refused. 9-Not Applicable-not attempted and the patient did not perform the activity before the current illness, exacerbation or injury. 10-Not Attempted due to Environmental Limitations-(lack of equipment, weather restraints, etc.). 88-Not Attempted due to Medical Conditions or Safety Concerns. Mod (I) sit to stand with manual blocking (L) knee as precaution Weight Bearing Weight Bearing/Tolerated Full Weight Bearing Gait Training Gait Assistive Device: FWW Pt amb with FWW and CGA, manual blocking (L) knee as precaution x 120' at good, steady speed Exercises NuStep Minutes: 20 NuStep Workload: 4 Treatments (L) LE 3 way nerve glide x 20 each. Pt performed LAQ x 20 (L) LE. Pt donned TLSO (I) and stood from elevated bed x 4 trials with (L) knee manaully blocked. Practiced weight shift R-L x 5 each bout. SPT to w/c to go to gym for NU-step. Assessment Current Status: Good Progress Pt rosalba very well. Pt seated in recliner for lunch post therapy session. Pt with call light and all needs met. Pt did not have any episodes of (L) knee buckling. PT Short Term Goals Short Term Goals Time Frame: August 03, 2020 Roll Left & Right: 6 Sit to lyin (CGA) Lying to sitting on side of be: 4 (CGA) Chair/igw-ka-tusnp transfer: 4 (CGA) Walk 10 feet: 3 (mod) PT Milking Machine Operator Goals Milking Machine Operator Goals PT Intermediate Goals Time Frame: August 17, 2020 Roll Left & Right (QC): 6 Sit to Lying (QC): 4 (SBA) Lying-Sitting on Side/Bed(QC): 4 (SBA) Sit to Stand (QC): 3 (min) Chair/Rkg-gk-Psvlr Xfer(QC): 3 (min) Toilet Transfer (QC): 3 (min) Car Transfer (QC): 3 (min) Does the Patient Walk: No and Walking Goal IS indicated Walk 10 feet (QC): 3 (min) Walk 50ft with 2 Turns (QC): 3 (min) Walk 150 ft (QC): 88 Walking 10ft on Uneven Surface: 3 (min) 1 Step (curb) (QC): 3 (min) 4 Steps (QC): 88 12 Steps (QC): 9 Picking up an Object (QC): 9 Does the Pt use WC or Scooter?: Yes Wheel 50 feet with 2 turns (QC: 6 Type: Manual Wheel 150 feet: 6 Type: Manual PT Plan Treatment/Plan Treatment Plan: Continue Plan of Care Treatment Plan: Bed Mobility, Education, Functional Activity Jai, Functional Strength, Gait, Safety, Therapeutic Exercise, Transfers Treatment Duration: August 17, 2020 Frequency: At least 5 of 7 days/Wk (IRF) Estimated Hrs Per Day: 1.5 hours per day Patient and/or Family Agrees t: Yes Time/GCodes Time In: 1120 Time Out: 1210 Total Billed Treatment Time: 50 Total Billed Treatment 1, gait x 20', Ther ex x 30' JEREMI CAMPBELL CPTA August 13, 2020 11:49
--- NOTE | 2020-08-13 12:37 | PM&R Progress Note ---
Subjective HPI/CC On Admission Date Seen by Provider: August 13, 2020 Time Seen by Provider: 12:45 Subjective/Events-last exam 08/13/20: Patient doing well Family education yesterday went well Right hip pain at times Percocet used sparingly 08/12/20: No major issues Pain controlled Moving around well Meds reviewed 08/11/20: Patient doing well Incision good Chose not to use wheelchair at home Son works nights and will be sleeping during the day in case he needs something Sooner NSG appt BM 08/1008/10/20: Had the fall yesterday 4 people were required to get him off the floor Spills urinal when he fills it up completely Pain meds working well May need wheelchair use at DC until evaluated by NSG regarding suspicion of spinal cord dysfunction suspected by therapy Needs NSG appt sooner than scheduled to discuss this 08/09/20: Pt doing a lot better Has no concerns right now Incision looks good Pain is well controlled Eating and drinking well Had a fall this afternoon when his left knee "gave out" and took 4 people to help him up Disposition to home could be at risk now with that fall 08/08/20: Patient having a good day Hemoglobin is 10 Bowels moved with laxatives Took a shower this morning Incision looks good No major issues 08/07/20: Patient doing well No issues BM 08/04 and laxatives given Refused suppository 08/06/20: Patient doing well Incision is open to air now No increased pain Slow moving at baseline 08/05/2020: Patient doing pretty well No bowel movement for 2 days we will give laxatives Televisit with neurosurgery service recommended to remove the ziggy and have a 4-week follow-up for x-rays and follow-up visit Denies any new issues 08/04/20: Pt doing much better Had a BM yesterday Televisit with neurosurgeon and likely ziggy will be removed at some point after that televisit Doing much better overall 08/03/20: Pt doing pretty well Bowels moved 08/01 No major issues Not really motivated too much so will try to give him more activity as he requested from 3-5 PM 08/02/20: Pt really not too motivated but hes doing well Spills his urinal quite a bit Incision looks a bit red but not infected Bowels moved yesterday 08/01/20: Hgb is 9.6 Last BM was yesterday No major issues Feels like he is doing a lot better 07/31/20: No major issues No pain reported at this current time No falls Seems to be in good spirits 07/30/20: Patient doing well Has no concerns Pain is controlled BiPAP last night with 3L/min O2 Dressing changes QOD Slight redness around sutures 07/29/20: Patient settling in well Loose BM yesterday Dressing changes on spine every other day No questions from patient Feels like he is using muscles in therapy 07/28/20: Patient doing well Settling in well Incontinent last night but patient reports he spilled urinal Metformin noted and is maintained BM+ Sugar is ok Hgb 9.4 SLUMS Review of Systems General: Fatigue, Malaise Musculoskeletal: back pain, leg pain Neurological: Weakness Objective Exam Vital Signs Vital Signs Date Time Temp Pulse Resp B/P (MAP) Pulse Ox O2 Delivery O2 Flow Rate FiO2 08/13/20 09:00 Room Air 08/13/20 07:09 36.4 78 18 136/77 (96) 96 Capillary Refill : General Appearance: No Apparent Distress, WD/WN, Chronically ill, Obese HEENT: PERRL/EOMI, Normal ENT Inspection, Pharynx Normal Neck: Full Range of Motion, Normal Inspection, Non Tender, Supple, Carotid Bruit Respiratory: Chest Non Tender, Lungs Clear, Normal Breath Sounds, No Accessory Muscle Use, No Respiratory Distress Cardiovascular: Regular Rate, Rhythm, No Edema, No Gallop, No JVD, No Murmur, Normal Peripheral Pulses Gastrointestinal: Normal Bowel Sounds, No Organomegaly, No Pulsatile Mass, Non Tender, Soft Back: Decreased Range of Motion, Muscle Spasm, Vertebral Tenderness Extremity: Normal Capillary Refill, Normal Inspection, Normal Range of Motion, Non Tender, No Calf Tenderness, No Pedal Edema Neurologic/Psychiatric: Alert, Oriented x3, No Motor/Sensory Deficits, cna caregiver II- XII Norm as Tested, Abnormal Gait, Depressed Affect, Motor Weakness Skin: Normal Color, Warm/Dry Lymphatic: No Adenopathy Results/Procedures Lab Patient resulted labs reviewed. FIM Transfers Therapy Code Descriptions/Definitions Functional [place] Measure: 0=Not Assessed/NA 4=Minimal Assistance 1=Total Assistance 5=Supervision or Setup 2=Maximal Assistance 6=Modified [place] 3=Moderate Assistance 7=Complete IndependenceSCALE: Activities may be completed with or without assistive devices. 4-Dychlvhdwj-hpvrzdc completes the activity by him/herself with no assistance from a helper. 5-Set-up or Clean-up Assistance-helper sets up or cleans up; patient completes activity. [place] assists only prior to or following the activity. 4-Supervision or Touching Assistance-helper provides verbal cues and/or touching/steadying and/or contact guard assistance as patient completes activity. Assistance may be provided throughout the activity or intermittently. 3-Partial/Moderate Assistance-helper does LESS THAN HALF the effort. [place] lifts, holds or supports trunk or limbs, but provides less than half the effort. 2-Substantial/Maximal Assistance-helper does MORE THAN HALF the effort. [place] lifts or holds trunk or limbs and provides more than half the effort. 1-Gewvayzzm-dvnlvf does ALL the effort. Patient does none of the effort to complete the activity. Or, the assistance of 2 or more helpers is required for the patient to complete the activity. If activity was not attempted, code reason: 7-Patient Refused. 9-Not Applicable-not attempted and the patient did not perform the activity before the current illness, exacerbation or injury. 10-Not Attempted due to Environmental Limitations-(lack of equipment, weather restraints, etc.). 88-Not Attempted due to Medical Conditions or Safety Concerns. Roll Left to Right (QC): 6 Sit to Lying (QC): 6 Sit to Stand (QC): 3 Chair/Nli-sd-Zllva Xfer(QC): 3 Car Transfer (QC): 88 Gait Training Does the Patient Walk?: Yes Distance: 80' x2 Walk 10 feet (QC): 3 Walk 50 ft with 2 Turns(QC): 3 Walk 150 ft (QC): 3 Walking 10ft/uneven surface-QC: 88 Gait Persons Needed: 1 Gait Assistive Device: FWW Wheelchair Training Does the Pt Use a Wheelchair?: Yes Wheel 50 ft with 2 turns (QC): 6 Wheel 150 ft (QC): 4 Type of Wheelchair: Manual Stair Training Stair Training: Handrails/: uses walker #of Steps: 1 1 Step (curb) (QC): 3 4 Steps (QC): 88 12 Steps (QC): 88 Stairs: Pattern: Step to Balance Picking up an Object (QC): 88 ADL-Treatment Eating (QC): 6 Oral Hygiene (QC): 6 Bathing Location: L Arm, R Arm, L Upper Leg, R Upper Leg, L Lower Leg (including foot), R Lower Leg (including foot), Chest, Abdomen, Perineal Area Shower/Bathe Self (QC): 6 Upper Body Dressing (QC): 5 Lower Body Dressing (QC): 5 On/Off Footwear (QC): 4 Toileting Hygiene (QC): 3 Toilet Transfer (QC): 2 Assessment/Plan Assessment and Plan Assess & Plan/Chief Complaint Assessment: s/p Lumbar laminectomy L2-L3 and TLIF w/ extension of previous L3-L5 hardware LLE weakness Spondylosis Performed due to Spinal stenosis with neurogenic claudication. Source of pts debidity. PT/OT IS Speech therapy Consult SS. GOAL: Return to baseline function before sx. Discharge home with Home Health. Normocytic anemia Hx of hypokalemia during [facility] post-op stay. Per pt: known chronic hx of anemia. 07/26 labs from [place]: H&H is 8.7/.6 Likely multifactorial: to surgical blood loss and anemia of chronic disease. Iron studies ordered during pts post-op [facility] stay (results?) CBC and CMP NIDDM HTN HLP Obesity Sleep apnea Neuropathy SSI Home Cpap. Home Meds s/p COVID-19 PNA Hospitalized . Received convalescent plasma and inpt stay for several days. Pt reports no residual sxs. Hx of lumbar radiculopathy Polyp on vocal cord Hx of cervical spine sx DVT prophylaxis SCD and ambulation. Plan: IRF protocol Pain control BM regimen PT OT 07/28/20: Pain control Monitor hgb Monitor BP 07/29/20: Monitor pain Monitor BM regimen 07/30/20: Monitor closely Pain management BM regimen 07/31/20: Monitor pain Monitor BP 08/01/20: Monitor leg weakness Pain control Monitor BM regimen 08/02/20: Monitor pain BM regimen to maintain 08/03/20: Monitor pain Increase activity 08/04/20: Monitor pain Increase activity 08/05/2020: Monitor closely Fall risk 08/06/20: Pain control Aggressive PT OT to prevent falls 08/07/20: Improved status Laxatives Labs due tomorrow 08/08/20: Pain is controlled Labs are stable 08/09/20: Fall risk Monitor closely 08/10/20: Monitor closely for falls Wheelchair mobility may be required 08/11/20: Monitor closely NSG appt Declines wheelchair mobility skills 08/12/20: Monitor closely Fall risk 08/13/20: Patient against wheelchair use Monitored closely (1) Lumbar radiculopathy (2) MICHAELA treated with BiPAP (3) Nocturnal hypoxemia (4) Diabetes (5) Hypertension (6) Hyperlipemia (7) Obesity, morbid, BMI 40.0-49.9 KAMERON RAMOS DO August 13, 2020 12:37
[2020-08-13 19:00] VITALS: BP 124/60
[2020-08-13] MEDS: DIAZEPAM 5 MG (VALIUM) TABLET PO SCH (20:07)
[2020-08-14 07:09] VITALS: BP 146/69
[2020-08-14] MEDS: metFORMIN 500 MG (GLUCOPHAGE) TAB PO SCH ×2 (08:22→20:53)
[2020-08-14] MEDS: ASPIRIN E.C. 81 MG (ECOTRIN) TAB PO SCH (08:23)
[2020-08-14] MEDS: SENNA W/DOCUSATE (SENOKOT S) TABLET PO SCH ×2 (08:23→20:53)
[2020-08-14] MEDS: oxyCODONE/APAP 5/325MG (PERCOCET 5) TABLET PO PRN ×2 (08:23→14:25)
[2020-08-14] MEDS: GABAPENTIN 600 MG (NEURONTIN) TAB PO SCH ×3 (08:23→20:54)
[2020-08-14] MEDS: DOCUSATE SODIUM 100 MG (COLACE) CAP PO SCH ×2 (08:23→20:54)
[2020-08-14] MEDS: LOSARTAN 100 MG (COZAAR) TABLET PO SCH (08:24)
[2020-08-14] MEDS: polyethylene glycoL POWDER 17 GM (MIRALAX) PACK PO SCH ×2 (08:25→20:39)
[2020-08-14] MEDS: amLODIPine 5 MG (NORVASC) TAB PO SCH (08:25)
[2020-08-14] MEDS: VENELEX OINTMENT TOP SCH ×2 (08:25→20:39)
[2020-08-14] MEDS: MICONAZOLE 2% POWDER (DESENEX AF) 90 GM TOP SCH ×2 (08:26→20:54)
--- NOTE | 2020-08-14 12:04 | PM&R Progress Note ---
Subjective HPI/CC On Admission Date Seen by Provider: August 14, 2020 Time Seen by Provider: 12:15 Subjective/Events-last exam 08/14/20: Walking well and Dr Cavanaugh thinks he should stay another weekk and I told them all of this is based on Medicare LOS guidelines so we will d/w team tomorrow Left knee does still buckle at times Labs tomorrow BM+ 08/13/20: Patient doing well Family education yesterday went well Right hip pain at times Percocet used sparingly 08/12/20: No major issues Pain controlled Moving around well Meds reviewed 08/11/20: Patient doing well Incision good Chose not to use wheelchair at home Son works nights and will be sleeping during the day in case he needs something Sooner NSG appt BM 08/1008/10/20: Had the fall yesterday 4 people were required to get him off the floor Spills urinal when he fills it up completely Pain meds working well May need wheelchair use at DC until evaluated by NSG regarding suspicion of spinal cord dysfunction suspected by therapy Needs NSG appt sooner than scheduled to discuss this 08/09/20: Pt doing a lot better Has no concerns right now Incision looks good Pain is well controlled Eating and drinking well Had a fall this afternoon when his left knee "gave out" and took 4 people to help him up Disposition to home could be at risk now with that fall 08/08/20: Patient having a good day Hemoglobin is 10 Bowels moved with laxatives Took a shower this morning Incision looks good No major issues 08/07/20: Patient doing well No issues BM 08/04 and laxatives given Refused suppository 08/06/20: Patient doing well Incision is open to air now No increased pain Slow moving at baseline 08/05/2020: Patient doing pretty well No bowel movement for 2 days we will give laxatives Televisit with neurosurgery service recommended to remove the ziggy and have a 4-week follow-up for x-rays and follow-up visit Denies any new issues 08/04/20: Pt doing much better Had a BM yesterday Televisit with neurosurgeon and likely ziggy will be removed at some point after that televisit Doing much better overall 08/03/20: Pt doing pretty well Bowels moved 5/3 No major issues Not really motivated too much so will try to give him more activity as he reques giuseppe from 3-5 PM 08/02/20: Pt really not too motivated but hes doing well Spills his urinal quite a bit Incision looks a bit red but not infected Bowels moved yesterday 08/01/20: Hgb is 9.6 Last BM was yesterday No major issues Feels like he is doing a lot better 07/31/20: No major issues No pain reported at this current time No falls Seems to be in good spirits 07/30/20: Patient doing well Has no concerns Pain is controlled BiPAP last night with 3L/min O2 Dressing changes QOD Slight redness around sutures 07/29/20: Patient settling in well Loose BM yesterday Dressing changes on spine every other day No questions from patient Feels like he is using muscles in therapy 07/28/20: Patient doing well Settling in well Incontinent last night but patient reports he spilled urinal Metformin noted and is maintained BM+ Sugar is ok Hgb 9.4 SLUMS Review of Systems Musculoskeletal: back pain Objective Exam Vital Signs Vital Signs Date Time Temp Pulse Resp B/P (MAP) Pulse Ox O2 Delivery O2 Flow Rate FiO2 08/14/20 19:10 36.5 76 18 141/63 (89) 94 Room Air Capillary Refill : General Appearance: No Apparent Distress, WD/WN, Chronically ill, Obese HEENT: PERRL/EOMI, Normal ENT Inspection, Pharynx Normal Neck: Full Range of Motion, Normal Inspection, Non Tender, Supple, Carotid Bruit Respiratory: Chest Non Tender, Lungs Clear, Normal Breath Sounds, No Accessory Muscle Use, No Respiratory Distress Cardiovascular: Regular Rate, Rhythm, No Edema, No Gallop, No JVD, No Murmur, Normal Peripheral Pulses Gastrointestinal: Normal Bowel Sounds, No Organomegaly, No Pulsatile Mass, Non Tender, Soft Back: Decreased Range of Motion, Muscle Spasm, Vertebral Tenderness Extremity: Normal Capillary Refill, Normal Inspection, Normal Range of Motion, Non Tender, No Calf Tenderness, No Pedal Edema Neurologic/Psychiatric: Alert, Oriented x3, No Motor/Sensory Deficits, softball winder II-XII Norm as Tested, Abnormal Gait, Depressed Affect, Motor Weakness Skin: Normal Color, Warm/Dry Lymphatic: No Adenopathy Results/Procedures Lab Patient resulted labs reviewed. FIM Transfers Therapy Code Descriptions/Definitions Functional [place] Measure: 0=Not Assessed/NA 4=Minimal Assistance 1=Total Assistance 5=Supervision or Setup 2=Maximal Assistance 6=Modified [place] 3=Moderate Assistance 7=Complete IndependenceSCALE: Activities may be completed with or without assistive devices. 5-Amlsilkssj-xxnybhw completes the activity by him/herself with no assistance from a helper. 5-Set-up or Clean-up Assistance-helper sets up or cleans up; patient completes activity. [place] assists only prior to or following the activity. 4-Supervision or Touching Assistance-helper provides verbal cues and/or touc nitin/steadying and/or contact guard assistance as patient completes activity. Assistance may be provided throughout the activity or intermittently. 3-Partial/Moderate Assistance-helper does LESS THAN HALF the effort. [place] lifts, holds or supports trunk or limbs, but provides less than half the effort. 2-Substantial/Maximal Assistance-helper does MORE THAN HALF the effort. [place] lifts or holds trunk or limbs and provides more than half the effort. 0-Gcstyclng-tbmosl does ALL the effort. Patient does none of the effort to complete the activity. Or, the assistance of 2 or more helpers is required for the patient to complete the activity. If activity was not attempted, code reason: 7-Patient Refused. 9-Not Applicable-not attempted and the patient did not perform the activity before the current illness, exacerbation or injury. 10-Not Attempted due to Environmental Limitations-(lack of equipment, weather restraints, etc.). 88-Not Attempted due to Medical Conditions or Safety Concerns. Roll Left to Right (QC): 6 Sit to Lying (QC): 6 Sit to Stand (QC): 3 Chair/Qer-tl-Aaypu Xfer(QC): 3 Car Transfer (QC): 88 Gait Training Does the Patient Walk?: Yes Distance: 80' x2 Walk 10 feet (QC): 3 Walk 50 ft with 2 Turns(QC): 3 Walk 150 ft (QC): 3 Walking 10ft/uneven surface-QC: 88 Gait Persons Needed: 1 Gait Assistive Device: FWW Wheelchair Training Does the Pt Use a Wheelchair?: Yes Wheel 50 ft with 2 turns (QC): 6 Wheel 150 ft (QC): 4 Type of Wheelchair: Manual Stair Training Stair Training: Handrails/: uses walker #of Steps: 1 1 Step (curb) (QC): 3 4 Steps (QC): 88 12 Steps (QC): 88 Stairs: Pattern: Step to Balance Picking up an Object (QC): 88 ADL-Treatment Eating (QC): 6 Oral Hygiene (QC): 6 Bathing Location: L Arm, R Arm, L Upper Leg, R Upper Leg, L Lower Leg (including foot), R Lower Leg (including foot), Chest, Abdomen, Perineal Area Shower/Bathe Self (QC): 6 Upper Body Dressing (QC): 5 Lower Body Dressing (QC): 5 On/Off Footwear (QC): 4 Toileting Hygiene (QC): 3 Toilet Transfer (QC): 2 Assessment/Plan Assessment and Plan Assess & Plan/Chief Complaint Assessment: s/p Lumbar laminectomy L2-L3 and TLIF w/ extension of previous L3-L5 hardware LLE weakness Spondylosis Performed due to Spinal stenosis with neurogenic claudication. Source of pts debidity. PT/OT IS Speech therapy Consult SS. GOAL: Return to baseline function before sx. Discharge home with Home Health. Normocytic anemia Hx of hypokalemia during [facility] post-op stay. Per pt: known chronic hx of anemia. 07/26 labs from [facility]: H&H is 8.7/.6 Likely multifactorial: to surgical blood loss and anemia of chronic disease. Iron studies ordered during pts post-op [facility] stay (results?) CBC and CMP NIDDM HTN HLP Obesity Sleep apnea Neuropathy SSI Home Cpap. Home Meds s/p COVID-19 PNA Hospitalized . Received convalescent plasma and inpt stay for several days. Pt reports no residual sxs. Hx of lumbar radiculopathy Polyp on vocal cord Hx of cervical spine sx DVT prophylaxis SCD and ambulation. Plan: IRF protocol Pain control BM regimen PT OT 07/28/20: Pain control Monitor hgb Monitor BP 07/29/20: Monitor pain Monitor BM regimen 07/30/20: Monitor closely Pain management BM regimen 07/31/20: Monitor pain Monitor BP 08/01/20: Monitor leg weakness Pain control Monitor BM regimen 08/02/20: Monitor pain BM regimen to maintain 08/03/20: Monitor pain Increase activity 08/04/20: Monitor pain Increase activity 08/05/2020: Monitor closely Fall risk 08/06/20: Pain control Aggressive PT OT to prevent falls 08/07/20: Improved status Laxatives Labs due tomorrow 08/08/20: Pain is controlled Labs are stable 08/09/20: Fall risk Monitor closely 08/10/20: Monitor closely for falls Wheelchair mobility may be required 08/11/20: Monitor closely NSG appt Declines wheelchair mobility skills 08/12/20: Monitor closely Fall risk 08/13/20: Patient against wheelchair use Monitored closely 08/14/20: Labs in am Monitor closely (1) Lumbar radiculopathy (2) MICHAELA treated with BiPAP (3) Nocturnal hypoxemia (4) Diabetes (5) Hypertension (6) Hyperlipemia (7) Obesity, morbid, BMI 40.0-49.9 KAMERON RAMOS DO August 14, 2020 12:04
[2020-08-14 19:10] VITALS: BP 141/63
[2020-08-14] MEDS: DIAZEPAM 5 MG (VALIUM) TABLET PO SCH (20:54)
[2020-08-15 06:08] LABS: BASOPHILS % (AUTO) 1 % (0-10); EOSINOPHILS # (AUTO) 0.3 10^3/uL (0.0-0.3); EOSINOPHILS % (AUTO) 5 % (0-10); HEMATOCRIT 30 % (40-54); HEMOGLOBIN 9.6 g/dL (13.3-17.7); LYMPHOCYTES # (AUTO) 1.3 10^3/uL (1.0-4.0); LYMPHOCYTES % (AUTO) 25 % (12-44); MEAN CORPUSCULAR HEMOGLOBIN 29 pg (25-34); MEAN CORPUSCULAR HGB CONC 32 g/dL (32-36); MEAN CORPUSCULAR VOLUME 92 fL (80-99); MONOCYTES # (AUTO) 0.5 10^3/uL (0.0-1.0); MONOCYTES % (AUTO) 10 % (0-12); NEUTROPHILS # (AUTO) 3.2 10^3/uL (1.8-7.8); NEUTROPHILS % (AUTO) 60 % (42-75); PLATELET COUNT 260 10^3/uL (130-400); WHITE BLOOD COUNT 5.4 10^3/uL (4.3-11.0)
[2020-08-15 06:23] LABS: ALBUMIN 3.5 GM/DL (3.2-4.5); CHLORIDE 103 MMOL/L (98-107); POTASSIUM 4.3 MMOL/L (3.6-5.0); SODIUM 139 MMOL/L (135-145)
[2020-08-15 06:24] LABS: CALCIUM 8.9 MG/DL (8.5-10.1)
[2020-08-15 06:26] LABS: GLUCOSE 128 MG/DL (70-105); TOTAL PROTEIN 6.4 GM/DL (6.4-8.2)
[2020-08-15 06:27] LABS: BILIRUBIN,TOTAL 0.3 MG/DL (0.1-1.0); CARBON DIOXIDE 27 MMOL/L (21-32)
[2020-08-15 06:29] LABS: ALKALINE PHOSPHATASE 90 U/L (40-136); CREATININE SERUM 0.93 MG/DL (0.60-1.30); GFR ESTIMATED > 60
[2020-08-15 06:30] LABS: BUN/CREATININE RATIO 25
[2020-08-15 06:32] LABS: ALANINE AMINOTRANSFERASE 18 U/L (0-55)
--- NOTE | 2020-08-15 07:18 | PM&R Progress Note ---
Subjective HPI/CC On Admission Date Seen by Provider: August 15, 2020 Time Seen by Provider: 08:30 Subjective/Events-last exam 08/15/20: Pt doing pretty well Dr. Castellanos recommended a few more days Discharge planned for Last BM was yesterday Hgb 9.6 08/14/20: Walking well and Dr Cavanaugh thinks he should stay another weekk and I told them all of this is based on Medicare LOS guidelines so we will d/w team tomorrow Left knee does still buckle at times Labs tomorrow BM+ 08/13/20: Patient doing well Family education yesterday went well Right hip pain at times Percocet used sparingly 08/12/20: No major issues Pain controlled Moving around well Meds reviewed 08/11/20: Patient doing well Incision good Chose not to use wheelchair at home Son works nights and will be sleeping during the day in case he needs something Sooner NSG appt BM 08/1008/10/20: Had the fall yesterday 4 people were required to get him off the floor Spills urinal when he fills it up completely Pain meds working well May need wheelchair use at DC until evaluated by NSG regarding suspicion of spinal cord dysfunction suspected by therapy Needs NSG appt sooner than scheduled to discuss this 08/09/20: Pt doing a lot better Has no concerns right now Incision looks good Pain is well controlled Eating and drinking well Had a fall this afternoon when his left knee "gave out" and took 4 people to help him up Disposition to home could be at risk now with that fall 08/08/20: Patient having a good day Hemoglobin is 10 Bowels moved with laxatives Took a shower this morning Incision looks good No major issues 08/07/20: Patient doing well No issues BM 08/04 and laxatives given Refused suppository 08/06/20: Patient doing well Incision is open to air now No increased pain Slow moving at baseline 08/05/2020: Patient doing pretty well No bowel movement for 2 days we will give laxatives Televisit with neurosurgery service recommended to remove the ziggy and have a 4-week follow-up for x-rays and follow-up visit Denies any new issues 08/04/20: Pt doing much better Had a BM yesterday Televisit with neurosurgeon and likely ziggy will be removed at some point after that televisit Doing much better overall 08/03/20: Pt doing pretty well Bowels moved 08/01 No major issues Not really motivated too much so will try to give him more activity as he requested from 3-5 PM 08/02/20: Pt really not too motivated but hes doing well Spills his urinal quite a bit Incision looks a bit red but not infected Bowels moved yesterday 08/01/20: Hgb is 9.6 Last BM was yesterday No major issues Feels like he is doing a lot better 07/31/20: No major issues No pain reported at this current time No falls Seems to be in good spirits 07/30/20: Patient doing well Has no concerns Pain is controlled BiPAP last night with 3L/min O2 Dressing changes QOD Slight redness around sutures 07/29/20: Patient settling in well Loose BM yesterday Dressing changes on spine every other day No questions from patient Feels like he is using muscles in therapy 07/28/20: Patient doing well Settling in well Incontinent last night but patient reports he spilled urinal Metformin noted and is maintained BM+ Sugar is ok Hgb 9.4 SLUMS Review of Systems General: Fatigue, Malaise Neurological: Weakness Objective Exam Vital Signs Vital Signs Date Time Temp Pulse Resp B/P (MAP) Pulse Ox O2 Delivery O2 Flow Rate FiO2 08/15/20 20:46 Room Air 08/15/20 20:00 36.8 75 16 133/63 (86) 93 Capillary Refill : General Appearance: No Apparent Distress, WD/WN, Chronically ill, Obese HEENT: PERRL/EOMI, Normal ENT Inspection, Pharynx Normal Neck: Full Range of Motion, Normal Inspection, Non Tender, Supple, Carotid Bruit Respiratory: Chest Non Tender, Lungs Clear, Normal Breath Sounds, No Accessory Muscle Use, No Respiratory Distress Cardiovascular: Regular Rate, Rhythm, No Edema, No Gallop, No JVD, No Murmur, Normal Peripheral Pulses Gastrointestinal: Normal Bowel Sounds, No Organomegaly, No Pulsatile Mass, Non Tender, Soft Back: Decreased Range of Motion, Muscle Spasm, Vertebral Tenderness Extremity: Normal Capillary Refill, Normal Inspection, Normal Range of Motion, Non Tender, No Calf Tenderness, No Pedal Edema Neurologic/Psychiatric: Alert, Oriented x3, No Motor/Sensory Deficits, machine brusher II- XII Norm as Tested, Abnormal Gait, Depressed Affect, Motor Weakness Skin: Normal Color, Warm/Dry Lymphatic: No Adenopathy Results/Procedures Lab Laboratory Tests 08/15/20 05:25 Patient resulted labs reviewed. FIM Transfers Therapy Code Descriptions/Definitions Functional [place] Measure: 0=Not Assessed/NA 4=Minimal Assistance 1=Total Assistance 5=Supervision or Setup 2=Maximal Assistance 6=Modified [place] 3=Moderate Assistance 7=Complete IndependenceSCALE: Activities may be completed with or without assistive devices. 7-Eoxflfmlew-wjsntdb completes the activity by him/herself with no assistance from a helper. 5-Set-up or Clean-up Assistance-helper sets up or cleans up; patient completes activity. [place] assists only prior to or following the activity. 4-Supervision or Touching Assistance-helper provides verbal cues and/or touching/steadying and/or contact guard assistance as patient completes activity. Assistance may be provided throughout the activity or intermittently. 3-Partial/Moderate Assistance-helper does LESS THAN HALF the effort. [place] lifts, holds or supports trunk or limbs, but provides less than half the effort. 2-Substantial/Maximal Assistance-helper does MORE THAN HALF the effort. [place] lifts or holds trunk or limbs and provides more than half the effort. 3-Lspsuzvcz-pfpmha does ALL the effort. Patient does none of the effort to complete the activity. Or, the assistance of 2 or more helpers is required for the patient to complete the activity. If activity was not attempted, code reason: 7-Patient Refused. 9-Not Applicable-not attempted and the patient did not perform the activity before the current illness, exacerbation or injury. 10-Not Attempted due to Environmental Limitations-(lack of equipment, weather restraints, etc.). 88-Not Attempted due to Medical Conditions or Safety Concerns. Roll Left to Right (QC): 6 Sit to Lying (QC): 6 Sit to Stand (QC): 3 Chair/Etl-ib-Srlwa Xfer(QC): 3 Car Transfer (QC): 88 Gait Training Does the Patient Walk?: Yes Distance: 80' x2 Walk 10 feet (QC): 3 Walk 50 ft with 2 Turns(QC): 3 Walk 150 ft (QC): 3 Walking 10ft/uneven surface-QC: 88 Gait Persons Needed: 1 Gait Assistive Device: FWW Wheelchair Training Does the Pt Use a Wheelchair?: Yes Wheel 50 ft with 2 turns (QC): 6 Wheel 150 ft (QC): 4 Type of Wheelchair: Manual Stair Training Stair Training: Handrails/: uses walker #of Steps: 1 1 Step (curb) (QC): 3 4 Steps (QC): 88 12 Steps (QC): 88 Stairs: Pattern: Step to Balance Picking up an Object (QC): 88 ADL-Treatment Eating (QC): 6 Oral Hygiene (QC): 6 Bathing Location: L Arm, R Arm, L Upper Leg, R Upper Leg, L Lower Leg (including foot), R Lower Leg (including foot), Chest, Abdomen, Perineal Area Shower/Bathe Self (QC): 6 Upper Body Dressing (QC): 5 Lower Body Dressing (QC): 5 On/Off Footwear (QC): 4 Toileting Hygiene (QC): 3 Toilet Transfer (QC): 2 Assessment/Plan Assessment and Plan Assess & Plan/Chief Complaint Assessment: s/p Lumbar laminectomy L2-L3 and TLIF w/ extension of previous L3-L5 hardware LLE weakness Spondylosis Performed due to Spinal stenosis with neurogenic claudication. Source of pts debidity. PT/OT IS Speech therapy Consult SS. GOAL: Return to baseline function before sx. Discharge home with Home Health. Normocytic anemia Hx of hypokalemia during [place] post-op stay. Per pt: known chronic hx of anemia. 07/26 labs from [place]: H&H is 8.7/27.6 Likely multifactorial: to surgical blood loss and anemia of chronic disease. Iron studies ordered during pts post-op [place] stay (results?) CBC and CMP NIDDM HTN HLP Obesity Sleep apnea Neuropathy SSI Home Cpap. Home Meds s/p COVID-19 PNA Hospitalized . Received convalescent plasma and inpt stay for several days. Pt reports no residual sxs. Hx of lumbar radiculopathy Polyp on vocal cord Hx of cervical spine sx DVT prophylaxis SCD and ambulation. Plan: IRF protocol Pain control BM regimen PT OT 07/28/20: Pain control Monitor hgb Monitor BP 07/29/20: Monitor pain Monitor BM regimen 07/30/20: Monitor closely Pain management BM regimen 07/31/20: Monitor pain Monitor BP 08/01/20: Monitor leg weakness Pain control Monitor BM regimen 08/02/20: Monitor pain BM regimen to maintain 08/03/20: Monitor pain Increase activity 08/04/20: Monitor pain Increase activity 08/05/2020: Monitor closely Fall risk 08/06/20: Pain control Aggressive PT OT to prevent falls 08/07/20: Improved status Laxatives Labs due tomorrow 08/08/20: Pain is controlled Labs are stable 08/09/20: Fall risk Monitor closely 08/10/20: Monitor closely for falls Wheelchair mobility may be required 08/11/20: Monitor closely NSG appt Declines wheelchair mobility skills 08/12/20: Monitor closely Fall risk 08/13/20: Patient against wheelchair use Monitored closely 08/14/20: Labs in am Monitor closely 08/15/20: DC soon Monitor closely (1) Lumbar radiculopathy (2) MICHAELA treated with BiPAP (3) Nocturnal hypoxemia (4) Diabetes (5) Hypertension (6) Hyperlipemia (7) Obesity, morbid, BMI 40.0-49.9 KAMERON RAMOS DO August 15, 2020 07:17
[2020-08-15] MEDS: SENNA W/DOCUSATE (SENOKOT S) TABLET PO SCH ×2 (07:23→20:36)
[2020-08-15] MEDS: DOCUSATE SODIUM 100 MG (COLACE) CAP PO SCH ×2 (07:23→20:36)
[2020-08-15] MEDS: metFORMIN 500 MG (GLUCOPHAGE) TAB PO SCH ×2 (07:23→20:37)
[2020-08-15] MEDS: oxyCODONE/APAP 5/325MG (PERCOCET 5) TABLET PO PRN ×2 (07:24→20:38)
[2020-08-15] MEDS: amLODIPine 5 MG (NORVASC) TAB PO SCH (07:24)
[2020-08-15] MEDS: ASPIRIN E.C. 81 MG (ECOTRIN) TAB PO SCH (07:24)
[2020-08-15] MEDS: LOSARTAN 100 MG (COZAAR) TABLET PO SCH (07:24)
[2020-08-15] MEDS: GABAPENTIN 600 MG (NEURONTIN) TAB PO SCH ×3 (07:24→20:46)
[2020-08-15] MEDS: VENELEX OINTMENT TOP SCH ×2 (07:25→20:39)
[2020-08-15] MEDS: MICONAZOLE 2% POWDER (DESENEX AF) 90 GM TOP SCH ×2 (07:26→20:39)
--- NOTE | 2020-08-15 07:47 | Occupational Ther Daily Note ---
OT Current Status-Daily Note Subjective Pt alert, lying in bed. Pt agrees to therapy. No c/o pain at this time. Nrsg in room to bring meds. Mental Status/Objective Patient Orientation: Person, Place, Time, Situation ADL-Treatment Pt agrees to shower. Set up for dressing. Mod I for bed mobility, HOB elevated for supine to sit EOB. From elevated surface pt complete sit to stand with CGA at L knee. Pt ambulated with CGA using FWW, no L knee buckle. Transferred to toilet with min A, support at L knee. Transferred onto shower chair with cutout. Pt completed shower using shower chair with cutout, hand held shower, LH sponge and grabbars independently. Due to time constraints, assist for lower body dressing. Set up for upper body dressing. Independent for oral care sitting at sink. Therapy Code Descriptions/Definitions Functional [place] Measure: 0=Not Assessed/NA 4=Minimal Assistance 1=Total Assistance 5=Supervision or Setup 2=Maximal Assistance 6=Modified [place] 3=Moderate Assistance 7=Complete IndependenceSCALE: Activities may be completed with or without assistive devices. 6-Gsdjzsmbhd-ahwzqxe completes the activity by him/herself with no assistance from a helper. 5-Set-up or Clean-up Assistance-helper sets up or cleans up; patient completes activity. [place] assists only prior to or following the activity. 4-Supervision or Touching Assistance-helper provides verbal cues and/or touching/steadying and/or contact guard assistance as patient completes activity. Assistance may be provided throughout the activity or intermittently. 3-Partial/Moderate Assistance-helper does LESS THAN HALF the effort. [place] lifts, holds or supports trunk or limbs, but provides less than half the effort. 2-Substantial/Maximal Assistance-helper does MORE THAN HALF the effort. [place] lifts or holds trunk or limbs and provides more than half the effort. 3-Tambystyd-iwpshl does ALL the effort. Patient does none of the effort to complete the activity. Or, the assistance of 2 or more helpers is required for the patient to complete the activity. If activity was not attempted, code reason: 7-Patient Refused. 9-Not Applicable-not attempted and the patient did not perform the activity before the current illness, exacerbation or injury. 10-Not Attempted due to Environmental Limitations-(lack of equipment, weather restraints, etc.). 88-Not Attempted due to Medical Conditions or Safety Concerns. Eating (QC): 6 (Opens containers/packages by self and uses regular utensils to eat.) Oral Hygiene (QC): 6 Shower/Bathe Self (QC): 5 Upper Body Dressing (QC): 5 Toileting Hygiene (QC): 3 Toilet Transfer (QC): 3 Other Treatment See PT notes for pt's ambulation and sit to stand. After therapy, pt sitting EOB with call light/phone in reach. All needs met in room. OT Short Term Goals Short Term Goals Time Frame: August 10, 2020 Eatin Oral hygiene: 6 Toileting hygiene: 3 Shower/bathe self: 3 Upper body dressin Lower body dressin Putting on/taking off footwear: 3 OT Nursing Home Goals Waterproofer Helper Goals Time Frame: August 24, 2020 Eating (QC): 6 Oral Hygiene (QC): 6 Toileting Hygiene (QC): 6 Shower/Bathe Self (QC): 4 Upper Body Dressing (QC): 6 Lower Body Dressing (QC): 6 On/Off Footwear (QC): 6 Additional Goals: 1-Demonstrate ADL Tasks, 2-Verbalize Understanding, 3-ImproveStrength/Jai 1=Demonstrate adherence to instructed precautions during ADL tasks. 2=Patient will verbalize/demonstrate understanding of assistive devices/modifications for ADL. 3=Patient will improve strength/tolerance for activity to enable patient to perform ADL's. OT Education/Plan Problem List/Assessment Assessment: Decreased Activ Tolerance, Impaired Funct Balance, Impaired Self- Care Skills Discharge Recommendations Plan/Recommendations: Continue POC Treatment Plan/Plan of Care Patient would benefit from OT for education, treatment and training to promote independence in ADL's, mobility, safety and/or upper extremity function for ADL's. Plan of Care: ADL Retraining, Functional Mobility, Group Exercise/Act as Ind, UE Funct Exercise/Act Treatment Duration: August 24, 2020 Frequency: At least 5 of 7 days/Wk (IRF) Estimated Hrs Per Day: 1.5 hours per day Agreement: Yes Rehab Potential: Fair Time/GCodes Start Time: 07:30 Stop Time: 09:00 Total Time Billed (hr/min): 90 Billed Treatment Time 1 visit-ADL 5 (70 min) FA 1 (20 min) co-treat with PT [id number], individual 073 0-0800 RYAN FERRARA August 15, 2020 07:47
[2020-08-15 08:00] VITALS: BP 151/68
--- NOTE | 2020-08-15 08:58 | Physical Therapy Daily Note ---
PT Daily Note-Current Subjective Patient in restroom already working with OT, voices no complaints of pain, agrees to PT. Will be co-treating with OT due to poor patient mobility, strength, endurance, safety and reduce risk of falls, coordinate UE and LE with activity. Appearance Patient sitting EOB post tx with nurse call, phone, tray, all needs met. Mental Status Patient Orientation: Person, Place, Situation TLSO Transfers SCALE: Activities may be completed with or without assistive devices. 8-Ticebogotc-kraqoac completes the activity by him/herself with no assistance from a helper. 5-Set-up or Clean-up Assistance-helper sets up or cleans up; patient completes activity. [place] assists only prior to or following the activity. 4-Supervision or Touching Assistance-helper provides verbal cues and/or touching/steadying and/or contact guard assistance as patient completes activity. Assistance may be provided throughout the activity or intermittently. 3-Partial/Moderate Assistance-helper does LESS THAN HALF the effort. [place] lifts, holds or supports trunk or limbs, but provides less than half the effort. 2-Substantial/Maximal Assistance-helper does MORE THAN HALF the effort. [place] lifts or holds trunk or limbs and provides more than half the effort. 6-Miansekxb-gsdtaa does ALL the effort. Patient does none of the effort to complete the activity. Or, the assistance of 2 or more helpers is required for the patient to complete the activity. If activity was not attempted, code reason: 7-Patient Refused. 9-Not Applicable-not attempted and the patient did not perform the activity before the current illness, exacerbation or injury. 10-Not Attempted due to Environmental Limitations-(lack of equipment, weather restraints, etc.). 88-Not Attempted due to Medical Conditions or Safety Concerns. Sit to Stand (QC): 3 Chair/Zcy-gw-Antxn Xfer(QC): 3 Patient already taking shower at the beginning of tx, PT assists with standing and positioning during drying off and dressing. Weight Bearing Weight Bearing/Tolerated Full Weight Bearing Gait Training Distance: 120'x2 Walk 10 feet (QC): 3 Walk 50 ft with 2 Turns(QC): 3 Gait Assistive Device: FWW still uncoordinated stepping with left leg but less knee hyperextension Exercises LAQ LLE for 5 min with 2# ankle weight, sit to stand from lower surface x5 with min assist Treatments PT worked on standing and positioning during bathing and dressing, LE strengthening, ambulation, OT worked on bathing, dressing, ADL's, assisted with UE positioning and safety during activity Assessment Current Status: Fair Progress less knee hyperextension during ambulation and less knee buckling on the left side with sit <-> stand PT Short Term Goals Short Term Goals Time Frame: August 03, 2020 Roll Left & Right: 6 Sit to lyin (CGA) Lying to sitting on side of be: 4 (CGA) Chair/dec-np-pyiyu transfer: 4 (CGA) Walk 10 feet: 3 (mod) PT Float Operator Goals Float Operator Goals PT Float Operator Goals Time Frame: August 17, 2020 Roll Left & Right (QC): 6 Sit to Lying (QC): 4 (SBA) Lying-Sitting on Side/Bed(QC): 4 (SBA) Sit to Stand (QC): 3 (min) Chair/Voj-kt-Isvet Xfer(QC): 3 (min) Toilet Transfer (QC): 3 (min) Car Transfer (QC): 3 (min) Does the Patient Walk: No and Walking Goal IS indicated Walk 10 feet (QC): 3 (min) Walk 50ft with 2 Turns (QC): 3 (min) Walk 150 ft (QC): 88 Walking 10ft on Uneven Surface: 3 (min) 1 Step (curb) (QC): 3 (min) 4 Steps (QC): 88 12 Steps (QC): 9 Picking up an Object (QC): 9 Does the Pt use WC or Scooter?: Yes Wheel 50 feet with 2 turns (QC: 6 Type: Manual Wheel 150 feet: 6 Type: Manual PT Plan Problem List Problem List: Activity Tolerance, Functional Strength, Safety, Balance, Gait, Transfer, Bed Mobility, ROM Treatment/Plan Treatment Plan: Continue Plan of Care Treatment Plan: Bed Mobility, Education, Functional Activity Jai, Functional Strength, Gait, Safety, Therapeutic Exercise, Transfers Treatment Duration: August 17, 2020 Frequency: At least 5 of 7 days/Wk (IRF) Estimated Hrs Per Day: 1.5 hours per day Patient and/or Family Agrees t: Yes Safety Risks/Education Patient Education: Gait Training, Transfer Techniques, Correct Positioning, Reviewed Don/Doff Brace, Safety Issues Teaching Recipient: Patient Teaching Methods: Demonstration, Discussion Response to Teaching: Reinforcement Needed Time/GCodes Time In: 0800 Time Out: 0900 Total Billed Treatment Time: 60 Total Billed Treatment 1 visit GT 15' FA 30' EX 15' FABIAN BOBBY PT August 15, 2020 08:58
[2020-08-15] MEDS: polyethylene glycoL POWDER 17 GM (MIRALAX) PACK PO SCH ×2 (10:38→20:36)
--- NOTE | 2020-08-15 14:15 | Physical Therapy Daily Note ---
PT Daily Note-Current Subjective Patient sitting EOB pre tx, agrees to PT, has no complaints of pain, total assist to don shoes but he can put his TLSO on by himself. Appearance Patient in restroom on toilet post tx, will call nurse when done. Mental Status Patient Orientation: Normal For Age TLSO Transfers SCALE: Activities may be completed with or without assistive devices. 1-Lfsorxzyln-zfhaqwx completes the activity by him/herself with no assistance from a helper. 5-Set-up or Clean-up Assistance-helper sets up or cleans up; patient completes activity. [place] assists only prior to or following the activity. 4-Supervision or Touching Assistance-helper provides verbal cues and/or touching/steadying and/or contact guard assistance as patient completes activi ty. Assistance may be provided throughout the activity or intermittently. 3-Partial/Moderate Assistance-helper does LESS THAN HALF the effort. [place] lifts, holds or supports trunk or limbs, but provides less than half the effort. 2-Substantial/Maximal Assistance-helper does MORE THAN HALF the effort. [place] lifts or holds trunk or limbs and provides more than half the effort. 8-Vyzwuamho-evorgf does ALL the effort. Patient does none of the effort to complete the activity. Or, the assistance of 2 or more helpers is required for the patient to complete the activity. If activity was not attempted, code reason: 7-Patient Refused. 9-Not Applicable-not attempted and the patient did not perform the activity before the current illness, exacerbation or injury. 10-Not Attempted due to Environmental Limitations-(lack of equipment, weather restraints, etc.). 88-Not Attempted due to Medical Conditions or Safety Concerns. Sit to Stand (QC): 3 Chair/Qyl-sc-Ctvlr Xfer(QC): 4 barely any blocking required for sit <-> stand now Weight Bearing Weight Bearing/Tolerated Full Weight Bearing Gait Training Distance: 120'x2 Walk 10 feet (QC): 4 Walk 50 ft with 2 Turns(QC): 4 Gait Assistive Device: FWW better ambulation, less left knee hyperextension, still uncoordinated steps with left leg though Exercises NuStep Minutes: 10 NuStep Workload: 4 Treatments transfers, ambulation, LE exercise Assessment Current Status: Fair Progress improving LLE strength PT Short Term Goals Short Term Goals Time Frame: August 03, 2020 Roll Left & Right: 6 Sit to lyin (CGA) Lying to sitting on side of be: 4 (CGA) Chair/fyi-ae-edmcd transfer: 4 (CGA) Walk 10 feet: 3 (mod) PT Vacuum Drier Operator Goals Alf Goals PT Alf Goals Time Frame: August 17, 2020 Roll Left & Right (QC): 6 Sit to Lying (QC): 4 (SBA) Lying-Sitting on Side/Bed(QC): 4 (SBA) Sit to Stand (QC): 3 (min) Chair/Rma-nz-Obybn Xfer(QC): 3 (min) Toilet Transfer (QC): 3 (min) Car Transfer (QC): 3 (min) Does the Patient Walk: No and Walking Goal IS indicated Walk 10 feet (QC): 3 (min) Walk 50ft with 2 Turns (QC): 3 (min) Walk 150 ft (QC): 88 Walking 10ft on Uneven Surface: 3 (min) 1 Step (curb) (QC): 3 (min) 4 Steps (QC): 88 12 Steps (QC): 9 Picking up an Object (QC): 9 Does the Pt use WC or Scooter?: Yes Wheel 50 feet with 2 turns (QC: 6 Type: Manual Wheel 150 feet: 6 Type: Manual PT Plan Problem List Problem List: Activity Tolerance, Functional Strength, Safety, Balance, Gait, Transfer, Bed Mobility, ROM Treatment/Plan Treatment Plan: Continue Plan of Care Treatment Plan: Bed Mobility, Education, Functional Activity Jai, Functional Strength, Gait, Safety, Therapeutic Exercise, Transfers Treatment Duration: August 17, 2020 Frequency: At least 5 of 7 days/Wk (IRF) Estimated Hrs Per Day: 1.5 hours per day Patient and/or Family Agrees t: Yes Safety Risks/Education Patient Education: Gait Training, Transfer Techniques, Correct Positioning, Reviewed Don/Doff Brace, Safety Issues Teaching Recipient: Patient Teaching Methods: Demonstration, Discussion Response to Teaching: Reinforcement Needed Time/GCodes Time In: 1330 Time Out: 1400 Total Billed Treatment Time: 30 Total Billed Treatment 1 visit EX 10' FA 20' FABIAN BOBBY PT August 15, 2020 14:15
[2020-08-15 20:00] VITALS: BP 133/63
[2020-08-15] MEDS: DIAZEPAM 5 MG (VALIUM) TABLET PO SCH (20:38)
[2020-08-16] MEDS ORDERED: GBPN600T PO (06:35)
[2020-08-16] MEDS ORDERED: CYCL10TA9 PO (06:35)
[2020-08-16] MEDS ORDERED: DIAZ5TAB49 PO (06:35)
[2020-08-16] MEDS ORDERED: OXYC1TAB87 PO (06:35)
[2020-08-16] MEDS ORDERED: TRAM50TA3 PO (06:35)
[2020-08-16] MEDS ORDERED: MICO90PO TOP (06:35)
--- NOTE | 2020-08-16 06:36 | D/C HH Face to Face Order ---
D/C Face to Face Orders Reconcile Patient Problems Problems Reviewed?: Yes Instructions for Patient Via [facility], Patient Instructions/FollowUp: [facility] [address] Cavanaugh as scheduled Physician to follow Patient: [facility] Discharge Diet for Home: No Restrictions Patient Problems: s/p back surgery Patient Data-Allergies,Ht & Wt Patient Allergies: Coded Allergies: Penicillins (Verified Allergy, Unknown, Rash, 07/27/20) Home Health Need/Face to Face Date of Face to Face: August 16, 2020 Clinical Findings: Generalized weakness and fatigue, Instability, Muscle weakness, Pain with ambulation, Unsteady gait I have seen Pt fybi-if-pbev: Yes Discharged To: Home Diagnosis/Conditions: Back surgery Patient is Homebound due to: Philip fall risk due to instabilty, Muscle weakness, Pain w/ambulation Homebound Status Due to the above stated illness, injury or surgical procedure (medical condition or diagnosis) and associated clinical findings, the patient is homebound because of his/her inability to leave home except with aid of a supportive device and/or person AND leaving the home requires a considerable and taxing effort or is medically contraindicated. Pt req the following assistanc: Walker Home Health Nursing Orders Home Health Services Order: Nursing Services, Surveillance Inspector-Evaluate & Treat, Physical Therapy-Evaluate & Treat Certify Stmt I certify that this patient is under my care and that I, a nurse practitioner or a physician; a resident assistant working with me, had a face to face encounter that - meets the physician face to face encounter requirements with this patient as dated. KAMERON RAMOS DO August 16, 2020 06:36
--- NOTE | 2020-08-16 07:08 | PM&R Progress Note ---
Subjective HPI/CC On Admission Date Seen by Provider: August 16, 2020 Time Seen by Provider: 08:30 Subjective/Events-last exam 08/16/20: Pt doing pretty well Bowels moved yesterday He was in the gym and his left knee buckled again and he nearly went to the floor Overall doing well otherwise, walking around pretty well 08/15/20: Pt doing pretty well Dr. Castellanos recommended a few more days Discharge planned for Last BM was yesterday Hgb 9.6 08/14/20: Walking well and Dr Cavanaugh thinks he should stay another weekk and I told them all of this is based on Medicare LOS guidelines so we will d/w team tomorrow Left knee does still buckle at times Labs tomorrow BM+ 08/13/20: Patient doing well Family education yesterday went well Right hip pain at times Percocet used sparingly 08/12/20: No major issues Pain controlled Moving around well Meds reviewed 08/11/20: Patient doing well Incision good Chose not to use wheelchair at home Son works nights and will be sleeping during the day in case he needs something Sooner NSG appt BM 08/1008/10/20: Had the fall yesterday 4 people were required to get him off the floor Spills urinal when he fills it up completely Pain meds working well May need wheelchair use at DC until evaluated by NSG regarding suspicion of spinal cord dysfunction suspected by therapy Needs NSG appt sooner than scheduled to discuss this 08/09/20: Pt doing a lot better Has no concerns right now Incision looks good Pain is well controlled Eating and drinking well Had a fall this afternoon when his left knee "gave out" and took 4 people to help him up Disposition to home could be at risk now with that fall 08/08/20: Patient having a good day Hemoglobin is 10 Bowels moved with laxatives Took a shower this morning Incision looks good No major issues 08/07/20: Patient doing well No issues BM 08/04 and laxatives given Refused suppository 08/06/20: Patient doing well Incision is open to air now No increased pain Slow moving at baseline 08/05/2020: Patient doing pretty well No bowel movement for 2 days we will give laxatives Televisit with neurosurgery service recommended to remove the ziggy and have a 4-week follow-up for x-rays and follow-up visit Denies any new issues 08/04/20: Pt doing much better Had a BM yesterday Televisit with neurosurgeon and likely ziggy will be removed at some point after that televisit Doing much better overall 08/03/20: Pt doing pretty well Bowels moved 08/01 No major issues Not really motivated too much so will try to give him more activity as he requested from 3-5 PM 08/02/20: Pt really not too motivated but hes doing well Spills his urinal quite a bit Incision looks a bit red but not infected Bowels moved yesterday 08/01/20: Hgb is 9.6 Last BM was yesterday No major issues Feels like he is doing a lot better 07/31/20: No major issues No pain reported at this current time No falls Seems to be in good spirits 07/30/20: Patient doing well Has no concerns Pain is controlled BiPAP last night with 3L/min O2 Dressing changes QOD Slight redness around sutures 07/29/20: Patient settling in well Loose BM yesterday Dressing changes on spine every other day No questions from patient Feels like he is using muscles in therapy 07/28/20: Patient doing well Settling in well Incontinent last night but patient reports he spilled urinal Metformin noted and is maintained BM+ Sugar is ok Hgb 9.4 SLUMS Review of Systems General: Fatigue, Malaise Musculoskeletal: back pain, leg pain Neurological: Weakness Objective Exam Vital Signs Vital Signs Date Time Temp Pulse Resp B/P (MAP) Pulse Ox O2 Delivery O2 Flow Rate FiO2 08/16/20 20:10 Room Air 08/16/20 19:47 36.9 62 16 122/60 (80) 95 Capillary Refill : General Appearance: No Apparent Distress, WD/WN, Chronically ill, Obese HEENT: PERRL/EOMI, Normal ENT Inspection, Pharynx Normal Neck: Full Range of Motion, Normal Inspection, Non Tender, Supple, Carotid Bruit Respiratory: Chest Non Tender, Lungs Clear, Normal Breath Sounds, No Accessory Muscle Use, No Respiratory Distress Cardiovascular: Regular Rate, Rhythm, No Edema, No Gallop, No JVD, No Murmur, Normal Peripheral Pulses Gastrointestinal: Normal Bowel Sounds, No Organomegaly, No Pulsatile Mass, Non Tender, Soft Back: Decreased Range of Motion, Muscle Spasm, Vertebral Tenderness Extremity: Normal Capillary Refill, Normal Inspection, Normal Range of Motion, Non Tender, No Calf Tenderness, No Pedal Edema Neurologic/Psychiatric: Alert, Oriented x3, No Motor/Sensory Deficits, extracorporeal circulation specialist II- XII Norm as Tested, Abnormal Gait, Depressed Affect, Motor Weakness Skin: Normal Color, Warm/Dry Lymphatic: No Adenopathy Results/Procedures Lab Patient resulted labs reviewed. FIM Transfers Therapy Code Descriptions/Definitions Functional [place] Measure: 0=Not Assessed/NA 4=Minimal Assistance 1=Total Assistance 5=Supervision or Setup 2=Maximal Assistance 6=Modified [place] 3=Moderate Assistance 7=Complete IndependenceSCALE: Activities may be completed with or without assistive devices. 4-Jkowuaascf-nizxkve completes the activity by him/herself with no assistance from a helper. 5-Set-up or Clean-up Assistance-helper sets up or cleans up; patient completes activity. [place] assists only prior to or following the activity. 4-Supervision or Touching Assistance-helper provides verbal cues and/or touching/steadying and/or contact guard assistance as patient completes activity. Assistance may be provided throughout the activity or intermittently. 3-Partial/Moderate Assistance-helper does LESS THAN HALF the effort. [place] lifts, holds or supports trunk or limbs, but provides less than half the effort. 2-Substantial/Maximal Assistance-helper does MORE THAN HALF the effort. [place] lifts or holds trunk or limbs and provides more than half the effort. 2-Sjvkurixb-iremzu does ALL the effort. Patient does none of the effort to complete the activity. Or, the assistance of 2 or more helpers is required for the patient to complete the activity. If activity was not attempted, code reason: 7-Patient Refused. 9-Not Applicable-not attempted and the patient did not perform the activity before the current illness, exacerbation or injury. 10-Not Attempted due to Environmental Limitations-(lack of equipment, weather restraints, etc.). 88-Not Attempted due to Medical Conditions or Safety Concerns. Roll Left to Right (QC): 6 Sit to Lying (QC): 6 Sit to Stand (QC): 3 Chair/Uwy-ss-Bbffl Xfer(QC): 4 Car Transfer (QC): 88 Gait Training Does the Patient Walk?: Yes Distance: 120'x2 Walk 10 feet (QC): 4 Walk 50 ft with 2 Turns(QC): 4 Walk 150 ft (QC): 3 Walking 10ft/uneven surface-QC: 88 Gait Persons Needed: 1 Gait Assistive Device: FWW Wheelchair Training Does the Pt Use a Wheelchair?: Yes Wheel 50 ft with 2 turns (QC): 6 Wheel 150 ft (QC): 4 Type of Wheelchair: Manual Stair Training Stair Training: Handrails/: uses walker #of Steps: 1 1 Step (curb) (QC): 3 4 Steps (QC): 88 12 Steps (QC): 88 Stairs: Pattern: Step to Balance Picking up an Object (QC): 88 ADL-Treatment Eating (QC): 6 (Opens containers/packages by self and uses regular utensils to eat.) Oral Hygiene (QC): 6 Bathing Location: L Arm, R Arm, L Upper Leg, R Upper Leg, L Lower Leg (including foot), R Lower Leg (including foot), Chest, Abdomen, Perineal Area Shower/Bathe Self (QC): 5 Upper Body Dressing (QC): 5 Lower Body Dressing (QC): 5 On/Off Footwear (QC): 4 Toileting Hygiene (QC): 3 Toilet Transfer (QC): 3 Assessment/Plan Assessment and Plan Assess & Plan/Chief Complaint Assessment: s/p Lumbar laminectomy L2-L3 and TLIF w/ extension of previous L3-L5 hardware LLE weakness Spondylosis Performed due to Spinal stenosis with neurogenic claudication. Source of pts debidity. PT/OT IS Speech therapy Consult SS. GOAL: Return to baseline function before sx. Discharge home with Home Health. Normocytic anemia Hx of hypokalemia during [facility] [place] post-op stay. Per pt: known chronic hx of anemia. 07/26 labs [facility]: H&H is 8.7/27.6 Likely multifactorial: to surgical blood loss and anemia of chronic disease. Iron studies ordered during pts post-op [place] stay (results?) CBC and CMP NIDDM HTN HLP Obesity Sleep apnea Neuropathy SSI Home Cpap. Home Meds s/p COVID-19 PNA Hospitalized . Received convalescent plasma and inpt stay for several days. Pt reports no residual sxs. Hx of lumbar radiculopathy Polyp on vocal cord Hx of cervical spine sx DVT prophylaxis SCD and ambulation. Plan: IRF protocol Pain control BM regimen PT OT 07/28/20: Pain control Monitor hgb Monitor BP 07/29/20: Monitor pain Monitor BM regimen 07/30/20: Monitor closely Pain management BM regimen 07/31/20: Monitor pain Monitor BP 08/01/20: Monitor leg weakness Pain control Monitor BM regimen 08/02/20: Monitor pain BM regimen to maintain 08/03/20: Monitor pain Increase activity 08/04/20: Monitor pain Increase activity 08/05/2020: Monitor closely Fall risk 08/06/20: Pain control Aggressive PT OT to prevent falls 08/07/20: Improved status Laxatives Labs due tomorrow 08/08/20: Pain is controlled Labs are stable 08/09/20: Fall risk Monitor closely 08/10/20: Monitor closely for falls Wheelchair mobility may be required 08/11/20: Monitor closely NSG appt Declines wheelchair mobility skills 08/12/20: Monitor closely Fall risk 08/13/20: Patient against wheelchair use Monitored closely 08/14/20: Labs in am Monitor closely 08/15/20: DC soon Monitor closely 08/16/20: DC Continue aggressive PT OT (1) Lumbar radiculopathy (2) MICHAELA treated with BiPAP (3) Nocturnal hypoxemia (4) Diabetes (5) Hypertension (6) Hyperlipemia (7) Obesity, morbid, BMI 40.0-49.9 KAMERON RAMOS DO August 16, 2020 07:08
[2020-08-16 08:00] VITALS: BP 138/63
--- NOTE | 2020-08-16 08:46 | Occupational Ther Daily Note ---
OT Current Status-Daily Note Subjective Pt alert, lying in bed. Pt agrees to therapy. C/o lower back pain, 6/10 reported to nrsg. Mental Status/Objective Patient Orientation: Person, Place, Time, Situation ADL-Treatment Pt declines shower. Agrees to sponge bath with bath pack sitting EOB. After set up, pt able to complete all dressing by self. Pt leans side to side to hike pants over hips. Uses LH shoehorn to don shoes. CGA for safety, pt sit to stand from elevated surface then uses FWW to transfer to w/c. Pt propels w/c to sink in bathroom to complete oral care by self. Therapy Code Descriptions/Definitions Functional [place] Measure: 0=Not Assessed/NA 4=Minimal Assistance 1=Total Assistance 5=Supervision or Setup 2=Maximal Assistance 6=Modified [place] 3=Moderate Assistance 7=Complete IndependenceSCALE: Activities may be completed with or without assistive devices. 6-Ivjgkpshmt-xiowhtd completes the activity by him/herself with no assistance from a helper. 5-Set-up or Clean-up Assistance-helper sets up or cleans up; patient completes activity. [place] assists only prior to or following the activity. 4-Supervision or Touching Assistance-helper provides verbal cues and/or touch ing/steadying and/or contact guard assistance as patient completes activity. Assistance may be provided throughout the activity or intermittently. 3-Partial/Moderate Assistance-helper does LESS THAN HALF the effort. [place] lifts, holds or supports trunk or limbs, but provides less than half the effort. 2-Substantial/Maximal Assistance-helper does MORE THAN HALF the effort. [place] lifts or holds trunk or limbs and provides more than half the effort. 0-Jtbvqfkps-xwmznn does ALL the effort. Patient does none of the effort to complete the activity. Or, the assistance of 2 or more helpers is required for the patient to complete the activity. If activity was not attempted, code reason: 7-Patient Refused. 9-Not Applicable-not attempted and the patient did not perform the activity before the current illness, exacerbation or injury. 10-Not Attempted due to Environmental Limitations-(lack of equipment, weather restraints, etc.). 88-Not Attempted due to Medical Conditions or Safety Concerns. Eating (QC): 6 Oral Hygiene (QC): 6 Upper Body Dressing (QC): 5 Lower Body Dressing (QC): 5 On/Off Footwear: 5 Other Treatment Pt propels w/c to therapy gym to complete B UE strengthening and increased activity tolerance for daily functional tasks. Arm bike 50 goldman resistance for 8 min, 25 goldman resistance for 7 min. Wrist flex/ext/rad dev/uln dev with 3# wt, 3 sets 10 reps. Using 5# wt, pt completes bicep curls, shldr abd, shldr flex to 90*, 1 set 20 reps. After therapy, pt sitting in w/c in room. Pt left in care of PT. All needs met in room. OT Short Term Goals Short Term Goals Time Frame: August 10, 2020 Eatin Oral hygiene: 6 Toileting hygiene: 3 Shower/bathe self: 3 Upper body dressin Lower body dressin Putting on/taking off footwear: 3 OT [employer] Registrar Goals [facility] Goals Time Frame: August 24, 2020 Eating (QC): 6 Oral Hygiene (QC): 6 Toileting Hygiene (QC): 6 Shower/Bathe Self (QC): 4 Upper Body Dressing (QC): 6 Lower Body Dressing (QC): 6 On/Off Footwear (QC): 6 Additional Goals: 1-Demonstrate ADL Tasks, 2-Verbalize Understanding, 3- ImproveStrength/Jai 1=Demonstrate adherence to instructed precautions during ADL tasks. 2=Patient will verbalize/demonstrate understanding of assistive devices/modifications for ADL. 3=Patient will improve strength/tolerance for activity to enable patient to perform ADL's. OT Education/Plan Problem List/Assessment Assessment: Decreased UE Strength, Impaired Self-Care Skills Discharge Recommendations Plan/Recommendations: Continue POC Treatment Plan/Plan of Care Patient would benefit from OT for education, treatment and training to promote independence in ADL's, mobility, safety and/or upper extremity function for ADL's. Plan of Care: ADL Retraining, Functional Mobility, Group Exercise/Act as Ind, UE Funct Exercise/Act Treatment Duration: August 24, 2020 Frequency: At least 5 of 7 days/Wk (IRF) Estimated Hrs Per Day: 1.5 hours per day Agreement: Yes Rehab Potential: Fair Time/GCodes Start Time: 07:15 Stop Time: 08:45 Total Time Billed (hr/min): 90 Billed Treatment Time 1 visit-ADL 3 (45 min) EX 3 (45 min) RYAN FERRARA August 16, 2020 08:46
[2020-08-16] MEDS: ASPIRIN E.C. 81 MG (ECOTRIN) TAB PO SCH (09:34)
[2020-08-16] MEDS: amLODIPine 5 MG (NORVASC) TAB PO SCH (09:34)
[2020-08-16] MEDS: SENNA W/DOCUSATE (SENOKOT S) TABLET PO SCH ×2 (09:35→20:48)
[2020-08-16] MEDS: metFORMIN 500 MG (GLUCOPHAGE) TAB PO SCH ×2 (09:35→20:41)
[2020-08-16] MEDS: GABAPENTIN 600 MG (NEURONTIN) TAB PO SCH ×3 (09:35→20:41)
[2020-08-16] MEDS: LOSARTAN 100 MG (COZAAR) TABLET PO SCH (09:35)
[2020-08-16] MEDS: DOCUSATE SODIUM 100 MG (COLACE) CAP PO SCH ×2 (09:35→20:48)
[2020-08-16] MEDS: polyethylene glycoL POWDER 17 GM (MIRALAX) PACK PO SCH ×2 (09:35→19:56)
[2020-08-16] MEDS: oxyCODONE/APAP 5/325MG (PERCOCET 5) TABLET PO PRN (09:36)
[2020-08-16] MEDS: VENELEX OINTMENT TOP SCH ×2 (09:37→20:04)
[2020-08-16] MEDS: MICONAZOLE 2% POWDER (DESENEX AF) 90 GM TOP SCH ×2 (09:37→20:41)
--- NOTE | 2020-08-16 09:41 | Physical Therapy Daily Note ---
PT Daily Note-Current Subjective Patient in WC in room pre tx, agrees to PT, has no complaints of pain. Appearance Patient in recliner post tx with nurse call, phone, tray, all needs met. Mental Status Patient Orientation: Normal For Age Transfers SCALE: Activities may be completed with or without assistive devices. 1-Raexcfpmpg-bucvwkm completes the activity by him/herself with no assistance from a helper. 5-Set-up or Clean-up Assistance-helper sets up or cleans up; patient completes activity. [place] assists only prior to or following the activity. 4-Supervision or Touching Assistance-helper provides verbal cues and/or touching/steadying and/or contact guard assistance as patient completes activity. Assistance may be provided throughout the activity or intermittently. 3-Partial/Moderate Assistance-helper does LESS THAN HALF the effort. [place] lifts, holds or supports trunk or limbs, but provides less than half the effort. 2-Substantial/Maximal Assistance-helper does MORE THAN HALF the effort. [place] lifts or holds trunk or limbs and provides more than half the effort. 0-Rvytwhesg-jiogxy does ALL the effort. Patient does none of the effort to complete the activity. Or, the assistance of 2 or more helpers is required for the patient to complete the activity. If activity was not attempted, code reason: 7-Patient Refused. 9-Not Applicable-not attempted and the patient did not perform the activity before the current illness, exacerbation or injury. 10-Not Attempted due to Environmental Limitations-(lack of equipment, weather restraints, etc.). 88-Not Attempted due to Medical Conditions or Safety Concerns. Sit to Stand (QC): 3 Chair/Mjd-js-Gqzug Xfer(QC): 3 occasionally still some assist with sit <-> stand but usually CGA Weight Bearing Weight Bearing/Tolerated Full Weight Bearing Gait Training Distance: 150', 100' Walk 10 feet (QC): 4 Walk 50 ft with 2 Turns(QC): 4 Walk 150 ft (QC): 4 Gait Persons Needed: 1 Gait Assistive Device: FWW slow ambulation, less left knee hyperextension Exercises Seated Therapy Exercises: Ankle pumps, Long arc quads, Hip flexion, Hip abd/add (with RTB and ball) Seated Reps: 20 Standing: Heel/toe raises Standing Reps: 20 Attempted mini-squats in the parallel bars since his legs have been showing improved strength but still was not able to do it and both knees buckled with just slight bending of the knee, he would have fallen on the floor without assist of several people to get him into a chair. NuStep Minutes: 15 NuStep Workload: 4 Treatments transfers, ambulation, LE strengthening Assessment Current Status: Fair Progress slowly improving BLE strength but still not strong enough to even tolerate a slight mini-squat PT Short Term Goals Short Term Goals Time Frame: August 03, 2020 Roll Left & Right: 6 Sit to lyin (CGA) Lying to sitting on side of be: 4 (CGA) Chair/nui-iz-hhtdl transfer: 4 (CGA) Walk 10 feet: 3 (mod) PT Farm[employer] [place] [employer] Goals Fdc Goals PT Fdc Goals Time Frame: August 17, 2020 Roll Left & Right (QC): 6 Sit to Lying (QC): 4 (SBA) Lying-Sitting on Side/Bed(QC): 4 (SBA) Sit to Stand (QC): 3 (min) Chair/Ncs-tb-Zgskx Xfer(QC): 3 (min) Toilet Transfer (QC): 3 (min) Car Transfer (QC): 3 (min) Does the Patient Walk: No and Walking Goal IS indicated Walk 10 feet (QC): 3 (min) Walk 50ft with 2 Turns (QC): 3 (min) Walk 150 ft (QC): 88 Walking 10ft on Uneven Surface: 3 (min) 1 Step (curb) (QC): 3 (min) 4 Steps (QC): 88 12 Steps (QC): 9 Picking up an Object (QC): 9 Does the Pt use WC or Scooter?: Yes Wheel 50 feet with 2 turns (QC: 6 Type: Manual Wheel 150 feet: 6 Type: Manual PT Plan Problem List Problem List: Activity Tolerance, Functional Strength, Safety, Balance, Gait, Transfer, Bed Mobility, ROM Treatment/Plan Treatment Plan: Continue Plan of Care Treatment Plan: Bed Mobility, Education, Functional Activity Jai, Functional Strength, Gait, Safety, Therapeutic Exercise, Transfers Treatment Duration: August 17, 2020 Frequency: At least 5 of 7 days/Wk (IRF) Estimated Hrs Per Day: 1.5 hours per day Patient and/or Family Agrees t: Yes Safety Risks/Education Patient Education: Gait Training, Transfer Techniques, Correct Positioning, Safety Issues Teaching Recipient: Patient Teaching Methods: Demonstration, Discussion Response to Teaching: Reinforcement Needed Time/GCodes Time In: 844 Time Out: 944 Total Billed Treatment Time: 60 Total Billed Treatment 1 visit EX 30' FA 30' FABIAN BOBBY PT August 16, 2020 09:40
--- NOTE | 2020-08-16 13:58 | Physical Therapy Daily Note ---
PT Daily Note-Current Subjective Patient in recliner pre tx, agrees to PT, voices no complaints of pain Appearance Patient in recliner post tx with nurse call, phone, tray, all needs met. Mental Status Patient Orientation: Person, Place, Situation, Normal For Age TLSO Transfers SCALE: Activities may be completed with or without assistive devices. 5-Tifowyzkcz-lcaqfgp completes the activity by him/herself with no assistance from a helper. 5-Set-up or Clean-up Assistance-helper sets up or cleans up; patient completes activity. [place] assists only prior to or following the activity. 4-Supervision or Touching Assistance-helper provides verbal cues and/or touching/steadying and/or contact guard assistance as patient completes activity. Assistance may be provided throughout the activity or intermittently. 3-Partial/Moderate Assistance-helper does LESS THAN HALF the effort. [place] l ifts, holds or supports trunk or limbs, but provides less than half the effort. 2-Substantial/Maximal Assistance-helper does MORE THAN HALF the effort. [place] lifts or holds trunk or limbs and provides more than half the effort. 2-Jpacttqby-leyrbq does ALL the effort. Patient does none of the effort to complete the activity. Or, the assistance of 2 or more helpers is required for t he patient to complete the activity. If activity was not attempted, code reason: 7-Patient Refused. 9-Not Applicable-not attempted and the patient did not perform the activity before the current illness, exacerbation or injury. 10-Not Attempted due to Environmental Limitations-(lack of equipment, weather restraints, etc.). 88-Not Attempted due to Medical Conditions or Safety Concerns. Sit to Stand (QC): 3 Chair/Sxt-uu-Qnmop Xfer(QC): 4 Weight Bearing Weight Bearing/Tolerated Full Weight Bearing Gait Training Distance: 100'x2 Walk 10 feet (QC): 4 Walk 50 ft with 2 Turns(QC): 4 Gait Persons Needed: 1 Gait Assistive Device: FWW slow ambulation, less left knee hyperextension, decreased coordination of left side stepping Exercises sit to stands 2 sets of 5 from slightly elevated therapy table, LAQ alternating for 5 min with 2# ankle weights Treatments transfers, ambulation, functional strengthening Assessment Current Status: Fair Progress no knee buckling during ambulation, some steadying of left knee needed with going from sit <-> stand PT Short Term Goals Short Term Goals Time Frame: August 03, 2020 Roll Left & Right: 6 Sit to lyin (CGA) Lying to sitting on side of be: 4 (CGA) Chair/mmr-ur-iezmh transfer: 4 (CGA) Walk 10 feet: 3 (mod) PT Chcf Goals Manager Building Goals PT Manager Building Goals Time Frame: August 17, 2020 Roll Left & Right (QC): 6 Sit to Lying (QC): 4 (SBA) Lying-Sitting on Side/Bed(QC): 4 (SBA) Sit to Stand (QC): 3 (min) Chair/Zsr-ye-Vpwnx Xfer(QC): 3 (min) Toilet Transfer (QC): 3 (min) Car Transfer (QC): 3 (min) Does the Patient Walk: No and Walking Goal IS indicated Walk 10 feet (QC): 3 (min) Walk 50ft with 2 Turns (QC): 3 (min) Walk 150 ft (QC): 88 Walking 10ft on Uneven Surface: 3 (min) 1 Step (curb) (QC): 3 (min) 4 Steps (QC): 88 12 Steps (QC): 9 Picking up an Object (QC): 9 Does the Pt use WC or Scooter?: Yes Wheel 50 feet with 2 turns (QC: 6 Type: Manual Wheel 150 feet: 6 Type: Manual PT Plan Problem List Problem List: Activity Tolerance, Functional Strength, Safety, Balance, Gait, Transfer, Bed Mobility, ROM Treatment/Plan Treatment Plan: Continue Plan of Care Treatment Plan: Bed Mobility, Education, Functional Activity Jai, Functional Strength, Gait, Safety, Therapeutic Exercise, Transfers Treatment Duration: August 17, 2020 Frequency: At least 5 of 7 days/Wk (IRF) Estimated Hrs Per Day: 1.5 hours per day Patient and/or Family Agrees t: Yes Safety Risks/Education Patient Education: Gait Training, Transfer Techniques, Correct Positioning, Safety Issues Teaching Recipient: Patient Teaching Methods: Demonstration, Discussion Response to Teaching: Reinforcement Needed Time/GCodes Time In: 1330 Time Out: 1400 Total Billed Treatment Time: 30 Total Billed Treatment 1 visit EX 15' GT 15' FABIAN BOBBY PT August 16, 2020 13:58
[2020-08-16 19:47] VITALS: BP 122/60
[2020-08-16] MEDS: DIAZEPAM 5 MG (VALIUM) TABLET PO SCH (20:41)
[2020-08-17 08:00] VITALS: BP 141/63
[2020-08-17] MEDS: amLODIPine 5 MG (NORVASC) TAB PO SCH (08:03)
[2020-08-17] MEDS: LOSARTAN 100 MG (COZAAR) TABLET PO SCH (08:03)
[2020-08-17] MEDS: ASPIRIN E.C. 81 MG (ECOTRIN) TAB PO SCH (08:03)
[2020-08-17] MEDS: GABAPENTIN 600 MG (NEURONTIN) TAB PO SCH ×3 (08:03→20:23)
[2020-08-17] MEDS: metFORMIN 500 MG (GLUCOPHAGE) TAB PO SCH ×2 (08:03→20:22)
[2020-08-17] MEDS: oxyCODONE/APAP 5/325MG (PERCOCET 5) TABLET PO PRN (08:04)
[2020-08-17] MEDS: DOCUSATE SODIUM 100 MG (COLACE) CAP PO SCH ×2 (08:05→20:29)
[2020-08-17] MEDS: VENELEX OINTMENT TOP SCH ×2 (08:06→20:30)
[2020-08-17] MEDS: SENNA W/DOCUSATE (SENOKOT S) TABLET PO SCH ×2 (08:06→20:30)
[2020-08-17] MEDS: polyethylene glycoL POWDER 17 GM (MIRALAX) PACK PO SCH ×2 (08:06→20:29)
[2020-08-17] MEDS: MICONAZOLE 2% POWDER (DESENEX AF) 90 GM TOP SCH ×2 (08:06→20:22)
--- NOTE | 2020-08-17 09:00 | Occupational Ther Daily Note ---
OT Current Status-Daily Note Subjective Pt alert, lying in bed. Pt agrees to therapy. No c/o pain at this time. Mental Status/Objective Patient Orientation: Person, Place, Time, Situation Attachments: Other-See Comments (back brace) ADL-Treatment Supine to sitting EOB, independently. Pt able to open containers/packages then use regular utensils to eat. Pt agrees to shower. From elevated surface pt able to go from sit to stand with CGA for safety. Pt ambulated to bathroom and transferred to toilet with CGA, stabilizing at knee for safety due to possible L knee buckle. CGA in stance while pt stabilizes self with FWW and uses one arm to manipulate pants for toileting then sits to complete hygiene. Pt then transfers to shower chair with cutout to transfer into shower. Pt complete shower independently sitting on shower chair using LH sponge, grabbar and hand held shower. Pt has demonstrated ability to complete all dressing by self sitting on EOB after set up. Sitting at sink, pt able to complete oral care and grooming independently. Co-treat with PT([id number]) for skilled instruction and care due to increased fall risk and for safety. PT focusing on transfers and ambulation while OT focusing on ADLs, functional transfers and B UE placement during sit to stand. See PT notes for ambulation and transfer progress. After therapy, pt sitting in recliner with call light/phone in reach. All needs met in room. Therapy Code Descriptions/Definitions Functional [place] Measure: 0=Not Assessed/NA 4=Minimal Assistance 1=Total Assistance 5=Supervision or Setup 2=Maximal Assistance 6=Modified [place] 3=Moderate Assistance 7=Complete IndependenceSCALE: Activities may be completed with or without assistive devices. 9-Lvktopocmt-gtnnfaw completes the activity by him/herself with no assistance from a helper. 5-Set-up or Clean-up Assistance-helper sets up or cleans up; patient completes activity. [place] assists only prior to or following the activity. 4-Supervision or Touching Assistance-helper provides verbal cues and/or touching/steadying and/or contact guard assistance as patient completes activity. Assistance may be provided throughout the activity or intermittently. 3-Partial/Moderate Assistance-helper does LESS THAN HALF the effort. [place] lifts, holds or supports trunk or limbs, but provides less than half the effort. 2-Substantial/Maximal Assistance-helper does MORE THAN HALF the effort. [place] lifts or holds trunk or limbs and provides more than half the effort. 9-Pneafepun-lebsvf does ALL the effort. Patient does none of the effort to c omplete the activity. Or, the assistance of 2 or more helpers is required for the patient to complete the activity. If activity was not attempted, code reason: 7-Patient Refused. 9-Not Applicable-not attempted and the patient did not perform the activity before the current illness, exacerbation or injury. 10-Not Attempted due to Environmental Limitations-(lack of equipment, weather restraints, etc.). 88-Not Attempted due to Medical Conditions or Safety Concerns. Eating (QC): 6 Oral Hygiene (QC): 6 Shower/Bathe Self (QC): 6 Upper Body Dressing (QC): 5 Lower Body Dressing (QC): 5 On/Off Footwear: 5 Toileting Hygiene (QC): 4 Toilet Transfer (QC): 4 OT Short Term Goals Short Term Goals Time Frame: August 10, 2020 Eatin Oral hygiene: 6 Toileting hygiene: 3 Shower/bathe self: 3 Upper body dressin Lower body dressin Putting on/taking off footwear: 3 OT Sorter Operator Goals Sorter Operator Goals Time Frame: August 24, 2020 Eating (QC): 6 (met) Oral Hygiene (QC): 6 (met) Toileting Hygiene (QC): 6 (not met) Shower/Bathe Self (QC): 4 (met) Upper Body Dressing (QC): 6 (not met) Lower Body Dressing (QC): 6 (not met) On/Off Footwear (QC): 6 (not met) Additional Goals: 1-Demonstrate ADL Tasks, 2-Verbalize Understanding, 3- ImproveStrength/Jai 1=Demonstrate adherence to instructed precautions during ADL tasks. 2=Patient will verbalize/demonstrate understanding of assistive devices/modifications for ADL. 3=Patient will improve strength/tolerance for activity to enable patient to perform ADL's. OT Education/Plan Problem List/Assessment Assessment: Impaired Funct Balance, Impaired Self-Care Skills Discharge Recommendations Plan/Recommendations: Continue POC Therapy Discharge Recommendati: Post Acute OT Equpiment Recommendations-D/C: Extended Bath Bench, Hip Kit Treatment Plan/Plan of Care Patient would benefit from OT for education, treatment and training to promote independence in ADL's, mobility, safety and/or upper extremity function for ADL's. Plan of Care: ADL Retraining, Functional Mobility, Group Exercise/Act as Ind, UE Funct Exercise/Act Treatment Duration: August 24, 2020 Frequency: At least 5 of 7 days/Wk (IRF) Estimated Hrs Per Day: 1.5 hours per day Agreement: Yes Rehab Potential: Fair Time/GCodes Start Time: 07:30 Stop Time: 09:00 Total Time Billed (hr/min): 90 Billed Treatment Time 1 visit-ADL 4 (60 min) FA 2 (30 min) co-treat with PT [id number], individual [id number] RYAN FERRARA August 17, 2020 09:00
--- NOTE | 2020-08-17 09:00 | PM&R Progress Note ---
Subjective HPI/CC On Admission Date Seen by Provider: August 17, 2020 Time Seen by Provider: 09:15 Subjective/Events-last exam 08/17/20: Pt doing really well Ready for discharge tomorrow No concerns about discharge 08/16/20: Pt doing pretty well Bowels moved yesterday He was in the gym and his left knee buckled again and he nearly went to the floor Overall doing well otherwise, walking around pretty well 08/15/20: Pt doing pretty well Dr. Castellanos recommended a few more days Discharge planned for Last BM was yesterday Hgb 9.6 08/14/20: Walking well and Dr Cavanaugh thinks he should stay another weekk and I told them all of this is based on Medicare LOS guidelines so we will d/w team tomorrow Left knee does still buckle at times Labs tomorrow BM+ 08/13/20: Patient doing well Family education yesterday went well Right hip pain at times Percocet used sparingly 08/12/20: No major issues Pain controlled Moving around well Meds reviewed 08/11/20: Patient doing well Incision good Chose not to use wheelchair at home Son works nights and will be sleeping during the day in case he needs something Sooner NSG appt BM 08/1008/10/20: Had the fall yesterday 4 people were required to get him off the floor Spills urinal when he fills it up completely Pain meds working well May need wheelchair use at DC until evaluated by NSG regarding suspicion of spinal cord dysfunction suspected by therapy Needs NSG appt sooner than scheduled to discuss this 08/09/20: Pt doing a lot better Has no concerns right now Incision looks good Pain is well controlled Eating and drinking well Had a fall this afternoon when his left knee "gave out" and took 4 people to help him up Disposition to home could be at risk now with that fall 08/08/20: Patient having a good day Hemoglobin is 10 Bowels moved with laxatives Took a shower this morning Incision looks good No major issues 08/07/20: Patient doing well No issues BM 08/04 and laxatives given Refused suppository 08/06/20: Patient doing well Incision is open to air now No increased pain Slow moving at baseline 08/05/2020: Patient doing pretty well No bowel movement for 2 days we will give laxatives Televisit with neurosurgery service recommended to remove the ziggy and have a 4-week follow-up for x-rays and follow-up visit Denies any new issues 08/04/20: Pt doing much better Had a BM yesterday Televisit with neurosurgeon and likely ziggy will be removed at some point after that televisit Doing much better overall 08/03/20: Pt doing pretty well Bowels moved 08/01 No major issues Not really motivated too much so will try to give him more activity as he requested from 3-5 PM 08/02/20: Pt really not too motivated but hes doing well Spills his urinal quite a bit Incision looks a bit red but not infected Bowels moved yesterday 08/01/20: Hgb is 9.6 Last BM was yesterday No major issues Feels like he is doing a lot better 07/31/20: No major issues No pain reported at this current time No falls Seems to be in good spirits 07/30/20: Patient doing well Has no concerns Pain is controlled BiPAP last night with 3L/min O2 Dressing changes QOD Slight redness around sutures 07/29/20: Patient settling in well Loose BM yesterday Dressing changes on spine every other day No questions from patient Feels like he is using muscles in therapy 07/28/20: Patient doing well Settling in well Incontinent last night but patient reports he spilled urinal Metformin noted and is maintained BM+ Sugar is ok Hgb 9.4 SLUMS Review of Systems General: Fatigue Musculoskeletal: back pain Objective Exam Vital Signs Vital Signs Date Time Temp Pulse Resp B/P (MAP) Pulse Ox O2 Delivery O2 Flow Rate FiO2 08/17/20 20:24 36.6 68 17 131/60 (83) 96 Room Air Capillary Refill : General Appearance: No Apparent Distress, WD/WN, Chronically ill, Obese HEENT: PERRL/EOMI, Normal ENT Inspection, Pharynx Normal Neck: Full Range of Motion, Normal Inspection, Non Tender, Supple, Carotid Brui t Respiratory: Chest Non Tender, Lungs Clear, Normal Breath Sounds, No Accessory Muscle Use, No Respiratory Distress Cardiovascular: Regular Rate, Rhythm, No Edema, No Gallop, No JVD, No Murmur, Normal Peripheral Pulses Gastrointestinal: Normal Bowel Sounds, No Organomegaly, No Pulsatile Mass, Non Tender, Soft Back: Decreased Range of Motion, Muscle Spasm, Vertebral Tenderness Extremity: Normal Capillary Refill, Normal Inspection, Normal Range of Motion, Non Tender, No Calf Tenderness, No Pedal Edema Neurologic/Psychiatric: Alert, Oriented x3, No Motor/Sensory Deficits, biometrics analyst II- XII Norm as Tested, Abnormal Gait, Depressed Affect, Motor Weakness Skin: Normal Color, Warm/Dry Lymphatic: No Adenopathy Results/Procedures Lab Patient resulted labs reviewed. FIM Transfers Therapy Code Descriptions/Definitions Functional [place] Measure: 0=Not Assessed/NA 4=Minimal Assistance 1=Total Assistance 5=Supervision or Setup 2=Maximal Assistance 6=Modified [place] 3=Moderate Assistance 7=Complete IndependenceSCALE: Activities may be completed with or without assistive devices. 9-Kcikfzbxen-zvbqwzz completes the activity by him/herself with no assistance from a helper. 5-Set-up or Clean-up Assistance-helper sets up or cleans up; patient completes activity. [place] assists only prior to or following the activity. 4-Supervision or Touching Assistance-helper provides verbal cues and/or touching/steadying and/or contact guard assistance as patient completes activity. Assistance may be provided throughout the activity or intermittently. 3-Partial/Moderate Assistance-helper does LESS THAN HALF the effort. [place] lifts, holds or supports trunk or limbs, but provides less than half the effort. 2-Substantial/Maximal Assistance-helper does MORE THAN HALF the effort. [place] lifts or holds trunk or limbs and provides more than half the effort. 0-Ncobnfscj-aasqwf does ALL the effort. Patient does none of the effort to complete the activity. Or, the assistance of 2 or more helpers is required for the patient to complete the activity. If activity was not attempted, code reason: 7-Patient Refused. 9-Not Applicable-not attempted and the patient did not perform the activity before the current illness, exacerbation or injury. 10-Not Attempted due to Environmental Limitations-(lack of equipment, weather restraints, etc.). 88-Not Attempted due to Medical Conditions or Safety Concerns. Roll Left to Right (QC): 6 Sit to Lying (QC): 6 Sit to Stand (QC): 3 Chair/Bpq-gf-Malam Xfer(QC): 4 Car Transfer (QC): 88 Gait Training Does the Patient Walk?: Yes Distance: 100'x2 Walk 10 feet (QC): 4 Walk 50 ft with 2 Turns(QC): 4 Walk 150 ft (QC): 4 Walking 10ft/uneven surface-QC: 88 Gait Persons Needed: 1 Gait Assistive Device: FWW Wheelchair Training Does the Pt Use a Wheelchair?: Yes Wheel 50 ft with 2 turns (QC): 6 Wheel 150 ft (QC): 4 Type of Wheelchair: Manual Stair Training Stair Training: Handrails/: uses walker #of Steps: 1 1 Step (curb) (QC): 3 4 Steps (QC): 88 12 Steps (QC): 88 Stairs: Pattern: Step to Balance Picking up an Object (QC): 88 ADL-Treatment Eating (QC): 6 Oral Hygiene (QC): 6 Bathing Location: L Arm, R Arm, L Upper Leg, R Upper Leg, L Lower Leg (including foot), R Lower Leg (including foot), Chest, Abdomen, Perineal Area Shower/Bathe Self (QC): 5 Upper Body Dressing (QC): 5 Lower Body Dressing (QC): 5 On/Off Footwear (QC): 5 Toileting Hygiene (QC): 3 Toilet Transfer (QC): 3 Assessment/Plan Assessment and Plan Assess & Plan/Chief Complaint Assessment: s/p Lumbar laminectomy L2-L3 and TLIF w/ extension of previous L3-L5 hardware LLE weakness Spondylosis Performed due to Spinal stenosis with neurogenic claudication. Source of pts debidity. PT/OT IS Speech therapy Consult SS. GOAL: Return to baseline function before sx. Discharge home with Home Health. Normocytic anemia Hx of hypokalemia during [facility] post-op stay. Per pt: known chronic hx of anemia. 07/26 labs from [facility]: H&H is 8.7/27.6 Likely multifactorial: to surgical blood loss and anemia of chronic disease. Iron studies ordered during pts post-op [facility] stay (results?) CBC and CMP NIDDM HTN HLP Obesity Sleep apnea Neuropathy SSI Home Cpap. Home Meds s/p COVID-19 PNA Hospitalized . Received convalescent plasma and inpt stay for several days. Pt reports no residual sxs. Hx of lumbar radiculopathy Polyp on vocal cord Hx of cervical spine sx DVT prophylaxis SCD and ambulation. Plan: IRF protocol Pain control BM regimen PT OT 07/28/20: Pain control Monitor hgb Monitor BP 07/29/20: Monitor pain Monitor BM regimen 07/30/20: Monitor closely Pain management BM regimen 07/31/20: Monitor pain Monitor BP 08/01/20: Monitor leg weakness Pain control Monitor BM regimen 08/02/20: Monitor pain BM regimen to maintain 08/03/20: Monitor pain Increase activity 08/04/20: Monitor pain Increase activity 08/05/2020: Monitor closely Fall risk 08/06/20: Pain control Aggressive PT OT to prevent falls 08/07/20: Improved status Laxatives Labs due tomorrow 08/08/20: Pain is controlled Labs are stable 08/09/20: Fall risk Monitor closely 08/10/20: Monitor closely for falls Wheelchair mobility may be required 08/11/20: Monitor closely NSG appt Declines wheelchair mobility skills 08/12/20: Monitor closely Fall risk 08/13/20: Patient against wheelchair use Monitored closely 08/14/20: Labs in am Monitor closely 08/15/20: DC soon Monitor closely 08/16/20: DC Continue aggressive PT OT 08/17/20: DC tomorrow Reviewed DC meds (1) Lumbar radiculopathy (2) MICHAELA treated with BiPAP (3) Nocturnal hypoxemia (4) Diabetes (5) Hypertension (6) Hyperlipemia (7) Obesity, morbid, BMI 40.0-49.9 KAMERON RAMOS DO August 17, 2020 09:00
--- NOTE | 2020-08-17 09:02 | Physical Therapy Daily Note ---
PT Daily Note-Current Subjective Pt. agreeable to Rx. PT OT co Rx secondary to complexity of pts fall risk and coordination of UE FWW and UE stability Pain Location: No Pain Reported Mental Status Patient Orientation: Normal For Age Attachments: Other-See Comments (back brace and mask) Transfers SCALE: Activities may be completed with or without assistive devices. 7-Rimztilecm-txqgzqz completes the activity by him/herself with no assistance from a helper. 5-Set-up or Clean-up Assistance-helper sets up or cleans up; patient completes activity. [place] assists only prior to or following the activity. 4-Supervision or Touching Assistance-helper provides verbal cues and/or touching/steadying and/or contact guard assistance as patient completes activity. Assistance may be provided throughout the activity or intermittently. 3-Partial/Moderate Assistance-helper does LESS THAN HALF the effort. [place] lifts, holds or supports trunk or limbs, but provides less than half the effort. 2-Substantial/Maximal Assistance-helper does MORE THAN HALF the effort. [place] lifts or holds trunk or limbs and provides more than half the effort. 4-Tsipbzypn-ogdaek does ALL the effort. Patient does none of the effort to complete the activity. Or, the assistance of 2 or more helpers is required for the patient to complete the activity. If activity was not attempted, code reason: 7-Patient Refused. 9-Not Applicable-not attempted and the patient did not perform the activity before the current illness, exacerbation or injury. 10-Not Attempted due to Environmental Limitations-(lack of equipment, weather restraints, etc.). 88-Not Attempted due to Medical Conditions or Safety Concerns. Roll Left & Right (QC): 6 Sit to Lying (QC): 6 Lying to Sitting/Side of Bed(Q: 6 Sit to Stand (QC): 4 Chair/Ehp-gv-[place] Xfer(QC): 4 Toilet Transfer (QC): 4 Car Transfer (QC): 5 pt. requires assist 50% of time to stabilize and maintain extension at left knee during sit to stand bong from std or lower heights. Weight Bearing Weight Bearing/Tolerated Full Weight Bearing Gait Training Does the Patient Walk?: Yes Walk 10 feet (QC): 4 Walk 50 ft with 2 Turns(QC): 4 Walking 10ft/uneven surface-QC: 4 Gait Persons Needed: 1 Gait Assistive Device: FWW pt. was actually flanked on both sides as well as w/c close behind for safety/p rotection during gait Wheelchair Training Does the Pt Use a Wheelchair?: Yes Wheel 50 ft with 2 turns (QC): 6 Wheel 150 ft (QC): 6 Type of Wheelchair: Manual Stair Training 1 Step (curb) (QC): 88 4 Steps (QC): 88 Exercises Supine Ex: Ankle pumps, Quad Set, Rolling, Heel Slides, Hip abd/add Supine Reps: 10 Treatments co Rx with OT for showering and dressing with main coordination for sit to stands in wet surface etc. PT managing chair change out, OT instructing and guarding etc as well as showering oversight Assessment Current Status: Good Progress pt. continues markedly weak in bong Left quad /LE and threatens to "drop" It is helpful to have higher surfaces to TRF from . This GUN FERTILIZER highly recommends w/c mob as main mobility at home with gait with walker while PT is present with a w/c back up as pt. is at risk for drop fall PT Short Term Goals Short Term Goals Time Frame: August 03, 2020 Roll Left & Right: 6 Sit to lyin (CGA) Lying to sitting on side of be: 4 (CGA) Chair/gwp-tj-dnnhz transfer: 4 (CGA) Walk 10 feet: 3 (mod) PT Skilled Nursing Goals Skilled Nursing Goals PT Skilled Nursing Goals Time Frame: August 17, 2020 Roll Left & Right (QC): 6 Sit to Lying (QC): 4 (SBA) Lying-Sitting on Side/Bed(QC): 4 (SBA) Sit to Stand (QC): 3 (min) Chair/Dwc-pi-Fsclg Xfer(QC): 3 (min) Toilet Transfer (QC): 3 (min) Car Transfer (QC): 3 (min) Does the Patient Walk: No and Walking Goal IS indicated Walk 10 feet (QC): 3 (min) Walk 50ft with 2 Turns (QC): 3 (min) Walk 150 ft (QC): 88 Walking 10ft on Uneven Surface: 3 (min) 1 Step (curb) (QC): 3 (min) 4 Steps (QC): 88 12 Steps (QC): 9 Picking up an Object (QC): 9 Does the Pt use WC or Scooter?: Yes Wheel 50 feet with 2 turns (QC: 6 Type: Manual Wheel 150 feet: 6 Type: Manual PT Plan Treatment/Plan Treatment Plan: Continue Plan of Care Treatment Plan: Bed Mobility, Education, Functional Activity Jai, Functional Strength, Gait, Safety, Therapeutic Exercise, Transfers Treatment Duration: August 17, 2020 Frequency: At least 5 of 7 days/Wk (IRF) Estimated Hrs Per Day: 1.5 hours per day Patient and/or Family Agrees t: Yes Safety Risks/Education Patient Education: Gait Training, Transfer Techniques, Correct Positioning, W/C Management, Disease Process, Safety Issues Teaching Recipient: Patient Teaching Methods: Demonstration, Discussion Response to Teaching: Verbalize Understanding, Return Demonstration, Reinforcement Needed Time/GCodes Time In: 800 Time Out: 900 Total Billed Treatment Time: 60 Total Billed Treatment 1,FA35m,GT15m,WC10m (PT OT co Rx 60 m) DEWAYNE STILES GUN FERTILIZER August 17, 2020 09:02
--- NOTE | 2020-08-17 10:53 | Physical Therapy Daily Note ---
PT Daily Note-Current Subjective Pt. agrees to therex Pain Location: No Pain Reported Mental Status Patient Orientation: Normal For Age Transfers SCALE: Activities may be completed with or without assistive devices. 2-Lvuiqqgizv-hwrqdwf completes the activity by him/herself with no assistance from a helper. 5-Set-up or Clean-up Assistance-helper sets up or cleans up; patient completes activity. [place] assists only prior to or following the activity. 4-Supervision or Touching Assistance-helper provides verbal cues and/or touching/steadying and/or contact guard assistance as patient completes activity. Assistance may be provided throughout the activity or intermittently. 3-Partial/Moderate Assistance-helper does LESS THAN HALF the effort. [place] lifts, holds or supports trunk or limbs, but provides less than half the effort. 2-Substantial/Maximal Assistance-helper does MORE THAN HALF the effort. [place] lifts or holds trunk or limbs and provides more than half the effort. 9-Cmzmufvpy-tysdky does ALL the effort. Patient does none of the effort to complete the activity. Or, the assistance of 2 or more helpers is required for the patient to complete the activity. If activity was not attempted, code reason: 7-Patient Refused. 9-Not Applicable-not attempted and the patient did not perform the activity before the current illness, exacerbation or injury. 10-Not Attempted due to Environmental Limitations-(lack of equipment, weather restraints, etc.). 88-Not Attempted due to Medical Conditions or Safety Concerns. scoots up in reclined chair SBA, sit to stand CGA Weight Bearing Weight Bearing/Tolerated Full Weight Bearing Exercises Supine Ex: Bridging, Ankle pumps, Quad Set, Glut sets, Heel Slides, Short Arc Quads, Scooting, Straight leg raise (assisted), Hip abd/add Supine Reps: 20 Assessment Current Status: Good Progress PT Short Term Goals Short Term Goals Time Frame: August 03, 2020 Roll Left & Right: 6 Sit to lyin (CGA) Lying to sitting on side of be: 4 (CGA) Chair/tjm-vp-imvsv transfer: 4 (CGA) Walk 10 feet: 3 (mod) PT Mcfp Goals Mend Worker Goals PT Mend Worker Goals Time Frame: August 17, 2020 Roll Left & Right (QC): 6 Sit to Lying (QC): 4 (SBA) Lying-Sitting on Side/Bed(QC): 4 (SBA) Sit to Stand (QC): 3 (min) Chair/Uro-cs-Cbftn Xfer(QC): 3 (min) Toilet Transfer (QC): 3 (min) Car Transfer (QC): 3 (min) Does the Patient Walk: No and Walking Goal IS indicated Walk 10 feet (QC): 3 (min) Walk 50ft with 2 Turns (QC): 3 (min) Walk 150 ft (QC): 88 Walking 10ft on Uneven Surface: 3 (min) 1 Step (curb) (QC): 3 (min) 4 Steps (QC): 88 12 Steps (QC): 9 Picking up an Object (QC): 9 Does the Pt use WC or Scooter?: Yes Wheel 50 feet with 2 turns (QC: 6 Type: Manual Wheel 150 feet: 6 Type: Manual PT Plan Treatment/Plan Treatment Plan: Continue Plan of Care Treatment Plan: Bed Mobility, Education, Functional Activity Jai, Functional Strength, Gait, Safety, Therapeutic Exercise, Transfers Treatment Duration: August 17, 2020 Frequency: At least 5 of 7 days/Wk (IRF) Estimated Hrs Per Day: 1.5 hours per day Patient and/or Family Agrees t: Yes Safety Risks/Education Patient Education: Transfer Techniques, Correct Positioning, Disease Process Teaching Recipient: Patient Response to Teaching: Verbalize Understanding, Reinforcement Needed Time/GCodes Time In: 1000 Time Out: 1030 Total Billed Treatment Time: 30 Total Billed Treatment 1,EX30m DEWAYNE STILES CRISIS COUNSELOR August 17, 2020 10:53
[2020-08-17] MEDS: DIAZEPAM 5 MG (VALIUM) TABLET PO SCH (20:22)
[2020-08-17 20:24] VITALS: BP 131/60
--- NOTE | 2020-08-18 06:20 | Discharge Summary ---
Diagnosis/Chief Complaint Date of Admission Jul 27, 2020 at 14:28 Date of Discharge Discharge Date: August 18, 2020 Discharge Diagnosis Assessment: s/p Lumbar laminectomy L2-L3 and TLIF w/ extension of previous L3-L5 hardware LLE weakness Spondylosis Performed due to Spinal stenosis with neurogenic claudication. Source of pts debidity. PT/OT IS Speech therapy Consult SS. GOAL: Return to baseline function before sx. Discharge home with Home Health. Normocytic anemia Hx of hypokalemia during [place] post-op stay. Per pt: known chronic hx of anemia. 07/26 labs from [place]: H&H is 8.7/.6 Likely multifactorial: to surgical blood loss and anemia of chronic disease. Iron studies ordered during pts post-op [place] stay (results?) CBC and CMP NIDDM HTN HLP Obesity Sleep apnea Neuropathy SSI Home Cpap. Home Meds s/p COVID-19 PNA Hospitalized . Received convalescent plasma and inpt stay for several days. Pt reports no residual sxs. Hx of lumbar radiculopathy Polyp on vocal cord Hx of cervical spine sx DVT prophylaxis SCD and ambulation. Plan: IRF protocol Pain control BM regimen PT OT 07/28/20: Pain control Monitor hgb Monitor BP 07/29/20: Monitor pain Monitor BM regimen 07/30/20: Monitor closely Pain management BM regimen 07/31/20: Monitor pain Monitor BP 08/01/20: Monitor leg weakness Pain control Monitor BM regimen 08/02/20: Monitor pain BM regimen to maintain 08/03/20: Monitor pain Increase activity 08/04/20: Monitor pain Increase activity 08/05/2020: Monitor closely Fall risk 08/06/20: Pain control Aggressive PT OT to prevent falls 08/07/20: Improved status Laxatives Labs due tomorrow 08/08/20: Pain is controlled Labs are stable 08/09/20: Fall risk Monitor closely 08/10/20: Monitor closely for falls Wheelchair mobility may be required 08/11/20: Monitor closely NSG appt Declines wheelchair mobility skills 08/12/20: Monitor closely Fall risk 08/13/20: Patient against wheelchair use Monitored closely 08/14/20: Labs in am Monitor closely 08/15/20: DC soon Monitor closely 08/16/20: DC Continue aggressive PT OT 08/17/20: DC tomorrow Reviewed DC meds (1) Lumbar radiculopathy (2) MICHAELA treated with BiPAP (3) Nocturnal hypoxemia (4) Diabetes (5) Hypertension (6) Hyperlipemia (7) Obesity, morbid, BMI 40.0-49.9 Discharge Summary Discharge Physical Examination Allergies: Coded Allergies: Penicillins (Verified Allergy, Unknown, Rash, 07/27/20) Vitals & I&Os Vital Signs Date Time Temp Pulse Resp B/P (MAP) Pulse Ox O2 Delivery O2 Flow Rate FiO2 08/18/20 10:50 36.4 82 16 123/58 94 Room Air General Appearance: Alert, Oriented X3, Cooperative Respiratory: Clear to Auscultation Cardiovascular: Regular Rate Neuro: Normal Gait, Normal Speech, Strength at / X4 Ext Psych/Mental Status: Mental Status NL Hospital Course Was the Problem List Reviewed?: Yes Hospital course: Pt had a lengthy hospital course for 23 days after he was admitted for lumbar stenosis with neurogenic claudication, from [facility] Dr. Castellanos. He did participate in all therapy, he had a significant amount of strength, and ADL function returned with aggressive therapy, pain was well controlled, home medications were restarted and no decompensation occurred during the hospital course, and he was deemed stable for discharge to home with home health and his who is a nurse will take care of him at home and will help him recover. Labs (last 24 hrs) Laboratory Tests 07/28/20 05:35: White Blood Count 7.0, Red Blood Count 3.17L, Hemoglobin 9.4L, Hematocrit 30L, Mean Corpuscular Volume 93, Mean Corpuscular Hemoglobin 30, Mean Corpuscular Hemoglobin Concent 32, Red Cell Distribution Width 14.0, Platelet Count 347, Mean Platelet Volume 10.4, Immature Granulocyte % (Auto) 1, Neutrophils (%) (Auto) 66, Lymphocytes (%) (Auto) 20, Monocytes (%) (Auto) 9, Eosinophils (%) (Auto) 3, Basophils (%) (Auto) 0, Neutrophils # (Auto) 4.6, Lymphocytes # (Auto) 1.4, Monocytes # (Auto) 0.6, Eosinophils # (Auto) 0.2, Basophils # (Auto) 0.0, Immature Granulocyte # (Auto) 0.1, Sodium Level 141, Potassium Level 3.7, Chloride Level 104, Carbon Dioxide Level 28, Anion Gap 9, Blood Urea Nitrogen 13, Creatinine 0.84, Estimat Glomerular Filtration Rate > 60, BUN/Creatinine Ratio 15, Glucose Level 141H, Calcium Level 8.9, Corrected Calcium 9.5, Total Bilirubin 0.4, Aspartate Amino Transf (AST/SGOT) 26, Alanine Aminotransferase (ALT/SGPT) 50, Alkaline Phosphatase 100, Total Protein 6.2L, Albumin 3.2 08/01/20 05:20: White Blood Count 7.9, Red Blood Count 3.28L, Hemoglobin 9.6L, Hematocrit 31L, Mean Corpuscular Volume 94, Mean Corpuscular Hemoglobin 29, Mean Corpuscular Hemoglobin Concent 31L, Red Cell Distribution Width 14.3, Platelet Count 352, Mean Platelet Volume 10.4, Immature Granulocyte % (Auto) 2, Neutrophils (%) (Auto) 62, Lymphocytes (%) (Auto) 21, Monocytes (%) (Auto) 11, Eosinophils (%) (Auto) 4, Basophils (%) (Auto) 1, Neutrophils # (Auto) 4.9, Lymphocytes # (Auto) 1.6, Monocytes # (Auto) 0.8, Eosinophils # (Auto) 0.3, Basophils # (Auto) 0.0, Immature Granulocyte # (Auto) 0.2H, Sodium Level 137, Potassium Level 3.9, Chloride Level 99, Carbon Dioxide Level 26, Anion Gap 12, Blood Urea Nitrogen 21H, Creatinine 1.08, Estimat Glomerular Filtration Rate > 60, BUN/Creatinine Ratio 19, Glucose Level 124H, Calcium Level 8.5, Corrected Calcium 9.1, Total Bilirubin 0.5, Aspartate Amino Transf (AST/SGOT) 24, Alanine Aminotransferase (ALT/SGPT) 37, Alkaline Phosphatase 97, Total Protein 6.2L, Albumin 3.2 08/08/20 05:32: White Blood Count 5.9, Red Blood Count 3.45L, Hemoglobin 10.0L, Hematocrit 31L, Mean Corpuscular Volume 91, Mean Corpuscular Hemoglobin 29, Mean Corpuscular Hemoglobin Concent 32, Red Cell Distribution Width 14.2, Platelet Count 331, Mean Platelet Volume 10.5, Immature Granulocyte % (Auto) 1, Neutrophils (%) (Auto) 54, Lymphocytes (%) (Auto) 30, Monocytes (%) (Auto) 10, Eosinophils (%) (Auto) 5, Basophils (%) (Auto) 1, Neutrophils # (Auto) 3.2, Lymphocytes # (Auto) 1.8, Monocytes # (Auto) 0.6, Eosinophils # (Auto) 0.3, Basophils # (Auto) 0.1, Immature Granulocyte # (Auto) 0.0, Sodium Level 141, Potassium Level 4.0, Chloride Level 103, Carbon Dioxide Level 25, Anion Gap 13, Blood Urea Nitrogen 19H, Creatinine 1.03, Estimat Glomerular Filtration Rate > 60, BUN/Creatinine R atio 18, Glucose Level 119H, Calcium Level 8.9, Corrected Calcium 9.4, Total Bilirubin 0.4, Aspartate Amino Transf (AST/SGOT) 16, Alanine Aminotransferase (ALT/SGPT) 22, Alkaline Phosphatase 97, Total Protein 6.5, Albumin 3.4 08/15/20 05:25: White Blood Count 5.4, Red Blood Count 3.32L, Hemoglobin 9.6L, Hematocrit 30L, Mean Corpuscular Volume 92, Mean Corpuscular Hemoglobin 29, Mean Corpuscular Hemoglobin Concent 32, Red Cell Distribution Width 14.9H, Platelet Count 260, Mean Platelet Volume 11.0, Immature Granulocyte % (Auto) 1, Neutrophils (%) (Auto) 60, Lymphocytes (%) (Auto) 25, Monocytes (%) (Auto) 10, Eosinophils (%) (Auto) 5, Basophils (%) (Auto) 1, Neutrophils # (Auto) 3.2, Lymphocytes # (Auto) 1.3, Monocytes # (Auto) 0.5, Eosinophils # (Auto) 0.3, Basophils # (Auto) 0.0, Immature Granulocyte # (Auto) 0.0, Sodium Level 139, Potassium Level 4.3, Chloride Level 103, Carbon Dioxide Level 27, Anion Gap 9, Blood Urea Nitrogen 23H, Creatinine 0.93, Estimat Glomerular Filtration Rate > 60, BUN/Creatinine Ratio 25, Glucose Level 128H, Calcium Level 8.9, Corrected Calcium 9.3, Total Bilirubin 0.3, Aspartate Amino Transf (AST/SGOT) 18, Alanine Aminotransferase (ALT/SGPT) 18, Alkaline Phosphatase 90, Total Protein 6.4, Albumin 3.5 Pending Labs Laboratory Tests 07/28/20 05:35: White Blood Count 7.0, Red Blood Count 3.17, Hemoglobin 9.4, Hematocrit 30, Mean Corpuscular Volume 93, Mean Corpuscular Hemoglobin 30, Mean Corpuscular Hemogl obin Concent 32, Red Cell Distribution Width 14.0, Platelet Count 347, Mean Platelet Volume 10.4, Immature Granulocyte % (Auto) 1, Neutrophils (%) (Auto) 66, Lymphocytes (%) (Auto) 20, Monocytes (%) (Auto) 9, Eosinophils (%) (Auto) 3, Basophils (%) (Auto) 0, Neutrophils # (Auto) 4.6, Lymphocytes # (Auto) 1.4, Monocytes # (Auto) 0.6, Eosinophils # (Auto) 0.2, Basophils # (Auto) 0.0, Immature Granulocyte # (Auto) 0.1, Sodium Level 141, Potassium Level 3.7, Chloride Level 104, Carbon Dioxide Level 28, Anion Gap 9, Blood Urea Nitrogen 13, Creatinine 0.84, Estimat Glomerular Filtration Rate > 60, BUN/Creatinine Ratio 15, Glucose Level 141, Calcium Level 8.9, Corrected Calcium 9.5, Total Bilirubin 0.4, Aspartate Amino Transf (AST/SGOT) 26, Alanine Aminotransferase (ALT/SGPT) 50, Alkaline Phosphatase 100, Total Protein 6.2, Albumin 3.2 08/01/20 05:20: White Blood Count 7.9, Red Blood Count 3.28, Hemoglobin 9.6, Hematocrit 31, Mean Corpuscular Volume 94, Mean Corpuscular Hemoglobin 29, Mean Corpuscular Hemoglobin Concent 31, Red Cell Distribution Width 14.3, Platelet Count 352, Mean Platelet Volume 10.4, Immature Granulocyte % (Auto) 2, Neutrophils (%) (Auto) 62, Lymphocytes (%) (Auto) 21, Monocytes (%) (Auto) 11, Eosinophils (%) (Auto) 4, Basophils (%) (Auto) 1, Neutrophils # (Auto) 4.9, Lymphocytes # (Auto) 1.6, Monocytes # (Auto) 0.8, Eosinophils # (Auto) 0.3, Basophils # (Auto) 0.0, Immature Granulocyte # (Auto) 0.2, Sodium Level 137, Potassium Level 3.9, Chloride Level 99, Carbon Dioxide Level 26, Anion Gap 12, Blood Urea Nitrogen 21, Creatinine 1.08, Estimat Glomerular Filtration Rate > 60, BUN/Creatinine Ratio 19, Glucose Level 124, Calcium Level 8.5, Corrected Calcium 9.1, Total Bilirubin 0.5, Aspartate Amino Transf (AST/SGOT) 24, Alanine Aminotransferase (ALT/SGPT) 37, Alkaline Phosphatase 97, Total Protein 6.2, Albumin 3.2 08/08/20 05:32: White Blood Count 5.9, Red Blood Count 3.45, Hemoglobin 10.0, Hematocrit 31, Mean Corpuscular Volume 91, Mean Corpuscular Hemoglobin 29, Mean Corpuscular Hemoglobin Concent 32, Red Cell Distribution Width 14.2, Platelet Count 331, Mean Platelet Volume 10.5, Immature Granulocyte % (Auto) 1, Neutrophils (%) (Auto) 54, Lymphocytes (%) (Auto) 30, Monocytes (%) (Auto) 10, Eosinophils (%) (Auto) 5, Basophils (%) (Auto) 1, Neutrophils # (Auto) 3.2, Lymphocytes # (Auto) 1.8, Monocytes # (Auto) 0.6, Eosinophils # (Auto) 0.3, Basophils # (Auto) 0.1, Immature Granulocyte # (Auto) 0.0, Sodium Level 141, Potassium Level 4.0, Chloride Level 103, Carbon Dioxide Level 25, Anion Gap 13, Blood Urea Nitrogen 19, Creatinine 1.03, Estimat Glomerular Filtration Rate > 60, BUN/Creatinine Ratio 18, Glucose Level 119, Calcium Level 8.9, Corrected Calcium 9.4, Total Bilirubin 0.4, Aspartate Amino Transf (AST/SGOT) 16, Alanine Aminotransferase (ALT/SGPT) 22, Alkaline Phosphatase 97, Total Protein 6.5, Albumin 3.4 08/15/20 05:25: White Blood Count 5.4, Red Blood Count 3.32, Hemoglobin 9.6, Hematocrit 30, Mean Corpuscular Volume 92, Mean Corpuscular Hemoglobin 29, Mean Corpuscular Hemoglobin Concent 32, Red Cell Distribution Width 14.9, Platelet Count 260, Mean Platelet Volume 11.0, Immature Granulocyte % (Auto) 1, Neutrophils (%) (Auto) 60, Lymphocytes (%) (Auto) 25, Monocytes (%) (Auto) 10, Eosinophils (%) (Auto) 5, Basophils (%) (Auto) 1, Neutrophils # (Auto) 3.2, Lymphocytes # (Auto) 1.3, Monocytes # (Auto) 0.5, Eosinophils # (Auto) 0.3, Basophils # (Auto) 0.0, Immature Granulocyte # (Auto) 0.0, Sodium Level 139, Potassium Level 4.3, Chloride Level 103, Carbon Dioxide Level 27, Anion Gap 9, Blood Urea Nitrogen 23, Creatinine 0.93, Estimat Glomerular Filtration Rate > 60, BUN/Creatinine Ratio 25, Glucose Level 128, Calcium Level 8.9, Corrected Calcium 9.3, Total Bilirubin 0.3, Aspartate Amino Transf (AST/SGOT) 18, Alanine Aminotransferase (ALT/SGPT) 18, Alkaline Phosphatase 90, Total Protein 6.4, Albumin 3.5 Discharge Home Medications: Active Scripts Active Lotrimin AF (Miconazole Nitrate) 90 Gm Powder 0 Gm TOP BID Diazepam 5 Mg Tablet 5 Mg PO HS Percocet 5-325 mg Tablet (Oxycodone HCl/Acetaminophen) 1 Each Tablet 1 Tab PO Q6H PRN Cyclobenzaprine HCl 10 Mg Tablet 10 Mg PO TID PRN Tramadol HCl 50 Mg Tablet 100 Mg PO BID PRN NO CURRENT FILL DATES ON FILE Gabapentin 600 Mg Tablet 600 Mg PO TID LAST FILLED 09-28-2019 #270/90 DAY SUPPLY Reported Hydrochlorothiazide 25 Mg Tablet 25 Mg PO DAILY Amlodipine Besylate 5 Mg Tablet 5 Mg PO DAILY Trulicity (Dulaglutide) 0.75 Mg/0.5 Ml Pen.injctr 0.75 Mg SQ MON Losartan Potassium 100 Mg Tablet 100 Mg PO DAILY Atorvastatin Calcium 80 Mg Tablet 80 Mg PO HS Metformin HCl 1,000 Mg Tablet 1,000 Mg PO BID Aspirin EC (Aspirin) 81 Mg Tablet.dr 81 Mg PO DAILY Instructions to patient/family Please see electronic discharge instructions given to patient. Diagnosis/Problems Diagnosis/Problems (1) Lumbar radiculopathy (2) MICHAELA treated with BiPAP (3) Nocturnal hypoxemia (4) Diabetes (5) Hypertension (6) Hyperlipemia (7) Obesity, morbid, BMI 40.0-49.9 KAMERON RAMOS DO August 18, 2020 06:20
[2020-08-18 08:11] VITALS: BP 123/58
[2020-08-18] MEDS: metFORMIN 500 MG (GLUCOPHAGE) TAB PO SCH (08:39)
[2020-08-18] MEDS: polyethylene glycoL POWDER 17 GM (MIRALAX) PACK PO SCH (08:39)
[2020-08-18] MEDS: GABAPENTIN 600 MG (NEURONTIN) TAB PO SCH (08:39)
[2020-08-18] MEDS: LOSARTAN 100 MG (COZAAR) TABLET PO SCH (08:39)
[2020-08-18] MEDS: ASPIRIN E.C. 81 MG (ECOTRIN) TAB PO SCH (08:39)
[2020-08-18] MEDS: amLODIPine 5 MG (NORVASC) TAB PO SCH (08:39)
[2020-08-18] MEDS: VENELEX OINTMENT TOP SCH (08:40)
[2020-08-18] MEDS: MICONAZOLE 2% POWDER (DESENEX AF) 90 GM TOP SCH (08:44)
[2020-08-18] MEDS: DOCUSATE SODIUM 100 MG (COLACE) CAP PO SCH (08:46)
[2020-08-18] MEDS: oxyCODONE/APAP 5/325MG (PERCOCET 5) TABLET PO PRN (08:49)
[2020-08-18] MEDS: SENNA W/DOCUSATE (SENOKOT S) TABLET PO SCH (08:58)
[2020-08-18 10:50] VITALS: BP 123/58
--- NOTE | 2020-08-18 13:55 | Therapy Team Discharge Summary ---
Therapy Discharge Summary Discharge Recommendations Date of Discharge August 18, 2020 at 10:50 Therapy D/C Recommendations: Home w/ Family Support, Occupational Therapy Home Care Occupational Therapy Pt. seen by Occupational therapy to increase overall strength and independence with daily tasks for improved functional return home. Pt. made great gains with ADL skills. Please see goals met. Pt. discharged with family support. Recommend continued home health for Occupational therapy. Pt. and family has recommended equipment ordered. Pt. discharged this date. Impaired Funct Balance, Impaired I ADL's, Impaired Self-Care Skills PT Bran Mixer Goals Half-Way Goals PT Half-Way Goals Time Frame: August 17, 2020 Roll Left to Right (QC): 6 Sit to Lying (QC): 4 (SBA) Lying-Sitting on Side/Bed(QC): 4 (SBA) Sit to Stand (QC): 3 (min) Chair/Seq-xq-Srcjw Xfer(QC): 3 (min) Car Transfer (QC): 3 (min) Does the Patient Walk: No and Walking Goal IS indicated Walk 10 feet (QC): 3 (min) Walk 10ft-Uneven Surface(QC): 3 (min) Walk 50ft with 2 Turns (QC): 3 (min) Walk 150 ft (QC): 88 Does the Pt use WC or Scooter?: Yes Wheel 50 feet with 2 turns (QC: 6 1 Step (curb) (QC): 3 (min) 4 Steps (QC): 88 12 Steps (QC): 9 Picking up an Object (QC): 9 OT Bran Mixer Goals Half-Way Goals Time Frame: August 24, 2020 Eating (QC): 6 (met) Oral Hygiene (QC): 6 (met) Shower/Bathe Self (QC): 4 (met) Upper Body Dressing (QC): 6 (not met) Lower Body Dressing (QC): 6 (not met) On/Off Footwear (QC): 6 (not met) Toileting Hygiene (QC): 6 (not met) Toilet/Commode Transfer (QC): 3 (min) Additional Goals: 1-Demonstrate ADL Tasks, 2-Verbalize Understanding, 3- ImproveStrength/Jai 1=Demonstrate adherence to instructed precautions during ADL tasks. 2=Patient will verbalize/demonstrate understanding of assistive devices/modifications for ADL. 3=Patient will improve strength/tolerance for activity to enable patient to perform ADL's. QUEENIE SALAZAR OT August 18, 2020 13:55
--- NOTE | 2020-08-18 15:47 | Therapy Team Discharge Summary ---
Therapy Discharge Summary Discharge Recommendations Date of Discharge August 18, 2020 at 10:50 Therapy D/C Recommendations: Home w/ Family Support, Occupational Therapy Home Care Physical Therapy Patient came to rehab following a back surgery. Upon evaluation patient performed bed mobility with independence, supine <-> sit mod assist, max assist for sit to stand and dependent for transfers, he could propel a manual WC with independence. Patient has been performing bed mobility and transfer training, balance and endurance training, functional strengthening, gait training, and education. Patient has made fair progress and has met all of his retirement goals except for stairs. Now, patient performs bed mobility and supine <-> sit with independence, sit <-> stand and transfers with CGA, car transfer CGA, ambulates 100' with a rolling walker with CGA (including 50' with at least 2 turns of 90 degrees and 10' over an uneven surface), and can propel a manual WC with independence. Patient was discharged from this facility today and will be discharged from PT at this time. Occupational Therapy Impaired Funct Balance, Impaired I ADL's, Impaired Self-Care Skills PT [facility] Goals Clinical Trial Leader Goals PT Clinical Trial Leader Goals Time Frame: August 17, 2020 Roll Left to Right (QC): 6 Sit to Lying (QC): 4 (SBA) Lying-Sitting on Side/Bed(QC): 4 (SBA) Sit to Stand (QC): 3 (min) Chair/Zls-cj-Ibxzj Xfer(QC): 3 (min) Car Transfer (QC): 3 (min) Does the Patient Walk: No and Walking Goal IS indicated Walk 10 feet (QC): 3 (min) Walk 10ft-Uneven Surface(QC): 3 (min) Walk 50ft with 2 Turns (QC): 3 (min) Walk 150 ft (QC): 88 Does the Pt use WC or Scooter?: Yes Wheel 50 feet with 2 turns (QC: 6 1 Step (curb) (QC): 3 (min) 4 Steps (QC): 88 12 Steps (QC): 9 Picking up an Object (QC): 9 OT Clinical Trial Leader Goals [facility] Goals Time Frame: August 24, 2020 Eating (QC): 6 (met) Oral Hygiene (QC): 6 (met) Shower/Bathe Self (QC): 4 (met) Upper Body Dressing (QC): 6 (not met) Lower Body Dressing (QC): 6 (not met) On/Off Footwear (QC): 6 (not met) Toileting Hygiene (QC): 6 (not met) Toilet/Commode Transfer (QC): 3 (min) Additional Goals: 1-Demonstrate ADL Tasks, 2-Verbalize Understanding, 3- ImproveStrength/Jai 1=Demonstrate adherence to instructed precautions during ADL tasks. 2=Patient will verbalize/demonstrate understanding of assistive devices/modifications for ADL. 3=Patient will improve strength/tolerance for activity to enable patient to perform ADL's. FABIAN BOBBY PT August 18, 2020 15:46
== END 2020-08-18 10:50 | disposition home health service (06) | DRG 552 ==
PROVIDERS: ADMIT Internal Medicine; ATTEND Internal Medicine
PROC: 5A09357 Assistance with Respiratory Ventilation, Less than 24 Consecutive Hours, Continuous Positive Airway Pressure (ICD-10-PCS; principal; 2020-08-06)
DX: M48.062 Spinal stenosis, lumbar region with neurogenic claudication (principal); Z68.41 Body mass index [BMI] 40.0-44.9, adult; M47.26 Other spondylosis with radiculopathy, lumbar region; E11.40 Type 2 diabetes mellitus with diabetic neuropathy, unspecified; E66.01 Morbid (severe) obesity due to excess calories; I10 Essential (primary) hypertension; E78.5 Hyperlipidemia, unspecified; D64.9 Anemia, unspecified; G47.33 Obstructive sleep apnea (adult) (pediatric); N40.0 Benign prostatic hyperplasia without lower urinary tract symptoms; E78.00 Pure hypercholesterolemia, unspecified; Z86.16 Personal history of COVID-19; Z82.49 Family history of ischemic heart disease and other diseases of the circulatory system
CPT/HCPCS: 36415; 80053; 85025